=== PATIENT | female | born 1965 | race Caucasian/White ===

== ENCOUNTER 2016-08-06 08:24 | Day surgery (SDC) | payer MEDICARE, OTHER ==
[2016-07-27 15:23] VITALS: BMI 37.3
[~2016-08-06 08:24] MED LIST: LACTATED RINGERS 1,000 ML IV SCH
[2016-08-06 08:36] VITALS: RESP 16; TEMP 96.9
[2016-08-06] MEDS ORDERED: LIDOCAINE 1% 20 ML VIAL (10MG/ML) FOR IV START INTRADERMA ONE (08:40)
[2016-08-06] MEDS ORDERED: MIDAZOLAM 2 MG/2 ML VIAL ONE (08:49)
[2016-08-06] MEDS ORDERED: TRIAMCINOLONE ACETONIDE 40 MG/ML 1 ML VIAL ONE (08:49)
[2016-08-06] MEDS ORDERED: fentaNYL (PF) 50 MCG/ML 2 ML AMP ONE (08:49)
[2016-08-06] MEDS ORDERED: BUPIVACAINE (PF) 0.5% 30 ML VIAL ONE (08:49)
--- NOTE | 2016-08-06 09:20 | P.PCN ---
Date of Procedure: 08/06/16 Procedure(s) Performed: Preoperative diagnoses= 1-bilateral sacroiliitis. 2-lumbar spondylosis with lumbar facet arthropathy without myelopathy. Postoperative diagnoses= same as preoperative diagnosis. Procedure= bilateral sacroiliac joint steroid injection under fluoroscopic guidance. Anesthesia= conscious sedation with Versed 2 mg and fentanyl 150 micrograms and local infiltration with lidocaine 1% 4 ml Estimated blood loss=minimal. Procedure indication= the patient had a history of severe chronic low back pain , diagnosed with sacroiliitis and lumbar sacral facet arthropathy unresponsive to conservative treatment. Procedure description= the patient was seen and identified in the preoperative holding area, risks and benefits and alternative of the procedure and possible complications discussed with the patient, and he agreed with the preceding, patient signed the consent, an IV was started, and vital signs were monitored and were stable throughout the procedure, patient was placed in the prone position or table and the lumbosacral area was prepped and draped with a sterile fashion, vital signs were closely monitored during the procedure, the fluoroscopy camera was placed in the contralateral oblique view on the right sacroiliac joint and the lower part of the joint was identified, local infiltration of the skin and subcutaneous tissue with lidocaine 1% 2 mL then a 22-gauge Quincke-type spinal needle advanced slowly under fluoroscopy and placed in the posterior and inferior border of the right sacroiliac joint, placement confirmed with AP and lateral view, and after appropriate needle placement confirmed and after negative aspiration for heme and CSF and there was no paresthesia during the injection, 3 ml of Marcaine 0.5% and 40 mg of Kenalog injected after negative aspiration, the needle removed, and the entire same procedure was repeated for the left sacroiliac joint Patient tolerated the procedure well without any complication, The patient returned to supine position after the back was cleaned and a Band- Aid applied, the patient transported to recovery room in stable condition and he was monitored for 30 minutes before he was discharged home and then patient was reexamined before going home and patient was discharged in stable condition and patient will follow up with the pain clinic in a few weeks
[2016-08-06] MEDS ORDERED: IV FLUID CONTINUATION 1,000 ML IV ONE (09:27)
--- NOTE | 2016-08-06 09:29 | FL ---
Fluoroscopy History: BILATERAL SI JOINTS bilateral SI joints; FL time 12 seconds; Dr. Salinas; 2 scanned films
[2016-08-06 09:47] VITALS: BP 146/95; PULSE 61
== END 2016-08-06 09:58 | disposition home or self-care (01) ==
LOC: ORPAIN 08:24
PROVIDERS: ATTEND Specialist
DX: M46.1 Sacroiliitis, not elsewhere classified (principal); M47.816 Spondylosis without myelopathy or radiculopathy, lumbar region; M46.96 Unspecified inflammatory spondylopathy, lumbar region; G89.29 Other chronic pain; Z88.0 Allergy status to penicillin
CPT/HCPCS: J2250; J3301; J3010; G0260

== ENCOUNTER → 2016-09-25 | Outpatient (CLI) | payer MEDICARE ==
[2016-09-25 11:33] VITALS: BP 134/84; PULSE 93; RESP 18; TEMP 97.8
--- NOTE | 2016-09-25 11:42 | P.PN ---
Progress Note - Text Patient returns for followup for chronic back and hip pain with radiation to bilateral legs. Patient continues to complain of low back and hip pain and underwent SIJ injection x 1 with 1-2 weeks' relief. Medication regimen previously adjusted to oxycodone/baclofen/Lyrica and this regimen is working well fo rher. Patient denies adverse drug effects from medications. Today, pt denies new-onset weakness, bowel/bladder incontinence, or any other signs or symptoms of cauda equina syndrome. There are no signs of acute intoxication, and no indications of medication diversion or overuse. In addition to above, 13-point review of systems is also negative for chest pain , shortness of breath, changes in vision, changes in hearing, new onset weakness , abdominal pain, diarrhea, extreme fatigue, malaise, fever, skin changes, homicidal or suicidal ideation, or bowel or bladder incontinence. Vital Signs: Reviewed in EMR Gen: WDWN, AAOx3, NAD, obese HEENT: NCAT, EOMI, hearing grossly normal Pulm: resp unlabored Abd: soft, NT, ND, obese Neck: supple, trachea midline ROM in flexion lumbar spine: reduced due to pain ROM in extension lumbar spine: reduced due to pain Lumbar paravertebral tenderness: + Facet loading: + SI joint tenderness: + bilaterally, R > L Kirk's test: ++ bilateral, R >> L Neuro: CN II-XII grossly intact Imaging: Reviewed in EMR Assessment: 1. obesity 2. lumbar spondylosis without myelopathy 3. chronic pain syndrome 4. sacroiliitis Plan: 1. Explanation: Opioid and psychological risk scores were reviewed. Diagnoses , prognoses, and multiple treatment options including but not limited to physical therapy, interventional therapies, adjuvant medical therapies, narcotic medication therapies, and surgery were discussed with the patient and all questions were answered to the patient's satisfaction. 2. Opioid agreement: Patient has previously signed narcotic agreement, and was orally counseled to not overuse, abuse, divert, or cell medications, and to take them as prescribed by only 1 healthcare provider. The patient was also counseled to store opioid medications in a safe and preferably locked location. Patient was also counseled against driving while using narcotic medications and also to not use alcohol or any illicit or recreational drugs. The patient verbalized understanding that lack of compliance with any of the above and likely result in failure to renew narcotic prescriptions, possible discharge from the clinic, and possible legal ramifications thereafter if indicated. 3. Counseling: The patient was counseled extensively on BODY MASS INDEX, EXERCISE. Specifically, the patient was instructed regarding the importance of obesity, and exercise in the context of both chronic pain and overall health. 4. Procedures: repeat bilateral SIJ injection 5. Consultations: None 6. Investigations: None 7. Medications: continue oxycodone 15 mg po q8h, baclofen to 20 mg TID, and Lyrica 100 mg po TID 8. Disposition: f/u for procedure as scheduled in September; patient wishes to have T-spine evaluated for procedures; will do so after second SIJ injection completed next month. f/u 4 weeks for procedure and 8 weeks in clinic. PQRS measures: 1-Patient's medications are documented in the chart. 2-Tobacco use is positive, counseling given 3-Patient has had a pneumococcal vaccine. 4-Advanced care planning discussed, patient unable to give. 5-Opioid contract signed with the patient. 6-Pain positive, follow-up visit or procedure scheduled 7-Patient's blood pressure measured and documented, and patient will follow up with the primary care due to hypertension. 8-Patient's weight was measured, and body mass index ABOVE the normal limits, and counseling was done. Patient instructed to follow up with PCP. 9-Patient WAS NOT identified as an unhealthy alcohol user.
== END | disposition home or self-care (01) ==
LOC: PNWHC3 11:14
PROVIDERS: ATTEND Anesthesiology
DX: E66.9 Obesity, unspecified (principal); M47.816 Spondylosis without myelopathy or radiculopathy, lumbar region; G89.4 Chronic pain syndrome; M46.1 Sacroiliitis, not elsewhere classified; Z72.0 Tobacco use; I10 Essential (primary) hypertension
CPT/HCPCS: 99211

== ENCOUNTER 2016-10-22 08:25 | Day surgery (SDC) | payer MEDICARE, OTHER ==
[2016-10-18 09:46] VITALS: BMI 36.6
[2016-10-22 09:15] VITALS: RESP 16; TEMP 98
[2016-10-22] MEDS ORDERED: LIDOCAINE 1% 20 ML VIAL (10MG/ML) FOR IV START INTRADERMA ONE (09:15)
[2016-10-22] MEDS ORDERED: fentaNYL (PF) 50 MCG/ML 2 ML AMP ONE (09:38)
[2016-10-22] MEDS ORDERED: TRIAMCINOLONE ACETONIDE 40 MG/ML 1 ML VIAL ONE (09:38)
[2016-10-22] MEDS ORDERED: BUPIVACAINE (PF) 0.5% 30 ML VIAL ONE (09:38)
[2016-10-22] MEDS ORDERED: MIDAZOLAM 2 MG/2 ML VIAL ONE (09:38)
--- NOTE | 2016-10-22 09:54 | P.PCN ---
Date of Procedure: 10/22/16 Preoperative Diagnosis: Bilateral sacroiliitis Postoperative Diagnosis: Same as above Procedure(s) Performed: Bilateral sacroiliac joint steroid injection under fluoroscopic guidance Anesthesia: MAC Surgeon: Malachi Bruner Pathology: none sent Condition: stable Disposition: PACU Description of Procedure: The patient was seen in preop holding area consent was obtained then she was brought into the procedure room and placed in prone position. Skin was prepped with ChloraPrep and draped in a sterile manner. Lidocaine 1% was used to numb the skin up at the target points that were chosen as follows: I started by doing the right sacroiliac joint the C-arm was tilted to the left oblique position to superimpose the anterior and posterior joint lines on each other and to get a unified joint line and the target point was at the inferior one third of this joint line. I used 22-gauge 3-1/2 inch Quincke spinal needle for this procedure and after getting into the sacroiliac joint then injected 20 mg of Kenalog +2.5 MLS of Marcaine 0.5%. The left side was done in the same manner and the total dose of steroids given for this procedure was 40 mg. we used to milligrams of Versed IV and 100 mg of fentanyl IV for sedation.
[2016-10-22] MEDS ORDERED: IV FLUID CONTINUATION 1,000 ML IV ONE (09:58)
[2016-10-22 10:28] VITALS: BP 160/92; PULSE 62
--- NOTE | 2016-10-22 10:33 | FL ---
FLUOROSCOPY 8 seconds of fluoroscopy time were utilized during Pain Injection. 2 images document the procedure.
== END 2016-10-22 10:34 | disposition home or self-care (01) ==
LOC: ORPAIN 08:25
PROVIDERS: ATTEND Anesthesiology
DX: M46.1 Sacroiliitis, not elsewhere classified (principal); Z88.0 Allergy status to penicillin
CPT/HCPCS: J2250; J3301; J3010; G0260

== ENCOUNTER → 2016-11-27 | Outpatient (CLI) | payer MEDICARE ==
[2016-11-27 14:12] VITALS: BP 145/100; PULSE 69; RESP 18; TEMP 98.2
--- NOTE | 2016-11-27 14:25 | P.PN ---
Progress Note - Text Patient returns for followup for chronic back and hip pain with radiation to bilateral legs. Patient continues to complain of low back and hip pain and underwent SIJ injection x 2with 1-2 weeks' relief from each one. Medication regimen previously adjusted to oxycodone/baclofen/Lyrica and this regimen is working well for her. Patient denies adverse drug effects from medications. Today, pt denies new-onset weakness, bowel/bladder incontinence, or any other signs or symptoms of cauda equina syndrome. There are no signs of acute intoxication, and no indications of medication diversion or overuse. In addition to above, 13-point review of systems is also negative for chest pain , shortness of breath, changes in vision, changes in hearing, new onset weakness , abdominal pain, diarrhea, extreme fatigue, malaise, fever, skin changes, homicidal or suicidal ideation, or bowel or bladder incontinence. Vital Signs: Reviewed in EMR Gen: WDWN, AAOx3, NAD, obese HEENT: NCAT, EOMI, hearing grossly normal Pulm: resp unlabored Abd: soft, NT, ND, obese Neck: supple, trachea midline Tender to deep palpation in thoracic spine bilaterally, worst over T9-T10 area ROM in flexion lumbar spine: reduced due to pain ROM in extension lumbar spine: reduced due to pain Lumbar paravertebral tenderness: + Facet loading: + SI joint tenderness: + bilaterally, R > L Kirk's test: ++ bilateral, R >> L Neuro: CN II-XII grossly intact Imaging: Reviewed in EMR Assessment: 1. obesity 2. lumbar spondylosis without myelopathy 3. chronic pain syndrome 4. sacroiliitis Plan: 1. Explanation: Opioid and psychological risk scores were reviewed. Diagnoses , prognoses, and multiple treatment options including but not limited to physical therapy, interventional therapies, adjuvant medical therapies, narcotic medication therapies, and surgery were discussed with the patient and all questions were answered to the patient's satisfaction. 2. Opioid agreement: Patient has previously signed narcotic agreement, and was orally counseled to not overuse, abuse, divert, or cell medications, and to take them as prescribed by only 1 healthcare provider. The patient was also counseled to store opioid medications in a safe and preferably locked location. Patient was also counseled against driving while using narcotic medications and also to not use alcohol or any illicit or recreational drugs. The patient verbalized understanding that lack of compliance with any of the above and likely result in failure to renew narcotic prescriptions, possible discharge from the clinic, and possible legal ramifications thereafter if indicated. 3. Counseling: The patient was counseled extensively on BODY MASS INDEX, EXERCISE. Specifically, the patient was instructed regarding the importance of obesity, and exercise in the context of both chronic pain and overall health. 4. Procedures: SI RFA, right vs. left 5. Consultations: None 6. Investigations: UDS today 7. Medications: continue oxycodone 15 mg po q8h, baclofen to 20 mg TID, and Lyrica 100 mg po TID 8. Disposition: f/u for R vs. L SI RFA as scheduled PQRS measures: 1-Patient's medications are documented in the chart. 2-Tobacco use is positive, counseling given 3-Patient has had a pneumococcal vaccine. 4-Advanced care planning discussed, patient unable to give. 5-Opioid contract signed with the patient. 6-Pain positive, follow-up visit or procedure scheduled 7-Patient's blood pressure measured and documented, and patient will follow up with the primary care due to hypertension. 8-Patient's weight was measured, and body mass index ABOVE the normal limits, and counseling was done. Patient instructed to follow up with PCP. 9-Patient WAS NOT identified as an unhealthy alcohol user.
== END ==
LOC: PNWHC3 13:57
PROVIDERS: ATTEND Anesthesiology
DX: M47.816 Spondylosis without myelopathy or radiculopathy, lumbar region (principal); M46.1 Sacroiliitis, not elsewhere classified; G89.4 Chronic pain syndrome; E66.9 Obesity, unspecified; Z79.891 Long term (current) use of opiate analgesic; Z79.899 Other long term (current) drug therapy
CPT/HCPCS: 80307; G0480; G0463; 80346; 80356; 80364; 99211

== ENCOUNTER → 2016-12-25 | Outpatient (CLI) | payer MEDICARE ==
[2016-12-25 13:56] VITALS: BP 127/87; PULSE 83; RESP 16; TEMP 98.3
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
== END | disposition home or self-care (01) ==
LOC: PNWHC3 13:34
PROVIDERS: ATTEND Specialist
DX: M51.26 Other intervertebral disc displacement, lumbar region (principal); M47.816 Spondylosis without myelopathy or radiculopathy, lumbar region; M46.96 Unspecified inflammatory spondylopathy, lumbar region; M46.1 Sacroiliitis, not elsewhere classified; F17.200 Nicotine dependence, unspecified, uncomplicated; J45.909 Unspecified asthma, uncomplicated; J44.9 Chronic obstructive pulmonary disease, unspecified; I25.10 Atherosclerotic heart disease of native coronary artery without angina pectoris; R07.9 Chest pain, unspecified; E78.5 Hyperlipidemia, unspecified; I10 Essential (primary) hypertension; I25.2 Old myocardial infarction; Z99.89 Dependence on other enabling machines and devices; Z86.14 Personal history of Methicillin resistant Staphylococcus aureus infection; Z88.0 Allergy status to penicillin; Z79.899 Other long term (current) drug therapy
CPT/HCPCS: 99211

== ENCOUNTER → 2017-01-04 | Outpatient (CLI) | payer MEDICARE ==
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
--- NOTE | 2017-01-04 08:31 | MR ---
EXAMINATION TYPE: MR thoracic spine wo con DATE OF EXAM: 01/04/2017 8:21 AM COMPARISON: January 13, 2015 HISTORY: tsp spondylosis, severe pain for years Multiplanar MultiSpin echo imaging of the thoracic spine was performed. Disc spaces: No evidence for herniation protrusion or significant degenerative disc disease. Spinal canal: No evidence for canal stenosis. No intrinsic or extrinsic lesion. Thoracic spinal cord: Thoracic spinal cord is of normal caliber and signal. Paraspinal soft tissues: No evidence for paraspinal mass. No destructive lesions seen. Vertebral segments: There is mild thoracic kyphosis noted. Mild chronic osteophyte is identified at T 5. No acute compression fractures are noted. There is evidence of ventral spondylosis. IMPRESSION: 1. Overall stable examination with mild loss of height involving the T5 vertebral segment which is ch ronic in nature and mild thoracic kyphosis. Scattered spondylosis. No evidence for disc herniation or central stenosis at this time.
== END | disposition home or self-care (01) ==
LOC: RADMRIMAIN 07:44
PROVIDERS: ATTEND Anesthesiology
DX: M47.814 Spondylosis without myelopathy or radiculopathy, thoracic region (principal); M40.204 Unspecified kyphosis, thoracic region
CPT/HCPCS: 72146

== ENCOUNTER 2017-01-31 07:51 | Day surgery (SDC) | payer MEDICARE ==
[~2017-01-31 07:51] MED LIST changes: +LACTATED RINGERS 1,000 ML IV ONE; -LACTATED RINGERS 1,000 ML IV SCH
[2017-01-31 08:19] VITALS: TEMP 98.1
[2017-01-31] MEDS ORDERED: LIDOCAINE 1% 20 ML VIAL (10MG/ML) FOR IV START INTRADERMA ONE (08:31)
[2017-01-31] MEDS ORDERED: MIDAZOLAM 2 MG/2 ML VIAL ONE (08:37)
[2017-01-31] MEDS ORDERED: DEXAMETHASONE SOD PHOS (MDV) 100 MG/10 ML VIAL ONE (08:37)
[2017-01-31] MEDS ORDERED: IOHEXOL 180 MG/ML 1 ML ML ONE (08:37)
[2017-01-31] MEDS ORDERED: fentaNYL (PF) 50 MCG/ML 2 ML AMP ONE (08:37)
--- NOTE | 2017-01-31 08:53 | P.PCN ---
Date of Procedure: 01/31/17 Preoperative Diagnosis: Postoperative Diagnosis: Procedure(s) Performed: PREOPERATIVE DIAGNOSIS: 1- Lumbar herniated Disc Diseases 2-Lumbar spondylosis with Facet arthropathy without myelopathy. 3-sacroiliitis POSTOPERATIVE DIAGNOSIS: 1-Lumber herniated Disc Diseases 2-Lumbar spondylosis with Facet arthropathy without myelopathy. 3-sacroiliitis PROCEDURE 1. Lumbar epidural steroid injection under fluoroscopic guidance at the L5-S1 level. 2. Lumbar epidurogram. ANESTHESIA: Local with 1% lidocaine 3 ml and IV sedation with Versed 2 mg , and fentanyle 50 Mcg EBL: Minimal PROCEDURE INDICATION: The patient with low back pain and radiculitis symptoms unresponsive to conservative treatment. Fluoroscopy was used to optimize visualization of the needle placement and to maximize safety. PROCEDURE DESCRIPTION / TECHNIQUE: The patient was seen and identified in the preoperative area. Risks, benefits , complications including but not limited to infections ,bleeding ,allergic reaction to the medications ,nerve damage and not complete pain releife , and alternatives were discussed with the patient. The patient agreed to proceed with the procedure and signed the consent. IV was started, and vital signs were stable. Patient was taken to the OR and time out was completed. The patient was placed in the prone position on procedure table and a pillow was placed under the abdomen to reduce lumbar lordosis. The lumbosacral area was prepped and draped in the usual sterile fashion.ere closely monitored during the procedure. Conscious sedation was used during the procedure to decrease patients anxiety. Vital signs was monitered during the entire procedure. Using anterior-posterior fluoroscopy, the L5-S1 interlaminar space was identified and the skin over this site was marked and then infiltrated with 1% lidocaine subcutaneously. Subsequently, a 20-gauge Tuohy epidural needle was inserted and advanced toward the epidural space using the ``Loss of resistance technique and guided by AP and lateral fluoroscopy. The correct needle position in the epidural space was verified with the injection of 2 mL of the water soluble contrast dye Omnipaque 180 contrast and observing an excellent epidurogram with the epidural spread of the dye, after negative aspiration for blood and CSF and in the absence of paresthesias. Again after negative aspiration, a 6 ml mixture containing 20 mg of Dexamethasone and 2 ml of preservative free Normal Saline, and 2 ml of preservative free lidocaine 1% solution was injected and a washout of epidurogram was seen. Needle was withdrawn intact, skin was cleansed, and bandages were applied. COMPLICATIONS: None DISPOSITION / PLANS: The patient was placed in a supine position and transferred to the recovery area in a stable condition for observation. There was no evidence of lower extremity motor or sensory deficit after the procedure. Patient was discharged from the recovery room after meeting discharge criteria. Home discharge instructions were given to the patient by the staff. The patient was reexamined prior to discharge. The patient will schedule a follow up in the clinic in 2-4 weeks. Implants: Indications for Procedure: Operative Findings: Description of Procedure:
[2017-01-31] MEDS ORDERED: IV FLUID CONTINUATION 800 ML IV ONE (09:00)
--- NOTE | 2017-01-31 09:00 | FL ---
FLUOROSCOPY 5 seconds of fluoroscopy time were utilized during Pain Injection. 1 images document the procedure.
[2017-01-31 09:33] VITALS: BP 154/93; PULSE 76; RESP 16
== END 2017-01-31 09:34 | disposition home or self-care (01) ==
LOC: ORPAIN 07:51
PROVIDERS: ATTEND Specialist
DX: M51.16 Intervertebral disc disorders with radiculopathy, lumbar region (principal); M47.26 Other spondylosis with radiculopathy, lumbar region; M46.96 Unspecified inflammatory spondylopathy, lumbar region; M46.1 Sacroiliitis, not elsewhere classified; Z88.0 Allergy status to penicillin
CPT/HCPCS: 81025; 62323; J2250; Q9965; J3010; J1100

== ENCOUNTER 2017-02-27 06:57 | Day surgery (SDC) | payer MEDICARE ==
[2017-02-20 15:14] VITALS: BMI 38.7
[2017-02-27 07:20] VITALS: TEMP 97.7
[2017-02-27] MEDS ORDERED: LIDOCAINE 1% 20 ML VIAL (10MG/ML) FOR IV START INTRADERMA ONE (07:35)
[2017-02-27] MEDS ORDERED: LACTATED RINGERS 1,000 ML IV SCH (08:00)
--- NOTE | 2017-02-27 08:26 | P.PCN ---
Date of Procedure: 02/27/17 Preoperative Diagnosis: Lumbar radiculopathy Postoperative Diagnosis: Lumbar radiculopathy Procedure(s) Performed: Lumbar epidural steroid injection under fluoroscopic guidance in the interlaminar approach Implants: Anesthesia: other (Moderate conscious sedation with IV fentanyl and Versed) Surgeon: Malachi Bruner Pathology: none sent Condition: stable Disposition: PACU Indications for Procedure: Operative Findings: Description of Procedure: The patient was seen in the preop holding area consent was obtained then she was brought into the procedure room and placed in prone position. Skin was prepped with Betadine 3 and draped in a sterile manner. Lidocaine 1% was used to numb the skin up at the target point that was at the L5-S1 level in the right paramedian approach. I used 20-gauge 3-1/2 inch Touhy epidural needle with [id number] to air to identify the epidural space. There was positive [id number]-[id number] to air at about 10 cm from skin negative aspiration for any CSF or blood negative paresthesia. I then injected 1 mL of Omnipaque which showed typical epidurogram with AP and lateral views of fluoroscopy. After that I injected 40 mg of Kenalog +2 MLS of Marcaine 0.25% +4 MLS of preservative-free normal saline to a total volume of 7 MLS in epidural space. Patient tolerated procedure well.
[2017-02-27 08:37] VITALS: BP 139/64; RESP 18
[2017-02-27] MEDS ORDERED: IV FLUID CONTINUATION 1,000 ML IV ONE (08:40)
[2017-02-27 08:47] VITALS: PULSE 65
--- NOTE | 2017-02-27 10:17 | FL ---
Fluoroscopy HISTORY: Pain 5 seconds fluoroscopy time supplied to the referring clinician. 2 intraoperative C-arm images docume nt the procedure. See dictated report from anesthesia.
== END 2017-02-27 09:07 | disposition home or self-care (01) ==
LOC: ORPAIN 06:57
PROVIDERS: ATTEND Anesthesiology
DX: M51.17 Intervertebral disc disorders with radiculopathy, lumbosacral region (principal); I10 Essential (primary) hypertension; I25.10 Atherosclerotic heart disease of native coronary artery without angina pectoris; Z88.0 Allergy status to penicillin
CPT/HCPCS: 62323; J2250; J3301; Q9965; J3010; 99152; 99153

== ENCOUNTER 2017-03-19 06:23 | Day surgery (SDC) | payer MEDICARE ==
[2017-03-13 15:13] VITALS: BMI 38.7
[~2017-03-19 06:23] MED LIST changes: -LACTATED RINGERS 1,000 ML IV ONE; +LACTATED RINGERS 1,000 ML IV SCH
[2017-03-19 06:50] VITALS: RESP 16; TEMP 98.9
[2017-03-19] MEDS ORDERED: LIDOCAINE 1% 20 ML VIAL (10MG/ML) FOR IV START INTRADERMA ONE (06:52)
[2017-03-19] MEDS ORDERED: IV FLUID CONTINUATION 1,000 ML IV ONE (06:52)
--- NOTE | 2017-03-19 07:59 | FL ---
EXAMINATION TYPE: FL guided pain mgmt statistic DATE OF EXAM: 03/19/2017 HISTORY: Pain 4 sec fl time used during lumbar epidural 1 image scanned into pacs
[2017-03-19 08:14] VITALS: BP 146/100; PULSE 76
--- NOTE | 2017-03-19 08:24 | P.PCN ---
Date of Procedure: 03/19/17 Preoperative Diagnosis: Postoperative Diagnosis: Procedure(s) Performed: PREOPERATIVE DIAGNOSIS: 1- Lumbar herniated Disc Diseases 2-Lumbar spondylosis with Facet arthropathy without myelopathy POSTOPERATIVE DIAGNOSIS: 1-Lumber herniated Disc Diseases 2-Lumbar spondylosis with Facet arthropathy without myelopathy PROCEDURE 1. Lumbar epidural steroid injection under fluoroscopic guidance at the L5-S1 level. 2. Lumbar epidurogram. ANESTHESIA: Local with 1% lidocaine 3 ml and IV sedation with Versed 2 mg , and fentanyle 50 Mcg EBL: Minimal PROCEDURE INDICATION: The patient with low back pain and radiculitis symptoms unresponsive to conservative treatment. Fluoroscopy was used to optimize visualization of the needle placement and to maximize safety. PROCEDURE DESCRIPTION / TECHNIQUE: The patient was seen and identified in the preoperative area. Risks, benefits , complications including but not limited to infections ,bleeding ,allergic reaction to the medications ,nerve damage and not complete pain releife , and alternatives were discussed with the patient. The patient agreed to proceed with the procedure and signed the consent. IV was started, and vital signs were stable. Patient was taken to the OR and time out was completed. The patient was placed in the prone position on procedure table and a pillow was placed under the abdomen to reduce lumbar lordosis. The lumbosacral area was prepped and draped in the usual sterile fashion.ere closely monitored during the procedure. Conscious sedation was used during the procedure to decrease patients anxiety. Vital signs was monitered during the entire procedure. Using anterior-posterior fluoroscopy, the L5-S1 interlaminar space was identified and the skin over this site was marked and then infiltrated with 1% lidocaine subcutaneously. Subsequently, a 20-gauge Tuohy epidural needle was inserted and advanced toward the epidural space using the ``Loss of resistance technique and guided by AP and lateral fluoroscopy. The correct needle position in the epidural space was verified with the injection of 2 mL of the water soluble contrast dye Omnipaque 180 contrast and observing an excellent epidurogram with the epidural spread of the dye, after negative aspiration for blood and CSF and in the absence of paresthesias. Again after negative aspiration, a 6 ml mixture containing 20 mg of Dexamethasone and 2 ml of preservative free Normal Saline, and 2 ml of preservative free lidocaine 1% solution was injected and a washout of epidurogram was seen. Needle was withdrawn intact, skin was cleansed, and bandages were applied. COMPLICATIONS: None DISPOSITION / PLANS: The patient was placed in a supine position and transferred to the recovery area in a stable condition for observation. There was no evidence of lower extremity motor or sensory deficit after the procedure. Patient was discharged from the recovery room after meeting discharge criteria. Home discharge instructions were given to the patient by the staff. The patient was reexamined prior to discharge. The patient will schedule a follow up in the clinic in 2-4 weeks. Implants: Indications for Procedure: Operative Findings: Description of Procedure:
== END 2017-03-19 08:28 | disposition home or self-care (01) ==
LOC: ORPAIN 06:23
PROVIDERS: ATTEND Specialist
DX: M47.816 Spondylosis without myelopathy or radiculopathy, lumbar region (principal)
CPT/HCPCS: 62323; 99152; J2250; J1100; Q9965; J3010

== ENCOUNTER → 2017-05-14 | Outpatient (CLI) | payer MEDICARE ==
[2017-05-14 12:38] VITALS: BP 151/95; PULSE 80; RESP 16
--- NOTE | 2017-05-14 12:50 | P.PN ---
Progress Note - Text Progress Note Date: 05/14/17 Patient returns for followup for chronic back and hip pain with radiation to bilateral legs. Patient had very limited relief from LESI procedures and previous records demonstrate that patient had better relief with SIJ injections. Medication regimen previously adjusted to oxycodone/baclofen/ Lyrica and this regimen is working well for her. Patient denies adverse drug effects from medications. Today, pt denies new-onset weakness, bowel/bladder incontinence, or any other signs or symptoms of cauda equina syndrome. There are no signs of acute intoxication, and no indications of medication diversion or overuse. In addition to above, 13-point review of systems is also negative for chest pain , shortness of breath, changes in vision, changes in hearing, new onset weakness , abdominal pain, diarrhea, extreme fatigue, malaise, fever, skin changes, homicidal or suicidal ideation, or bowel or bladder incontinence. Vital Signs: Reviewed in EMR Gen: WDWN, AAOx3, NAD, obese HEENT: NCAT, EOMI, hearing grossly normal Pulm: resp unlabored Abd: soft, NT, ND, obese Neck: supple, trachea midline ROM in flexion lumbar spine: reduced due to pain ROM in extension lumbar spine: reduced due to pain Lumbar paravertebral tenderness: + Facet loading: + SI joint tenderness: + bilaterally, R > L Kirk's test: ++ bilateral, R >> L Neuro: CN II-XII grossly intact Imaging: Reviewed in EMR Assessment: 1. obesity 2. lumbar spondylosis without myelopathy 3. chronic pain syndrome 4. sacroiliitis Plan: 1. Explanation: Opioid and psychological risk scores were reviewed. Diagnoses , prognoses, and multiple treatment options including but not limited to physical therapy, interventional therapies, adjuvant medical therapies, narcotic medication therapies, and surgery were discussed with the patient and all questions were answered to the patient's satisfaction. 2. Opioid agreement: Patient has previously signed narcotic agreement, and was orally counseled to not overuse, abuse, divert, or cell medications, and to take them as prescribed by only 1 healthcare provider. The patient was also counseled to store opioid medications in a safe and preferably locked location. Patient was also counseled against driving while using narcotic medications and also to not use alcohol or any illicit or recreational drugs. The patient verbalized understanding that lack of compliance with any of the above and likely result in failure to renew narcotic prescriptions, possible discharge from the clinic, and possible legal ramifications thereafter if indicated. 3. Counseling: The patient was counseled extensively on BODY MASS INDEX, EXERCISE. Specifically, the patient was instructed regarding the importance of obesity, and exercise in the context of both chronic pain and overall health. 4. Procedures: SIJ injection bilateral 5. Consultations: None 6. Investigations: UDS appropriate 7. Medications: continue oxycodone 15 mg po q8h, baclofen to 20 mg TID, and Lyrica 100 mg po TID 8. Disposition: f/u for procedure as scheduled PQRS measures: 1-Patient's medications are documented in the chart. 2-Tobacco use is positive, counseling given 3-Patient has had a pneumococcal vaccine. 4-Advanced care planning discussed, patient unable to give. 5-Opioid contract signed with the patient. 6-Pain positive, follow-up visit or procedure scheduled 7-Patient's blood pressure measured and documented, and patient will follow up with the primary care due to hypertension. 8-Patient's weight was measured, and body mass index ABOVE the normal limits, and counseling was done. Patient instructed to follow up with PCP. 9-Patient WAS NOT identified as an unhealthy alcohol user.
== END | disposition home or self-care (01) ==
LOC: PNWHC3 12:18
PROVIDERS: ATTEND Anesthesiology
DX: M47.816 Spondylosis without myelopathy or radiculopathy, lumbar region (principal); M46.1 Sacroiliitis, not elsewhere classified; G89.4 Chronic pain syndrome; E66.9 Obesity, unspecified
CPT/HCPCS: 99211

== ENCOUNTER 2017-06-24 07:27 | Day surgery (SDC) | payer MEDICARE ==
[2017-06-18 16:06] VITALS: BMI 37.7
[2017-06-24 07:44] VITALS: RESP 16; TEMP 98
[2017-06-24] MEDS ORDERED: LIDOCAINE 1% 20 ML VIAL (10MG/ML) FOR IV START INTRADERMA ONE (07:49)
--- NOTE | 2017-06-24 08:25 | P.PCN ---
Date of Procedure: 06/24/17 Preoperative Diagnosis: Bilateral sacroiliitis Postoperative Diagnosis: Same as above Procedure(s) Performed: Bilateral sacroiliac joint steroid injection under fluoroscopic guidance Anesthesia: MAC (Consciousness with IV Versed and fentanyl) Surgeon: Malachi Bruner Pathology: none sent Condition: stable Disposition: PACU Description of Procedure: the patient was seen and identified in the preoperative holding area, risks and benefits and alternative of the procedure and possible complications discussed with the patient, patient signed the consent. an IV was started, and vital signs were monitored and were stable throughout the procedure, patient was placed in the prone position or table and the lumbosacral area was prepped and draped with a sterile fashion, vital signs were closely monitored during the procedure.The right sacroiliac joint was identified on the AP view of fluoroscopy then the C-arm was tilted to the left oblique position to superimpose the anterior and posterior joint lines on each other and to have a unified joint line with the target point at the inferior one third of this line. I used 22-gauge 3-1/2 inch Quincke spinal needle for this procedure and after getting into the sacroiliac joint I injected 20 mg of Kenalog +2.5 MLS of Marcaine 0.5%. The same procedure was repeated on the left side by tilting the C-arm to the right oblique position this time. At the target point was also at the inferior one third of this unified joint line. Using a 22-gauge 3-1/2 inch Quincke spinal needle I injected 20 mg of Kenalog plus 2.5 MLS of Marcaine 0.5% . Patient tolerated the procedure well without any complication, The patient returned to supine position after the back was cleaned and a Band- Aid applied, the patient transported to recovery room in stable condition and he was monitored for 30 minutes before he was discharged home and then patient was reexamined before going home and patient was discharged in stable condition and patient will follow up with the pain clinic in a few weeks
[2017-06-24 08:58] VITALS: BP 138/77; PULSE 94
--- NOTE | 2017-06-24 09:34 | FL ---
EXAMINATION TYPE: FL guided pain mgmt statistic DATE OF EXAM: 06/24/2017 FLUOROSCOPY Fluoroscopy time of 6 seconds was used during bilateral SI joint injection. 2 image/s document/s the procedure.
== END 2017-06-24 09:16 | disposition home or self-care (01) ==
LOC: ORPAIN 07:27
PROVIDERS: ATTEND Anesthesiology
DX: M46.1 Sacroiliitis, not elsewhere classified (principal); I10 Essential (primary) hypertension; I25.10 Atherosclerotic heart disease of native coronary artery without angina pectoris; G47.33 Obstructive sleep apnea (adult) (pediatric); Z88.0 Allergy status to penicillin
CPT/HCPCS: G0260; J2250; J3301; J3010

== ENCOUNTER 2017-07-30 06:48 | Day surgery (SDC) | payer MEDICARE ==
[2017-07-30] MEDS ORDERED: LACTATED RINGERS 1,000 ML IV ONE (07:00)
[2017-07-30] MEDS ORDERED: LIDOCAINE 1% 20 ML VIAL (10MG/ML) FOR IV START INTRADERMA ONE (07:06)
[2017-07-30] MEDS ORDERED: LACTATED RINGERS 1,000 ML IV SCH (07:07)
--- NOTE | 2017-07-30 07:37 | P.PCN ---
Date of Procedure: 07/30/17 Procedure(s) Performed: Preoperative diagnoses= 1-bilateral sacroiliitis. 2-lumbar spondylosis with facet arthropathy without myelopathy. 3- lumbar herniated disc disease Postoperative diagnoses= same as preoperative diagnosis. Procedure= bilateral sacroiliac joint steroid injection under fluoroscopic guidance. Anesthesia= moderate sedation with Versed 2 mg and fentanyl 100 micrograms and local infiltration with lidocaine 1% 4 ml Estimated blood loss=minimal. Procedure indication= the patient had a history of severe chronic low back pain , diagnosed with sacroiliitis and lumbar sacral facet arthropathy unresponsive to conservative treatment. Procedure description= the patient was seen and identified in the preoperative holding area, risks and benefits and alternative of the procedure and possible complications discussed with the patient, and he agreed with the preceding, patient signed the consent, an IV was started, and vital signs were monitored and were stable throughout the procedure, patient was placed in the prone position or table and the lumbosacral area was prepped and draped with a sterile fashion, vital signs were closely monitored during the procedure, the fluoroscopy camera was placed in the contralateral oblique view on the right sacroiliac joint and the lower part of the joint was identified, local infiltration of the skin and subcutaneous tissue with lidocaine 1% 2 mL then a 22-gauge Quincke-type spinal needle advanced slowly under fluoroscopy and placed in the posterior and inferior border of the right sacroiliac joint, placement confirmed with AP and lateral view, and after appropriate needle placement confirmed and after negative aspiration for heme and CSF and there was no paresthesia during the injection, 3 ml of Marcaine 0.5% and 40 mg of Kenalog injected after negative aspiration, the needle removed, and the entire same procedure was repeated for the left sacroiliac joint Patient tolerated the procedure well without any complication, The patient returned to supine position after the back was cleaned and a Band- Aid applied, the patient transported to recovery room in stable condition and he was monitored for 30 minutes before he was discharged home and then patient was reexamined before going home and patient was discharged in stable condition and patient will follow up with the pain clinic in a few weeks
--- NOTE | 2017-07-30 07:40 | P.PN ---
Progress Note - Text Progress Note Date: 07/30/17 Refill for oxycodone 15 mg every 8 hours dispense 90, Baclofen 20 mg 3 times a day dispense 90 , Lyrica 100 mg 3 times a day dispense 90
[2017-07-30] MEDS ORDERED: IV FLUID CONTINUATION 500 ML IV ONE (07:44)
--- NOTE | 2017-07-30 10:13 | FL ---
EXAMINATION TYPE: FL guided pain mgmt statistic DATE OF EXAM: 07/30/2017 HISTORY: Pain bilateral SI jt inj. Dr Salinas. 2 pics scanned. 8 sec fl time
[2017-07-31 22:55] VITALS: BP 124/72; PULSE 75; RESP 18; TEMP 98
== END 2017-07-30 08:14 | disposition home or self-care (01) ==
LOC: ORPAIN 06:48
PROVIDERS: ATTEND Specialist
DX: G89.29 Other chronic pain (principal); M46.1 Sacroiliitis, not elsewhere classified; M51.26 Other intervertebral disc displacement, lumbar region; M47.816 Spondylosis without myelopathy or radiculopathy, lumbar region; M46.96 Unspecified inflammatory spondylopathy, lumbar region; I25.10 Atherosclerotic heart disease of native coronary artery without angina pectoris; I10 Essential (primary) hypertension; J44.9 Chronic obstructive pulmonary disease, unspecified; G47.33 Obstructive sleep apnea (adult) (pediatric); Z88.0 Allergy status to penicillin
CPT/HCPCS: G0260; J2250; J3301; J3010; 99152

== ENCOUNTER → 2017-08-28 | Outpatient (CLI) | payer MEDICARE ==
[2017-08-28 13:43] VITALS: BP 118/71; PULSE 81; RESP 18
--- NOTE | 2017-08-28 14:00 | P.PN ---
Progress Note - Text Progress Note Date: 08/28/17 Patient returns for followup for chronic back and hip pain with radiation to bilateral legs. Patient recently underwent bilateral SIJ injections x 2 with > 50% relief for approximately 2 weeks' interval from each. Medication regimen previously adjusted to oxycodone/baclofen/Lyrica and this regimen is working well for her. Patient denies adverse drug effects from medications. Today, pt denies new-onset weakness, bowel/bladder incontinence, or any other signs or symptoms of cauda equina syndrome. There are no signs of acute intoxication, and no indications of medication diversion or overuse. In addition to above, 13-point review of systems is also negative for chest pain , shortness of breath, changes in vision, changes in hearing, new onset weakness , abdominal pain, diarrhea, extreme fatigue, malaise, fever, skin changes, homicidal or suicidal ideation, or bowel or bladder incontinence. Vital Signs: Reviewed in EMR Gen: WDWN, AAOx3, NAD, obese HEENT: NCAT, EOMI, hearing grossly normal Pulm: resp unlabored Abd: soft, NT, ND, obese Neck: supple, trachea midline ROM in flexion lumbar spine: reduced due to pain ROM in extension lumbar spine: reduced due to pain Lumbar paravertebral tenderness: + Facet loading: + SI joint tenderness: + bilaterally, R > L Kirk's test: ++ bilateral, R >> L Neuro: CN II-XII grossly intact Imaging: Reviewed in EMR Assessment: 1. obesity 2. lumbar spondylosis without myelopathy 3. chronic pain syndrome 4. sacroiliitis Plan: 1. Explanation: Opioid and psychological risk scores were reviewed. Diagnoses , prognoses, and multiple treatment options including but not limited to physical therapy, interventional therapies, adjuvant medical therapies, narcotic medication therapies, and surgery were discussed with the patient and all questions were answered to the patient's satisfaction. 2. Opioid agreement: Patient has previously signed narcotic agreement, and was orally counseled to not overuse, abuse, divert, or cell medications, and to take them as prescribed by only 1 healthcare provider. The patient was also counseled to store opioid medications in a safe and preferably locked location. Patient was also counseled against driving while using narcotic medications and also to not use alcohol or any illicit or recreational drugs. The patient verbalized understanding that lack of compliance with any of the above and likely result in failure to renew narcotic prescriptions, possible discharge from the clinic, and possible legal ramifications thereafter if indicated. 3. Counseling: The patient was counseled extensively on BODY MASS INDEX, EXERCISE. Specifically, the patient was instructed regarding the importance of obesity, and exercise in the context of both chronic pain and overall health. 4. Procedures: R SI RFA 5. Consultations: None 6. Investigations: UDS today 7. Medications: Oxycodone 15 mg po q8h #90 with one refill, baclofen 20 mg TID #90 with two refills, and Lyrica 100 mg po TID #90 with two refills 8. Disposition: f/u for procedure as scheduled PQRS measures: 1-Patient's medications are documented in the chart. 2-Tobacco use is positive, counseling given 3-Patient has had a pneumococcal vaccine. 4-Advanced care planning discussed, patient unable to give. 5-Opioid contract signed with the patient. 6-Pain positive, follow-up visit or procedure scheduled 7-Patient's blood pressure measured and documented, and patient will follow up with the primary care due to hypertension. 8-Patient's weight was measured, and body mass index ABOVE the normal limits, and counseling was done. Patient instructed to follow up with PCP. 9-Patient WAS NOT identified as an unhealthy alcohol user.
== END | disposition home or self-care (01) ==
LOC: PNWHC3 13:12
PROVIDERS: ATTEND Anesthesiology
DX: G89.4 Chronic pain syndrome (principal); M54.5 Low back pain; M47.816 Spondylosis without myelopathy or radiculopathy, lumbar region; M46.1 Sacroiliitis, not elsewhere classified; E66.9 Obesity, unspecified; F17.200 Nicotine dependence, unspecified, uncomplicated; Z79.899 Other long term (current) drug therapy; Z71.6 Tobacco abuse counseling; Z79.891 Long term (current) use of opiate analgesic
CPT/HCPCS: 80307; G0480 ×3; G0463; 80346; 80356; 80364; 99211

== ENCOUNTER 2017-09-05 08:45 | Day surgery (SDC) | payer MEDICARE ==
[2017-09-04 08:39] VITALS: BMI 35.9
[2017-09-05 09:16] VITALS: RESP 16; TEMP 97.2
[2017-09-05] MEDS ORDERED: LIDOCAINE 1% 20 ML VIAL (10MG/ML) FOR IV START INTRADERMA ONE (09:22)
--- NOTE | 2017-09-05 10:59 | P.PCN ---
Date of Procedure: 09/05/17 Procedure(s) Performed: PREOPERATIVE DIAGNOSIS: 1-Lumbosacral spondylosis with facet arthropathy without myelopathy. 2- Bilateral sacroiliit. post operative Diagnosis: . 1-Lumbosacral spondylosis with facet arthropathy without myelopathy. 2-Bilateral sacroiliit. PROCEDURES: 1- Right radiofrequency thermocoagulation/ablation of the L5 dorsal ramus. 2- Right multi-site radiofrequency thermocoagulation/ablation of the S1, S2, and S3 lateral branchs. The procedure was performed using fluoroscopic guidance during needle placement to assure proper position and maximize safety . ANESTHESIA: LOCAL ANESTHESIA = moderate sedation with Fentanyle 50 mcg IV EBL: NONE INDICATION/MEDICAL NECESSITY: History of low back pain secondary to bilateral sacroiliitis and lumbosacral arthropathy unresponsive to more conservative treatments. The patient reported more than 50% relief of pain symptoms following 2 previous diagnostic blocks with Bupivacaine. PROCEDURE DESCRIPTION: The patient was seen and identified in the preoperative area. Risks, benefits, complications, and alternatives were discussed with the patient. The patient agreed to proceed with the procedure and signed the consent. Vital signs were checked before and after the procedure and they remained stable. Patient ambulated to the procedure room and time out was completed. The patient was placed in the prone position on the procedure table and a pillow was placed under the abdomen to reduce lumbar lordosis. The lumbosacral area was prepped and draped in the usual sterile fashion. Critical pause was taken. L5 Dorsal Ramus RF: Using right oblique fluoroscopy, the junction of the transverse process and the superior articular process of the right S1 vertebra, which correspond to the fluoroscopic image of the "eye of the Jorge dog" was identified. Subsequently, a 10-cm 20 -gauge radiofrequency cannula with a 10-mm active tip was advanced under fluoroscopic guidance until contact was made with periosteum. At this level, the Sensory testing of the L5 dorsal ramus was performed at 50 Hz and 0 to 1 volt with production of concordant pain starting at 0.5 volt. Motor stimulation was done at 2.5 Hz with stimulation of mulitifidus muscle contration . No radicular symptoms or paresthesias were produced during the testing. Subsequently, the L5 dorsal ramus was subjected to a radiofrequency ablation at 80 degree celsius for 90 seconds . after 0.5% Bupivacaine 1 ml injected at each level after negative aspirations . S1, S3, Lateral Branch RF: The lateral margins of the Right S1, S2, foramina were identified using AP fluoroscopy. Under fluoroscopic guidance, three 10-cm 20 -gauge radiofrequency cannula with a 10-mm active tip were inserted at 8-10 mm peripheral to the posterior S1 foramen, at various locations using clock-face coordinates. The center of the clock was registered at the lateral margin of the foramen. The 2: 30, 4:00, and 5:30 oclock positions were used. At this level, the sensory testing of the S1 lateral branch was performed at 50 Hz and 0 to 1 volt at the three levels with production of concordant pain starting at 0.5 volt. Motor stimulation was done at 2.5 Hz. No radicular symptoms or paresthesias were produced during the testing. Subsequently, the S1 lateral branch was subjected to a radiofrequency ablation at a mode of 90 seconds at 80 degrees Celsius at the 3 levels after negative motor and sensory testing and after injecting 0.5 ml of preservative free Bupivacaine 0.5 %. The same procedure was performed at the level of the S2 foramen. For the S3 foramen, only the 2:30 and 4:00 o clock positions were used. Sensory and motor testing followed by radiofrequency ablation were performed as described for the S1 and S2 foramina. The needle was withdrawn intact after each injection. the plane was to do the RFA for the lateral branches for S3 also , But I was not able to see the S3 foramina , for this reason it was not done . COMPLICATIONS: The patient tolerated the procedure well without any acute complications. DISPOSTION/PLAN: The patient ambulated to the recovery area after the procedure in a stable condition for observation. Patient was reexamined prior to discharge. Patient was observed for 30 minutes in the recovery area and was discharged home, accompanied by an adult, after meeting discharged criteria. Discharge instructions were give to the patient by the staff. Patient was specifically instructed not to drive today and to rest for the rest of the day. The patient will schedule a follow up visit in the clinic in weeks or earlier if needed.
[2017-09-05] MEDS ORDERED: IV FLUID CONTINUATION 1,000 ML IV ONE (11:07)
--- NOTE | 2017-09-05 11:09 | FL ---
EXAMINATION TYPE: FL guided pain mgmt statistic DATE OF EXAM: 09/05/2017 CLINICAL HISTORY: Low back and sacral pain. TECHNIQUE: Fluoroscopy. COMPARISON: None. FINDINGS: Fluoroscopic guidance was provided during pain relief procedure performed by Dr. Wyatt . A total of 32 seconds of fluoroscopic time was utilized during the procedure and 8 spot images are acquired. Images acquired shows needle localization at multiple levels in the sacrum. IMPRESSION: As Above.
[2017-09-05 11:47] VITALS: BP 133/81; PULSE 67
== END 2017-09-05 12:15 | disposition home or self-care (01) ==
LOC: ORPAIN 08:45
PROVIDERS: ATTEND Specialist
DX: M47.817 Spondylosis without myelopathy or radiculopathy, lumbosacral region (principal); M46.1 Sacroiliitis, not elsewhere classified; I25.10 Atherosclerotic heart disease of native coronary artery without angina pectoris; I10 Essential (primary) hypertension; J45.909 Unspecified asthma, uncomplicated; Z88.0 Allergy status to penicillin
CPT/HCPCS: 64640; 64635; J3301; J3010; 99152; 99153

== ENCOUNTER 2017-09-26 07:27 | Day surgery (SDC) | payer MEDICARE ==
[2017-09-26] MEDS ORDERED: LIDOCAINE 1% 20 ML VIAL (10MG/ML) FOR IV START INTRADERMA ONE (08:28)
[2017-09-26 08:30] VITALS: TEMP 97.7
--- NOTE | 2017-09-26 09:44 | FL ---
EXAMINATION TYPE: FL guided pain mgmt statistic DATE OF EXAM: 09/26/2017 CLINICAL HISTORY: Low back and sacral pain. TECHNIQUE: Fluoroscopy. COMPARISON: None. FINDINGS: Fluoroscopic guidance was provided during pain relief procedure performed by Dr. Wyatt . A total of 20 seconds of fluoroscopic time was utilized during the procedure and 6 spot images are acquired. Images acquired shows needle localization at level of lumbosacral junction and upper sacr um off the midline. IMPRESSION: As Above.
[2017-09-26 09:49] VITALS: RESP 16
[2017-09-26 10:16] VITALS: BP 138/76; PULSE 71
--- NOTE | 2017-09-26 21:54 | P.PCN ---
Date of Procedure: 09/26/17 Procedure(s) Performed: PREOPERATIVE DIAGNOSIS: 1-Lumbosacral spondylosis with facet arthropathy without myelopathy. 2-Bilateral sacroiliit. post operative Diagnosis: . 1-Lumbosacral spondylosis with facet arthropathy without myelopathy. 2- Bilateral sacroiliit. PROCEDURES: 1- Left radiofrequency thermocoagulation/ablation of the L5 dorsal ramus. 2- Left multi-site radiofrequency thermocoagulation/ablation of the S1, S2, lateral branchs. ( S3 not done because the S3 foramina was not seen ) The procedure was performed using fluoroscopic guidance during needle placement to assure proper position and maximize safety . ANESTHESIA: LOCAL ANESTHESIA = moderate sedation with intravenous versed 1 mg and Fentanyle 100 mcg EBL: NONE INDICATION/MEDICAL NECESSITY: History of low back pain secondary to bilateral sacroiliitis and lumbosacral arthropathy unresponsive to more conservative treatments. The patient reported more than 50% relief of pain symptoms following 2 previous diagnostic blocks with Bupivacaine. PROCEDURE DESCRIPTION: The patient was seen and identified in the preoperative area. Risks, benefits, complications, and alternatives were discussed with the patient. The patient agreed to proceed with the procedure and signed the consent. Vital signs were checked before and after the procedure and they remained stable. Patient ambulated to the procedure room and time out was completed. The patient was placed in the prone position on the procedure table and a pillow was placed under the abdomen to reduce lumbar lordosis. The lumbosacral area was prepped and draped in the usual sterile fashion. Critical pause was taken. L5 Dorsal Ramus RF: Using right oblique fluoroscopy, the junction of the transverse process and the superior articular process of the left S1 vertebra, which correspond to the fluoroscopic image of the "eye of the Jorge dog" was identified. Subsequently, a 10-cm 20 -gauge radiofrequency cannula with a 10-mm active tip was advanced under fluoroscopic guidance until contact was made with periosteum. At this level, the Sensory testing of the L5 dorsal ramus was performed at 50 Hz and 0 to 1 volt with production of concordant pain starting at 0.5 volt. Motor stimulation was done at 2.5 Hz with stimulation of mulitifidus muscle contration . No radicular symptoms or paresthesias were produced during the testing. Subsequently, the L5 dorsal ramus was subjected to a radiofrequency ablation at 80 degree celsius for 90 seconds . after 0.5% Bupivacaine 1 ml injected at each level after negative aspirations . S1, S3, Lateral Branch RF: The lateral margins of the left S1, S2, foramina were identified using AP fluoroscopy. Under fluoroscopic guidance, three 10-cm 20 -gauge radiofrequency cannula with a 10-mm active tip were inserted at 8-10 mm peripheral to the posterior S1 foramen, at various locations using clock-face coordinates. The center of the clock was registered at the lateral margin of the foramen. The 9: 30, 8:00, and 6:30 oclock positions were used. At this level, the sensory testing of the S1 lateral branch was performed at 50 Hz and 0 to 1 volt at the three levels with production of concordant pain starting at 0.5 volt. Motor stimulation was done at 2.5 Hz. No radicular symptoms or paresthesias were produced during the testing. Subsequently, the S1 lateral branch was subjected to a radiofrequency ablation at a mode of 90 seconds at 80 degrees Celsius at the 3 levels after negative motor and sensory testing and after injecting 0.5 ml of preservative free Bupivacaine 0.5 %. The same procedure was performed at the level of the S2 foramen. ( S3 foramina was not seen ) The needle was withdrawn intact after each injection. COMPLICATIONS: The patient tolerated the procedure well without any acute complications. DISPOSTION/PLAN: The patient ambulated to the recovery area after the procedure in a stable condition for observation. Patient was reexamined prior to discharge. Patient was observed for 30 minutes in the recovery area and was discharged home, accompanied by an adult, after meeting discharged criteria. Discharge instructions were give to the patient by the staff. Patient was specifically instructed not to drive today and to rest for the rest of the day. The patient will schedule a follow up visit in the clinic in weeks or earlier if needed.
== END 2017-09-26 10:26 | disposition home or self-care (01) ==
LOC: ORPAIN 07:27
PROVIDERS: ATTEND Specialist
DX: M47.817 Spondylosis without myelopathy or radiculopathy, lumbosacral region (principal); M46.1 Sacroiliitis, not elsewhere classified; I25.10 Atherosclerotic heart disease of native coronary artery without angina pectoris; I10 Essential (primary) hypertension; J44.9 Chronic obstructive pulmonary disease, unspecified; G47.33 Obstructive sleep apnea (adult) (pediatric); Z88.0 Allergy status to penicillin
CPT/HCPCS: 64640; 64635; J2250; J3301; J3010; 99152; 99153

== ENCOUNTER → 2017-10-23 | Outpatient (CLI) | payer MEDICARE ==
[2017-10-23 14:00] VITALS: PULSE 97; RESP 18
[2017-10-23 14:10] VITALS: BP 132/84
--- NOTE | 2017-10-23 14:25 | P.PN ---
Subjective Progress Note Date: 10/23/17 This is follow-up visit for this patient with a history of severe and chronic low back pain secondary to lumbar herniated disc disc disease, sacroiliitis, we have done bilateral sacroiliac joint steroid injection and later on was followed with radiofrequency ablation of the sacroiliac joint , currently she is complaining of severe low back pain and some numbness and tingling sensation in the lower extremities , she is on oxycodone 15 mg every 8 hours , Lyrica 100 mg 3 times a day , baclofen 20 mg 3 times a day Patient denies any side effects of the medication, denies excessive drowsiness or sleepiness, denies suicidal ideation, and reports that the current pain medication is NOT helping To control the pain and improve activity of daily living . Patient denies any motor or sensory deficit, denies change in bowel movement or urination, patient denies any fever or night sweats and patient here for follow-up visit and medication refill Objective - Vital Signs Vital signs: Vital Signs Temp Pulse 97 10/23/17 13:50 Resp 18 10/23/17 13:50 BP 132/84 10/23/17 13:50 Pulse Ox 96 10/23/17 13:50 Intake & Output 10/22/17 10/23/17 10/23/17 18:59 06:59 18:59 Weight 119.295 kg - Exam Physical Examinations : 1-Constitutiona : Cooperative , not in acute distress . 2-HEENT : nech ; supple , no Lymphadenopathy , normal thyroid size . eyes : no ptosis , no icterus, no photophobia . ENT : normal of hearing , normal oropharynx , no Thrush . 3- Respiratory : Chest clear to auscultations Bilaterally , no wheezing , no Rhonchi . 4- Cardiovascular : regular rate and rhythem , S1 , S2 , no S3 , no S4. 5- Gastrointestinal : abdomen soft no tenderness , bowel sounds positive all four quadrents , no organomegally . 6- Genitourinary : Defferred . 7- neurologic : Cranial nerve II to XII intact , no focal neurological deffecit . 8-psychatric : alert , oriented X 3 , appropriate affect , intact judgment and insight . 9-Lymphatic : no Lymphadenopathy . 10- musculoskeltal : , Lumber spine = normal moter stegnth lower extremities ,thigh and legs .5/5 deep tendon reflexes : normal Knee Jerk , normal ankle Jerk . lumber facet Loading Test positive strait leg raising test positive at 30 degree Right , positve at 30 degree Left Fabere test positive Right and positive Left Sever tenderness over the Sacroiliac joint on the Right , and Left side Multiple trigger points in the lumbar paravertebral muscles bilaterally Assessment and Plan Plan: Assessment and plan= chronic low back pain secondary to lumbar herniated disc disease , and sacroiliitis status post radiofrequency ablation of the sacroiliac joint bilaterally, and myofascial pain syndrome Lumbar paravertebral muscles chronic and current use of high-risk medication (opioids) Patient denies any side effects of the current pain medication and the current treatment/medication ML and the patient to do activity of daily living , Diagnoses, prognosis, treatment options, including but not limited to physical therapy, medication management, interventional therapies, and surgery, were discussed with the patient All the questions answered Patient signed the narcotic agreement, and he was orally counseled, not to overuse, not to abuse, not to Divert , not tp sell pain medication, and to take it as prescribed only, Patient was counseled not to drive or operate heavy equipment while using narcotic medication, and advised not to use alcohol or any Illicit drugs while using the narcotis, the patient's verbalized understanding that lack of compliance with any of the above instructions and will likely to cause discharge from the pain service, not to renew his narcotic prescriptions Medication managements= patient will be given prescription refills for oxycodone 15 mg every 8 hours dispense 90 with 1 refill, Lyrica 100 mg 3 times a day dispense 90 with 1 refill Baclofen 20 mg 3 times a day dispense 90 with 1 refill, increased Mobic to 7.5 mg twice a day Interventional pain management= patient could benefit from lumbar epidural steroid injections and from trigger point injection lumbar area. , Time with Patient: Less than 30
== END | disposition home or self-care (01) ==
LOC: PNWHC3 12:46
PROVIDERS: ATTEND Specialist
DX: G89.29 Other chronic pain (principal); M51.26 Other intervertebral disc displacement, lumbar region; M46.1 Sacroiliitis, not elsewhere classified; M79.1 Myalgia; Z79.899 Other long term (current) drug therapy; Z98.890 Other specified postprocedural states
CPT/HCPCS: 99211

== ENCOUNTER → 2017-12-18 | Outpatient (CLI) | payer MEDICARE ==
[2017-12-18 12:13] VITALS: BP 147/95; PULSE 86; RESP 18; TEMP 98
--- NOTE | 2017-12-18 12:40 | P.PAINPG ---
Subjective Progress Note Date: 12/18/17 Principal diagnosis: Polyarthralgia Sacroiliitis Lumbar radiculopathy This is a pleasant 52-year-old woman with a history of polyarthralgia and lumbar radicular pain. 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 She reports that these increase her functionality and help her lower her pain. She also takes benzodiazepines as prescribed by her mental health provider for anxiety. She denies any problems with accommodations of these medications. She is scheduled for an interventional procedure in the future. Objective - Vital Signs Vital signs: Vital Signs Temp 98.0 F 12/18/17 12:07 Pulse 86 12/18/17 12:07 Resp 18 12/18/17 12:07 BP 147/95 12/18/17 12:07 Pulse Ox Intake & Output 12/17/17 12/18/17 12/18/17 18:59 06:59 18:59 Weight 114.759 kg - Exam Gen.: The patient walks with a walker. She is not sedated. She is pleasant and answers all questions appropriately. Heart is regular in rate and rhythm Lungs are clear to auscultation Abdomen soft nontender nondistended She demonstrates mechanical restrictions consistent with her diagnoses on range of motion for hips as well as legs and knees. No focal sensory or motor deficits. She is tender over the sacroiliac joints bilaterally. Assessment and Plan (1) Lumbar degenerative disc disease Current Visit: No Status: Chronic Code(s): M51.36 - OTHER INTERVERTEBRAL DISC DEGENERATION, LUMBAR REGION SNOMED Code(s): 86126902 (2) Lumbar spondylosis Current Visit: No Status: Chronic Code(s): M47.816 - SPONDYLOSIS W/O MYELOPATHY OR RADICULOPATHY, LUMBAR REGION SNOMED Code(s): 675721793 Plan: 1. medical: I reviewed the patient's mass report. He reveals no unusual activity. I've counseled her extensively on the risks and benefits of opiate and benzodiazepines comminution therapy. I've instructed her to consult with her mental health specialist regarding alternative methods of managing her anxiety. I informed her that our office will not be writing for both of these medicines accommodation due to the dangers interactions. She understands this and will pursue alternative care with her mental health specialist. 2. Interventional: The patient is scheduled for a procedure in our clinic in approximately 2 weeks. 3. Referrals: None 4. Psychological: Patient will continue to follow up with her mental health team. PQRS Measure Charge Sheet Measure #130: Documentation of Current Meds in Medical Chart: Patient's medications documented in chart Measure #226: Tobacco Use: Screen & Cessation Intervention: Pt not a tobacco user Measure #111: Pneumonia Vaccination: Pneumococcal vaccine NOT administered or previously given Measure #47: Advance Care Plan: Advance care planning discussed & documented, pt chose/unable to give Measure #412: Opioid Treatment Agreement: Documented signed opioid trtmnt agreemnt min once during opioid trtmnt Measure #408: Opioid Therapy Follow-up Evaluation: Patient had f/u eval minimum every 3 months during opioid therapy Measure #317: Preventitive Care & Scrn High Bld Press & F/U: Pre-hypertensive or hypertensive BP documented, pt will f/u with PCP Measure #128: Body Mass Index (BMI) Screening & Follow-up: BMI documented ABOVE normal parameters - f/u documented Measure #131: Pain Assessment & Follow-up: Pain positive & plan documented Measure #431: Unhealthy Alcohol Use Preventative Care & Scrn: Patient not identified as an unhealthy alcohol user PQRS Narrative: Smoking Status Current every day smoker Do You Want the Pneumonia Vaccine Up to Date Vaccine AT THIS TIME? Narcotic Agreement Date Signed 06/09/14 Blood Pressure 147/95 Pain Intensity [Bilateral 5 Lower Back] Hx Alcohol Use (MH) No Home Medications: Ambulatory Orders Albuterol Sulfate [Proair Hfa] 2 puff INHALATION QID PRN 06/07/14 Atorvastatin [Lipitor] 80 mg PO HS 06/07/14 Ipratropium-Albuterol Nebulize [Duoneb 0.5 mg-3 mg/3 ml Soln] 1 dose INHALATION QID PRN 06/07/14 Metoprolol Tartrate [Lopressor] 50 mg PO BID 06/07/14 Nitroglycerin Sl Tabs [Nitrostat] 0.4 mg SUBLINGUAL DIRECTED PRN 06/07/14 Beclomethasone Dipropionate [Qvar 80 mcg/puff] 1 puff INHALATION BID 08/11/14 Isosorbide Mononitrate ER [Imdur] 30 mg PO DAILY 11/03/14 Losartan Potassium [Cozaar] 100 mg PO DAILY 11/03/14 ALPRAZolam [Xanax] 0.5 mg PO TID 12/29/14 Montelukast [Singulair] 10 mg PO HS 12/29/14 buPROPion [Wellbutrin] 300 mg PO QAM 12/29/14 DULoxetine HCL [Cymbalta] 60 mg PO HS 04/19/15 amLODIPine [Norvasc] 5 mg PO DAILY 07/01/15 traZODone HCL [Desyrel] 200 mg PO HS 02/13/16 Aspirin 81 mg PO DAILY 09/25/16 QUEtiapine [SEROquel] 100 mg PO HS 09/04/17 Baclofen [Lioresal] 20 mg PO TID #90 tab 10/23/17 Meloxicam [Mobic] 7.5 mg PO BID #60 tablet 12/18/17 Pregabalin [Lyrica] 100 mg PO TID #90 cap 12/18/17 oxyCODONE HCL 15 mg PO Q8HR PRN #90 tab 12/18/17 Controlled Substance Measures - Controlled Substance Measures Is patient prescribed a controlled substance at discharge?: Yes If prescribed controlled substance>3 days was MAPS reviewed?: Yes When asked, does pt state using other controlled substances?: Yes
== END | disposition home or self-care (01) ==
LOC: PNWHC3 11:53
PROVIDERS: ATTEND Pain Medicine Pain Medicine
DX: M51.16 Intervertebral disc disorders with radiculopathy, lumbar region (principal); M47.26 Other spondylosis with radiculopathy, lumbar region; M46.1 Sacroiliitis, not elsewhere classified; M25.50 Pain in unspecified joint; F17.200 Nicotine dependence, unspecified, uncomplicated; Z79.891 Long term (current) use of opiate analgesic; Z79.51 Long term (current) use of inhaled steroids; Z79.82 Long term (current) use of aspirin; Z79.899 Other long term (current) drug therapy
CPT/HCPCS: 99211

== ENCOUNTER → 2017-12-24 | Day surgery (SDC) | payer MEDICARE ==
[2017-12-19 15:08] VITALS: BMI 36.3
== END ==
LOC: ORPAIN 10:01
PROVIDERS: ATTEND Pain Medicine Pain Medicine
DX: M51.36 Other intervertebral disc degeneration, lumbar region (principal); Z53.20 Procedure and treatment not carried out because of patient's decision for unspecified reasons

== ENCOUNTER → 2018-01-15 | Outpatient (CLI) | payer MEDICARE ==
[2018-01-15 13:50] VITALS: BP 105/76; PULSE 85; RESP 18
--- NOTE | 2018-01-15 14:15 | P.PAINPG ---
Subjective Progress Note Date: 01/15/18 Severity pleasant 52-year-old woman with a history of long time back pain. She is loosely in our facility to undergo medial branch nerve blocks and trigger point injections however she had recently fallen had severe pain in her low back. I was concerned about a fracture and therefore discontinued the procedure in order films of her back. She has been going through some personal crises and was unable to obtain these films. She presents today for refill of her medications. She would also like films again for her back and would like to schedule a procedure for interventional treatment. Objective - Vital Signs Vital signs: Vital Signs Temp Pulse 85 01/15/18 13:38 Resp 18 01/15/18 13:38 BP 105/76 01/15/18 13:38 Pulse Ox 92 L 01/15/18 13:38 Intake & Output 01/14/18 01/15/18 01/15/18 18:59 06:59 18:59 Weight 119.295 kg - Exam General: The patient is alert and oriented. Patient is not sedateded Patient answers all question appropriately. Cardiac: Heart is regular in rate and rhythm Respiratory: Clear to auscultation. No audible wheezes. Abdomen: Soft nontender nondistended. Spine: The patient is very tender to palpation over the mid to lower thoracic spine at approximately the T10 region. Lower extremities: Strength is normal bilaterally. Sensation is normal bilaterally. Reflexes are preserved and symmetric bilaterally. Straight leg raise is negative bilaterally. Assessment and Plan (1) Spondylosis of lumbar region without myelopathy or radiculopathy Current Visit: Yes Status: Acute Code(s): M47.816 - SPONDYLOSIS W/O MYELOPATHY OR RADICULOPATHY, LUMBAR REGION SNOMED Code(s): 60154840 (2) Myofascial pain syndrome Narrative/Plan: Plan of Care 1. Medications: I will refill the patient's prescriptions today including baclofen, Lyrica, oxycodone, no back. She has previously been counseled on all the risks and benefits of these medications. I have reviewed the patient's MAPS report and it reveals expected results. Patient has signed an opiate agreement as well as opiate consent for treatment in our clinic. They understand the risks and benefits of opiate medications. They are aware of the potential for addiction. 2. Interventions: We will schedule the patient for a lumbar medial branch nerve block with trigger point injections on the right side at L4,L5 and sacral ala. If the patient does have a compression fracture she may benefit from an epidural steroid injection at that level depending on how she is doing clinically. We will schedule these procedures once we have reviewed x-ray films of her spine. 3. Referrals: Patient was given a referral for x-ray films on her spine. 4. Testing: Thoracic spine films 5. Psychological: Patient is currently under the care of a psychiatrist. She will see them in the very near future and discuss weaning off of her benzodiazepines. She is very aware of the risks of taking multiple central nervous system depressants. She is unable to wean off of her benzodiazepines then we will be discontinuing her oxycodone. Current Visit: Yes Status: Acute Code(s): M79.1 - MYALGIA SNOMED Code(s): 127267825 (3) Lumbar degenerative disc disease Current Visit: No Status: Chronic Code(s): M51.36 - OTHER INTERVERTEBRAL DISC DEGENERATION, LUMBAR REGION SNOMED Code(s): 40853365 (4) Thoracic vertebral fracture Current Visit: No Status: Chronic Code(s): S22.009A - UNSP FRACTURE OF UNSP THORACIC VERTEBRA, INIT FOR CLOS FX SNOMED Code(s): 808811081 PQRS Measure Charge Sheet Measure #130: Documentation of Current Meds in Medical Chart: Patient's medications documented in chart Measure #226: Tobacco Use: Screen & Cessation Intervention: Pt not a tobacco user Measure #111: Pneumonia Vaccination: Pneumococcal vaccine NOT administered or previously given Measure #47: Advance Care Plan: Advance care planning discussed & documented, pt chose/unable to give Measure #412: Opioid Treatment Agreement: Documented signed opioid trtmnt agreemnt min once during opioid trtmnt Measure #408: Opioid Therapy Follow-up Evaluation: Patient had f/u eval minimum every 3 months during opioid therapy Measure #317: Preventitive Care & Scrn High Bld Press & F/U: Normal blood pressure, f/u not required Measure #128: Body Mass Index (BMI) Screening & Follow-up: BMI documented ABOVE normal parameters - f/u documented Measure #131: Pain Assessment & Follow-up: Pain positive & plan documented Measure #431: Unhealthy Alcohol Use Preventative Care & Scrn: Patient not identified as an unhealthy alcohol user PQRS Narrative: Smoking Status Current every day smoker Do You Want the Pneumonia Vaccine Up to Date Vaccine AT THIS TIME? Narcotic Agreement Date Signed 06/09/14 Blood Pressure 105/76 Pain Intensity [Back] 6 Scale Used Numeric (1 - 10) Hx Alcohol Use (MH) No Home Medications: Ambulatory Orders Albuterol Sulfate [Proair Hfa] 2 puff INHALATION QID PRN 06/07/14 Atorvastatin [Lipitor] 80 mg PO HS 06/07/14 Ipratropium-Albuterol Nebulize [Duoneb 0.5 mg-3 mg/3 ml Soln] 1 dose INHALATION QID PRN 06/07/14 Metoprolol Tartrate [Lopressor] 50 mg PO BID 06/07/14 Nitroglycerin Sl Tabs [Nitrostat] 0.4 mg SUBLINGUAL DIRECTED PRN 06/07/14 Beclomethasone Dipropionate [Qvar 80 mcg/puff] 1 puff INHALATION BID 08/11/14 Isosorbide Mononitrate ER [Imdur] 30 mg PO DAILY 11/03/14 Losartan Potassium [Cozaar] 100 mg PO DAILY 11/03/14 ALPRAZolam [Xanax] 0.5 mg PO TID 12/29/14 Montelukast [Singulair] 10 mg PO HS 12/29/14 buPROPion [Wellbutrin] 300 mg PO QAM 12/29/14 DULoxetine HCL [Cymbalta] 60 mg PO HS 04/19/15 amLODIPine [Norvasc] 5 mg PO DAILY 07/01/15 traZODone HCL [Desyrel] 100 - 200 mg PO HS 02/13/16 Aspirin 81 mg PO DAILY 09/25/16 QUEtiapine [SEROquel] 200 mg PO HS 09/04/17 Baclofen [Lioresal] 20 mg PO TID #90 tab 01/15/18 Meloxicam [Mobic] 7.5 mg PO BID #60 tablet 01/15/18 Pregabalin [Lyrica] 100 mg PO TID #90 cap 01/15/18 oxyCODONE HCL 15 mg PO Q8HR PRN #90 tab 01/15/18 Controlled Substance Measures - Controlled Substance Measures Is patient prescribed a controlled substance at discharge?: Yes When asked, does pt state using other controlled substances?: Yes If prescribed controlled substance>3 days was MAPS reviewed?: Yes If Rx opioid, was Start Talking consent form obtained?: Yes If opioid is for acute pain is fill amount 7 days or less?: No Was information provided regarding opioid addiction?: Yes
== END | disposition home or self-care (01) ==
LOC: PNWHC3 12:54
PROVIDERS: ATTEND Pain Medicine Pain Medicine
DX: M51.36 Other intervertebral disc degeneration, lumbar region (principal); M47.816 Spondylosis without myelopathy or radiculopathy, lumbar region; S22.009A Unspecified fracture of unspecified thoracic vertebra, initial encounter for closed fracture; M79.1 Myalgia; F17.200 Nicotine dependence, unspecified, uncomplicated; Z79.899 Other long term (current) drug therapy; Z79.82 Long term (current) use of aspirin; Z79.1 Long term (current) use of non-steroidal anti-inflammatories (NSAID)
CPT/HCPCS: 99211

== ENCOUNTER → 2018-02-05 | Outpatient (CLI) | payer MEDICARE ==
--- NOTE | 2018-02-05 16:40 | XR ---
EXAMINATION TYPE: XR chest 2V DATE OF EXAM: 02/05/2018 COMPARISON: Prior chest x-ray March 01, 2015 HISTORY: COPD per order. TECHNIQUE: Frontal and lateral views of the chest are obtained. FINDINGS: Underlying emphysematous change is felt present. There is no focal air space opacity, pleu ral effusion, or pneumothorax seen. The cardiac silhouette size is within normal limits. The osseo us structures are intact. IMPRESSION: Chronic emphysematous change without acute pulmonary process.
--- NOTE | 2018-02-05 16:41 | XR ---
EXAMINATION TYPE: XR shoulder complete LT DATE OF EXAM: 02/05/2018 CLINICAL HISTORY: Pain after fall injury a few months ago. TECHNIQUE: Three views of the left shoulder are obtained. COMPARISON: None. FINDINGS: There is no acute fracture/dislocation evident in the left shoulder. The acromioclavicula r and glenohumeral joint spaces appear within normal limits. The visualized ribs are intact and unre markable. IMPRESSION: There is no acute fracture or dislocation in the left shoulder.
--- NOTE | 2018-02-05 16:51 | XR ---
EXAMINATION TYPE: XR facial bones complete DATE OF EXAM: 02/05/2018 COMPARISON: NONE HISTORY: Pain after fall injury a few weeks ago. TECHNIQUE: Facial bones complete with Castro and Carpio frontal as well as lateral and oblique proj ections. FINDINGS: Nasal bridge is intact. Visualized mandible is intact. There is suture near angle of right mandible from prior fixation. No suspicious opacification of paranasal sinuses is seen. Overlying sof t tissue is unremarkable. IMPRESSION: Old right mandibular injury. No acute displaced fracture is evident.
--- NOTE | 2018-02-05 16:54 | XR ---
EXAMINATION TYPE: XR orbit complete bilateral DATE OF EXAM: 02/05/2018 COMPARISON: Same-day complete facial bone study HISTORY: Pain from fall injury. TECHNIQUE: Complete bilateral orbits with frontal and lateral projections on 3 images. FINDINGS: Orbital floors and lagunas are grossly intact. No suspicious opacification of paranasal sinus es is seen. Overlying soft tissue is unremarkable. IMPRESSION: No acute displaced orbital fracture identified.
== END | disposition home or self-care (01) ==
LOC: RADXRMAIN 15:50
PROVIDERS: ATTEND Family Medicine
DX: S09.93XA Unspecified injury of face, initial encounter (principal); S49.92XA Unspecified injury of left shoulder and upper arm, initial encounter; J43.9 Emphysema, unspecified
CPT/HCPCS: 70150; 70200; 71046

== ENCOUNTER → 2018-02-12 | Outpatient (CLI) | payer MEDICARE ==
[2018-02-12 15:06] VITALS: BP 157/82; PULSE 83; RESP 16
--- NOTE | 2018-02-12 15:49 | P.PAINPG ---
Subjective Progress Note Date: 02/12/18 This is follow-up visit for this patient with a history of severe and chronic low back pain secondary to lumbar degenerative disc disease, lumbar facet arthropathy, and sacroiliitis We have done an interventional pain procedure lumbar epidural steroid injections, and sacroiliac joints with injection The patient currently on oxycodone 15 mg every 8 hours, baclofen 20 mg 3 times a day, Mobic 7.5 mg every 12 hours, Lyrica 100 mg every 8 hours Patient denies any side effect of the medication , patient denies any excessive drowsiness or sleepiness, patient denies any suicidal ideation, Patient reported that the current medication is helping to control the pain and improve the activity of daily livings, Patient denies any motor or sensory deficit, denies any change in the bowel movement or urination, patient denies any fever or night sweats. Patient here today for follow-up visit and medication refill Objective - Vital Signs Vital signs: Vital Signs Temp Pulse 83 02/12/18 15:00 Resp 16 02/12/18 15:00 BP 157/82 02/12/18 15:00 Pulse Ox 95 02/12/18 15:00 Intake & Output 02/11/18 02/12/18 02/12/18 18:59 06:59 18:59 Weight 117.934 kg - Exam Physical Examinations : 1-Constitutiona : Cooperative , not in acute distress . 2-HEENT : nech ; supple , no Lymphadenopathy , normal thyroid size . eyes : no ptosis , no icterus , no photophobia . ENT : normal of hearing , normal oropharynx , no Thrush . 3- Respiratory : Chest clear to auscultations Bilaterally , no wheezing , no Rhonchi . 4- Cardiovascular : regular rate and rhythem , S1 , S2 , no S3 , no S4. 5- Gastrointestinal : abdomen soft no tenderness , bowel sounds , no organomegally . 6- Genitourinary : Defferred . 7- neurologic : Cranial nerve II to XII intact , no focal neurological deffecit . 8-psychatric : alert , oriented X 3 , appropriate affect , intact judgment and insight . 9-Lymphatic : no Lymphadenopathy . 10- musculoskeltal : , Lumber spine = lumber facet Loading Test positive strait leg raising test positive at 30 degree Right , positve at 30 degree Left Fabere test positive Right and positive Left Sever tenderness over the Sacroiliac joint on the Right , and Left side Assessment and Plan Assessment: Assessment and plan= chronic low back pain secondary to lumbar degenerative disc disease , lumbar spondylosis with lumbar facet arthropathy . And sacroiliitis chronic and current use of high-risk medication (opioids) Patient denies any side effects of the current pain medication and the current treatment/medication helping the patient to do activity of daily living , Diagnoses, prognosis, treatment options, including but not limited to physical therapy, medication management, interventional therapies, and surgery, were discussed with the patient All the questions answered The narcotic consent was signed and patient agreed and understood the side effects and complications of opioid treatment. Patient signed the narcotic agreement, and was orally counseled, not to overuse, not to abuse, not to Divert , not tp sell pain medication, and to take it as prescribed only, Patient was counseled not to drive or operate heavy equipment while using narcotic medication, and advised not to use alcohol or any Illicit drugs while using the narcotis, the patient's verbalized understanding that lack of compliance with any of the above instructions, will likely to cause discharge from, the pain service, not to renew his narcotic prescriptions Medication managements= patient will be given prescription refills for oxycodone 15 mg every 8 hours dispense 90 with 1 refill, baclofen 20 mg 3 times a day dispense 90 with 1 refill Mobic 7.5 mg every 12 hours dispense 60 with 1 refill, 30 mg every 8 hours dispense 90 with 1 refill We will schedule patient to have diagnostic medial branch block lumbar area at L3-4/L4 5/L5-S1 under fluoroscopy guidance 2 and if she benefited then we will do a radiofrequency ablation of the medial branch lumbar area , next visit we'll order basic metabolic panel to check her kidney function, constipation using NSAIDs for long -term Also next visit we'll do urine drug screen , Time with Patient: Less than 30 PQRS Measure Charge Sheet Measure #130: Documentation of Current Meds in Medical Chart: Patient's medications documented in chart Measure #226: Tobacco Use: Screen & Cessation Intervention: Pt screened for tobacco use AND intervention given Measure #111: Pneumonia Vaccination: Pneumococcal vaccine administered or previously received Measure #47: Advance Care Plan: Advance care planning discussed & documented, plan or surrogate given Measure #412: Opioid Treatment Agreement: Documented signed opioid trtmnt agreemnt min once during opioid trtmnt Measure #408: Opioid Therapy Follow-up Evaluation: Patient had f/u eval minimum every 3 months during opioid therapy Measure #317: Preventitive Care & Scrn High Bld Press & F/U: Pre-hypertensive or hypertensive BP documented, pt will f/u with PCP Measure #128: Body Mass Index (BMI) Screening & Follow-up: BMI documented ABOVE normal parameters - f/u documented Measure #131: Pain Assessment & Follow-up: Pain positive & plan documented, Follow-up scheduled Measure #431: Unhealthy Alcohol Use Preventative Care & Scrn: Patient not identified as an unhealthy alcohol user PQRS Narrative: Smoking Status Current every day smoker Do You Want the Pneumonia Yes Vaccine AT THIS TIME? Narcotic Agreement Date Signed 06/09/14 Blood Pressure 157/82 Pain Intensity [Lower Back] 8 Scale Used Numeric (1 - 10) Hx Alcohol Use (MH) No Home Medications: Ambulatory Orders Albuterol Sulfate [Proair Hfa] 2 puff INHALATION QID PRN 06/07/14 Atorvastatin [Lipitor] 80 mg PO HS 06/07/14 Ipratropium-Albuterol Nebulize [Duoneb 0.5 mg-3 mg/3 ml Soln] 1 dose INHALATION QID PRN 06/07/14 Metoprolol Tartrate [Lopressor] 50 mg PO BID 06/07/14 Nitroglycerin Sl Tabs [Nitrostat] 0.4 mg SUBLINGUAL DIRECTED PRN 06/07/14 Beclomethasone Dipropionate [Qvar 80 mcg/puff] 1 puff INHALATION BID 08/11/14 Isosorbide Mononitrate ER [Imdur] 30 mg PO DAILY 11/03/14 Losartan Potassium [Cozaar] 100 mg PO DAILY 11/03/14 Montelukast [Singulair] 10 mg PO HS 12/29/14 buPROPion [Wellbutrin] 300 mg PO QAM 12/29/14 DULoxetine HCL [Cymbalta] 60 mg PO HS 04/19/15 amLODIPine [Norvasc] 5 mg PO DAILY 07/01/15 traZODone HCL [Desyrel] 100 - 200 mg PO HS 02/13/16 Aspirin 81 mg PO DAILY 09/25/16 QUEtiapine [SEROquel] 200 mg PO HS 09/04/17 ALPRAZolam [Xanax] 1 tab PO TID 02/12/18 Baclofen [Lioresal] 20 mg PO TID #90 tab 02/12/18 Meloxicam [Mobic] 7.5 mg PO BID #60 tablet 02/12/18 Pregabalin [Lyrica] 100 mg PO TID #90 cap 02/12/18 oxyCODONE HCL 15 mg PO Q8H PRN 30 Days #90 tab 02/12/18 oxyCODONE HCL 15 mg PO Q8HR PRN #90 tab 02/12/18 Controlled Substance Measures - Controlled Substance Measures Is patient prescribed a controlled substance at discharge?: Yes When asked, does pt state using other controlled substances?: Yes If prescribed controlled substance>3 days was MAPS reviewed?: Yes If Rx opioid, was Start Talking consent form obtained?: Yes If opioid is for acute pain is fill amount 7 days or less?: No Was information provided regarding opioid addiction?: Yes
== END | disposition home or self-care (01) ==
LOC: PNWHC3 13:39
PROVIDERS: ATTEND Specialist
DX: G89.29 Other chronic pain (principal); M51.36 Other intervertebral disc degeneration, lumbar region; M47.816 Spondylosis without myelopathy or radiculopathy, lumbar region; M46.96 Unspecified inflammatory spondylopathy, lumbar region; M46.1 Sacroiliitis, not elsewhere classified; F17.200 Nicotine dependence, unspecified, uncomplicated; Z79.891 Long term (current) use of opiate analgesic; Z79.899 Other long term (current) drug therapy; Z79.82 Long term (current) use of aspirin; Z79.1 Long term (current) use of non-steroidal anti-inflammatories (NSAID)
CPT/HCPCS: 99211

== ENCOUNTER 2018-02-27 08:30 | Day surgery (SDC) | payer MEDICARE ==
[2018-02-24 09:46] VITALS: BMI 38.0
[2018-02-27] MEDS ORDERED: LIDOCAINE 1% 20 ML VIAL (10MG/ML) FOR IV START INTRADERMA ONE (09:07)
[2018-02-27 09:13] VITALS: RESP 16; TEMP 98.2
--- NOTE | 2018-02-27 10:46 | P.PCN ---
Date of Procedure: 02/27/18 Surgeon: Malachi Bruner Description of Procedure: PREOPERATIVE DIAGNOSIS : 1- Lumbar spondylosis with Facet Arthropathy without myelopathy . 2- Lumber degenerative disc disease POSTOPERATIVE DIAGNOSIS: 1- Lumbar spondylosis with Facet Arthropathy without myelopathy . 2- Lumber degenerative disc disease PROCEDURE: Diagnostic bilateral L3 -4 , L4 -5 , and L5-S1 medial branch block under fluoroscopy ANESTHESIA: Local with 1% lidocaine; IV sedation with Versed 2 mg . EBL: Negligible COMPLICATION: None. PROCEDURE INDICATION: Chronic low back pain secondary to Facet arthropathy unresponsive to conservative treatment. PROCEDURE DESCRIPTION: the patient was seen and identified in the preop holding area , risks and benefits and possible complications of the procedure and alternatives were discussed with the patient, and the patient agreed to proceed with the procedure and signed the consent. IV was started and vital signs monitored during the procedure and fluoroscopy was used to maximize the benefit and accuracy of the needle placement, sedation was given to decrease patient anxiety, patient was taken to the procedure room and placed in prone position vital signs monitored. The patient was brought into the procedure room and placed in prone position. Skin was prepped with Chloraprep and draped in a sterile manner. Lidocaine 1 % was used to numb the skin up at the target points that were chosen as follows : at the L5-S1 level which corresponds to the dorsal ramus of L5 the target points were at the superior medial aspect of the sacral ala on each side of the spine on the AP view of fluoroscopy, and for the L3 and L4 medial branches the target points were the connection between the transverse process and the superior to go process of L3, L4 and L5 respectively on the oblique views of fluoroscopy. I used 22-gauge 3-1/2 inch Quincke spinal needles for this procedure and after contacting bone at the target points mentioned above I injected 1 mL of a mixture of Kenalog 40 mg +5 MLS of Ropivacaine 0.5% PF . Patient tolerated procedure well. At the end of the procedure the needles removed and a bandage applied after the skin was cleaned the cleaning solution. patient was then taken to the recovery room in stable condition and monitored in the recovery room for 20-30 minutes and discharged home in stable condition after discharge criteria met .
[2018-02-27 11:10] VITALS: BP 134/92; PULSE 75
[2018-02-27] MEDS ORDERED: IV FLUID CONTINUATION 1,000 ML IV ONE (11:11)
--- NOTE | 2018-02-27 11:54 | FL ---
Fluoroscopy INDICATION: Pain FINDINGS: Fluoroscopy time: 11 seconds. Images obtained: 2. IMPRESSIONS: 1. Documentation of fluoroscopy.
== END 2018-02-27 11:16 | disposition home or self-care (01) ==
LOC: ORPAIN 08:30
PROVIDERS: ATTEND Anesthesiology
DX: M47.816 Spondylosis without myelopathy or radiculopathy, lumbar region (principal); G89.29 Other chronic pain; M51.36 Other intervertebral disc degeneration, lumbar region; Z88.0 Allergy status to penicillin; I25.10 Atherosclerotic heart disease of native coronary artery without angina pectoris; J45.909 Unspecified asthma, uncomplicated; Z90.710 Acquired absence of both cervix and uterus
CPT/HCPCS: 64493; 64494; 64495; J2250; J3301; 99152

== ENCOUNTER 2018-03-13 08:24 | Day surgery (SDC) | payer MEDICARE ==
[2018-03-10 14:25] VITALS: BMI 38.0
[2018-03-13 08:45] VITALS: TEMP 97.1
[2018-03-13] MEDS ORDERED: LIDOCAINE 1% 20 ML VIAL (10MG/ML) FOR IV START INTRADERMA ONE (08:59)
--- NOTE | 2018-03-13 09:50 | P.PCN ---
Date of Procedure: 03/13/18 Procedure(s) Performed: PREOPERATIVE DIAGNOSIS : 1- Lumbar spondylosis with Facet Arthropathy without myelopathy . POSTOPERATIVE DIAGNOSIS: 1- Lumbar spondylosis with Facet Arthropathy without myelopathy . PROCEDURE: Diagnostic bilateral L3 -4 , L4 -5 , and L5-S1 medial branch block under fluoroscopy ANESTHESIA: Local with Ropivacaine 0.5 % 6 ml , moderate sedation with intravenous Versed 1 mg . EBL: Minimal COMPLICATION: None. IV FLUIDS: 100 mL of normal saline. PROCEDURE INDICATION: Chronic low back pain secondary to Facet arthropathy unresponsive to conservative treatment. PROCEDURE DESCRIPTION: the patient was seen and identified in the preop holding area , risks and benefits and possible complications of the procedure and alternative were discussed with the patient, and the patient agreed to proceed with the procedure and signed the consent IV was started and vital signs monitored during the procedure and fluoroscopy was used to maximize the benefit and accuracy of the needle placement, and sedation was given to decrease patient anxiety, patient was taken to the procedure room and placed in prone position vital signs monitored in the back prepped with chlorhexidine X3 then under strict sterile technique using a right oblique fluoroscopy ,the junction of the transverse process and the superior articulating process of the right L3- 4 , L4- 5, and L5-S1 vertebra which corresponding to the fluoroscopy image of the eye of the Jorge dog on the block side for the medial branches and subsequently , after local infiltration of skin and subcu tissuies with Ropivacaine 0.5 % , one mL at each level , then 22-gauge Quincke-type needles , 3 needle was used , each one of them placed at the junction of the base of the transverse process and the superior articular process at the appropriate level, and the needle was advanced until the periosteum contacted, needle placement confirmed with AP oblique and lateral view and after appropriate needle placement confirmed, and after negative aspiration for heme and CSF and there was no paresthesia 1-1/2 mL of Ropivacaine 0.5% mixed with 20 mg Kenalog , then half mL injected at each level after negative aspiration the needle subsequently removed and the same procedure repeated for the left side at left side at L3-4, L4- 5 and L5-S1 levels. At the end of the procedure and the needles removed and a bandage applied after the skin was cleaned the cleaning solution patient taken to recovery room in stable condition and monitors in the recovery room for 20-30 minutes and discharged home in stable condition after discharge criteria met and patient will follow up with the pain clinic in 2-4 weeks
[2018-03-13] MEDS ORDERED: IV FLUID CONTINUATION 1,000 ML IV ONE (09:58)
[2018-03-13 10:09] VITALS: RESP 18
[2018-03-13 10:18] VITALS: BP 133/87; PULSE 63
--- NOTE | 2018-03-13 10:27 | FL ---
EXAMINATION TYPE: FL guided pain mgmt statistic DATE OF EXAM: 03/13/2018 COMPARISON: NONE HISTORY: Back pain TECHNIQUE: Fluoroscopy. FINDINGS/IMPRESSION: Fluoroscopic guidance was provided during procedure performed by Dr. Webber. A total of 22 seconds of fluoroscopic time was utilized during the procedure and 4 spot images was a cquired demonstrating localization of the lumbar spine.
== END 2018-03-13 10:31 | disposition home or self-care (01) ==
LOC: ORPAIN 08:24
PROVIDERS: ATTEND Specialist
DX: G89.29 Other chronic pain (principal); M47.816 Spondylosis without myelopathy or radiculopathy, lumbar region; I25.10 Atherosclerotic heart disease of native coronary artery without angina pectoris; I10 Essential (primary) hypertension; J45.909 Unspecified asthma, uncomplicated; G47.33 Obstructive sleep apnea (adult) (pediatric); Z88.0 Allergy status to penicillin
CPT/HCPCS: 64493; 64494; 64495; J3301; 99152

== ENCOUNTER → 2018-04-09 | Outpatient (CLI) | payer MEDICARE ==
[2018-04-09 13:19] VITALS: BP 127/90; PULSE 76; RESP 18
--- NOTE | 2018-04-09 13:57 | P.PAINPG ---
Subjective Progress Note Date: 04/09/18 Principal diagnosis: Lumbar spondylosis, lumbar radiculopathy This pleasant 52-year-old woman with a history of lumbar radiculopathy as well as lumbar degenerative disc disease who is maintained on opiate medications. She presents today for medication refill. She reports that her medicines have been helping to control her pain. She does have significant pain in her low back and legs. Her last one, I did discuss the risks of benzodiazepines and opiates. I asked her to discuss this with her psychiatrist. She did do this. Unfortunately, no intervention has taken place. The psychiatrist. Apparently was unsure about the seriousness of my concerns. She denies bowel or bladder dysfunction time. Objective - Vital Signs Vital signs: Vital Signs Temp Pulse 76 04/09/18 13:10 Resp 18 04/09/18 13:10 BP 127/90 04/09/18 13:10 Pulse Ox 96 04/09/18 13:10 Intake & Output 04/08/18 04/09/18 04/09/18 18:59 06:59 18:59 Weight 119.295 kg - Exam General: The patient is alert and oriented. Patient is not sedated Patient answers all question appropriately. She does walk with a rolling walker. Cardiac: Heart is regular in rate and rhythm Respiratory: Clear to auscultation. No audible wheezes. Abdomen: Soft nontender nondistended. Lower extremities: Strength is normal bilaterally. Sensation is normal bilaterally. Reflexes are preserved and symmetric bilaterally. Straight leg raise is negative bilaterally. Assessment and Plan (1) Myofascial pain syndrome Narrative/Plan: Plan of Care 1. Medications: I will refill the patient's medications today including oxycodone 15 mg by mouth 3 times a day. She was given 2 prescriptions for this medication to last the 2 months between her follow-up intervals. I have again asked her to work with her psychiatrist to discontinue her benzodiazepines and finding treatment for her anxiety. I have reviewed the patient's MAPS report and it reveals expected results. Patient has signed an opiate agreement as well as opiate consent for treatment in our clinic. They understand the risks and benefits of opiate medications. They are aware of the potential for addiction. 2. Interventions: None at this time 3. Referrals: None 4. Testing: None 5. Follow-up: 2 months for medication management Current Visit: No Status: Acute Code(s): M79.1 - MYALGIA SNOMED Code(s): 671902817 (2) Spondylosis of lumbar region without myelopathy or radiculopathy Current Visit: No Status: Acute Code(s): M47.816 - SPONDYLOSIS W/O MYELOPATHY OR RADICULOPATHY, LUMBAR REGION SNOMED Code(s): 17041212 PQRS Measure Charge Sheet Measure #130: Documentation of Current Meds in Medical Chart: Patient's medications documented in chart Measure #226: Tobacco Use: Screen & Cessation Intervention: Pt screened for tobacco use AND intervention given Measure #111: Pneumonia Vaccination: Pneumococcal vaccine NOT administered or previously given Measure #47: Advance Care Plan: Advance care planning discussed & documented, pt chose/unable to give Measure #412: Opioid Treatment Agreement: Documented signed opioid trtmnt agreemnt min once during opioid trtmnt Measure #408: Opioid Therapy Follow-up Evaluation: Patient had f/u eval minimum every 3 months during opioid therapy Measure #317: Preventitive Care & Scrn High Bld Press & F/U: Normal blood pressure, f/u not required Measure #128: Body Mass Index (BMI) Screening & Follow-up: BMI documented ABOVE normal parameters - f/u documented Measure #131: Pain Assessment & Follow-up: Pain positive & plan documented Measure #431: Unhealthy Alcohol Use Preventative Care & Scrn: Patient not identified as an unhealthy alcohol user PQRS Narrative: Smoking Status Current every day smoker Narcotic Agreement Date Signed 06/09/14 Blood Pressure 127/90 Pain Intensity [Generalized] 8 Scale Used Numeric (1 - 10) Hx Alcohol Use (MH) No Home Medications: Ambulatory Orders Albuterol Sulfate [Proair Hfa] 2 puff INHALATION QID PRN 06/07/14 Atorvastatin [Lipitor] 80 mg PO HS 06/07/14 Ipratropium-Albuterol Nebulize [Duoneb 0.5 mg-3 mg/3 ml Soln] 1 dose INHALATION QID PRN 06/07/14 Metoprolol Tartrate [Lopressor] 50 mg PO BID 06/07/14 Nitroglycerin Sl Tabs [Nitrostat] 0.4 mg SUBLINGUAL DIRECTED PRN 06/07/14 Beclomethasone Dipropionate [Qvar 80 mcg/puff] 1 puff INHALATION BID 08/11/14 Isosorbide Mononitrate ER [Imdur] 30 mg PO DAILY 11/03/14 Losartan Potassium [Cozaar] 100 mg PO DAILY 11/03/14 Montelukast [Singulair] 10 mg PO HS 12/29/14 buPROPion [Wellbutrin] 300 mg PO QAM 12/29/14 DULoxetine HCL [Cymbalta] 60 mg PO HS 04/19/15 amLODIPine [Norvasc] 5 mg PO DAILY 07/01/15 traZODone HCL [Desyrel] 100 - 200 mg PO HS 02/13/16 Aspirin 81 mg PO DAILY 09/25/16 QUEtiapine [SEROquel] 200 mg PO HS 09/04/17 ALPRAZolam [Xanax] 0.25 mg PO TID 02/12/18 Baclofen [Lioresal] 20 mg PO TID #90 tab 02/12/18 Meloxicam [Mobic] 7.5 mg PO BID #60 tablet 02/12/18 Pregabalin [Lyrica] 100 mg PO TID #90 cap 02/12/18 oxyCODONE HCL 15 mg PO Q8HR PRN #90 tab 04/09/18 oxyCODONE HCL [oxyCODONE HCL ER] 15 mg PO Q8H 30 Days #90 tab 04/09/18 Controlled Substance Measures - Controlled Substance Measures Is patient prescribed a controlled substance at discharge?: Yes When asked, does pt state using other controlled substances?: No If prescribed controlled substance>3 days was MAPS reviewed?: Yes If Rx opioid, was Start Talking consent form obtained?: Yes
== END | disposition home or self-care (01) ==
LOC: PNWHC3 12:52
PROVIDERS: ATTEND Pain Medicine Pain Medicine
DX: M51.16 Intervertebral disc disorders with radiculopathy, lumbar region (principal); M47.26 Other spondylosis with radiculopathy, lumbar region; M79.1 Myalgia; F17.200 Nicotine dependence, unspecified, uncomplicated; Z79.1 Long term (current) use of non-steroidal anti-inflammatories (NSAID); Z79.891 Long term (current) use of opiate analgesic; Z71.6 Tobacco abuse counseling
CPT/HCPCS: 99211

== ENCOUNTER → 2018-06-04 | Outpatient (CLI) | payer MEDICARE ==
--- NOTE | 2018-06-04 13:34 | P.PN ---
Subjective Progress Note Date: 06/04/18 This is a 52-year-old lady with history of chronic lower back pain with radiation to the lower extremity down to her feet. The pain also goes up to the middle of her back. She has been taking oxycodone 50 mg 3 times a day along with Lyrica baclofen and Mobic. She had multiple injections on her spine previously with temporary relief of her pain. Today, pt denies new-onset weakness, bowel/bladder incontinence, or any other signs or symptoms of cauda equina syndrome. There are no signs of acute intoxication, and no indications of medication diversion or overuse. In addition to above, 13-point review of systems is also negative for chest pain , shortness of breath, changes in vision, changes in hearing, new onset weakness , abdominal pain, diarrhea, extreme fatigue, malaise, fever, skin changes, homicidal or suicidal ideation, or bowel or bladder incontinence. Vital Signs: Reviewed in EMR Gen: AAOx3, NAD HEENT: PERRLA,hearing grossly normal Pulm: resp unlabored Neck: supple, trachea midline Neuro exam of the lower extremities: Straight leg raising test: Positive on the right side Tenderness in the paravertebral musculature: On both sides of the lumbar paravertebral musculature and also around the left sacroiliac joint Neuro: CN II-XII grossly intact, Imaging: Reviewed in EMR/chart Assessment: Morbid obesity Lumbar spondylosis without myelopathy Lumbar radiculopathy Opioid dependence Plan: 1. Explanation: Opioid and psychological risk scores were reviewed. Diagnoses , prognoses, and multiple treatment options including but not limited to physical therapy, interventional therapies, adjuvant medical therapies, narcotic medication therapies, and surgery were discussed with the patient and all questions were answered to the patient's satisfaction. 2. Opioid agreement: Signed with the patient and the patient is warned not to use opioids while driving or before driving and not to combine opioids with benzodiazepines or alcohol. 3. Counseling: The patient was counseled extensively on SMOKING CESSATION, BODY MASS INDEX, EXERCISE. Specifically, the patient was instructed regarding the importance of smoking cessation, obesity, and exercise in the context of both chronic pain and overall health. 4. Procedures: She would benefit from getting left sacroiliac joint steroid injection in the future 5. Consultations: None 6. Investigations: None 7. Medications: Continue oxycodone 50 mg #90 pills with a month with 1 refill plus Lyrica 300 mg a day, baclofen and Mobic. The patient is being weaned off her benzodiazepines. 8. Disposition: Return to clinic in 2 months 9. Maps were reviewed and were appropriate. Objective - Vital Signs Vital signs: Intake & Output 06/03/18 06/04/18 06/04/18 18:59 06:59 18:59 Weight 113.852 kg
== END | disposition home or self-care (01) ==
LOC: PNWHC3 12:50
PROVIDERS: ATTEND Anesthesiology
DX: G89.29 Other chronic pain (principal); M54.5 Low back pain; M47.26 Other spondylosis with radiculopathy, lumbar region; E66.01 Morbid (severe) obesity due to excess calories; F11.20 Opioid dependence, uncomplicated; Z79.1 Long term (current) use of non-steroidal anti-inflammatories (NSAID); Z79.899 Other long term (current) drug therapy; Z68.37 Body mass index [BMI] 37.0-37.9, adult
CPT/HCPCS: 99211

== ENCOUNTER → 2018-07-30 | Outpatient (CLI) | payer MEDICARE ==
[2018-07-30 14:01] VITALS: BP 131/79; PULSE 91; RESP 16
--- NOTE | 2018-07-30 14:15 | P.PN ---
Subjective Progress Note Date: 07/30/18 The patient states that her pain is getting worse in her lower back and she reports at least 50% of pain relief after her diagnostic medial branch block which was done a few months ago. The patient has upper respiratory tract infection and she was placed on steroids. She continues to take oxycodone 15 mg 3 times a day if needed for her pain. She states that her pain was better controlled when she was on the higher dose of baclofen of 60 mg per day Today, pt denies new-onset weakness, bowel/bladder incontinence, or any other signs or symptoms of cauda equina syndrome. There are no signs of acute intoxication, and no indications of medication diversion or overuse. In addition to above, 13-point review of systems is also negative for chest pain , shortness of breath, changes in vision, changes in hearing, new onset weakness , abdominal pain, diarrhea, extreme fatigue, malaise, fever, skin changes, homicidal or suicidal ideation, or bowel or bladder incontinence. Vital Signs: Reviewed in EMR Gen: AAOx3, NAD she looks in pain HEENT: PERRLA,hearing grossly normal Pulm: resp unlabored Neck: supple, trachea midline Neuro exam of the lower extremities: Decreased but symmetrical muscle strength bilaterally, normal knee reflexes bilaterally but absent ankle reflexes bilaterally Tenderness in the paravertebral musculature: On both sides of the lumbar paravertebral musculature and also around the left sacroiliac joint Neuro: CN II-XII grossly intact, Imaging: Reviewed in EMR/chart Assessment: Morbid obesity Lumbar spondylosis without myelopathy Lumbar radiculopathy Opioid dependence Recent upper respiratory tract infection with steroid treatment Plan: 1. Explanation: Opioid and psychological risk scores were reviewed. Diagnoses , prognoses, and multiple treatment options including but not limited to physical therapy, interventional therapies, adjuvant medical therapies, narcotic medication therapies, and surgery were discussed with the patient and all questions were answered to the patient's satisfaction. 2. Opioid agreement: Signed with the patient and the patient is warned not to use opioids while driving or before driving and not to combine opioids with benzodiazepines or alcohol. 3. Counseling: The patient was counseled extensively on SMOKING CESSATION, BODY MASS INDEX, EXERCISE. Specifically, the patient was instructed regarding the importance of smoking cessation, obesity, and exercise in the context of both chronic pain and overall health. 4. Procedures: Schedule for left lumbar medial branch RFA 5. Consultations: None 6. Investigations: None 7. Medications: Continue oxycodone 150mg #90 pills with a month with 1 refill plus Lyrica 300 mg a day, increase baclofen to 60 mg/day and Mobic. 8. Disposition: Return to clinic in 2 months and to the above-mentioned procedures on her 9. Maps were reviewed and were appropriate. Objective - Vital Signs Vital signs: Vital Signs Temp Pulse 91 07/30/18 13:56 Resp 16 07/30/18 13:56 BP 131/79 07/30/18 13:56 Pulse Ox 90 L 07/30/18 13:56 Intake & Output 07/29/18 07/30/18 07/30/18 18:59 06:59 18:59 Weight 110.223 kg
== END ==
LOC: PNWHC3 13:39
PROVIDERS: ATTEND Anesthesiology
DX: M47.26 Other spondylosis with radiculopathy, lumbar region (principal); E66.01 Morbid (severe) obesity due to excess calories; J06.9 Acute upper respiratory infection, unspecified; Z68.34 Body mass index [BMI] 34.0-34.9, adult; Z79.891 Long term (current) use of opiate analgesic; Z79.899 Other long term (current) drug therapy
CPT/HCPCS: 99211

== ENCOUNTER 2018-08-07 08:56 | Day surgery (SDC) | payer MEDICARE ==
[2018-08-05 10:48] VITALS: BMI 35.4
[~2018-08-07 08:56] MED LIST changes: -LACTATED RINGERS 1,000 ML IV SCH; +SODIUM CHLORIDE 0.9% 500 ML 500 ML IV SCH
[2018-08-07 09:12] VITALS: TEMP 97.5
[2018-08-07] MEDS ORDERED: LIDOCAINE 1% 20 ML VIAL (10MG/ML) FOR IV START INTRADERMA ONE (09:23)
[2018-08-07] MEDS ORDERED: LACTATED RINGERS 1,000 ML IV ONE (09:23)
--- NOTE | 2018-08-07 09:33 | P.PCN ---
Date of Procedure: 08/07/18 Anesthesia: other (Moderate sedation) Description of Procedure: PREOPERATIVE DIAGNOSIS: Lumbar Facet Arthropathy. POSTOPERATIVE DIAGNOSIS: Lumbar Facet Arthropathy. PROCEDURES : LEFT Radiofrequency thermocoagulation, L3, L4, and L5 medial branch, with fluoroscopic guidance ANESTHESIA: IV sedation with versed and fentanyl and local infiltration with lidocaine 1% 10 ml EBL: Minimal PROCEDURE INDICATION: The patient with low back pain secondary to lumbar facet arthropathy who had more than 50% relief of pain with previous diagnostic lumbar medial branch block with local anesthetic. PROCEDURE DESCRIPTION / TECHNIQUE: The patient was seen and identified in the preoperative area. Risks, benefits, complications, including but not limited to risk of infection ,bleeding , allergic reactions to the medications and no complete pain relief , and alternatives were discussed with the patient, the patient agreed to proceed with the procedure and signed the consent. IV was started. Vital signs remained stable throughout the procedure. Patient was taken to the OR and time out was completed. The patient was placed in the prone position on the procedure table. The lumber area was prepped and draped in the usual sterile fashion. . Vital signs were closely monitored during the procedure .IV sedation was used during the procedure to decrease patient anxiety. Using AP and then oblique fluoroscopy, the eye of the Jorge dog corresponding to the connection between the superior and transverse articular processes of left L3, L4, and L5 were identified, marked, and localized with 1% lidocaine. Subsequently, a 20 -dh radiofrequency cannula with a 10-mm active tip was advanced guided by fluoroscopy to each of the eyes of the Jorge dog at L3 , L4, and L5. Each site then underwent sensory testing at 50 Hz and 0 to 1 volt and motor testing at 2.5 Hz and 0 to 3 volt with local stimulation, but no radicular symptoms down the legs. Thereafter the L3, L4, and L5 sites underwent radiofrequency thermocoagulation at 80 degrees celsius for 90 seconds after injecting 0.5 ml of PF lidocaine 1%. Then after the thermocoagulation was done , 1 ml of the block solution containing marcaine 0.5 % was injected at the left L3 , L4 , and L5, levels after negative aspiration of CSF and blood and with no paresthesias. Cannulas were retracted. At the end of the procedure, the skin was cleansed and bandages were applied. COMPLICATIONS: No acute complications. DISPOSITION / PLANS: The patient was placed in a supine position and transferred to the recovery area in a stable condition for observation and was discharged from the recovery room after meeting discharge criteria. Home discharge instructions given to the patient by the staff. The patient was reexamined prior to discharge. We will perform the other side in 2 weeks or have the patient follow-up in the clinic
[2018-08-07] MEDS ORDERED: IV FLUID CONTINUATION 1,000 ML IV ONE (10:17)
--- NOTE | 2018-08-07 10:34 | FL ---
EXAMINATION TYPE: FL guided pain mgmt statistic DATE OF EXAM: 08/07/2018 CLINICAL HISTORY: Low back pain. TECHNIQUE: Fluoroscopy. COMPARISON: None. FINDINGS: Fluoroscopic guidance was provided during pain relief procedure performed by Dr. Mclaughlin . A total of 7 seconds of fluoroscopic time was utilized during the procedure and two spot images are acquired. Images acquired shows needle localization at several levels in the lumbar spine. IMPRESSION: As Above.
[2018-08-07 10:41] VITALS: BP 117/74; PULSE 74; RESP 16
== END 2018-08-07 10:47 | disposition home or self-care (01) ==
LOC: ORPAIN 08:56
PROVIDERS: ATTEND Hospitalist
DX: M47.816 Spondylosis without myelopathy or radiculopathy, lumbar region (principal); Z88.0 Allergy status to penicillin
CPT/HCPCS: 64635; 64636; J2250; J2001; J3010; 99152

== ENCOUNTER 2018-08-12 17:01 | Emergency (ER) | payer MEDICARE ==
[2018-08-12] MEDS ORDERED: MORPHINE SULFATE 4 MG/ML SYRINGE IM STA (17:16)
--- NOTE | 2018-08-12 18:32 | XR ---
PROCEDURE: XR Hip Bilateral and AP pelvis - total 5V DATE AND TIME: 08/12/2018 5:58 PM CLINICAL INDICATION: PHH; Pain after injury TECHNIQUE: 2 views each hip, and AP pelvis COMPARISON: None FINDINGS: There is no fracture or malalignment. The soft tissues are unremarkable. IMPRESSION: NO ACUTE PROCESS.
--- NOTE | 2018-08-12 18:33 | XR ---
PROCEDURE: XR knee complete bilateral - total 6 views DATE AND TIME: 08/12/2018 6:11 PM CLINICAL INDICATION: PHH; Pain TECHNIQUE: 3 views each knee COMPARISON: None FINDINGS: There is no fracture or malalignment. The soft tissues are unremarkable. IMPRESSION: NO ACUTE PROCESS.
--- NOTE | 2018-08-12 18:35 | XR ---
PROCEDURE: XR ankle complete bilateral -total 6 views DATE AND TIME: 08/12/2018 6:08 PM CLINICAL INDICATION: PHH; Pain TECHNIQUE: 3 views each ankle COMPARISON: None FINDINGS: The bones and joints are unremarkable. The soft tissues are unremarkable, other than mild soft tissue swelling lateral to the left lateral m alleolus. IMPRESSION: Negative for fracture or malalignment.
--- NOTE | 2018-08-12 18:36 | XR ---
PROCEDURE: XR foot complete bilateral - 6 total views DATE AND TIME: 08/12/2018 6:08 PM CLINICAL INDICATION: PHH; Pain after injury TECHNIQUE: 3 views each foot COMPARISON: None FINDINGS: There is no fracture or malalignment. The soft tissues are unremarkable. IMPRESSION: NO ACUTE PROCESS.
--- NOTE | 2018-08-12 18:37 | XR ---
PROCEDURE: XR lumbar spine - 3V DATE AND TIME: 08/12/2018 6:17 PM CLINICAL INDICATION: PHH; fall TECHNIQUE: Department protocol COMPARISON: None FINDINGS: There is no fracture or malalignment. L4-5 and L5-S1 facet osteoarthritis changes are appre ciated. The soft tissues are unremarkable. IMPRESSION: NO ACUTE PROCESS.
[2018-08-12] MEDS ORDERED: DIAZEPAM 5 MG TAB PO STA (18:49)
[2018-08-12] MEDS ORDERED: ACET/COD 300 MG/30 MG STARTER PACK 6 TAB BTL PO STA (19:45)
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
[2018-08-12 20:11] VITALS: BP 132/87; PULSE 93; RESP 22; TEMP 98.7
== END 2018-08-12 20:11 | disposition home or self-care (01) ==
LOC: EC 17:01
DX: S93.401A Sprain of unspecified ligament of right ankle, initial encounter (principal); S93.402A Sprain of unspecified ligament of left ankle, initial encounter; S39.012A Strain of muscle, fascia and tendon of lower back, initial encounter; M25.562 Pain in left knee; M25.561 Pain in right knee; M25.551 Pain in right hip; M25.552 Pain in left hip; J44.9 Chronic obstructive pulmonary disease, unspecified; E78.5 Hyperlipidemia, unspecified; I10 Essential (primary) hypertension; I25.119 Atherosclerotic heart disease of native coronary artery with unspecified angina pectoris; G47.30 Sleep apnea, unspecified; F32.9 Major depressive disorder, single episode, unspecified; F41.9 Anxiety disorder, unspecified; I25.2 Old myocardial infarction; F17.200 Nicotine dependence, unspecified, uncomplicated; Z88.0 Allergy status to penicillin; Z79.51 Long term (current) use of inhaled steroids; Z79.82 Long term (current) use of aspirin; Z79.899 Other long term (current) drug therapy; Z86.14 Personal history of Methicillin resistant Staphylococcus aureus infection; Z87.39 Personal history of other diseases of the musculoskeletal system and connective tissue; Z95.5 Presence of coronary angioplasty implant and graft; W01.0XXA Fall on same level from slipping, tripping and stumbling without subsequent striking against object, initial encounter; Y93.01 Activity, walking, marching and hiking; Y92.009 Unspecified place in unspecified non-institutional (private) residence as the place of occurrence of the external cause
CPT/HCPCS: 73562; 73610; 73630; 72100; 73521; 99284; 29515; 96372; J2270

== ENCOUNTER 2018-08-25 09:27 | Day surgery (SDC) | payer MEDICARE ==
[2018-08-22 11:47] VITALS: BMI 34.6
[2018-08-25] MEDS ORDERED: LACTATED RINGERS 1,000 ML IV ONE (10:26)
[2018-08-25 10:29] VITALS: TEMP 97.9
--- NOTE | 2018-08-25 11:39 | P.PCN ---
Date of Procedure: 08/25/18 Procedure(s) Performed: PREOPERATIVE DIAGNOSIS: 1-Lumbar Spondylosis with Facet Arthropathy without myelopathy. POSTOPERATIVE DIAGNOSIS: 1- Lumbar Spondylosis with Facet Arthropathy without myelopathy. PROCEDURES : Right Radiofrequency thermocoagulation, L3-L4, L4-L5, and L5- S1 medial branch, with fluoroscopic guidance. ANESTHESIA: Moderate sedation with intravenous versed 2 mg and fentaneyl 200 mcg, and local infiltration with Ropivacaine 0.5 % . EBL: Minimal PROCEDURE INDICATION: The patient with low back pain secondary to lumbar facet arthropathy who had more than 50% relief of her pain with previous diagnostic lumbar medial branch block with bupivacaine. PROCEDURE DESCRIPTION / TECHNIQUE: The patient was seen and identified in the preoperative area. Risks, benefits, complications, including but not limited to risk of infection ,bleeding , allergic reactions to the medications and no complete pain releife , and alternatives were discussed with the patient, the patient agreed to proceed with the procedure and signed the consent. IV was started. Vital signs remained stable throughout the procedure. Patient was taken to the OR and time out was completed. The patient was placed in the prone position on the procedure table. The lumber area was prepped and draped in the usual sterile fashion. . Vital signs were closely monitored during the procedure .IV sedation was used during the procedure to decrease patients anxiety. Using AP and then oblique fluoroscopy, the ``eye of the Jorge dog corresponding to the connection between the superior and transverse articular processes of right L3, L4, and L5 were identified, marked, and localized with 1% lidocaine. Subsequently, a 18 [id number] radiofrequency cannula with a 10- mm active tip was advanced guided by fluoroscopy to each of the``eyes of the Jorge dog at right L3, L4, and L5. Each site then underwent sensory testing at 50 Hz and 0 to 1 volt and motor testing at 2.5 Hz and 0 to 3 volt with local stimulation, but no radicular symptoms down the legs. Thereafter the right L3-4, L4-5, and L5-S1 sites underwent radiofrequency thermocoagulation at 80 degrees celsius for 90 seconds after injecting 0.5 ml of PF Ropivacaine 1ml, then after the thermocoagulation done , 1 ml of the block solution containing Kenalog 40 mg and 3 ml of Ropivacaine 0.5% was injected at the right L3-4 , L4-5 , and L5-S1, levels after negative aspiration of CSF and blood and with no paresthesias. Cannulas were retracted while injecting lidocaine 1% until the needle is out. . At the end of the procedure, the skin was cleansed and bandages were applied. COMPLICATIONS: No acute complications. DISPOSITION / PLANS: The patient was placed in a supine position and transferred to the recovery area in a stable condition for observation and was discharged from the recovery room after meeting discharge criteria. Home discharge instructions given to the patient by the staff. The patient was reexamined prior to discharge. The patient will schedule a follow up in the clinic in 2-4 weeks.
[2018-08-25] MEDS ORDERED: IV FLUID CONTINUATION 1,000 ML IV ONE (11:45)
--- NOTE | 2018-08-25 11:57 | FL ---
EXAMINATION TYPE: FL guided pain mgmt statistic DATE OF EXAM: 08/25/2018 HISTORY: Pain 33 SEC FLUORO, 3 IMAGES SCANNED
[2018-08-25 12:10] VITALS: BP 135/88; PULSE 73; RESP 18
== END 2018-08-25 12:13 | disposition home or self-care (01) ==
LOC: ORPAIN 09:27
PROVIDERS: ATTEND Specialist
DX: M47.816 Spondylosis without myelopathy or radiculopathy, lumbar region (principal); I25.10 Atherosclerotic heart disease of native coronary artery without angina pectoris; I10 Essential (primary) hypertension; J44.9 Chronic obstructive pulmonary disease, unspecified; G47.33 Obstructive sleep apnea (adult) (pediatric); Z88.0 Allergy status to penicillin; Z90.710 Acquired absence of both cervix and uterus
CPT/HCPCS: 64635; 64636; J2250; J1030; J3010; 99152; 99153

== ENCOUNTER → 2018-09-25 | Outpatient (CLI) | payer MEDICARE ==
[2018-09-25 12:53] VITALS: BP 124/95; PULSE 89; RESP 16
--- NOTE | 2018-09-25 13:46 | P.PN ---
Subjective Progress Note Date: 09/25/18 This is a 52-year-old lady with history of lower back pain with radiation to the lower extremities down to the mid calves. The patient recently has been having more falls and more frequent urinary incontinence. She uses a walker at home. She has been using oxycodone 15 g 3 times a day along with Lyrica, Mobic , and baclofen. She had lumbar medial branch RFA which helped more on the right side than the left side. Today, pt denies new-onset weakness, bowel/bladder incontinence, or any other signs or symptoms of cauda equina syndrome. There are no signs of acute intoxication, and no indications of medication diversion or overuse. In addition to above, 13-point review of systems is also negative for chest pain , shortness of breath, changes in vision, changes in hearing, new onset weakness , abdominal pain, diarrhea, extreme fatigue, malaise, fever, skin changes, homicidal or suicidal ideation, or bowel or bladder incontinence. Vital Signs: Reviewed in EMR Gen: AAOx3, NAD HEENT: PERRLA,hearing grossly normal Pulm: resp unlabored,CTA Heart:S1,S2, No Mur Neck: supple, trachea midline Neuro exam of the lower extremities: Decreased muscle strength to 3 out of 5 on the left side and 4 out of 5 on the right side for knee flexion and extension. Decreased ankle flexion and extension to 4 out of 5 bilaterally. Tenderness in the paravertebral musculature: Positive on the lumbar paravertebral area bilaterally more on the left side than the right side. There are no signs of infection of the skin of the lumbar spine. Neuro: CN II-XII grossly intact, Imaging: Reviewed in EMR/chart Assessment: Lumbar spondylosis with possible myelopathy Lumbar stenosis new onset increasing weakness in the lower extremities and urinary incontinence Morbid obesity Plan: 1. Explanation: Opioid and psychological risk scores were reviewed. Diagnoses , prognoses, and multiple treatment options including but not limited to physical therapy, interventional therapies, adjuvant medical therapies, narcotic medication therapies, and surgery were discussed with the patient and all questions were answered to the patient's satisfaction. 2. Opioid agreement: Signed with the patient and the patient is warned not to use opioids while driving or before driving and not to combine opioids with benzodiazepines or alcohol. 3. Counseling: The patient was counseled extensively on SMOKING CESSATION, BODY MASS INDEX, EXERCISE. Specifically, the patient was instructed regarding the importance of smoking cessation, obesity, and exercise in the context of both chronic pain and overall health. 4. Procedures: None at this point 5. Consultations: I'll send the patient to have an MRI of the lumbar spine with and without contrast for the needle with deterioration in her muscle strength in the lower extremities and the more frequent urinary incontinence 6. Investigations: Lumbar spine MRI with and without contrast 7. Medications: Continue oxycodone 15 mg 3 times a day along with Lyrica, baclofen, and Mobic as needed for pain. The plan will be if MRI does not show any progression in her pathology then we will plan on reducing her oxycodone dose to 10 mg 3 times a day on her next visit. 8. Disposition: Return to clinic in 4 weeks 9. Maps were reviewed and were appropriate. PQRS measures: 1-Patient's medications are documented in the chart. 2-Tobacco use is negative, counseling given 3-Patient has had a pneumococcal vaccine. 4-Advanced care planning discussed, patient unable to give 5-Opioid contract signed with the patient. 6-Pain positive, follow-up visit or procedure scheduled 7-Patient's blood pressure measured and documented within normal limits. 8-Patient's weight was measured, and body mass index ABOVE the normal limits, and counseling was done. Patient instructed to follow up with PCP. 9-Patient WAS NOT identified as an unhealthy alcohol user. Controlled Substance Measures Is patient prescribed a controlled substance at discharge?: Yes When asked, does pt state using other controlled substances?: No If prescribed controlled substance>3 days was MAPS reviewed?: Yes If Rx opioid, was Start Talking consent form obtained?: Yes If opioid is for acute pain is fill amount 7 days or less?: No Was information provided regarding opioid addiction?: Yes Objective - Vital Signs Vital signs: Vital Signs Temp Pulse 89 09/25/18 12:39 Resp 16 09/25/18 12:39 BP 124/95 09/25/18 12:39 Pulse Ox Intake & Output 09/24/18 09/25/18 09/25/18 18:59 06:59 18:59 Weight 105.233 kg
== END | disposition home or self-care (01) ==
LOC: PNWHC3 12:28
PROVIDERS: ATTEND Anesthesiology
DX: M47.816 Spondylosis without myelopathy or radiculopathy, lumbar region (principal); M48.061 Spinal stenosis, lumbar region without neurogenic claudication; E66.01 Morbid (severe) obesity due to excess calories; R53.1 Weakness; R32 Unspecified urinary incontinence; Z79.899 Other long term (current) drug therapy; Z79.1 Long term (current) use of non-steroidal anti-inflammatories (NSAID); Z79.891 Long term (current) use of opiate analgesic
CPT/HCPCS: 80307; G0482; G0463; 99211

== ENCOUNTER 2018-10-14 21:50 | Emergency (ER) | payer MEDICARE ==
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
[2018-10-15 02:11] VITALS: BP 112/87; PULSE 96; RESP 19
[2018-10-15 02:21] VITALS: TEMP 98.3
--- NOTE | 2018-10-15 11:31 | XR ---
EXAM: XR Left Ankle Complete, 3 or More Views CLINICAL HISTORY: MULTIPLE FALLS TODAY. LEFT ANKLE/FOOT PAIN SINCE. TECHNIQUE: Frontal, lateral and oblique views of the left ankle. COMPARISON: No relevant prior studies available. FINDINGS: Bones/joints: No acute fracture or traumatic malalignment. Soft tissues: Mild soft tissue swelling about the bilateral malleolus. IMPRESSION: Mild soft tissue swelling about the bilateral malleolus. EXAM: XR Left Foot Complete, 3 or More Views CLINICAL HISTORY: MULTIPLE FALLS TODAY. LEFT ANKLE/FOOT PAIN SINCE. TECHNIQUE: Frontal, lateral and oblique views of the left foot. COMPARISON: No relevant prior studies available. FINDINGS: Bones/joints: Unremarkable. No acute fracture. No dislocation. Soft tissues: Unremarkable. No radiopaque foreign body. IMPRESSION: Normal left foot x-rays.
== END 2018-10-15 02:28 | disposition home or self-care (01) ==
LOC: EC 21:50
DX: S93.402A Sprain of unspecified ligament of left ankle, initial encounter (principal); S00.33XA Contusion of nose, initial encounter; J44.9 Chronic obstructive pulmonary disease, unspecified; I25.119 Atherosclerotic heart disease of native coronary artery with unspecified angina pectoris; E78.5 Hyperlipidemia, unspecified; I10 Essential (primary) hypertension; I25.2 Old myocardial infarction; G47.30 Sleep apnea, unspecified; F41.9 Anxiety disorder, unspecified; F32.9 Major depressive disorder, single episode, unspecified; F17.200 Nicotine dependence, unspecified, uncomplicated; Z79.899 Other long term (current) drug therapy; Z79.51 Long term (current) use of inhaled steroids; Z88.0 Allergy status to penicillin; Z95.5 Presence of coronary angioplasty implant and graft; W19.XXXA Unspecified fall, initial encounter; Y92.009 Unspecified place in unspecified non-institutional (private) residence as the place of occurrence of the external cause
CPT/HCPCS: 99284

== ENCOUNTER → 2018-11-03 | Outpatient (CLI) | payer MEDICARE ==
[2018-11-03 11:41] VITALS: BP 136/99; PULSE 82; RESP 18
--- NOTE | 2018-11-03 11:52 | P.PAINPG ---
Subjective Progress Note Date: 11/03/18 This is follow-up visit for this patient with a history of severe and chronic low back pain secondary to lumbar degenerative disc disease, lumbar facet arthropathy, We have done an interventional pain procedure , the frequency ablation of the medial branch lumbar area, done a few months ago ,which helped her low back pain The patient currently on oxycodone 15 mg every 8 hours, Lyrica 100 mg 3 times a day, Mobic 7.5 mg twice a day, baclofen 20 mg every 8 hours Patient denies any side effect of the medication , patient denies any excessive drowsiness or sleepiness, patient denies any suicidal ideation, Patient reported that the current medication is helping to control the pain and improve the activity of daily livings, Patient denies any motor or sensory deficit, denies any change in the bowel movement or urination, patient denies any fever or night sweats. Patient here today for follow-up visit and medication refill , patient had multiple falling episodes secondary to ankle etiology, ligament problem in the ankle, and currently she has left ankle braces, she is able to ambulate she had no motor or sensory deficit, Objective - Vital Signs Vital signs: Vital Signs Temp Pulse 82 11/03/18 11:37 Resp 18 11/03/18 11:37 BP 136/99 11/03/18 11:37 Pulse Ox 93 L 11/03/18 11:37 Intake & Output 11/02/18 11/03/18 11/03/18 18:59 06:59 18:59 Weight 113.398 kg - Exam Physical Examinations : -Constitutiona : Cooperative , not in acute distress . -HEENT : nech ; supple , no Lymphadenopathy , normal thyroid size . eyes : no ptosis , no icterus, no photophobia . - neurologic : Cranial nerve II to XII intact , no focal neurological deffecit . -psychatric : alert , oriented X 3 , appropriate affect , intact judgment and insight . -Lymphatic : no Lymphadenopathy . - musculoskeltal : Lumber spine moter stegnth lower extremities ,thigh and legs 5/5 Right side , 5/5 Left side deep tendon reflexes : normal Knee Jerk , normal ankle Jerk Assessment and Plan Plan: Assessment and plan= chronic low back pain secondary to lumbar degenerative disc disease , lumbar spondylosis with lumbar facet arthropathy . chronic and current use of high-risk medication (opioids) Patient denies any side effects of the current pain medication and the current treatment/medication helping the patient to do activity of daily living , Diagnoses, prognosis, treatment options, including but not limited to physical therapy, medication management, interventional therapies, and surgery, were discussed with the patient All the questions answered The narcotic consent was signed and patient agreed and understood the side effects and complications of opioid treatment. Patient signed the narcotic agreement, and was orally counseled, not to overuse, not to abuse, not to Divert , not tp sell pain medication, and to take it as prescribed only, Patient was counseled not to drive or operate heavy equipment while using narcotic medication, and advised not to use alcohol or any Illicit drugs while using the narcotis. understanding that lack of compliance with any of the above instructions, will likely to cause discharge from, the pain service, not to renew his narcotic prescriptions MAPS Reviwed and it was apropriate . Medication managements= patient will be given prescription refills for oxycodone 15 mg every 8 hours dispense 90 with 1 refill, Mobic 7.5 mg twice a day dispense 60 with 1 refill Lyrica 100 mg 3 times a day dispense 90 with 1 refill, and I will decrease the dose of baclofen to 10 mg every 6 hours (currently 20 mg 3 times a day ), Patient will follow up in the pain clinic in 2 months. MAPS reviewed and it was appropriate, UDS view that it was okay , Time with Patient: Less than 30 PQRS Measure Charge Sheet Measure #130: Documentation of Current Meds in Medical Chart: Patient's medications documented in chart Measure #226: Tobacco Use: Screen & Cessation Intervention: Pt screened for tobacco use AND intervention given Measure #111: Pneumonia Vaccination: Pneumococcal vaccine administered or previously received Measure #47: Advance Care Plan: Advance care planning discussed & documented, pt chose/unable to give Measure #412: Opioid Treatment Agreement: Documented signed opioid trtmnt agreemnt min once during opioid trtmnt Measure #408: Opioid Therapy Follow-up Evaluation: Patient had f/u eval minimum every 3 months during opioid therapy Measure #317: Preventitive Care & Scrn High Bld Press & F/U: Normal blood pressure, f/u not required Measure #128: Body Mass Index (BMI) Screening & Follow-up: BMI documented ABOVE normal parameters - f/u documented Measure #131: Pain Assessment & Follow-up: Pain positive & plan documented, Follow-up scheduled Measure #431: Unhealthy Alcohol Use Preventative Care & Scrn: Patient not identified as an unhealthy alcohol user PQRS Narrative: Smoking Status Current every day smoker Do You Want the Pneumonia Yes Vaccine AT THIS TIME? Narcotic Agreement Date Signed 09/25/18 Blood Pressure 136/99 Pain Intensity [Lower Back] 7 Scale Used Numeric (1 - 10) Hx Alcohol Use (MH) No Home Medications: Ambulatory Orders Albuterol Sulfate [Proair Hfa] 2 puff INHALATION RT-QID PRN 06/07/14 Atorvastatin [Lipitor] 80 mg PO HS 06/07/14 Ipratropium-Albuterol Nebulize [Duoneb 0.5 mg-3 mg/3 ml Soln] 3 ml INHALATION RT-QID PRN 06/07/14 Metoprolol Tartrate [Lopressor] 50 mg PO BID 06/07/14 Nitroglycerin Sl Tabs [Nitrostat] 0.4 mg SUBLINGUAL Q5M PRN 06/07/14 Beclomethasone Dipropionate [Qvar 80 mcg/puff] 1 puff INHALATION RT-BID 08/11/14 Isosorbide Mononitrate ER [Imdur] 30 mg PO DAILY 11/03/14 Losartan Potassium [Cozaar] 100 mg PO DAILY 11/03/14 Montelukast [Singulair] 10 mg PO HS 12/29/14 DULoxetine HCL [Cymbalta] 60 mg PO HS 04/19/15 amLODIPine [Norvasc] 5 mg PO DAILY 07/01/15 traZODone HCL [Desyrel] 100 - 200 mg PO HS PRN 02/13/16 QUEtiapine [SEROquel] 200 mg PO HS 09/04/17 Baclofen [Lioresal] 20 mg PO TID #90 tab 02/12/18 Meloxicam [Mobic] 7.5 mg PO BID #60 tablet 02/12/18 Pregabalin [Lyrica] 100 mg PO TID #90 cap 02/12/18 oxyCODONE HCL [oxyCODONE HCL (IR)] 15 mg PO Q8HR PRN #90 tab 04/09/18 Melatonin 5 mg PO HS PRN 08/05/18 Ondansetron [Zofran] 4 mg PO Q12HR PRN 09/25/18 Controlled Substance Measures - Controlled Substance Measures Is patient prescribed a controlled substance at discharge?: Yes When asked, does pt state using other controlled substances?: No If prescribed controlled substance>3 days was MAPS reviewed?: Yes If Rx opioid, was Start Talking consent form obtained?: Yes If opioid is for acute pain is fill amount 7 days or less?: No Was information provided regarding opioid addiction?: Yes
== END ==
LOC: PNWHC3 11:18
PROVIDERS: ATTEND Specialist
DX: G89.29 Other chronic pain (principal); M51.36 Other intervertebral disc degeneration, lumbar region; M47.816 Spondylosis without myelopathy or radiculopathy, lumbar region; M46.96 Unspecified inflammatory spondylopathy, lumbar region; F17.200 Nicotine dependence, unspecified, uncomplicated; Z79.891 Long term (current) use of opiate analgesic; Z79.899 Other long term (current) drug therapy
CPT/HCPCS: 99211

== ENCOUNTER → 2018-12-29 | Outpatient (CLI) | payer MEDICARE ==
[2018-12-29 12:36] VITALS: BP 139/83; PULSE 77; RESP 16
--- NOTE | 2018-12-29 13:08 | P.PN ---
Subjective Progress Note Date: 12/29/18 Andra presents today for follow-up. She reports that she continues to have significant amount of low back pain, bilateral hip pain, and bilateral ankle pain. She reports that her pain is unchanged from previous visits. She reports her pain only continues to get worse despite having PAIN medications. She is trying to lose weight she lost 26 pounds over the last 6 months. She reports she's been started low carbohydrate diet and starting to do this slowly. Which is also quitting smoking. She is unsure about what to do to feel better. She denies any side effects from the medications that she's taking not reports of helping very much. She is worried about how to improve her overall health and her pain. She is here today with her daughter. At this point she denies any significant red flag symptoms including bowel or bladder incontinence, lower extremity weakness, neck pain, or upper extremity weakness Objective - Vital Signs Vital signs: Vital Signs Temp Pulse 77 12/29/18 12:30 Resp 16 12/29/18 12:30 BP 139/83 12/29/18 12:30 Pulse Ox 97 12/29/18 12:30 Intake & Output 12/28/18 12/29/18 12/29/18 18:59 06:59 18:59 Weight 108.862 kg - Exam General: Awake and alert oriented 3 no distress Respiratory exam: No audible wheezing no accessory muscle usage Cardiovascular exam: regular rate, palpable bilateral pulses, no lower extremity edema Abdominal exam: No distention nontender to palpation Cervical spine: Normal alignment, Spurling's negative, facet loading negative, 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 Straight leg raise is negative. Limited range of motion due to pain with flexion, extension and side bending. . She has tenderness to palpation over bilateral trochanteric bursa and SI joints. She has tenderness to palpation over the quadriceps and over the hamstrings. Sacroiliac joints: Tender over the SI joints, SARAH is negative, [place] negative Neuro exam: Normal sensation in bilateral upper extremities, deep tendon reflexes are 2+ bilateral upper extremities. Normal sensation in bilateral lower extremities. Deep tendon reflexes are 2+ in lower extremities Psych exam: Cooperative, appropriate mood Assessment and Plan Assessment: #1 lumbar radiculopathy #2 trochanteric bursitis #3 lumbar spondylosis without myelopathy Plan: Had along discussion with the patient regarding medication she is on currently. Advise it did not help and that we shouldn't use any medications. At this point had a discussion with her regarding her overall health and wellness. She has been in physical therapy in the past and is not really participating in any physical activity at this time. She is an attractive lose weight and lost 26 pounds the last 6 months. I discussed with her low-carb manifesting as an overall benefit to improve her health. I've given her credible resources follow with online. On today's visit she reports she weighs about 240 pounds. I advised her to also continue working and smoking. I will refill her medications today and advised to try and use less and less medications time goes on and report to us in 2 months time if she is able to decrease them on her own. On today's visit I check her maps, her urine drug screen was done in September and was appropriate. I will refill her oxycodone, Lyrica, baclofen and mobic.
== END ==
LOC: PNWHC3 11:51
PROVIDERS: ATTEND Hospitalist
DX: M47.26 Other spondylosis with radiculopathy, lumbar region (principal); M70.60 Trochanteric bursitis, unspecified hip; F17.200 Nicotine dependence, unspecified, uncomplicated
CPT/HCPCS: 99211

== ENCOUNTER → 2019-02-23 | Outpatient (CLI) | payer MEDICARE ==
--- NOTE | 2019-02-24 09:15 | P.PAINPG ---
Subjective Progress Note Date: 02/23/19 Andra presents today for follow-up. At her last visit in December, we had discussed continued weight loss and exercise as well as attempting to reduce amount of medications taken, she was not getting significant benefit from the medication. Today, she complains of pain in her right low back, right buttock, right lateral hip and right groin. She describes this as an ache, burn, throbbing, and rates at 7/10. Pain is worse with sitting, standing, lying and better with medications, prior injections, heat. She reports that due to insurance reasons, there was a delay in getting her medications and she went one week without narcotics in 3 weeks without at joint medications. She reports that she was in significant pain during this time. Her pain was slightly improved after restarting the oxycodone, and much better after restarting her adjuvant medications. She reports that she continues to lose weight, and her clothes are getting loose, however she has not been to her primary care office to check her weight and she does not having weighing scale at home. Review of systems is negative for chest pain, shortness of breath, new onset weakness, numbness/tingling, abdominal pain, malaise, fever, night sweats, chills, homicidal or suicidal ideation, or bowel or bladder incontinence. Objective Physical exam: Vitals: Reviewed in EMR GENERAL: Well appearing, in no acute distress PSYCH: Mood and affect is appropriate. Awake, alert, and oriented SKIN: Skin color, texture, turgor normal, no rashes or lesions HEENT: Normocephalic, atraumatic. EOM intact CV: No pedal edema RESP: Respirations are unlabored, no audible wheezing GI: Abdomen non-distended MUSCULOSKELETAL: Hip flexion 4 out of 5 bilaterally, knee extension and flexion 5 out of 5 bilaterally, ankle dorsiflexion and plantar flexion 5 out of 5 bilaterally. No atrophy or tone abnormalities are noted. Lumbar spine: Straight leg raising in the sitting position is negative for radicular pain. Tenderness to palpation over the lumbar spine and paraspinous muscles bilaterally, right greater than left. Positive for pain with facet loading and back extension/rotation. Buttocks: No pain to palpation over the PSIS, Marquita's test positive on right, FADIR test positive on right. Extremities: Peripheral joint ROM is full and pain free without obvious instability or laxity in all four extremities. No edema or skin discolorations noted. Gait: Gait is slow, walks with a 4 point walker NEUR: Bilateral lower extremity coordination and muscle stretch reflexes are physiologic and symmetric. Negative clonus bilaterally. No loss of sensation is noted. Assessment and Plan Assessment: #1 lumbar radiculopathy #2 trochanteric bursitis #3 lumbar spondylosis without myelopathy #4 right hip pain likely due to osteoarthritis Plan: Had a long discussion with the patient regarding medication she is on currently. We decided to reduce her oxycodone dose from 15 mg to 10 mg 4 times a day. Over time, we will continue to reduce this dose until she is off narcotics. She is amenable to this plan. On today's visit I check her maps, her urine drug screen was done in September and was appropriate. Prescriptions written for oxy codone, Lyrica, baclofen and mobic. Will schedule right hip intra-articular steroid injection I provided the patient with list of exercises to do for low back strengthening and core strengthening. I advised her to do these exercises on a daily basis. She has been to physical therapy in the past. We had a long discussion about continued weight loss, she continues with a low- carb diet, and it appears that she is losing weight. I advised her to visit her primary care doctor for a weight check. PQRS Measure Charge Sheet Measure #130: Documentation of Current Meds in Medical Chart: Patient's medications documented in chart Measure #226: Tobacco Use: Screen & Cessation Intervention: Pt screened for tobacco use AND intervention given Measure #111: Pneumonia Vaccination: Pneumococcal vaccine administered or previously received Measure #47: Advance Care Plan: Advance care planning discussed & documented, pt chose/unable to give Measure #412: Opioid Treatment Agreement: Documented signed opioid trtmnt agreemnt min once during opioid trtmnt Measure #408: Opioid Therapy Follow-up Evaluation: Patient had f/u eval minimum every 3 months during opioid therapy Measure #317: Preventitive Care & Scrn High Bld Press & F/U: Pre-hypertensive or hypertensive BP documented, pt will f/u with PCP Measure #128: Body Mass Index (BMI) Screening & Follow-up: BMI documented ABOVE normal parameters - f/u documented Measure #131: Pain Assessment & Follow-up: Pain positive & plan documented, Follow-up scheduled Measure #431: Unhealthy Alcohol Use Preventative Care & Scrn: Patient not identified as an unhealthy alcohol user PQRS Narrative: Smoking Status Current every day smoker Narcotic Agreement Date Signed 09/25/18 Hx Alcohol Use (MH) No Home Medications: Ambulatory Orders Atorvastatin [Lipitor] 80 mg PO HS 06/07/14 Ipratropium-Albuterol Nebulize [Duoneb 0.5 mg-3 mg/3 ml Soln] 3 ml INHALATION RT-QID PRN 06/07/14 Metoprolol Tartrate [Lopressor] 50 mg PO BID 06/07/14 Nitroglycerin Sl Tabs [Nitrostat] 0.4 mg SUBLINGUAL Q5M PRN 06/07/14 Beclomethasone Dipropionate [Qvar 80 mcg/puff] 2 puff INHALATION RT-BID 08/11/14 Isosorbide Mononitrate ER [Imdur] 30 mg PO DAILY 11/03/14 Losartan Potassium [Cozaar] 100 mg PO DAILY 11/03/14 DULoxetine HCL [Cymbalta] 60 mg PO HS 04/19/15 traZODone HCL [Desyrel] 100 - 200 mg PO HS PRN 02/13/16 Meloxicam [Mobic] 7.5 mg PO BID #60 tablet 02/12/18 Pregabalin [Lyrica] 100 mg PO TID #90 cap 02/12/18 oxyCODONE HCL [oxyCODONE HCL (IR)] 15 mg PO Q8HR PRN #90 tab 04/09/18 Melatonin 5 mg PO HS PRN 08/05/18 Ondansetron [Zofran] 4 mg PO Q12HR PRN 09/25/18 Albuterol Inhaler [Ventolin Hfa Inhaler] 1 - 2 puff INHALATION RT-Q6H PRN 12/29/18 Baclofen 10 mg PO Q6HR 12/29/18 Doxycycline [Vibramycin] 100 mg PO BID 12/29/18 Ergocalciferol (Vitamin D2) [Vitamin D2] 50,000 unit PO WEEKLY 12/29/18 Furosemide [Lasix] 20 mg PO DIRECTED 12/29/18 Multivitamins, Thera [Multivitamin (formulary)] 1 tab PO DAILY 12/29/18 Varenicline [Chantix Starter Pack] 0.5 mg PO DAILY 12/29/18 buPROPion HCL [Wellbutrin XL] 300 mg PO DAILY 12/29/18 Controlled Substance Measures - Controlled Substance Measures Is patient prescribed a controlled substance at discharge?: Yes When asked, does pt state using other controlled substances?: No If prescribed controlled substance>3 days was MAPS reviewed?: Yes If Rx opioid, was Start Talking consent form obtained?: Yes If opioid is for acute pain is fill amount 7 days or less?: No Was information provided regarding opioid addiction?: Yes
== END | disposition home or self-care (01) ==
CPT/HCPCS: 99211

== ENCOUNTER 2019-02-26 06:56 | Day surgery (SDC) | payer MEDICARE ==
[2019-02-24 15:20] VITALS: BMI 36.1
[~2019-02-26 06:56] MED LIST changes: +LACTATED RINGERS 1,000 ML IV SCH; -SODIUM CHLORIDE 0.9% 500 ML 500 ML IV SCH
[2019-02-26 07:26] VITALS: TEMP 97.6
[2019-02-26 07:31] LABS: Glucose,Whole Blood 153 mg/dL (75-99)
--- NOTE | 2019-02-26 08:25 | P.PCN ---
Date of Procedure: 02/26/19 Surgeon: Malachi Bruner Pathology: none sent Condition: stable Disposition: PACU Description of Procedure: Name of procedure: Right intra-articular hip joint steroid injection under fluoroscopic guidance Diagnosis: Right hip osteoarthritis Anesthesia: Local with IV moderate conscious sedation with 2 mg of Versed and 100 g of fentanyl. Physician:Malachi Bruner Description of procedure: The patient was seen in the preop holding area consent was obtained then she was brought into the procedure 1 placed in the supine position. Skin over the right hip was prepped with Chloraprep after pulling the abdominal pannus away from the injection field. Then on the AP view of fluoroscopy the femoral neck was identified and a 22-gauge 5 inch Quincke spinal needle was used to go through the skin after localizing the skin with 1% lidocaine and to contact the bone at the middle points in the femur neck. I then injected 2 MLS of Isovue which showed typical spread in the recess. Then I injected 40 mg of Kenalog +5 MLS of lidocaine 1% preservative-free. Patient tolerated procedure well.
[2019-02-26] MEDS ORDERED: IV FLUID CONTINUATION 600 ML IV ONE (08:27)
--- NOTE | 2019-02-26 08:30 | FL ---
Fluoroscopy HISTORY: Pain 12 seconds fluoroscopy time supplied to the referring clinician. 1 intraoperative C-arm images docum ent the procedure. See dictated report from anesthesia.
[2019-02-26 08:32] VITALS: RESP 18
[2019-02-26 08:48] VITALS: BP 115/78; PULSE 60
== END 2019-02-26 09:01 | disposition home or self-care (01) ==
LOC: ORPAIN 06:56
PROVIDERS: ATTEND Anesthesiology
DX: I10 Essential (primary) hypertension (principal); E66.9 Obesity, unspecified; Z68.36 Body mass index [BMI] 36.0-36.9, adult; Z88.0 Allergy status to penicillin
CPT/HCPCS: 20610; J2250; J3301; J3010; Q9966; 99152

== ENCOUNTER → 2019-04-20 | Outpatient (CLI) | payer MEDICARE ==
[2019-04-20 13:18] VITALS: BP 151/71; PULSE 61; RESP 18
--- NOTE | 2019-04-20 14:01 | P.PAINPG ---
Subjective Progress Note Date: 04/20/19 This is follow-up visit for this patient with a history of severe and chronic low back pain secondary to lumbar degenerative disc disease, lumbar facet arthropathy, right hip arthralgia We have done an interventional pain procedure , the frequency ablation of the medial branch lumbar area, done a few months ago ,which helped her low back pain The patient currently on oxycodone 10 mg every 8 hours, Lyrica 100 mg 3 times a day, Mobic 7.5 mg twice a day, baclofen 10 mg every 6 hours Patient denies any side effect of the medication , patient denies any excessive drowsiness or sleepiness, patient denies any suicidal ideation, Patient reported that the current medication is helping to control the pain and improve the activity of daily livings, Patient denies any motor or sensory deficit, denies any change in the bowel movement or urination, patient denies any fever or night sweats. Patient here today for follow-up visit and medication refill , patient had multiple falling episodes secondary to ankle etiology, ligament problem in the ankle, and currently she has left ankle braces, she is able to ambulate she had no motor or sensory deficit, Objective - Vital Signs Vital signs: Vital Signs Temp Pulse 61 04/20/19 13:13 Resp 18 04/20/19 13:13 BP 151/71 04/20/19 13:13 Pulse Ox 98 04/20/19 13:13 - Exam Physical Examinations : -Constitutiona : Cooperative , not in acute distress . -HEENT : nech : supple , no Lymphadenopathy , normal thyroid size . eyes : no ptosis , no icterus, no photophobia . ENT : normal of hearing , normal oropharynx , no Thrush . - Respiratory : Chest clear to auscultations Bilaterally , no wheezing , no Rhonchi . - Cardiovascula : regular rate and rhythem , S1 , S2 , no S3 , no S4. - Gastrointestina : abdomen soft no tenderness , bowel sounds , no organomegally . - Genitourinary : Defferred . - neurologic : Cranial nerve II to XII intact , no focal neurological deffecit . -psychatric : alert , oriented X 3 , appropriate affect , intact judgment and insight . -Lymphatic : no Lymphadenopathy . - musculoskeltal : Lumber spine moter stegnth lower extremities ,thigh and legs 5/5 Right side , 5/5 Left side deep tendon reflexes : normal Knee Jerk , normal ankle Jerk positive lumber facet Loading Test Range of motion of the lumbar spine Flexion 30 degrees, extension 10 degrees strait leg raising test , positive at 45 degree Fabere test positive RT and positive LT . tenderness over the Sacroiliac joint on the R and L sides Flexion and extension and lateral rotation of the right hip associated with severe pain Assessment and Plan Plan: Assessment and plan #1 lumbar radiculopathy #2lumbar spondylosis without myelopathy #3 right hip pain likely due to osteoarthritis Plan: Had a long discussion with the patient regarding medication she is on currently. We decided to reduce her oxycodone dose from 15 mg to 10 mg 4 times a day. Over time, we will continue to reduce this dose until she is off narcotics. She is amenable to this plan. On today's visit I check her maps, her urine drug screen Nonenlarged. Prescriptions written for oxycodone, Lyrica, baclofen and mobic. Will schedule repeate right hip intra-articular steroid injection She has been to physical therapy in the past. We had a long discussion about continued weight loss, she continues with a low- carb diet, and it appears that she is losing weight. I advised her to visit her primary care doctor for a weight check. Time with Patient: Less than 30 PQRS Measure Charge Sheet Measure #130: Documentation of Current Meds in Medical Chart: Patient's medications documented in chart Measure #226: Tobacco Use: Screen & Cessation Intervention: Pt screened for tobacco use AND intervention given Measure #111: Pneumonia Vaccination: Pneumococcal vaccine administered or previously received Measure #47: Advance Care Plan: Advance care planning discussed & documented, pt chose/unable to give Measure #412: Opioid Treatment Agreement: Documented signed opioid trtmnt agreemnt min once during opioid trtmnt Measure #408: Opioid Therapy Follow-up Evaluation: Patient had f/u eval minimum every 3 months during opioid therapy Measure #317: Preventitive Care & Scrn High Bld Press & F/U: Pre-hypertensive or hypertensive BP documented, pt will f/u with PCP Measure #128: Body Mass Index (BMI) Screening & Follow-up: BMI documented ABOVE normal parameters - f/u documented Measure #131: Pain Assessment & Follow-up: Pain positive & plan documented, Follow-up scheduled Measure #431: Unhealthy Alcohol Use Preventative Care & Scrn: Patient not identified as an unhealthy alcohol user PQRS Narrative: Smoking Status Current every day smoker Narcotic Agreement Date Signed 09/25/18 Blood Pressure 151/71 Pain Intensity [Lower Back] 6 Scale Used Numeric (1 - 10) Hx Alcohol Use (MH) No Home Medications: Ambulatory Orders Atorvastatin [Lipitor] 80 mg PO HS 06/07/14 Ipratropium-Albuterol Nebulize [Duoneb 0.5 mg-3 mg/3 ml Soln] 3 ml INHALATION QID PRN 06/07/14 Metoprolol Tartrate [Lopressor] 50 mg PO BID 06/07/14 Nitroglycerin Sl Tabs [Nitrostat] 0.4 mg SUBLINGUAL Q5M PRN 06/07/14 Beclomethasone Dipropionate [Qvar 80 mcg/puff] 2 puff INHALATION BID 08/11/14 Isosorbide Mononitrate ER [Imdur] 30 mg PO DAILY 11/03/14 Losartan Potassium [Cozaar] 100 mg PO DAILY 11/03/14 DULoxetine HCL [Cymbalta] 60 mg PO HS 04/19/15 Meloxicam [Mobic] 7.5 mg PO BID #60 tablet 02/12/18 Pregabalin [Lyrica] 100 mg PO TID #90 cap 02/12/18 Melatonin 5 mg PO HS PRN 08/05/18 Ondansetron [Zofran] 4 mg PO Q12HR PRN 09/25/18 Albuterol Inhaler [Ventolin Hfa Inhaler] 1 - 2 puff INHALATION Q6HR PRN 12/29/18 Baclofen 10 mg PO Q6HR 12/29/18 Ergocalciferol (Vitamin D2) [Vitamin D2] 50,000 unit PO OCHOA 12/29/18 Furosemide [Lasix] 20 mg PO DAILY PRN 12/29/18 Multivitamins, Thera [Multivitamin (formulary)] 1 tab PO DAILY 12/29/18 buPROPion HCL [Wellbutrin XL] 300 mg PO DAILY 12/29/18 Aspirin [Adult Low Dose Aspirin EC] 81 mg PO DAILY 04/14/19 Buspar(Dose Unknown) 1 tab PO DIRECTED 04/14/19 amLODIPine [Norvasc] 5 mg PO DAILY 09/17/19 oxyCODONE ER [OxyCONTIN] 10 mg PO Q8HR PRN 04/14/19 traZODone HCL 300 mg PO HS 04/14/19 Controlled Substance Measures - Controlled Substance Measures Is patient prescribed a controlled substance at discharge?: Yes When asked, does pt state using other controlled substances?: No If prescribed controlled substance>3 days was MAPS reviewed?: Yes If Rx opioid, was Start Talking consent form obtained?: Yes If opioid is for acute pain is fill amount 7 days or less?: No Was information provided regarding opioid addiction?: Yes
== END | disposition home or self-care (01) ==
LOC: PNWHC3 12:23
PROVIDERS: ATTEND Specialist
DX: M47.26 Other spondylosis with radiculopathy, lumbar region (principal); M25.551 Pain in right hip; F17.200 Nicotine dependence, unspecified, uncomplicated; Z79.51 Long term (current) use of inhaled steroids; Z79.1 Long term (current) use of non-steroidal anti-inflammatories (NSAID); Z79.82 Long term (current) use of aspirin; Z79.891 Long term (current) use of opiate analgesic; Z79.899 Other long term (current) drug therapy
CPT/HCPCS: 99211

== ENCOUNTER 2019-04-23 06:28 | Day surgery (SDC) | payer MEDICARE ==
[2019-04-22 11:06] VITALS: BMI 36.7
[2019-04-23 06:51] VITALS: RESP 16; TEMP 97
[2019-04-23] MEDS ORDERED: LIDOCAINE 1% 20 ML VIAL (10MG/ML) FOR IV START INTRADERMA ONE (06:55)
[2019-04-23] MEDS ORDERED: IV FLUID CONTINUATION 1,000 ML IV ONE (07:59)
--- NOTE | 2019-04-23 07:59 | P.PCN ---
Date of Procedure: 04/23/19 Procedure(s) Performed: Preoperative diagnoses = right hip joint osteoarthritis. Postoperative diagnoses= same Procedure= intra-articular right hip injection with fluoroscopy Anesthesia= local anesthetic with lidocaine 1%, moderate sedation with 2 mg of midazolam and 100 g of fentanyl Procedure indication= patient with a history of severe hip pain secondary to osteoarthritis which is not responsive to the conservative treatment. Description of the procedure= patient was seen and identified in the preoperative holding area, risk and benefits , complications ,and alternatives of the procedure were discussed with the patient and patient agreed with the preceding, patient signed the consent and IV was started and vital signs were monitored throughout the procedure and it was stable. The patient was taken to the operating room and placed in supine position the groin area was prepped with chlorhexidine 3 and draped with the standard fashion, a needle was advanced through the skin and subcutaneous tissue from lateral to medial into the hip joint. After negative aspiration,.the solution of 4 cc of .5% ropivicaine with 40 mg of Kenalog injected. The patient tolerated the procedure well without any complications. Images were saved to radiology Complications: there was no acute complication identified. Disposition= patient was placed advanced supine position and transferred to recovery room in stable condition for observation and was discharged home after meeting discharge criteria, and discharge instruction was given and patient will follow up in the pain clinic in a few weeks
[2019-04-23 08:34] VITALS: BP 101/64; PULSE 52
--- NOTE | 2019-04-23 11:12 | FL ---
EXAMINATION TYPE: FL guided pain mgmt statistic DATE OF EXAM: 04/23/2019 COMPARISON: NONE HISTORY: Right hip pain TECHNIQUE: Fluoroscopy. FINDINGS: Fluoroscopic guidance was provided during procedure performed by Dr. Mitchell. A total of 4 seconds of fluoroscopic time was utilized during the procedure and 1 spot images was acquired durin g right hip injection. IMPRESSION: As Above.
== END 2019-04-23 08:56 | disposition home or self-care (01) ==
LOC: ORPAIN 06:28
PROVIDERS: ATTEND Student in an Organized Health Care Education/Training Program
DX: M16.11 Unilateral primary osteoarthritis, right hip (principal); Z90.710 Acquired absence of both cervix and uterus
CPT/HCPCS: 20610; J2250; J3301; J3010; Q9966

== ENCOUNTER 2019-04-30 17:23 | Inpatient (IN) | payer MEDICARE ==
[2019-04-30] MEDS ORDERED: IPRATROPIUM-ALBUTEROL 3 ML NEB INHALATION STA (17:39)
[2019-04-30] MEDS ORDERED: methylPREDNISolone SOD SUCCI 125 MG/2 ML VIAL IV STA (17:39)
[2019-04-30] MEDS ORDERED: SODIUM CHLORIDE 0.9% 1,000 ML IV STA (17:39)
[2019-04-30] MEDS ORDERED: MORPHINE SULFATE 4 MG/ML SYRINGE IVP STA (18:02)
[2019-04-30] MEDS ORDERED: KETOROLAC 30 MG/ML 1 ML VIAL IVP STA (18:02)
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
[2019-04-30 18:41] LABS: ALT 30 U/L (9-52); AST 17 U/L (14-36); African American GFR (CKD) >90 (>60 ml/min/1.73 sqM); Albumin 3.8 g/dL (3.5-5.0); Alkaline Phosphatase 92 U/L (38-126); Anion Gap 11 mmol/L; Blood Urea Nitrogen 21 mg/dL (7-17); Calcium 9.1 mg/dL (8.4-10.2); Carbon Dioxide 23 mmol/L (22-30); Chloride 103 mmol/L (98-107); Creatine Kinase 43 U/L (30-135); Glucose 152 mg/dL (74-99); Magnesium 2.2 mg/dL (1.6-2.3); Sodium 137 mmol/L (137-145); Total Bilirubin 1.3 mg/dL (0.2-1.3); Total Protein 6.6 g/dL (6.3-8.2)
[2019-04-30 18:48] LABS: Basophils # (A) 0.2 k/uL (0-0.2); Basophils % (A) 1 %; Eosinophils # (A) 0.3 k/uL (0-0.7); Eosinophils % (A) 2 %; HCT 37.8 % (34.0-46.0); HGB 12.4 gm/dL (11.4-16.0); Lymphocytes # (A) 2.3 k/uL (1.0-4.8); Lymphocytes % (A) 13 %; MCH 30.6 pg (25.0-35.0); MCHC 32.7 g/dL (31.0-37.0); MCV 93.7 fL (80.0-100.0); Mean Platelet Volume 7.7; Monocytes # (A) 0.9 k/uL (0-1.0); Monocytes % (A) 5 %; Neutrophils # (A) 13.4 k/uL (1.3-7.7); Neutrophils % (A) 78 %; Platelet Count 228 k/uL (150-450); RBC 4.04 m/uL (3.80-5.40); RDW 13.5 % (11.5-15.5); WBC 17.2 k/uL (3.8-10.6)
[2019-04-30 18:51] LABS: INR 0.9 (<1.2); Prothrombin Time 9.5 sec (9.0-12.0)
[2019-04-30 18:52] LABS: D-Dimer 0.7 mg/L FEU (<0.60)
[2019-04-30] MEDS ORDERED: LEVOFLOXACIN 750MG-D5W PMX 750 MG in DEXTROSE/WATER 1 150ML.BAG IVPB STA (21:34)
[2019-04-30] MEDS ORDERED: PNEUMONIA PROTOCOL UTILIZED 1 EACH MISC PO PRN (21:34)
[2019-04-30] MEDS ORDERED: CEFEPIME 2 GM in SODIUM CHLORIDE 0.9% 100 ML IVPB ONE (21:45)
[2019-04-30] MEDS: SODIUM CHLORIDE 0.9% 1,000 ML IV SCH (21:54)
[2019-04-30] MEDS ORDERED: NITROGLYCERIN SL TABS 0.4 MG TAB SUBLINGUAL PRN (23:36)
[2019-04-30] MEDS ORDERED: IPRATROPIUM-ALBUTEROL 3 ML NEB INHALATION PRN (23:36)
[2019-04-30] MEDS ORDERED: ALBUTEROL NEBULIZED 2.5 MG/3 ML INHALATION PRN (23:36)
[2019-05-01] MEDS ORDERED: DOXYCYCLINE 100 MG CAP PO SCH
[2019-05-01] MEDS ORDERED: ONDANSETRON 4 MG TAB PO PRN
[2019-05-01] MEDS ORDERED: MELATONIN 5 MG TABLET PO PRN
[2019-05-01] MEDS: traZODone HCL 100 MG TAB PO SCH ×2 (00:19→21:45)
[2019-05-01] MEDS: PREGABALIN 100 MG CAP PO SCH ×4 (00:20→21:46)
[2019-05-01] MEDS: ATORVASTATIN 80 MG TAB PO SCH ×2 (00:20→21:46)
[2019-05-01] MEDS: DULoxetine HCL 60 MG CAPSULE.DR PO SCH ×2 (00:20→21:46)
[2019-05-01] MEDS: busPIRone HCl 5 MG TAB PO SCH ×3 (00:20→21:45)
[2019-05-01] MEDS: METOPROLOL TARTRATE 50 MG TAB PO SCH ×3 (00:20→21:46)
[2019-05-01] MEDS: oxyCODONE ER 10 MG TAB.ER.12H PO PRN ×3 (00:25→15:13)
[2019-05-01] MEDS: BACLOFEN 10 MG TAB PO PRN ×4 (00:27→22:01)
[2019-05-01 00:58] VITALS: BMI 34.9
[2019-05-01] MEDS: LOSARTAN 50 MG TAB PO SCH (07:56)
[2019-05-01] MEDS: MULTIVITAMINS, THERA 1 EACH TAB PO SCH (07:57)
[2019-05-01] MEDS: FUROSEMIDE 20 MG TAB PO SCH (07:57)
[2019-05-01] MEDS: ISOSORBIDE MONONITRATE ER 30 MG TAB.ER.24H PO SCH (07:57)
[2019-05-01] MEDS: buPROPion XL 300 MG TAB.ER.24H PO SCH (07:57)
[2019-05-01] MEDS: ASPIRIN 81 MG PO SCH (07:57)
[2019-05-01] MEDS: amLODIPine 5 MG TAB PO SCH (07:58)
[2019-05-01] MEDS ORDERED: FLUTICASONE 110 MCG INHALER INHALATION SCH (08:00)
[2019-05-01] MEDS: MELOXICAM 7.5 MG TAB PO PRN ×2 (08:02→22:00)
[2019-05-01] MEDS: ENOXAPARIN 40 MG/0.4 ML SYRINGE SQ SCH (08:03)
--- NOTE | 2019-05-01 08:04 | XR ---
EXAMINATION TYPE: XR chest 2V DATE OF EXAM: 05/01/2019 COMPARISON: 04/30/2019 HISTORY: Pneumonia. Follow-up exam. TECHNIQUE: Frontal and lateral views of the chest are obtained. FINDINGS: Increasing left basilar opacity and vertically oriented right basilar atelectasis at the c ostophrenic angle. Cardiomediastinal silhouette is within normal limits. There is flattening of the d iaphragms on lateral view indicative of underlying COPD. Minimal degenerative changes of the spine. IMPRESSION: Increasing left basilar consolidation most compatible with unifocal lingular pneumonia. Follow-up to resolution is recommended.
[2019-05-01] MEDS ORDERED: CEFEPIME 1 GM in SODIUM CHLORIDE 0.9% 50 ML IVPB SCH (09:00)
[2019-05-01] MEDS: IPRATROPIUM-ALBUTEROL 3 ML NEB INHALATION SCH ×6 (09:15→22:45)
--- NOTE | 2019-05-01 12:35 | XR ---
EXAMINATION TYPE: XR chest 2V DATE OF EXAM: 04/30/2019 COMPARISON: 04/30/2019 TECHNIQUE: PA and lateral views submitted. HISTORY: Shortness of breath FINDINGS: There is subsegmental consolidation left perihilar region. No pleural effusion or pneumothorax. No ov ert failure. Heart size normal. Degenerative change of the spine noted. IMPRESSION: 1. Left perihilar infiltrate or atelectasis correlate clinically to exclude pneumonia.
--- NOTE | 2019-05-01 12:46 | CT ---
EXAMINATION TYPE: CT angio chest DATE OF EXAM: 04/30/2019 7:24 PM COMPARISON: X-ray 04/30/2019 HISTORY: Cough and shoulder pain CT DLP: 578.8 mGycm Automated exposure control for dose reduction was used. CONTRAST: CTA scan of the thorax is performed, patient injected with 100 mL of Isovue 370, pulmonary embolism p rotocol. FINDINGS: Preliminary report provided by radiologist medical education specialist. LUNGS: There is no pneumothorax or overt failure. There is an area of consolidation with questionable cavitation in the lingular segment of the left upper lobe. This could been the basis of a pneumonia. Follow-up to resolution recommended to exclude underlying neoplasm. No sizable pleural effusion. MEDIASTINUM: Shotty adenopathy in the mediastinum noted. Aorta of normal caliber. There is coronary a rtery calcification. Heart size is the upper limits of normal. No sizable pericardial effusion. There is a trace amount thickening or pericardial fluid anteriorly. No central pulmonary embolism. OTHER: Hypertrophic and degenerative changes of the spine are noted. IMPRESSION: 1. There is an area of consolidation with cavitation in the lingular segment of the left upper lobe. Differential diagnosis includes pneumonia. Follow to resolution correlate clinically to exclude under lying neoplastic process. 2. Coronary artery calcification. 3. No diagnostic evidence of central pulmonary embolism
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
[2019-05-01] MEDS: methylPREDNISolone SOD SUCCI 125 MG/2 ML VIAL IV SCH ×2 (15:07→21:30)
[2019-05-01] MEDS: SODIUM CHLORIDE 0.9% 1,000 ML IV SCH ×2 (15:15→21:45)
[2019-05-01] MEDS ORDERED: VANCOMYCIN IV PER PHARMACY 1 EACH MISC MISCELLANE PRN (16:28)
[2019-05-01] MEDS ORDERED: VANCOMYCIN 2,000 MG in SODIUM CHLORIDE 0.9% 500 ML 500 ML IVPB ONE (17:00)
[2019-05-01] MEDS ORDERED: BUDESONIDE 0.5 MG/2 ML NEBU INHALATION SCH (20:00)
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
[2019-05-01 20:53] LABS: Glucose,Whole Blood 284 mg/dL (75-99)
[2019-05-01] MEDS ORDERED: CEFEPIME 2 GM in SODIUM CHLORIDE 0.9% 50 ML IVPB SCH (21:00)
[2019-05-01] MEDS: BUDESONIDE 1 MG/2 ML NEBU INHALATION SCH ×2 (21:02→21:19)
[2019-05-01] MEDS: LEVOFLOXACIN 750MG-D5W PMX 750 MG in DEXTROSE/WATER 1 150ML.BAG IVPB SCH (21:46)
[2019-05-01] MEDS: CEFEPIME 2 GM in SODIUM CHLORIDE 0.9% 100 ML IVPB SCH (21:48)
[2019-05-01 22:16] LABS: Glucose,Whole Blood 265 mg/dL (75-99)
[2019-05-01] MEDS: INSULIN ASPART (NovoLOG) 100 UNIT/ML VIAL SQ SCH (22:37)
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
[2019-05-02] MEDS: metroNIDAZOLE-NS PMX 500 MG in SALINE 1 100ML.BAG IVPB SCH ×3 (00:08→17:05)
[2019-05-02] MEDS: oxyCODONE ER 10 MG TAB.ER.12H PO PRN ×3 (00:08→21:21)
[2019-05-02] MEDS: methylPREDNISolone SOD SUCCI 125 MG/2 ML VIAL IV SCH ×4 (00:08→17:23)
[2019-05-02] MEDS: IPRATROPIUM-ALBUTEROL 3 ML NEB INHALATION SCH ×6 (00:18→20:14)
[2019-05-02] MEDS: SODIUM CHLORIDE 0.9% 1,000 ML IV SCH ×2 (04:22→16:45)
[2019-05-02] MEDS ORDERED: VANCOMYCIN 2,000 MG in SODIUM CHLORIDE 0.9% 500 ML 500 ML IVPB SCH (06:00)
[2019-05-02 07:10] LABS: African American GFR (CKD) >90 (>60 ml/min/1.73 sqM)
[2019-05-02 07:29] LABS: Glucose,Whole Blood 239 mg/dL (75-99)
[2019-05-02] MEDS: INSULIN ASPART (NovoLOG) 100 UNIT/ML VIAL SQ SCH ×4 (07:51→21:11)
[2019-05-02] MEDS: BUDESONIDE 1 MG/2 ML NEBU INHALATION SCH ×2 (08:31→20:14)
[2019-05-02] MEDS: CEFEPIME 2 GM in SODIUM CHLORIDE 0.9% 100 ML IVPB SCH ×2 (08:52→21:56)
[2019-05-02] MEDS: ENOXAPARIN 40 MG/0.4 ML SYRINGE SQ SCH (08:53)
[2019-05-02] MEDS: ASPIRIN 81 MG PO SCH (08:53)
[2019-05-02] MEDS: buPROPion XL 300 MG TAB.ER.24H PO SCH (08:53)
[2019-05-02] MEDS: PREGABALIN 100 MG CAP PO SCH ×3 (08:53→21:57)
[2019-05-02] MEDS: busPIRone HCl 5 MG TAB PO SCH ×2 (08:54→21:56)
[2019-05-02] MEDS: METOPROLOL TARTRATE 50 MG TAB PO SCH ×2 (08:54→21:57)
[2019-05-02] MEDS: amLODIPine 5 MG TAB PO SCH (08:54)
[2019-05-02] MEDS: MULTIVITAMINS, THERA 1 EACH TAB PO SCH (08:54)
[2019-05-02] MEDS: ISOSORBIDE MONONITRATE ER 30 MG TAB.ER.24H PO SCH (08:54)
[2019-05-02] MEDS: LOSARTAN 50 MG TAB PO SCH (08:54)
[2019-05-02] MEDS: MELOXICAM 7.5 MG TAB PO PRN ×2 (09:05→21:20)
[2019-05-02] MEDS: BACLOFEN 10 MG TAB PO PRN ×3 (09:06→21:21)
[2019-05-02] MEDS: FUROSEMIDE 20 MG TAB PO SCH (09:12)
--- NOTE | 2019-05-02 11:33 | PN ---
PROGRESS NOTE She was seen on 05/02/2019. She had been coughing up some sputum that was foul smelling. She otherwise seems to be doing a little better overnight. PHYSICAL EXAMINATION: On physical examination, her blood pressure is 143/93, respiratory rate of 12, pulse rate of 65, temperature 98.2, O2 saturation on room air is 92%. HEENT is unremarkable. Chest with bilateral wheeze. Cardiovascular system reveals an S1, S2. Abdomen is soft. There is no edema. White count is 17.2, hemoglobin of 12.4. Sputum culture with Gram stain has been showing rare gram-positive bacilli, culture actually pending. Blood cultures have been negative so far. IMPRESSION AT THIS TIME: 1. Aspiration type pneumonia is likely. 2. Asthma with acute exacerbation. 3. Hypertension. 4. Recent right hip injection. Continue vancomycin, Flagyl and Levaquin. Keep her on IV steroids, bronchodilators, aerosolized steroids. Increase her activity level. Her prognosis is fair. MMODL / IJN: [id number] /
[2019-05-02 12:32] LABS: Glucose,Whole Blood 210 mg/dL (75-99)
[2019-05-02 14:23] LABS: Hemoglobin A1C 6.5 % (4.0-6.0)
[2019-05-02] MEDS: VANCOMYCIN 1,750 MG in SODIUM CHLORIDE 0.9% 500 ML 500 ML IVPB SCH (15:17)
[2019-05-02 17:38] LABS: Glucose,Whole Blood 184 mg/dL (75-99)
--- NOTE | 2019-05-02 19:07 | P.PN ---
Progress Note - Text Progress Note Date: 05/02/19 Chief Complaint: Cough History of presenting complaint: This is a pleasant 53-year-old patient of Dr. Letha Berg. Chronic stable medical conditions include coronary artery disease, fibromyalgia, hypertension, hyperlipidemia, osteoarthritis,. Patient for about a month been having a cough short of breath. Some wheezing. Has had some phlegm production on-and-off. No hemoptysis. Had gone to see her family doctor did get a course of antibiotic and steroids not with much help. Symptoms persisted. Finally decided to come in for the same. No fever or chills. Appetite is okay. Patient does smoke half a pack a day. Admitted with COPD exacerbation and pneumonia. Today-breathing a bit better. Did tolerate her diet. Some wheezing. Slight cough. No fever no chills. Review of systems: Was done for constitutional, cardiovascular, GI, pulmonary. relevant finding as above Active Medications Albuterol/Ipratropium (Duoneb 0.5 Mg-3 Mg/3 Ml Soln) 3 ml INHALATION RT-QID PRN PRN Reason: Shortness Of Breath Albuterol/Ipratropium (Duoneb 0.5 Mg-3 Mg/3 Ml Soln) 3 ml INHALATION RT-Q4H [facility] Last Admin: 05/02/19 17:00 Dose: 3 ml Documented by: Amlodipine Bes[facility] ([facility]) [facility] [place] Admin: 05/02/19 08:54 Dose: 5 mg Documented by: Aspirin (Aspirin) 81 mg PO QAM [facility] Last Admin: 05/02/19 08:53 Dose: 81 mg Documented by: Atorvastatin Calcium (Lipitor) 80 mg PO [facility] Last Admin: 05/01/19 21:46 Dose: 80 mg Documented by: Baclofen (Lioresal) 10 mg PO Q6HR PRN PRN Reason: Muscle Pain Last Admin: 05/02/19 15:22 Dose: 10 mg Documented by: Budesonide (Pulmicort) 1 mg INHALATION RT-BID [facility] Last Admin: 05/02/19 08:31 Dose: 1 mg Documented by: Bupropion HCl (Wellbutrin Xl) [facility] [place] Admin: 05/02/19 08:53 Dose: 300 mg Documented by: Buspirone HCl (Buspar) 7.5 mg PO BID [facility] Last Admin: 05/02/19 08:54 Dose: 7.5 mg Documented by: Duloxetine HCl (Cymbalta) 60 mg PO HS [facility] Last Admin: 05/01/19 21:46 Dose: 60 mg Documented by: Enoxaparin Sodium (Lovenox) 40 mg SQ DAILY [facility] Last Admin: 05/02/19 08:53 Dose: 40 mg Documented by: Ergocalciferol (Vitamin D2) 50,000 unit PO [place]@0900 [facility] Furosemide (Lasix) 20 mg PO DAILY [facility] Last Admin: 05/02/19 09:12 Dose: Not Given Documented by: Sodium Chloride (Saline 0.9%) 1,000 mls @ 100 mls/hr IV .Q10H [facility] Last Admin: 05/02/19 16:45 Dose: Not Given Documented by: Levofloxacin 750 mg/ IV (Solution) 150 mls @ 100 mls/hr IVPB Q24H [facility] Stop: 05/13/19 22:01 Last Admin: 05/01/19 21:46 Dose: 100 mls/hr Documented by: Cefepime HCl 2 gm/ Sodium (Chloride) 100 mls @ 200 mls/hr IVPB Q12HR [facility] Last Admin: 05/02/19 08:52 Dose: 200 mls/hr Documented by: Metronidazole 500 mg/ IV (Solution) 100 mls @ 100 mls/hr IVPB Q8HR [facility] Last Admin: 05/02/19 17:05 Dose: 100 mls/hr Documented by: Vancomycin HCl 1,750 mg/ (Sodium Chloride) 500 mls @ 167 mls/hr IVPB Q8H [facility] Last Admin: 05/02/19 15:17 Dose: 167 mls/hr Documented by: Insulin Aspart (Novolog) 0 unit SQ ACHS [facility]; Protocol Last Admin: 05/02/19 17:38 Dose: 4 unit Documented by: Isosorbide Mononitrate (Imdur) 30 mg PO QAM [facility] Last Admin: 05/02/19 08:54 Dose: 30 mg Documented by: Losartan Potassium (Cozaar) 100 mg PO QAM [facility] Last Admin: 05/02/19 08:54 Dose: 100 mg Documented by: Melatonin (Melatonin) 5 mg PO HS PRN PRN Reason: Insomnia Meloxicam (Mobic) 7.5 mg PO BID PRN PRN Reason: Pain Last Admin: 10/05/19 09:05 Dose: 7.5 mg Documented by: Methylprednisolone Sodium Succinate (Solu-Medrol) 60 mg IV Q6HR [facility] Last Admin: 05/02/19 17:23 Dose: 60 mg Documented by: Metoprolol Tartrate (Lopressor) 50 mg PO BID [facility] Last Admin: 05/02/19 08:54 Dose: 50 mg Documented by: Miscellaneous Information (Pneumonia Protocol Utilized) 1 each PO ONCE PRN PRN Reason: Per Protocol Miscellaneous Information (Vancomycin Trough Due) 1 each MISCELLANE ONCE ONE Stop: 05/03/19 13:01 Multivitamins (Theragran) 1 each PO DAILY [facility] Last Admin: 05/02/19 08:54 Dose: 1 each Documented by: Nitroglycerin (Nitrostat) 0.4 mg SUBLINGUAL Q5M PRN PRN Reason: Chest Pain Ondansetron HCl (Zofran) 4 mg PO Q8HR PRN PRN Reason: Nausea Oxycodone HCl (Oxycontin 10mg E.R.) 10 mg PO Q8HR PRN PRN Reason: Pain Last Admin: 05/02/19 09:06 Dose: 10 mg Documented by: Pregabalin (Lyrica) 100 mg PO TID [facility] Last Admin: 05/02/19 15:18 Dose: 100 mg Documented by: Trazodone HCl (Desyrel) 300 mg PO HS [facility] Last Admin: 05/01/19 21:45 Dose: 300 mg Documented by: Physical examination: VITAL SIGNS: 98.2, 65, 12, 143/93, 92% room air GENERAL: Sitting up, awake. EYES: Pupils equal. Conjunctiva normal. HEENT: External appearance of nose and ears normal, oral cavity grossly normal. NECK: JVD not raised; masses not palpable. HEART: First and second heart sounds are normal; no edema. LUNGS: Respiratory rate increased, diminished breath sounds prolonged expiration and wheezing. ABDOMEN: Soft, nontender, liver spleen not palpable, no masses palpable. PSYCH: Alert and oriented x3; mood and affect normal. INVESTIGATIONS, reviewed in the clinical context: Accu-Cheks 239, 210, 184 Admission testing: White count 7.2 hemoglobin 12.4 potassium 4 creatinine 0.80 Troponin I less than 0.012 proBNP 260 Chest x-ray film personally reviewed by [id number] infiltrate EKG tracing personally reviewed by me-sinus rhythm CT chest-80 of consolidation with cavitation in the lingular segment of the left upper lobe Assessment: -Acute COPD exacerbation in a current smoker -Possible pneumonia suspect gram-negative organism -Chronic nicotine dependence patient cigarette smoker -Obesity BMI 35 Coronary artery disease with stent -Chronic fibromyalgia -Hyperlipidemia -Essential hypertension -Obstructive sleep apnea -Anxiety depression otherwise specified Plan: Patient to continue on cefepime, vancomycin and Levaquin. Antibiotics per pulmonary and ID. Encouraged to ambulate.. Care discussed with the patient. Repeat labs in the morning.
[2019-05-02 20:48] LABS: Glucose,Whole Blood 308 mg/dL (75-99)
[2019-05-02] MEDS: ATORVASTATIN 80 MG TAB PO SCH (21:56)
[2019-05-02] MEDS: DULoxetine HCL 60 MG CAPSULE.DR PO SCH (21:57)
[2019-05-02] MEDS: traZODone HCL 100 MG TAB PO SCH (21:57)
[2019-05-03] MEDS: VANCOMYCIN 1,750 MG in SODIUM CHLORIDE 0.9% 500 ML 500 ML IVPB SCH ×3 (00:06→14:34)
[2019-05-03] MEDS: methylPREDNISolone SOD SUCCI 125 MG/2 ML VIAL IV SCH ×3 (00:06→11:05)
[2019-05-03] MEDS: LEVOFLOXACIN 750MG-D5W PMX 750 MG in DEXTROSE/WATER 1 150ML.BAG IVPB SCH (00:07)
[2019-05-03] MEDS: IPRATROPIUM-ALBUTEROL 3 ML NEB INHALATION SCH ×7 (00:40→23:17)
[2019-05-03] MEDS: metroNIDAZOLE-NS PMX 500 MG in SALINE 1 100ML.BAG IVPB SCH ×2 (03:12→11:05)
[2019-05-03] MEDS: SODIUM CHLORIDE 0.9% 1,000 ML IV SCH ×3 (04:03→22:53)
[2019-05-03 06:55] LABS: Basophils % (A) 0 %; Eosinophils % (A) 0 %; HGB 11.3 gm/dL (11.4-16.0); Lymphocytes # (A) 0.8 k/uL (1.0-4.8); Lymphocytes % (A) 7 %; MCH 30.5 pg (25.0-35.0); MCHC 31.4 g/dL (31.0-37.0); MCV 97.1 fL (80.0-100.0); Mean Platelet Volume 8.1; Monocytes # (A) 0.4 k/uL (0-1.0); Monocytes % (A) 3 %; Neutrophils # (A) 10.8 k/uL (1.3-7.7); Neutrophils % (A) 89 %; Platelet Count 200 k/uL (150-450); RBC 3.71 m/uL (3.80-5.40); RDW 13.2 % (11.5-15.5); WBC 12.2 k/uL (3.8-10.6)
[2019-05-03 07:16] LABS: African American GFR (CKD) >90 (>60 ml/min/1.73 sqM); Anion Gap 7 mmol/L; Blood Urea Nitrogen 19 mg/dL (7-17); Calcium 8.7 mg/dL (8.4-10.2); Carbon Dioxide 25 mmol/L (22-30); Chloride 106 mmol/L (98-107); Glucose 241 mg/dL (74-99); Potassium 4.4 mmol/L (3.5-5.1); Sodium 138 mmol/L (137-145)
[2019-05-03] MEDS: BUDESONIDE 1 MG/2 ML NEBU INHALATION SCH ×2 (07:19→19:11)
[2019-05-03 07:29] LABS: Glucose,Whole Blood 226 mg/dL (75-99)
[2019-05-03] MEDS: ENOXAPARIN 40 MG/0.4 ML SYRINGE SQ SCH (08:06)
[2019-05-03] MEDS: LOSARTAN 50 MG TAB PO SCH (08:07)
[2019-05-03] MEDS: PREGABALIN 100 MG CAP PO SCH ×3 (08:07→22:13)
[2019-05-03] MEDS: BACLOFEN 10 MG TAB PO PRN ×3 (08:07→22:13)
[2019-05-03] MEDS: MELOXICAM 7.5 MG TAB PO PRN ×2 (08:07→22:13)
[2019-05-03] MEDS: FUROSEMIDE 20 MG TAB PO SCH (08:07)
[2019-05-03] MEDS: buPROPion XL 300 MG TAB.ER.24H PO SCH (08:07)
[2019-05-03] MEDS: ASPIRIN 81 MG PO SCH (08:07)
[2019-05-03] MEDS: amLODIPine 5 MG TAB PO SCH (08:07)
[2019-05-03] MEDS: ISOSORBIDE MONONITRATE ER 30 MG TAB.ER.24H PO SCH (08:07)
[2019-05-03] MEDS: oxyCODONE ER 10 MG TAB.ER.12H PO PRN ×2 (08:08→22:11)
[2019-05-03] MEDS: busPIRone HCl 5 MG TAB PO SCH ×2 (08:08→22:11)
[2019-05-03] MEDS: INSULIN ASPART (NovoLOG) 100 UNIT/ML VIAL SQ SCH ×4 (08:09→22:14)
[2019-05-03] MEDS ORDERED: ERGOCALCIFEROL 50,000 UNIT CAP PO SCH (09:00)
[2019-05-03] MEDS: METOPROLOL TARTRATE 50 MG TAB PO SCH ×2 (09:57→22:13)
[2019-05-03] MEDS: CEFEPIME 2 GM in SODIUM CHLORIDE 0.9% 100 ML IVPB SCH (11:05)
[2019-05-03] MEDS: MULTIVITAMINS, THERA 1 EACH TAB PO SCH (11:06)
[2019-05-03 11:58] LABS: Glucose,Whole Blood 227 mg/dL (75-99)
[2019-05-03] MEDS ORDERED: VANCOMYCIN TROUGH DUE 1 EACH MISC MISCELLANE ONE (13:00)
--- NOTE | 2019-05-03 13:13 | PN ---
PROGRESS NOTE DATE OF SERVICE: 05/03/2019 She continues to have shortness of breath, but is doing better overall. On physical examination her vitals are stable. She is afebrile. Her chest reveals faint expiratory wheeze. Cardiovascular system reveals an S1, S2. Abdomen is soft. There is trace pedal edema. IMPRESSION: 1. Aspiration type pneumonia. 2. Asthma with acute exacerbation. Microbiological cultures are not growing anything so far. Continue antibiotics per ID. Switch her to oral steroids. Increase activity level. Continue bronchodilators. Her prognosis is fair. MMODL / IJN: [id number] /
[2019-05-03] MEDS: predniSONE 20 MG TAB PO SCH (14:37)
[2019-05-03 17:10] LABS: Glucose,Whole Blood 222 mg/dL (75-99)
[2019-05-03] MEDS: metroNIDAZOLE 500 MG TAB PO SCH ×2 (17:43→22:12)
--- NOTE | 2019-05-03 20:00 | P.PN ---
Progress Note - Text Progress Note Date: 05/03/19 Chief Complaint: Cough Interval history: This is a pleasant 53-year-old patient of Dr. Letha Berg. Chronic stable medical conditions include coronary artery disease, fibromyalgia, hypertension, hyperlipidemia, osteoarthritis,. Patient for about a month been having a cough short of breath. Some wheezing. Has had some phlegm production on-and-off. No hemoptysis. Had gone to see her family doctor did get a course of antibiotic and steroids not with much help. Symptoms persisted. Finally decided to come in for the same. No fever or chills. Appetite is okay. Patient does smoke half a pack a day. Admitted with COPD exacerbation and pneumonia. Today-breathing improving. Feeling rate better. Still got a cough. Slight wheezing. Did tolerate her diet. Review of systems: Was done for constitutional, cardiovascular, GI, pulmonary. relevant finding as above Active Medications Albuterol/Ipratropium (Duoneb 0.5 Mg-3 Mg/3 Ml Soln) 3 ml INHALATION RT-QID PRN PRN Reason: Shortness Of Breath Albuterol/Ipratropium (Duoneb 0.5 Mg-3 Mg/3 Ml Soln) 3 ml INHALATION RT-Q4H [facility] Last Admin: 05/03/19 19:11 Dose: 3 ml Documented by: Amlodipine Besylate ([facility]asc) [facility] Last Admin: 05/03/19 08:07 Dose: 5 mg Documented by: Aspirin (Aspirin) 81 mg PO QAM [facility] Last Admin: 05/03/19 08:07 Dose: 81 mg Documented by: Atorvastatin Calcium (Lipitor) 80 mg PO [facility] Last Admin: 05/02/19 21:56 Dose: 80 mg Documented by: Baclofen (Lioresal) 10 mg PO Q6HR PRN PRN Reason: Muscle Pain Last Admin: 05/03/19 14:34 Dose: 10 mg Documented by: Budesonide (Pulmicort) 1 mg INHALATION RT-BID [facility] Last Admin: 05/03/19 19:11 Dose: 1 mg Documented by: Bupropion HCl (Wellbutrin Xl) 300 mg PO QAM [facility] Last Admin: 05/03/19 08:07 Dose: 300 mg Documented by: Buspirone HCl (Buspar) 7.5 mg PO BID [facility] Last Admin: 05/03/19 08:08 Dose: 7.5 mg Documented by: Duloxetine HCl (Cymbalta) 60 mg PO HS [facility] Last Admin: 05/02/19 21:57 Dose: 60 mg Documented by: Enoxaparin Sodium (Lovenox) 40 mg SQ DAILY [facility] Last Admin: 05/03/19 08:06 Dose: 40 mg Documented by: Ergocalciferol (Vitamin D2) 50,000 unit PO [place]@0900 [facility] Last Admin: 05/03/19 11:05 Dose: 50,000 unit Documented by: Furosemide (Lasix) 20 mg PO DAILY [facility] Last Admin: 05/03/19 08:07 Dose: 20 mg Documented by: Sodium Chloride (Saline 0.9%) 1,000 mls @ 100 mls/hr IV .Q10H [facility] Last Admin: 05/03/19 11:06 Dose: Not Given Documented by: Cefepime HCl 2 gm/ Sodium (Chloride) 100 mls @ 200 mls/hr IVPB Q12HR [facility] Last Admin: 05/03/19 11:05 Dose: 200 mls/hr Documented by: Vancomycin HCl 1,750 mg/ (Sodium Chloride) 500 mls @ 167 mls/hr IVPB Q8H [facility] Last Admin: 05/03/19 14:34 Dose: 167 mls/hr Documented by: Insulin Aspart (Novolog) 0 unit SQ ACHS [facility]; Protocol Last Admin: 05/03/19 17:43 Dose: 7 unit Documented by: Isosorbide Mononitrate (Imdur) 30 mg PO QAM [facility] Last Admin: 05/03/19 08:07 Dose: 30 mg Documented by: Levofloxacin (Levaquin) 750 mg PO [facility] Stop: 05/13/19 21:01 Losartan Potassium (Cozaar) 100 mg PO QAM [facility] Last Admin: 05/03/19 08:07 Dose: 100 mg Documented by: Melatonin (Melatonin) 5 mg PO HS PRN PRN Reason: Insomnia Meloxicam (Mobic) 7.5 mg PO BID PRN PRN Reason: Pain Last Admin: 05/03/19 08:07 Dose: 7.5 mg Documented by: Metoprolol Tartrate (Lopressor) 50 mg PO BID [facility] Last Admin: 05/03/19 09:57 Dose: Not Given Documented by: Metronidazole (Flagyl) 500 mg PO TID [facility] Last Admin: 05/03/19 17:43 Dose: 500 mg Documented by: Miscellaneous Information (Pneumonia Protocol Utilized) 1 each PO ONCE PRN PRN Reason: Per Protocol Multivitamins (Theragran) 1 each PO DAILY [facility] Last Admin: 05/03/19 11:06 Dose: 1 each Documented by: Nitroglycerin (Nitrostat) 0.4 mg SUBLINGUAL Q5M PRN PRN Reason: Chest Pain Ondansetron HCl (Zofran) 4 mg PO Q8HR PRN PRN Reason: Nausea Oxycodone HCl (Oxycontin 10mg E.R.) 10 mg PO Q8HR PRN PRN Reason: Pain Last Admin: 05/03/19 08:08 Dose: 10 mg Documented by: Prednisone () 60 mg PO DAILY [facility] Last Admin: 05/03/19 14:37 Dose: 60 mg Documented by: Pregabalin (Lyrica) 100 mg PO TID [facility] Last Admin: 05/03/19 14:34 Dose: 100 mg Documented by: Trazodone HCl (Desyrel) 300 mg PO HS [facility] Last Admin: 05/02/19 21:57 Dose: 300 mg Documented by: Physical examination: VITAL SIGNS: 98.5, 93, 12, 150 one 89, 92% room air GENERAL: Sitting up, looking better EYES: Pupils equal. Conjunctiva normal. HEENT: External appearance of nose and ears normal, oral cavity grossly normal. NECK: JVD not raised; masses not palpable. HEART: First and second heart sounds are normal; no edema. LUNGS: Respiratory rate increased, diminished breath sounds prolonged expiration decreased wheezing ABDOMEN: Soft, nontender, liver spleen not palpable, no masses palpable. PSYCH: Alert and oriented x3; mood and affect normal. INVESTIGATIONS, reviewed in the clinical context: White count 12.2 hemoglobin 11.3 potassium 4.4 creatinine 0.56 Admission testing: White count 7.2 hemoglobin 12.4 potassium 4 creatinine 0.80 Troponin I less than 0.012 proBNP 260 Chest x-ray film personally reviewed by [id number] infiltrate EKG tracing personally reviewed by me-sinus rhythm CT chest-80 of consolidation with cavitation in the lingular segment of the left upper lobe Assessment: -Acute COPD exacerbation in a current smoker, improving -Possible pneumonia suspect gram-negative organism -Chronic nicotine dependence patient cigarette smoker -Obesity BMI 35 Coronary artery disease with stent -Chronic fibromyalgia -Hyperlipidemia -Essential hypertension -Obstructive sleep apnea -Anxiety depression otherwise specified Plan: Cancer broad-spectrum antibiotics. Was switched to oral steroids this evening. Encouraged to be out of bed. Hoping to send home in a day or 2. We'll switch to oral antibiotic in the morning.
[2019-05-03] MEDS ORDERED: LEVOFLOXACIN 750 MG TAB PO SCH (21:00)
[2019-05-03 21:49] LABS: Glucose,Whole Blood 232 mg/dL (75-99)
[2019-05-03] MEDS: DULoxetine HCL 60 MG CAPSULE.DR PO SCH (22:12)
[2019-05-03] MEDS: traZODone HCL 100 MG TAB PO SCH (22:13)
[2019-05-03] MEDS: ATORVASTATIN 80 MG TAB PO SCH (22:13)
[2019-05-03] MEDS: SULFAMETHOX-TMP 800-160MG 1 EACH TAB PO SCH (22:14)
[2019-05-04] MEDS: IPRATROPIUM-ALBUTEROL 3 ML NEB INHALATION SCH ×3 (03:37→11:07)
[2019-05-04 07:07] LABS: Glucose,Whole Blood 153 mg/dL (75-99)
[2019-05-04] MEDS: LOSARTAN 50 MG TAB PO SCH (07:36)
[2019-05-04] MEDS: MELOXICAM 7.5 MG TAB PO PRN (07:36)
[2019-05-04] MEDS: oxyCODONE ER 10 MG TAB.ER.12H PO PRN (07:36)
[2019-05-04] MEDS: ISOSORBIDE MONONITRATE ER 30 MG TAB.ER.24H PO SCH (07:36)
[2019-05-04] MEDS: BACLOFEN 10 MG TAB PO PRN (07:36)
[2019-05-04] MEDS: METOPROLOL TARTRATE 50 MG TAB PO SCH (07:37)
[2019-05-04] MEDS: SULFAMETHOX-TMP 800-160MG 1 EACH TAB PO SCH (07:37)
[2019-05-04] MEDS: ASPIRIN 81 MG PO SCH (07:37)
[2019-05-04] MEDS: busPIRone HCl 5 MG TAB PO SCH (07:37)
[2019-05-04] MEDS: metroNIDAZOLE 500 MG TAB PO SCH (07:37)
[2019-05-04] MEDS: FUROSEMIDE 20 MG TAB PO SCH (07:37)
[2019-05-04] MEDS: PREGABALIN 100 MG CAP PO SCH (07:38)
[2019-05-04] MEDS: MULTIVITAMINS, THERA 1 EACH TAB PO SCH (07:38)
[2019-05-04] MEDS: predniSONE 20 MG TAB PO SCH (07:38)
[2019-05-04] MEDS: amLODIPine 5 MG TAB PO SCH (07:38)
[2019-05-04] MEDS: INSULIN ASPART (NovoLOG) 100 UNIT/ML VIAL SQ SCH ×2 (07:38→11:47)
[2019-05-04] MEDS: buPROPion XL 300 MG TAB.ER.24H PO SCH (07:38)
[2019-05-04] MEDS: ENOXAPARIN 40 MG/0.4 ML SYRINGE SQ SCH (07:39)
[2019-05-04 07:55] LABS: African American GFR (CKD) >90 (>60 ml/min/1.73 sqM); Anion Gap 4 mmol/L; Blood Urea Nitrogen 23 mg/dL (7-17); Calcium 8.7 mg/dL (8.4-10.2); Carbon Dioxide 28 mmol/L (22-30); Chloride 105 mmol/L (98-107); Glucose 139 mg/dL (74-99); Potassium 4.2 mmol/L (3.5-5.1); Sodium 137 mmol/L (137-145)
[2019-05-04] MEDS: BUDESONIDE 1 MG/2 ML NEBU INHALATION SCH (07:57)
[2019-05-04 08:06] VITALS: BP 171/103; RESP 18; TEMP 98.9
--- NOTE | 2019-05-04 09:39 | CDI ---
Documentation Clarification Form Date: 05/04/2019 9:31:01 AM From: Carole TamHwangJOSE MIGUEL perkins, CCDS Admit Date: 05/01/2019 3:13:00 PM Patient Name: Savannah Helton Visit Number: [id number] Discharge Date: ATTENTION: The Clinical Documentation Specialists (CDI) and [facility] Coding Staff appreciate your assistance in clarifying documentation. Please respond to the clarification below the line at the bottom and electronically sign. The CDI & [facility] Coding staff will review the response and follow-up if needed. Please note: Queries are made part of the Legal Health Record. If you have any questions, please contact the author of this message via ITS. Dr. Cale Reyes: Per the pulmonary consult & subsequent progress notes: "Asthma with acute exacerbation" without further specificity is documented. History/risk factors: Asthma, COPD, current smoker, CAD, ANTOINE & obesity. Clinical Indicators: Presented with SOB & wheezing, chest & shoulder pain, failed outpatient treatment for same s/s with steroids & antibiotics. Radiology: CXR: Pneumonia, COPD, basilar atelectasis. Vital Signs: R 20 (sob, labored, cough), BP 98/76, PO 94 RA Treatment: IV Solumedrol, INH Albuterol, IV fluid rate 100, IV Toradol, IV Ms, IV Levaquin, IV Cefepime. In your professional opinion, can you please further specify the type of asthma, if known? Severity o Mild intermittent o Mild persistent o Moderate persistent o Severe persistent o Other, please specify ____ o Unable to determine Form or Type o Cough variant o Childhood o Exercise induced bronchospasm o Extrinsic allergic o Idiosyncratic o Intrinsic nonallergic o Late-onset o Mixed o Other, please specify____ o Unable to determine (Last Revision: October 2017) MTDD
[2019-05-04 11:16] VITALS: PULSE 78
[2019-05-04 11:39] LABS: Glucose,Whole Blood 140 mg/dL (75-99)
--- NOTE | 2019-05-04 23:28 | P.DS ---
Providers Date of admission: 05/01/19 15:13 Expected date of discharge: 05/04/19 Attending physician: Willy Posey Consults: 04/30/19 21:34 Consult Physician Routine Consulting Provider: Cale Reyes Consult Reason/Comments: pna Do you want consulting provider notified?: Yes 05/01/19 16:10 Consult Physician Routine Consulting Provider: Chasity Bassett Consult Reason/Comments: left lobe pneumonia Do you want consulting provider notified?: Yes Primary care physician: Suzette Berg [place] Hospital Course: Hospital course: This is a pleasant 53-year-old patient of Dr. Letha Berg. Chronic stable medical conditions include coronary artery disease, fibromyalgia, hypertension, hyperlipidemia, osteoarthritis,. Patient for about a month been having a cough short of breath. Some wheezing. Has had some phlegm production on-and-off. No hemoptysis. Had gone to see her family doctor did get a course of antibiotic and steroids not with much help. Symptoms persisted. Finally decided to come in for the same. No fever or chills. Appetite is okay. Patient does smoke half a pack a day. Admitted with COPD exacerbation and pneumonia. Responded well to bronchodilators, steroids, antibiotics include cefepime and vancomycin. Chest CTA did show an area of consolidation with cavitation in the lingular segment of left upper lobe. This will be followed up with Dr. Anna Reyes's as outpatient... Patient is feeling much better. Still has some residual wheezing and cough. Patient yet again reminded about not to smoke. Care was discussed. Discharge planning more than 35 minutes Consultation: Dr. AURA Reyes from pulmonary Dr. Anna bassett from ID Physical examination: VITAL SIGNS: 98.9, 63, 18, 95% room air 1 GENERAL: Sitting up, looking better EYES: Pupils equal. Conjunctiva normal. HEENT: External appearance of nose and ears normal, oral cavity grossly normal. NECK: JVD not raised; masses not palpable. HEART: First and second heart sounds are normal; no edema. LUNGS: Respiratory rate normal, diminished breath sounds prolonged expiration ABDOMEN: Soft, nontender, liver spleen not palpable, no masses palpable. PSYCH: Alert and oriented x3; mood and affect normal. INVESTIGATIONS, reviewed in the clinical context: White count 12.2 hemoglobin 11.3 potassium 4.4 creatinine 0.56 Admission testing: White count 7.2 hemoglobin 12.4 potassium 4 creatinine 0.80 Troponin I less than 0.012 proBNP 260 Chest x-ray film personally reviewed by [id number] infiltrate EKG tracing personally reviewed by me-sinus rhythm CT chest-80 of consolidation with cavitation in the lingular segment of the left upper lobe Discharge diagnosis: -Acute COPD exacerbation in a current smoker, -pneumonia in the left upper lobe with the cavitation suspect gram-negative organism. -Outpatient workup of the upper left lung cavitation with pulmonary -Chronic nicotine dependence patient cigarette smoker -Obesity BMI 35 -Coronary artery disease with stent -Chronic fibromyalgia -Hyperlipidemia -Essential hypertension -Obstructive sleep apnea -Anxiety depression otherwise specified Disposition: Home Patient Condition at Discharge: Stable Plan - Discharge Summary Discharge Rx Participant: Yes New Discharge Prescriptions: New Sulfamethox-Tmp 800-160Mg [Bactrim DS 800-160 mg] 1 each PO BID #14 tab metroNIDAZOLE [Flagyl] 500 mg PO TID #15 tab predniSONE 10 mg PO DAILY #30 tab Continue Nitroglycerin Sl Tabs [Nitrostat] 0.4 mg SUBLINGUAL Q5M PRN PRN Reason: Chest Pain Metoprolol Tartrate [Lopressor] 50 mg PO BID Atorvastatin [Lipitor] 80 mg PO HS Ipratropium-Albuterol Nebulize [Duoneb 0.5 mg-3 mg/3 ml Soln] 3 ml INHALATION RT-QID PRN PRN Reason: Shortness Of Breath Beclomethasone Dipropionate [Qvar 80 mcg/puff] 2 puff INHALATION RT-BID Isosorbide Mononitrate ER [Imdur] 30 mg PO QAM Losartan Potassium [Cozaar] 100 mg PO QAM DULoxetine HCL [Cymbalta] 60 mg PO HS Pregabalin [Lyrica] 100 mg PO TID #90 cap Melatonin 5 mg PO HS PRN PRN Reason: Insomnia Ondansetron [Zofran] 4 mg PO Q8HR PRN PRN Reason: Nausea Baclofen 10 mg PO Q6HR PRN PRN Reason: Muscle Pain Multivitamins, Thera [Multivitamin (formulary)] 1 tab PO DAILY buPROPion HCL [Wellbutrin XL] 300 mg PO QAM Furosemide [Lasix] 20 mg PO DAILY Ergocalciferol (Vitamin D2) [Vitamin D2] 50,000 unit PO OCHOA Albuterol Inhaler [Ventolin Hfa Inhaler] 2 puff INHALATION RT-Q4H PRN PRN Reason: shortness of breath amLODIPine [Norvasc] 5 mg PO QAM traZODone HCL 300 mg PO HS oxyCODONE ER [OxyCONTIN] 10 mg PO Q8HR PRN PRN Reason: Pain Aspirin [Adult Low Dose Aspirin EC] 81 mg PO QAM busPIRone HCL [Buspar] 7.5 mg PO BID Meloxicam [Mobic] 7.5 mg PO BID PRN PRN Reason: Pain Discharge Medication List Atorvastatin [Lipitor] 80 mg PO HS 06/07/14 [History] Ipratropium-Albuterol Nebulize [Duoneb 0.5 mg-3 mg/3 ml Soln] 3 ml INHALATION RT-QID PRN 06/07/14 [History] Metoprolol Tartrate [Lopressor] 50 mg PO BID 06/07/14 [History] Nitroglycerin Sl Tabs [Nitrostat] 0.4 mg SUBLINGUAL Q5M PRN 06/07/14 [History] Beclomethasone Dipropionate [Qvar 80 mcg/puff] 2 puff INHALATION RT-BID 08/11/14 [History] Isosorbide Mononitrate ER [Imdur] 30 mg PO QAM 11/03/14 [History] Losartan Potassium [Cozaar] 100 mg PO QAM 11/03/14 [History] DULoxetine HCL [Cymbalta] 60 mg PO HS 04/19/15 [History] Pregabalin [Lyrica] 100 mg PO TID #90 cap 02/12/18 [Rx] Melatonin 5 mg PO HS PRN 08/05/18 [History] Ondansetron [Zofran] 4 mg PO Q8HR PRN 09/25/18 [History] Albuterol Inhaler [Ventolin Hfa Inhaler] 2 puff INHALATION RT-Q4H PRN 12/29/18 [History] Baclofen 10 mg PO Q6HR PRN 12/29/18 [History] Ergocalciferol (Vitamin D2) [Vitamin D2] 50,000 unit PO OCHOA 12/29/18 [History] Furosemide [Lasix] 20 mg PO DAILY 12/29/18 [History] Multivitamins, Thera [Multivitamin (formulary)] 1 tab PO DAILY 12/29/18 [History] buPROPion HCL [Wellbutrin XL] 300 mg PO QAM 12/29/18 [History] Aspirin [Adult Low Dose Aspirin EC] 81 mg PO QAM 04/14/19 [History] amLODIPine [Norvasc] 5 mg PO QAM 04/14/19 [History] oxyCODONE ER [OxyCONTIN] 10 mg PO Q8HR PRN 04/14/19 [History] traZODone HCL 300 mg PO HS 04/14/19 [History] Meloxicam [Mobic] 7.5 mg PO BID PRN 04/30/19 [History] busPIRone HCL [Buspar] 7.5 mg PO BID 04/30/19 [History] Sulfamethox-Tmp 800-160Mg [Bactrim DS 800-160 mg] 1 each PO BID #14 tab 05/04/19 [Rx] metroNIDAZOLE [Flagyl] 500 mg PO TID #15 tab 05/04/19 [Rx] predniSONE 10 mg PO DAILY #30 tab 05/04/19 [Rx] Follow up Appointment(s)/Referral(s): Cale Reyes MD [STAFF PHYSICIAN] - 05/12/19 10:00 am Suzette Berg MD [Primary Care Provider] - 3 Days (Office will contact patient upon discharge to set up a follow up appointment) Chasity Bassett MD [STAFF PHYSICIAN] - 05/18/19 11:30 am Discharge Disposition: HOME SELF-CARE
--- NOTE | 2019-05-08 07:42 | CDI ---
Documentation Clarification Form Date: 05/04/2019 9:31:00 AM CDS: Carole Hwang, CCS, CCDS Admit Date: 05/01/2019 3:13:00 PM Patient Name: Savannah Helton Discharge Date: 05/04/2019 2:11:00 PM ATTENTION: The Clinical Documentation Specialists (CDI) and [facility] Coding Staff appreciate your assistance in clarifying documentation. Please respond to the clarification below the line at the bottom and electronically sign. The CDI & [facility] Coding staff will review the response and follow-up if needed. Please note: Queries are made part of the Legal Health Record. If you have any questions, please contact the author of this message via ITS. Dear Dr. Nubia Reyes: Per the pulmonary consult & subsequent progress notes: "Asthma with acute exacerbation" without further specificity is documented. History/risk factors: Asthma, COPD, current smoker, CAD, ANTOINE & obesity. Clinical Indicators: Presented with SOB & wheezing, chest & shoulder pain, failed outpatient treatment for same s/s with steroids & antibiotics. Radiology: CXR: Pneumonia, COPD, basilar atelectasis. Vital Signs: R 20 (sob, labored, cough), BP 98/76, PO 94 RA Treatment: IV Solumedrol, INH Albuterol, IV fluid rate 100, IV Toradol, IV Ms, IV Levaquin, IV Cefepime. In your professional opinion, can you please further specify the type of asthma, if known? Severity o Mild intermittent o Mild persistent o Moderate persistent o Severe persistent o Other, please specify ____ o Unable to determine Form or Type o Cough variant o Childhood o Exercise induced bronchospasm o Extrinsic allergic o Idiosyncratic o Intrinsic nonallergic o Late-onset o Mixed o Other, please specify____ o Unable to determine (Last Revision: October 2017) MTDD
== END 2019-05-04 14:11 | disposition home or self-care (01) | DRG 178 ==
LOC: EC 17:23 → 4SSUR 21:34 → OBSVTOIN 05-01 15:13
PROVIDERS: ADMIT Hospitalist; ATTEND Hospitalist
DX: J15.6 Pneumonia due to other Gram-negative bacteria (principal); J44.0 Chronic obstructive pulmonary disease with (acute) lower respiratory infection; J44.1 Chronic obstructive pulmonary disease with (acute) exacerbation; J45.901 Unspecified asthma with (acute) exacerbation; F17.210 Nicotine dependence, cigarettes, uncomplicated; G89.4 Chronic pain syndrome; G47.33 Obstructive sleep apnea (adult) (pediatric); E03.9 Hypothyroidism, unspecified; E66.9 Obesity, unspecified; E78.5 Hyperlipidemia, unspecified; F41.8 Other specified anxiety disorders; I11.0 Hypertensive heart disease with heart failure; I25.10 Atherosclerotic heart disease of native coronary artery without angina pectoris; I25.2 Old myocardial infarction; I50.9 Heart failure, unspecified; M19.90 Unspecified osteoarthritis, unspecified site; M79.7 Fibromyalgia; Z68.35 Body mass index [BMI] 35.0-35.9, adult; G43.909 Migraine, unspecified, not intractable, without status migrainosus; M25.512 Pain in left shoulder; F32.9 Major depressive disorder, single episode, unspecified; Z80.49 Family history of malignant neoplasm of other genital organs; Z82.5 Family history of asthma and other chronic lower respiratory diseases; Z90.710 Acquired absence of both cervix and uterus; Z95.5 Presence of coronary angioplasty implant and graft; Z88.0 Allergy status to penicillin; Z87.81 Personal history of (healed) traumatic fracture; Z87.01 Personal history of pneumonia (recurrent); Z99.89 Dependence on other enabling machines and devices; Z71.6 Tobacco abuse counseling; Z86.14 Personal history of Methicillin resistant Staphylococcus aureus infection; Z80.1 Family history of malignant neoplasm of trachea, bronchus and lung; Z79.82 Long term (current) use of aspirin; Z79.899 Other long term (current) drug therapy
CPT/HCPCS: 36415; 71046; 71275; 80048; 80053; 80202; 82550; 82565; 83036; 83735; 83880; 84484; 85025; 85379; 85610; 85730; 87040; 87070; 87205; 93005; 94640; 94760; 96361; 96365; 96375; 99285

== ENCOUNTER → 2019-06-15 | Outpatient (CLI) | payer MEDICARE ==
[2019-06-15 12:59] VITALS: BP 122/79; PULSE 64; RESP 20
--- NOTE | 2019-06-15 14:58 | P.PAINPG ---
Subjective Progress Note Date: 06/15/19 This is a 53-year-old female with myofascial pain whole-body pain, lumbar degenerative disc disease, right hip pain, obesity who presents for follow-up after her right hip injection and medication refill. She states that the hip injection only helped transiently. Otherwise she continues to take the opiates written by her clinic oxycodone 10 mg every 8 hours she is also prescribed Lyrica 100 mg 3 times a day Mobic 2.5 twice a day and baclofen 10 mg every 6 hours. She continues to have back pain even though she is on her medications. As mentioned above she does etc. whole-body pain with worst areas of pain as described. She denies any side effects from the medication, but she is unsure of how well it is working. Objective - Vital Signs Vital signs: Vital Signs Temp Pulse 64 06/15/19 12:55 Resp 20 06/15/19 12:55 BP 122/79 06/15/19 12:55 Pulse Ox 97 06/15/19 12:55 - Exam Vital Signs: Reviewed in EMR GENERAL: Well appearing, in no acute distress, PSYCH: Mood and affect is appropriate. Awake, alert, and oriented SKIN: Skin color, texture, turgor normal, no rashes or lesions HEENT: Normocephalic, atraumatic. EOM intact CV: No pedal edema RESP: Respirations are unlabored, no audible wheezing GI: Abdomen non-distended MUSCULOSKELETAL: Bilateral upper and lower extremity strength is normal and symmetric. No atrophy or tone abnormalities are noted. Lumbar spine: She has pain to light palpation in her back Buttocks: PSIS is tender Extremities: Internal rotation of hip causes extreme pain Gait: Gait is anantalgic NEUR: Bilateral upper and lower extremity coordination and muscle stretch reflexes are physiologic and symmetric. Negative clonus. No loss of sensation is noted. Cranial nerves are grossly intact. , Assessment and Plan Assessment: Assessment: 1. Myofascial pain syndrome 2. Right hip pain 3. Lumbar spondylosis 4. Chronic opiate use 5. Obesity Plan: 1. Explanation: Opioid and psychological risk scores were reviewed. Diagnoses, prognoses, and multiple treatment options including but not limited to physical therapy, interventional therapies, adjuvant medical therapies, narcotic medication therapies, and surgery were discussed with the patient and all questions were answered to the patient's satisfaction. 2. Opioid agreement: In place 3. Counseling: The patient should continue to be active 4. Procedures: None at this time, the right hip injection only helped temporarily 5. Consultations: Given her continued acute right hip pain, she will see an orthopedic surgeon to see if there are any interventions 6. Investigations: None 7. Medications: At this time we transition from oxycodone 10 3 times a day when necessary to [place] 04/30/2025 3 times a day when necessary, this will actually does alternate decrease in oral morphine equivalent dosage. Otherwise we will continue to prescribe Lyrica, back and baclofen as needed 8. Disposition: 8 weeks for medication refill , PQRS Measure Charge Sheet Measure #226: Tobacco Use: Screen & Cessation Intervention: Pt screened for tobacco use AND intervention given Measure #111: Pneumonia Vaccination: Pneumococcal vaccine administered or previously received Measure #47: Advance Care Plan: Advance care planning discussed & documented, pt chose/unable to give Measure #412: Opioid Treatment Agreement: No documentation of signed opioid treatment agreement Measure #408: Opioid Therapy Follow-up Evaluation: Patient had NO f/u eval minimum every 3 months during opioid therapy Measure #131: Pain Assessment & Follow-up: Pain positive & plan documented, Follow-up scheduled Measure #431: Unhealthy Alcohol Use Preventative Care & Scrn: Patient not identified as an unhealthy alcohol user PQRS Narrative: Smoking Status Current every day smoker Narcotic Agreement Date Signed 09/25/18 Blood Pressure 122/79 Pain Intensity [Upper Back] 9 Pain Intensity [Right Hip] 9 Scale Used Numeric (1 - 10) Hx Alcohol Use (MH) No Home Medications: Ambulatory Orders Atorvastatin [Lipitor] 80 mg PO HS 06/07/14 Ipratropium-Albuterol Nebulize [Duoneb 0.5 mg-3 mg/3 ml Soln] 3 ml INHALATION RT-QID PRN 06/07/14 Metoprolol Tartrate [Lopressor] 50 mg PO BID 06/07/14 Nitroglycerin Sl Tabs [Nitrostat] 0.4 mg SUBLINGUAL Q5M PRN 06/07/14 Beclomethasone Dipropionate [Qvar 80 mcg/puff] 2 puff INHALATION RT-BID 08/11/14 Isosorbide Mononitrate ER [Imdur] 30 mg PO QAM 11/03/14 Losartan Potassium [Cozaar] 100 mg PO QAM 11/03/14 DULoxetine HCL [Cymbalta] 60 mg PO HS 04/19/15 Pregabalin [Lyrica] 100 mg PO TID #90 cap 02/12/18 Melatonin 5 mg PO HS PRN 08/05/18 Ondansetron [Zofran] 4 mg PO Q8HR PRN 09/25/18 Albuterol Inhaler [Ventolin Hfa Inhaler] 2 puff INHALATION RT-Q4H PRN 12/29/18 Baclofen 10 mg PO Q6HR PRN 12/29/18 Ergocalciferol (Vitamin D2) [Vitamin D2] 50,000 unit PO OCHOA 12/29/18 Furosemide [Lasix] 20 mg PO DAILY PRN 12/29/18 Multivitamins, Thera [Multivitamin (formulary)] 1 tab PO DAILY 12/29/18 Aspirin [Adult Low Dose Aspirin EC] 81 mg PO QAM 04/14/19 amLODIPine [Norvasc] 5 mg PO QAM 04/14/19 oxyCODONE ER [OxyCONTIN] 10 mg PO Q8HR PRN 04/14/19 traZODone HCL 300 mg PO HS 04/14/19 Meloxicam [Mobic] 7.5 mg PO BID PRN 04/30/19 busPIRone HCL [Buspar] 10 mg PO BID 04/30/19 Controlled Substance Measures - Controlled Substance Measures Is patient prescribed a controlled substance at discharge?: Yes When asked, does pt state using other controlled substances?: No If prescribed controlled substance>3 days was MAPS reviewed?: Yes Was information provided regarding opioid addiction?: No
== END | disposition home or self-care (01) ==
LOC: PNWHC3 12:45
PROVIDERS: ATTEND Student in an Organized Health Care Education/Training Program
DX: M79.18 Myalgia, other site (principal); M47.816 Spondylosis without myelopathy or radiculopathy, lumbar region; M51.36 Other intervertebral disc degeneration, lumbar region; M25.551 Pain in right hip; E66.9 Obesity, unspecified; F11.90 Opioid use, unspecified, uncomplicated; F17.200 Nicotine dependence, unspecified, uncomplicated; Z79.82 Long term (current) use of aspirin; Z79.899 Other long term (current) drug therapy
CPT/HCPCS: 99211

== ENCOUNTER → 2019-06-18 | Outpatient (CLI) | payer MEDICARE ==
[2019-06-18 08:32] LABS: Basophils % (A) 1 %; Eosinophils # (A) 0.3 k/uL (0-0.7); Eosinophils % (A) 4 %; HGB 12.8 gm/dL (11.4-16.0); Lymphocytes # (A) 2.3 k/uL (1.0-4.8); Lymphocytes % (A) 26 %; MCH 31.2 pg (25.0-35.0); MCHC 32.8 g/dL (31.0-37.0); Mean Platelet Volume 6.7; Monocytes # (A) 0.4 k/uL (0-1.0); Monocytes % (A) 5 %; Neutrophils # (A) 5.4 k/uL (1.3-7.7); Neutrophils % (A) 63 %; Platelet Count 223 k/uL (150-450); RBC 4.11 m/uL (3.80-5.40); RDW 12.6 % (11.5-15.5); WBC 8.6 k/uL (3.8-10.6)
--- NOTE | 2019-06-18 08:56 | XR ---
EXAMINATION TYPE: XR chest 2V DATE OF EXAM: 06/18/2019 COMPARISON: 05/01/2019 HISTORY: Shortness of breath TECHNIQUE: Frontal and lateral views of the chest are obtained. FINDINGS: Scattered senescent parenchymal changes noted. Hyperinflation compatible with COPD. No evidence for infiltrate. No evidence for atelectasis. Heart size is stable. Mediastinal structures are stable and grossly unremarkable. No evidence for hilar prominence. Degenerative changes dorsal spine. IMPRESSION: 1. No evidence for acute pulmonary disease.
[2019-06-19 11:43] LABS: Alt. alternata IgE Class CLASS 0; Alternaria alternata IgE <0.10 kU/L (<0.10); Asperg. fumagatus IgE <0.10 kU/L (<0.10); Asperg. fumagatus IgE Class CLASS 0; Bermuda Grass IgE <0.10 kU/L (<0.10); Birch(Com.Silvr) IgE <0.10 kU/L (<0.10); Birch(Com.Silvr) IgE Class CLASS 0; Cat Epith & Dander IgE <0.10 kU/L (<0.10); Cat Epith & Dander IgE Class CLASS 0; Clad herbarum IgE <0.10 kU/L (<0.10); Clad herbarum IgE Class CLASS 0; Cockroach IgE <0.10 kU/L (<0.10); Cottonwood IgE <0.10 kU/L (<0.10); Dermato. Pteronyssinus Class CLASS 0; Dermato. Pteronyssinus IgE <0.10 kU/L (<0.10); Dermato. farinae IgE <0.10 kU/L (<0.10); Dermato. farinae IgE Class CLASS 0; Dog Dander IgE <0.10 kU/L (<0.10); Elm IgE <0.10 kU/L (<0.10); IgE (Allergen) 15.5 IU/mL (<114.0); Maple (Box Elder) IgE <0.10 kU/L (<0.10); Maple (Box Elder) IgE Class CLASS 0; Mountain Cedar IgE <0.10 kU/L (<0.10); Mountain Cedar IgE Class CLASS 0; Mouse Urine IgE Class CLASS 0; Mouse Urine Proteins,IgE <0.10 kU/L (<0.10); Nettle IgE <0.10 kU/L (<0.10); Nettle IgE Class CLASS 0; Oak IgE <0.10 kU/L (<0.10); Penicillium chrysogenum IgE <0.10 kU/L (<0.10); Penicillium chrysogenum IgE Cl CLASS 0; Rough Marshelder IgE <0.10 kU/L (<0.10); Rough Marshelder IgE Class CLASS 0; Timothy Grass IgE <0.10 kU/L (<0.10); White Ash IgE Class CLASS 0
== END | disposition home or self-care (01) ==
LOC: LABWHC1 08:10
PROVIDERS: ATTEND Nurse Practitioner
DX: R05 Cough (principal); J45.909 Unspecified asthma, uncomplicated; R06.02 Shortness of breath
CPT/HCPCS: 36415; 71046; 82103; 82104; 82785; 85025; 86001; 86003; 86606; 86609

== ENCOUNTER 2019-07-15 09:11 | Emergency (ER) | payer MEDICARE ==
[2019-07-15] MEDS ORDERED: MORPHINE SULFATE 4 MG/ML SYRINGE IM STA (10:18)
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
--- NOTE | 2019-07-15 11:45 | XR ---
EXAMINATION TYPE: XR ankle complete RT, XR foot complete RT DATE OF EXAM: 07/15/2019 CLINICAL HISTORY: Pain after fall injury. TECHNIQUE: Frontal, lateral and oblique images of the right ankle and foot are obtained. COMPARISON: None. FINDINGS: There is no acute fracture/dislocation evident in the right ankle. The ankle mortise appe ars within normal limits. [id number] diffuse soft tissue swelling is present. There is no acute fracture or dislocation evident in the right foot. Tuttle's toe is seen. The joint spaces in the right foot are preserved. Moderate size inferior calcaneal spur. Overlying soft tissue is unremarkable. IMPRESSION: There is no acute fracture or dislocation in the right ankle or foot.
--- NOTE | 2019-07-15 11:45 | XR ---
Right knee HISTORY: Trauma and pain 3 views the right knee, comparison to prior dated 08/12/2018 Bone mineralization, joint spaces and alignment are maintained. Minimal suprapatellar increased densi ty likely represents joint effusion. IMPRESSION: Small joint effusion. No fracture or dislocation.
--- NOTE | 2019-07-15 11:47 | XR ---
EXAMINATION TYPE: XR ribs RT w pa chest xray DATE OF EXAM: 07/15/2019 CLINICAL HISTORY: Chest and right-sided rib pain after football injury. TECHNIQUE: Single frontal view of the chest is obtained. A frontal and oblique images of the right-si ded ribs. COMPARISON: Most recent chest x-ray June 18, 2019. CTA chest April 30, 2019. FINDINGS: There is no focal air space opacity, pleural effusion, or pneumothorax seen. The cardiac silhouette size is stable and upper limits of normal. The osseous structures are intact. Dedicated images of right-sided ribs show no acute displaced fracture. Overlying soft tissue is unrem arkable. IMPRESSION: 1. No acute cardiopulmonary process. 2. No acute displaced right-sided rib fractures are evident.
--- NOTE | 2019-07-15 11:48 | XR ---
Right scapula HISTORY: Trauma and pain 2 views the right scapula Bone mineralization, joint spaces and alignment are maintained. IMPRESSION: Unremarkable right scapula.
--- NOTE | 2019-07-15 11:53 | CT ---
EXAMINATION TYPE: CT brain ambika english DATE OF EXAM: 07/15/2019 COMPARISON: NONE HISTORY: Falling injury with headache and neck pain CT DLP: 1293.7 mGycm. Automated Exposure Control for Dose Reduction was Utilized. TECHNIQUE: CT scan of the head and cervical spine are performed without contrast. FINDINGS: There is no acute intracranial hemorrhage, mass effect, or midline shift identified. The ventricles and sulci are within normal limits in size for patient's age. The globes are intact and the visualized sinuses are clear. Nasal septum is deviated to right of midline. The calvarium is inta ct. Cervical spine is visualized in its entirety from C1 through upper thoracic levels and demonstrates s light scoliotic curvature upper thoracic spine on coronal images without evidence of acute fracture o r dislocation. Prevertebral soft tissue appears within normal limits. The C1-C2 articulation is wit hin normal limits on the coronal images. Vertebral body heights are maintained. Mild to moderate dis c space narrowing C5-C6 level with mild anterior spurring spinal canal grossly preserved axial images thought within normal limits. Thyroid gland unremarkable. Visualized lung apices show no pneumothora x. IMPRESSION: 1. There is no acute fracture or dislocation evident in the cervical spine. 2. No acute intracranial hemorrhage, mass effect, or midline shift is seen.
[2019-07-15 12:34] VITALS: BP 123/88; PULSE 56; RESP 18; TEMP 97.4
== END 2019-07-15 12:34 | disposition home or self-care (01) ==
LOC: EC 09:11
DX: S29.9XXA Unspecified injury of thorax, initial encounter (principal); M25.471 Effusion, right ankle; M79.671 Pain in right foot; M25.461 Effusion, right knee; R29.6 Repeated falls; S09.90XA Unspecified injury of head, initial encounter; M25.511 Pain in right shoulder; J44.9 Chronic obstructive pulmonary disease, unspecified; I25.119 Atherosclerotic heart disease of native coronary artery with unspecified angina pectoris; M79.7 Fibromyalgia; E78.5 Hyperlipidemia, unspecified; I10 Essential (primary) hypertension; I25.2 Old myocardial infarction; M19.90 Unspecified osteoarthritis, unspecified site; G47.30 Sleep apnea, unspecified; F32.9 Major depressive disorder, single episode, unspecified; F41.9 Anxiety disorder, unspecified; F17.200 Nicotine dependence, unspecified, uncomplicated; Z88.0 Allergy status to penicillin; Z79.51 Long term (current) use of inhaled steroids; Z79.82 Long term (current) use of aspirin; Z79.891 Long term (current) use of opiate analgesic; Z79.899 Other long term (current) drug therapy; Z87.81 Personal history of (healed) traumatic fracture; Z86.14 Personal history of Methicillin resistant Staphylococcus aureus infection; Z98.890 Other specified postprocedural states; Z99.89 Dependence on other enabling machines and devices; X50.1XXA Overexertion from prolonged static or awkward postures, initial encounter; W01.198A Fall on same level from slipping, tripping and stumbling with subsequent striking against other object, initial encounter; Y92.002 Bathroom of unspecified non-institutional (private) residence as the place of occurrence of the external cause
CPT/HCPCS: 99284; 29515; 96372; 71101; 73010; 73562; 73610; 73630; 72125; 70450; J2270

== ENCOUNTER → 2019-08-10 | Outpatient (CLI) | payer MEDICARE ==
[2019-08-10 11:48] VITALS: BP 105/65; PULSE 65; RESP 18
--- NOTE | 2019-08-10 13:15 | P.PAINPG ---
Subjective Progress Note Date: 08/10/19 This is follow-up visit for this patient with a history of severe and chronic low back pain secondary to lumbar degenerative disc disease, lumbar facet arthropathy, right hip arthralgia The pain control between interventional pain management and medication management The patient currently on norco 10/325 every 8 hours, Lyrica 100 mg 3 times a day, Mobic 7.5 mg twice a day, baclofen 10 mg every 6 hours Patient denies any side effect of the medication , patient denies any excessive drowsiness or sleepiness, patient denies any suicidal ideation, Patient reported that the current medication is helping to control the pain and improve the activity of daily livings, Patient denies any motor or sensory deficit, denies any change in the bowel movement or urination, patient denies any fever or night sweats. Patient here today for follow-up visit and medication refill , patient had multiple falling episodes secondary to ankle etiology, ligament problem in the ankle, and currently she has left ankle braces, she is able to ambulate she had no motor or sensory deficit, patient reported that over the last few weeks she reported that her pain intensity increased significantly, the pain mainly localized in the low back area with radiation to the buttock bilaterally, more severe on the right side Objective - Vital Signs Vital signs: Vital Signs Temp Pulse 65 08/10/19 11:35 Resp 18 08/10/19 11:35 BP 105/65 08/10/19 11:35 Pulse Ox 95 08/10/19 11:35 - Exam Physical Examinations : -Constitutiona : Cooperative , not in acute distress . -HEENT : nech : supple , no Lymphadenopathy , normal thyroid size . eyes : no ptosis , no icterus, no photophobia . ENT : normal of hearing , normal oropharynx , no Thrush . - Respiratory : Chest clear to auscultations Bilaterally , no wheezing , no Rhonchi . - Cardiovascula : regular rate and rhythem , S1 , S2 , no S3 , no S4. - Gastrointestina : abdomen soft no tenderness , bowel sounds , no org anomegally . - Genitourinary : Defferred . - neurologic : Cranial nerve II to XII intact , no focal neurological deffecit . -psychatric : alert , oriented X 3 , appropriate affect , intact judgment and insight . -Lymphatic : no Lymphadenopathy . - musculoskeltal : Lumber spine moter stegnth lower extremities ,thigh and legs 5/5 Right side , 5/5 Left side deep tendon reflexes : normal Knee Jerk , normal ankle Jerk positive lumber facet Loading Test Range of motion of the lumbar spine Flexion 30 degrees, extension 10 degrees strait leg raising test , positive at 45 degree Fabere test positive RT and positive LT . tenderness over the Sacroiliac joint on the R and L sides Flexion and extension and lateral rotation of the right hip associated with severe pain Assessment and Plan Plan: Assessment and plan= chronic low back pain secondary to lumbar degenerative disc disease , lumbar spondylosis with lumbar facet arthropathy . Lumbar radiculopathy, right hip arthralgia chronic and current use of high-risk medication (opioids) Patient denies any side effects of the current pain medication and the current treatment/medication helping the patient to do activity of daily living , Diagnoses, prognosis, treatment options, including but not limited to physical therapy, medication management, interventional therapies, and surgery, were discussed with the patient All the questions answered The narcotic consent was signed and patient agreed and understood the side effects and complications of opioid treatment. Patient signed the narcotic agreement, and was orally counseled, not to ove ruse, not to abuse, not to Divert , not tp sell pain medication, and to take it as prescribed only, Patient was counseled not to drive or operate heavy equipment while using narcotic medication, and advised not to use alcohol or any Illicit drugs while using the narcotis. understanding that lack of compliance with any of the above instructions, will likely to cause discharge from, the pain service, not to renew his narcotic prescriptions MAPS Reviwed and it was apropriate . Medication managements= patient will be given prescription refills for [place] 10/325 every 8 hours dispense 90 with 1 refill, Lyrica 1 mg 3 times a day dispense 90 with 1 refill, Mobic 7.5 mg twice a day dispense 60 with 1 refill, baclofen 10 mg every 6 hours dispense 120 with one refill Interventions= patient could benefit from repeat RFA of the medial branch lumbar area at L3 ,L4 and L5 the last radiofrequency was done in July 2018 We will do the right side first and left-sided later , Time with Patient: Less than 30 PQRS Measure Charge Sheet Measure #130: Documentation of Current Meds in Medical Chart: Patient's medications documented in chart Measure #226: Tobacco Use: Screen & Cessation Intervention: Pt screened for tobacco use AND intervention given Measure #111: Pneumonia Vaccination: Pneumococcal vaccine administered or previously received Measure #47: Advance Care Plan: Advance care planning discussed & documented, pt chose/unable to give Measure #412: Opioid Treatment Agreement: Documented signed opioid trtmnt agreemnt min once during opioid trtmnt Measure #408: Opioid Therapy Follow-up Evaluation: Patient had f/u eval minimum every 3 months during opioid therapy Measure #317: Preventitive Care & Scrn High Bld Press & F/U: Normal blood pressure, f/u not required Measure #128: Body Mass Index (BMI) Screening & Follow-up: BMI documented ABOVE normal parameters - f/u documented Measure #131: Pain Assessment & Follow-up: Pain positive & plan documented, Follow-up scheduled Measure #431: Unhealthy Alcohol Use Preventative Care & Scrn: Patient not identified as an unhealthy alcohol user PQRS Narrative: Smoking Status Current every day smoker Narcotic Agreement Date Signed 08/10/19 Blood Pressure 105/65 Pain Intensity [Right Hip] 7 Pain Intensity [Lower Back] 5 Scale Used Numeric (1 - 10) Hx Alcohol Use (MH) No Home Medications: Ambulatory Orders Atorvastatin [Lipitor] 80 mg PO HS 06/07/14 Ipratropium-Albuterol Nebulize [Duoneb 0.5 mg-3 mg/3 ml Soln] 3 ml INHALATION RT-QID PRN 06/07/14 Metoprolol Tartrate [Lopressor] 50 mg PO BID 06/07/14 Nitroglycerin Sl Tabs [Nitrostat] 0.4 mg SUBLINGUAL Q5M PRN 06/07/14 Beclomethasone Dipropionate [Qvar 80 mcg/puff] 2 puff INHALATION RT-BID 08/11/14 Isosorbide Mononitrate ER [Imdur] 30 mg PO QAM 11/03/14 Losartan Potassium [Cozaar] 100 mg PO QAM 11/03/14 DULoxetine HCL [Cymbalta] 60 mg PO HS 04/19/15 Pregabalin [Lyrica] 100 mg PO TID #90 cap 02/12/18 Melatonin 5 mg PO HS PRN 08/05/18 Ondansetron [Zofran] 4 mg PO Q8HR PRN 09/25/18 Albuterol Inhaler [Ventolin Hfa Inhaler] 2 puff INHALATION RT-Q4H PRN 12/29/18 Baclofen 10 mg PO Q6HR PRN 12/29/18 Ergocalciferol (Vitamin D2) [Vitamin D2] 50,000 unit PO OCHOA 12/29/18 Furosemide [Lasix] 20 mg PO DAILY PRN 12/29/18 Multivitamins, Thera [Multivitamin (formulary)] 1 tab PO DAILY 12/29/18 Aspirin [Adult Low Dose Aspirin EC] 81 mg PO QAM 04/14/19 amLODIPine [Norvasc] 5 mg PO QAM 04/14/19 traZODone HCL 300 mg PO HS 04/14/19 Meloxicam [Mobic] 7.5 mg PO BID PRN 04/30/19 busPIRone HCL [Buspar] 10 mg PO BID 04/30/19 HYDROcodone/APAP 10-325MG [[place] 10-325] 1 tab PO TID 07/15/19 Controlled Substance Measures - Controlled Substance Measures Is patient prescribed a controlled substance at discharge?: Yes When asked, does pt state using other controlled substances?: No If prescribed controlled substance>3 days was MAPS reviewed?: Yes If Rx opioid, was Start Talking consent form obtained?: Yes If opioid is for acute pain is fill amount 7 days or less?: No Was information provided regarding opioid addiction?: Yes
== END | disposition home or self-care (01) ==
LOC: PNWHC3 11:24
PROVIDERS: ATTEND Specialist
DX: G89.29 Other chronic pain (principal); M51.16 Intervertebral disc disorders with radiculopathy, lumbar region; M47.26 Other spondylosis with radiculopathy, lumbar region; M46.96 Unspecified inflammatory spondylopathy, lumbar region; M25.551 Pain in right hip; F17.200 Nicotine dependence, unspecified, uncomplicated; Z79.51 Long term (current) use of inhaled steroids; Z79.82 Long term (current) use of aspirin; Z79.891 Long term (current) use of opiate analgesic; Z79.1 Long term (current) use of non-steroidal anti-inflammatories (NSAID); Z79.899 Other long term (current) drug therapy
CPT/HCPCS: 99211

== ENCOUNTER → 2019-08-24 | Day surgery (SDC) | payer MEDICARE ==
[~2019-08-24] MED LIST changes: +BUPIVACAINE (PF) 0.5% 30 ML VIAL ONE; +IV FLUID CONTINUATION 1,000 ML IV ONE; +LIDOCAINE 1% 20 ML VIAL (10MG/ML) FOR IV START INTRADERMA ONE; +MIDAZOLAM 2 MG/2 ML VIAL ONE; +fentaNYL (PF) 50 MCG/ML 2 ML AMP ONE; +methylPREDNISolone ACETATE 40 MG/ML 1 ML VIAL ONE
[2019-08-24 09:57] VITALS: RESP 16; TEMP 98.2
--- NOTE | 2019-08-24 10:59 | P.PCN ---
Date of Procedure: 08/24/19 Procedure(s) Performed: PREOPERATIVE DIAGNOSIS: 1-Lumbar Spondylosis with Facet Arthropathy without myelopathy. 2- Lumber degenerative disc disease POSTOPERATIVE DIAGNOSIS: 1- Lumbar Spondylosis with Facet Arthropathy without myelopathy. 2- Lumber degenerative disc disease PROCEDURES : Right Radiofrequency thermocoagulation, L3 , L4 , and L5 medial branch, with fluoroscopic guidance (fluoroscopy images available in the radiology department) ( to denervate the facet joint at L4-5 ,and L5-S1 levels ) ANESTHESIA: Moderate sedation with intravenous versed 2 mg and fentaneyl 100 mcg, and local infiltration with Ropivacaine 0.5 % . EBL: Minimal PROCEDURE INDICATION: The patient with low back pain secondary to lumbar facet arthropathy who had more than 50% relief of her pain with previous diagnostic lumbar medial branch block with bupivacaine. PROCEDURE DESCRIPTION / TECHNIQUE: The patient was seen and identified in the preoperative area. Risks, benefits, complications, including but not limited to risk of infection ,bleeding , allergic reactions to the medications and no complete pain releife , and alternatives were discussed with the patient, the patient agreed to proceed with the procedure and signed the consent. IV was started. Vital signs remained stable throughout the procedure. Patient was taken to the OR and time out was completed. The patient was placed in the prone position on the procedure table. The lumber area was prepped and draped in the usual sterile fashion. . Vital signs were closely monitored during the procedure .IV sedation was used during the procedure to decrease patients anxiety. Using AP and then oblique fluoroscopy, the ``eye of the Jorge dog corresponding to the connection between the superior and transverse articular processes of right L3, L4, and L5 were identified, marked, and localized with 1% lidocaine. Subsequently, a [id number] radiofrequency cannula with a 10- mm active tip was advanced guided by fluoroscopy to each of the``eyes of the Jorge dog at right L3, L4, and L5. Each site then underwent sensory testing at 50 Hz and 0 to 1 volt and motor testing at 2.5 Hz and 0 to 3 volt with local stimulation, but no radicular symptoms down the legs. Thereafter the right L3, L4 , and L5 sites underwent radiofrequency thermocoagulation at 80 degrees celsius for 90 seconds after injecting 0.5 ml of PF Ropivacaine 1ml, then after the thermocoagulation done , 1 ml of the block solution containing Depo-Medrol 40 mg and 3 ml of Ropivacaine 0.5% was injected at the right L3 , L4 , and L5 , levels after negative aspiration of CSF and blood and with no paresthesias. Cannulas were retracted while injecting lidocaine 1% until the needle is out. . At the end of the procedure, the skin was cleansed and bandages were applied. COMPLICATIONS: No acute complications. DISPOSITION / PLANS: The patient was placed in a supine position and transferred to the recovery area in a stable condition for observation and was discharged from the recovery room after meeting discharge criteria. Home discharge instructions given to the patient by the staff. The patient was reexamined prior to discharge. The patient will schedule a follow up in the clinic in 2-4 weeks.
[2019-08-24 11:20] VITALS: BP 134/82; PULSE 64
--- NOTE | 2019-08-24 12:55 | FL ---
EXAMINATION TYPE: FL guided pain mgmt statistic DATE OF EXAM: 08/24/2019 CLINICAL HISTORY: Low back pain. TECHNIQUE: Fluoroscopy. COMPARISON: None. FINDINGS: Fluoroscopic guidance was provided during pain relief procedure performed by Dr. Wyatt . A total of 10 seconds of fluoroscopic time was utilized during the procedure and 3 spot images are acquired. Images acquired shows needle localization of the lumbar spine at multiple levels. IMPRESSION: As Above.
== END ==
LOC: ORPAIN 09:37
PROVIDERS: ATTEND Specialist
DX: M47.816 Spondylosis without myelopathy or radiculopathy, lumbar region (principal); Z88.0 Allergy status to penicillin
CPT/HCPCS: 64635; 64636; J2250; J1030; J3010; 99152

== ENCOUNTER 2019-09-15 06:54 | Day surgery (SDC) | payer MEDICARE ==
[2019-09-11 15:50] VITALS: BMI 35.9
[2019-09-15 07:19] VITALS: TEMP 97.1
[2019-09-15] MEDS ORDERED: LIDOCAINE 1% 20 ML VIAL (10MG/ML) FOR IV START INTRADERMA ONE (07:24)
[2019-09-15] MEDS ORDERED: LACTATED RINGERS 1,000 ML IV ONE (07:24)
[2019-09-15] MEDS ORDERED: ONDANSETRON 4 MG/2 ML VIAL IVP ONE (07:25)
--- NOTE | 2019-09-15 07:37 | P.PCN ---
Date of Procedure: 09/15/19 Description of Procedure: PREOPERATIVE DIAGNOSIS: Lumbar Facet Arthropathy without myelopathy POSTOPERATIVE DIAGNOSIS: Same PROCEDURES: LEFT Radiofrequency thermocoagulation of L3-4, L4-5, L5-S1 medial branches, with fluoroscopic guidance ANESTHESIA: IV sedation with versed and fentanyl and local infiltration with lidocaine 1% 10 ml Imaging: Fluoroscopy was used, images where saved to the medical record PROCEDURE INDICATION: The patient with low back pain secondary to lumbar facet arthropathy who had more than 50% relief of pain with previous diagnostic lumbar medial branch block with local anesthetic. PROCEDURE DESCRIPTION / TECHNIQUE: The patient was seen and identified in the preoperative area. Risks, benefits, complications, including but not limited to risk of infection, bleeding, allergic reactions to the medications and no complete pain relief , and alternatives were discussed with the patient, the patient agreed to proceed with the procedure and signed the consent. IV was started. Vital signs remained stable throughout the procedure. Patient was taken to the OR and time out was completed. The patient was placed in the prone position on the procedure table. The lumber area was prepped and draped in the usual sterile fashion. Vital signs were closely monitored during the procedure. IV sedation was used during the procedure to decrease patient anxiety. Using AP and then oblique fluoroscopy, the eye of the Jorge dog corresponding to the connection between the superior and transverse articular processes of L4, L5, and sacral Ala were identified, marked, and localized with 1% lidocaine. Subsequently, a 20 -qr radiofrequency cannula with a 10-mm active tip was advanced guided by fluoroscopy to the junction of the pedicle and transverse process of each identified level. Each site then underwent sensory testing at 50 Hz and 0 to 1 volt and motor testing at 2.5 Hz and 0 to 3 volt with local stimulation, no radicular symptoms sensed by the patient and no obvious motor stimulation noted. Thereafter the tested sites underwent radiofrequency thermocoagulation at 80 degrees celsius for 90 seconds after injecting 1 ml of PF lidocaine 1%. Then after the thermocoagulation was done, 1 ml of the block solution containing ropivaciane 0.5% was injected at the lesioned sites after negative aspiration of CSF and blood and with no paresthesias. Cannulas were retracted. At the end of the procedure, the skin was cleansed and bandages were applied. COMPLICATIONS: No acute complications. DISPOSITION / PLANS: The patient was placed in a supine position and transferred to the recovery area in a stable condition for observation and was discharged from the recovery room after meeting discharge criteria. Home discharge instructions given to the patient by the staff. The patient was reexamined prior to discharge. Patient will follow up as directed.
[2019-09-15] MEDS ORDERED: ROPIVACAINE 5MG/ML 20ML VIAL ONE (07:47)
[2019-09-15] MEDS ORDERED: fentaNYL (PF) 50 MCG/ML 2 ML AMP ONE (07:47)
[2019-09-15] MEDS ORDERED: MIDAZOLAM 2 MG/2 ML VIAL ONE (07:47)
[2019-09-15] MEDS ORDERED: LIDOCAINE 1% INJ 10MG/ML (20 ML MDV) ONE (07:47)
[2019-09-15 08:22] VITALS: RESP 16
[2019-09-15] MEDS ORDERED: IV FLUID CONTINUATION 1,000 ML IV ONE (08:33)
[2019-09-15 08:45] VITALS: BP 107/74; PULSE 69
--- NOTE | 2019-09-15 08:49 | FL ---
EXAMINATION TYPE: FL guided pain mgmt statistic DATE OF EXAM: 09/15/2019 FLUOROSCOPY Fluoroscopy time of 7 seconds was used during lumbar radiofrequency ablation. 4 image/s document/s t he procedure.
== END 2019-09-15 08:49 | disposition home or self-care (01) ==
LOC: ORPAIN 06:54
PROVIDERS: ATTEND Hospitalist
DX: M47.816 Spondylosis without myelopathy or radiculopathy, lumbar region (principal); Z88.0 Allergy status to penicillin
CPT/HCPCS: 64635; 64636 ×2; J2250; J2405; J2001; J3010; J2795; 99152

== ENCOUNTER 2019-11-19 14:54 | Observation (INO) | payer MEDICARE ==
[2019-11-19] MEDS ORDERED: NITROGLYCERIN OINT 1 INCH/GM PACKET TOPICAL STA (15:30)
[2019-11-19] MEDS ORDERED: ASPIRIN 81 MG PO STA (15:30)
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
[2019-11-19 15:44] LABS: Basophils # (A) 0.1 k/uL (0-0.2); Basophils % (A) 1 %; Eosinophils # (A) 0.2 k/uL (0-0.7); Eosinophils % (A) 2 %; HCT 40.7 % (34.0-46.0); HGB 13.5 gm/dL (11.4-16.0); Lymphocytes # (A) 3.4 k/uL (1.0-4.8); Lymphocytes % (A) 37 %; MCH 30.9 pg (25.0-35.0); MCV 93.4 fL (80.0-100.0); Mean Platelet Volume 8.2; Monocytes # (A) 0.4 k/uL (0-1.0); Monocytes % (A) 5 %; Neutrophils % (A) 54 %; Platelet Count 228 k/uL (150-450); RBC 4.36 m/uL (3.80-5.40); RDW 13.1 % (11.5-15.5); WBC 9.2 k/uL (3.8-10.6)
[2019-11-19 15:56] LABS: ALT 24 U/L (4-34); AST 24 U/L (14-36); African American GFR (CKD) >90 (>60 ml/min/1.73 sqM); Albumin 3.9 g/dL (3.5-5.0); Alkaline Phosphatase 85 U/L (38-126); Anion Gap 6 mmol/L; Blood Urea Nitrogen 22 mg/dL (7-17); Calcium 9.1 mg/dL (8.4-10.2); Carbon Dioxide 25 mmol/L (22-30); Chloride 105 mmol/L (98-107); Glucose 133 mg/dL (74-99); Magnesium 2.1 mg/dL (1.6-2.3); Non-African American GFR(CKD) >90 (>60 ml/min/1.73 sqM); Potassium 4.4 mmol/L (3.5-5.1); Sodium 136 mmol/L (137-145); Total Bilirubin 0.7 mg/dL (0.2-1.3); Total Protein 6.4 g/dL (6.3-8.2)
[2019-11-19 16:04] LABS: INR 0.9 (<1.2); Partial Thromboplastin Time 22.3 sec (22.0-30.0); Prothrombin Time 9.6 sec (9.0-12.0)
--- NOTE | 2019-11-19 16:07 | XR ---
EXAMINATION TYPE: XR chest 2V DATE OF EXAM: 11/19/2019 COMPARISON: 07/15/2019 HISTORY: Chest pain TECHNIQUE: Frontal and lateral views of the chest are obtained. FINDINGS: Chronic platelike atelectasis of the left lung base unchanged from 2019. Strand-like proba ble right basilar atelectasis is also unchanged. The patient's arms and scapula overlie the upper tho racic spine on the lateral view. Emphysematous changes of the lungs are seen with biapical lucency an d flattening of the diaphragms. No new focal consolidation, pleural effusion or pneumothorax. IMPRESSION: No acute cardiopulmonary process. Emphysematous changes.
[2019-11-19] MEDS ORDERED: HEPARIN SODIUM,PORCINE 5,000 UNIT/ML 1 ML VIAL IV ONE (16:12)
[2019-11-19] MEDS ORDERED: HEPARIN SOD,PORK IN 0.45% NACL 25,000 UNIT in 0.45% NACL 1 250ML.BAG IV SCH (16:15)
[2019-11-19] MEDS ORDERED: NITROGLYCERIN SL TABS 0.4 MG TAB SUBLINGUAL PRN ×2 (16:55→22:09)
[2019-11-19] MEDS ORDERED: HEPARIN SODIUM,PORCINE 5,000 UNIT/ML 1 ML VIAL IV PRN (20:05)
[2019-11-19] MEDS ORDERED: FUROSEMIDE 20 MG TAB PO PRN (22:09)
[2019-11-19] MEDS ORDERED: ONDANSETRON 4 MG TAB PO PRN (22:09)
[2019-11-19] MEDS ORDERED: IPRATROPIUM-ALBUTEROL 3 ML NEB INHALATION PRN (22:09)
[2019-11-19] MEDS ORDERED: DULoxetine HCL 60 MG CAPSULE.DR PO SCH (22:25)
[2019-11-19] MEDS ORDERED: ATORVASTATIN 80 MG TAB PO SCH (22:30)
[2019-11-19] MEDS ORDERED: MONTELUKAST 10 MG TAB PO SCH (22:30)
[2019-11-19] MEDS ORDERED: MELATONIN 5 MG TABLET PO SCH (22:30)
[2019-11-19] MEDS ORDERED: traZODone HCL 100 MG TAB PO SCH (22:30)
[2019-11-19] MEDS: BACLOFEN 10 MG TAB PO PRN (22:54)
[2019-11-19] MEDS: METOPROLOL TARTRATE 50 MG TAB PO SCH (22:54)
[2019-11-19] MEDS: busPIRone HCl 10 MG TAB PO SCH (22:54)
[2019-11-19] MEDS: PREGABALIN 100 MG CAP PO SCH (22:55)
[2019-11-19] MEDS ORDERED: NITROGLYCERIN-D5W PMX 50 MG in DEXTROSE/WATER 1 250ML.BAG IV SCH (23:00)
[2019-11-19] MEDS: HYDROcodone/APAP 10-325MG 1 EACH TAB PO PRN (23:02)
[2019-11-19] MEDS: NITROGLYCERIN OINT 1 INCH/GM PACKET TOPICAL SCH (23:03)
[2019-11-20 03:50] LABS: Cholesterol 164 mg/dL (<200); HDL Cholesterol 62 mg/dL (40-60); LDL Cholesterol,Calculated 69 mg/dL (0-99); Triglycerides 163 mg/dL (<150)
[2019-11-20] MEDS: NITROGLYCERIN OINT 1 INCH/GM PACKET TOPICAL SCH (04:55)
[2019-11-20] MEDS ORDERED: TIOTROPIUM 18 MCG/PUFF INHALER INHALATION PRN (07:06)
[2019-11-20] MEDS ORDERED: ALBUTEROL HFA INHALER INHALATION PRN (07:06)
[2019-11-20 07:58] VITALS: RESP 16
[2019-11-20] MEDS ORDERED: DOBUTamine DRIP for NUC MED 500 MG in DEXTROSE/WATER 1 250ML.BAG IV ONE (08:09)
[2019-11-20] MEDS ORDERED: SODIUM CHLORIDE 0.9% 1,000 ML IV SCH (08:15)
[2019-11-20] MEDS: PREGABALIN 100 MG CAP PO SCH ×2 (08:19→16:29)
[2019-11-20] MEDS: BACLOFEN 10 MG TAB PO PRN ×2 (08:19→18:20)
[2019-11-20] MEDS: HYDROcodone/APAP 10-325MG 1 EACH TAB PO PRN ×2 (08:19→18:20)
[2019-11-20] MEDS ORDERED: PREGABALIN 100 MG CAP PO SCH (09:00)
[2019-11-20] MEDS ORDERED: METOPROLOL TARTRATE 50 MG TAB PO SCH (09:00)
[2019-11-20] MEDS ORDERED: LOSARTAN 50 MG TAB PO SCH (09:00)
[2019-11-20] MEDS ORDERED: ISOSORBIDE MONONITRATE ER 30 MG TAB.ER.24H PO SCH (09:00)
[2019-11-20] MEDS ORDERED: amLODIPine 5 MG TAB PO SCH (09:00)
[2019-11-20] MEDS ORDERED: ASPIRIN 325 MG TAB PO SCH (09:00)
[2019-11-20] MEDS ORDERED: busPIRone HCl 10 MG TAB PO SCH (09:00)
[2019-11-20] MEDS ORDERED: ASPIRIN 81 MG PO SCH (09:00)
[2019-11-20] MEDS ORDERED: FAMOTIDINE 20 MG/2 ML VIAL IV SCH (09:00)
--- NOTE | 2019-11-20 10:27 | CONS ---
CONSULTATION Mrs. Helton is a 54-year-old female with known history of hypertension, hyperlipidemia, history of chronic tobacco use, who presented with symptoms of chest discomfort. She has a known history of coronary artery disease status post stenting, most recently in 2012, has been followed by Dr. Bae in the past and has underwent repeat cardiac catheterization in 2013 according to her. No intervention was done. She was seen by Dr. Finnegan. Subsequently, but has not seen in over a year. She started complaining of chest discomfort 2 days ago. The discomfort was on and off throughout the day, not activity related and not positional. She is limited in her activity because of her arthritic pain. She has chronic dyspnea on exertion with chronic dyspnea. She has no palpitation. No syncope. She had a prior episode of lower extremity edema on the right side and has underwent a duplex scan in August that was unremarkable according to her. The discomfort at times is epigastric radiating to the back and at times in the chest radiating to the arm. MEDICATION: At home include loratadine, Singulair, DuoNeb, trazodone, , Lyrica, [place], Mobic, baclofen, BuSpar, Cymbalta, Zofran, Norvasc 5 mg daily, metoprolol tartrate 50 mg twice a day, aspirin once a day, losartan 100 mg daily, isosorbide mononitrate 30 mg daily, Lipitor 80 mg daily, and Ventolin. REVIEW OF SYSTEMS: RESPIRATORY SYSTEM: She has chronic dyspnea on exertion, cough and chronic tobacco use. GI SYSTEM: She has nausea, no recent GI bleeding, no peptic ulcer disease. SYSTEM: No dysuria or hematuria. NERVOUS SYSTEM: No stroke or seizure. She has chronic pain. PHYSICAL EXAMINATION: She is a 54-year-old female, alert, oriented, complaining of back discomfort. Blood pressure 110/70 with a heart rate in the 60s. HEAD: Normocephalic. EYES: Sclerae nonicteric. NECK: Good upstroke, no bruit. No jugular venous distention. LUNGS: Clear to auscultation. HEART: Regular rate and rhythm. S1, S2. No S3. No S4. No rub. ABDOMEN: Soft, obese, nontender. Positive bowel sounds, no organomegaly. EXTREMITIES: No edema, intact pulses. LAB DATA: Revealed troponin less than 0.012. NT proBNP of 91. BUN and creatinine 22 and 0.64, potassium 4.4. Cholesterol 164, LDL of 69. Hemoglobin of 13.5. EKG revealed a sinus mechanism, normal axis and intervals, early transition. Chest x-ray shows no acute infiltrate with evidence of emphysema. IMPRESSION: 1. Chest discomfort, has some atypical features for ischemic heart disease in a patient with known history of coronary artery disease, status post stenting. 2. Chronic tobacco use. 3. Hypertension. 4. Hyperlipidemia. 5. Chronic back pain. RECOMMENDATION: I would recommend to stop the IV nitroglycerin and IV heparin at this time. I will proceed with a stress echocardiogram to further assess her status and guide her treatment. Depending on those findings, further recommendation will be made. I will try to obtain the results for prior workup. If she has any evidence of inducible ischemia, then cardiac catheterization will be needed. I have discussed with her those finding and recommendation and she is in full understanding and agreement. Thank you for this consult. Will follow with you. SHALONDA / ASHLEY: [id number] /
[2019-11-20] MEDS ORDERED: ATROPINE SULFATE 0.1 MG/ML 10ML SYRINGE ONE (11:15)
--- NOTE | 2019-11-20 12:12 | ECHOS ---
STRESS ECHOCARDIOGRAM INDICATIONS: Chest pain. BASELINE HEART RATE: 52 BASELINE BLOOD PRESSURE: 126/71 MAXIMUM HEART RATE: 143 MAXIMUM BLOOD PRESSURE: 201/91 85% MPHR: 142 100% MPHR: 167 MAXIMUM STAGE REACHED: 4 TOTAL EXERCISE TIME: 16:00 CLINICAL INFORMATION: Baseline EKG show sinus bradycardia, normal axis, normal intervals. Patient was given intravenous dobutamine over a period of 15 minutes as per protocol. The patient did not attain target heart rate. Went on to receive 1 mg of atropine with which she attained 86% of predicted heart rate. There was ST-segment depression. Baseline echo shows normal left ventricular systolic function. Post dobutamine infusion, there is normal hyperdynamic response of all segments of myocardium noted. CONCLUSION: 1. Negative stress test by EKG criteria. 2. Negative dobutamine stress echo. MMODL / IJN: [id number] /
[2019-11-20 12:35] VITALS: TEMP 97.8
[2019-11-20] MEDS ORDERED: LIDOCAINE 5% PATCH TOPICAL SCH (12:45)
--- NOTE | 2019-11-20 12:52 | ECHOF ---
Referral Reason:cad MEASUREMENTS -------- HEIGHT: 175.3 cm WEIGHT: 116.6 kg BP: 115/68 RVIDd: 3.3 cm (< 3.3) IVSd: 1.1 cm (0.6 - 1.1) LVIDd: 4.8 cm (3.9 - 5.3) LVPWd: 1.0 cm (0.6 - 1.1) IVSs: 1.7 cm LVIDs: 2.8 cm LVPWs: 1.2 cm LA Diam: 3.2 cm (2.7 - 3.8) Ao Diam: 3.4 cm (2.0 - 3.7) AV Cusp: 2.0 cm (1.5 - 2.6) MV EXCURSION: 12.108 mm (> 18.000) MV EF SLOPE: 111 mm/s (70 - 150) EPSS: 0.8 cm MV E Oren: 0.79 m/s MV DecT: 271 ms MV A Oren: 0.96 m/s MV E/A Ratio: 0.82 RAP: 5.00 mmHg RVSP: 27.49 mmHg FINDINGS -------- Sinus rhythm. This was a technically adequate study. The left ventricular size is normal. There is borderline concentric left ventricular hypertrophy. Overall left ventricular systolic function is normal with, an EF between 60 - 65 %. The right ventricle is mildly enlarged. The left atrial size is normal. The right atrium is normal in size. Interatrial and interventricular septum intact. There is mild aortic valve sclerosis. There is trace to mild mitral regurgitation. Mild tricuspid regurgitation present. Right ventricular systolic pressure is normal at < 35 mmHg. The pulmonic valve was not well visualized. The aortic root size is normal. Normal inferior vena cava with normal inspiratory collapse consistent with estimated right atrial pre ssure of 5 mmHg. There is no pericardial effusion. CONCLUSIONS -------- 1. Sinus rhythm. 2. This was a technically adequate study. 3. The left ventricular size is normal. 4. There is borderline concentric left ventricular hypertrophy. 5. Overall left ventricular systolic function is normal with, an EF between 60 - 65 %. 6. The right ventricle is mildly enlarged. 7. The left atrial size is normal. 8. The right atrium is normal in size. 9. Interatrial and interventricular septum intact. 10. There is mild aortic valve sclerosis. 11. There is trace to mild mitral regurgitation. 12. Mild tricuspid regurgitation present. 13. Right ventricular systolic pressure is normal at < 35 mmHg. 14. The pulmonic valve was not well visualized. 15. The aortic root size is normal. 16. Normal inferior vena cava with normal inspiratory collapse consistent with estimated right atrial pressure of 5 mmHg. 17. There is no pericardial effusion. DISPOSAL OPERATOR: Yesica Pagan RDCS
[2019-11-20] MEDS: METOPROLOL TARTRATE 50 MG TAB PO SCH (14:59)
[2019-11-20] MEDS: busPIRone HCl 10 MG TAB PO SCH (15:00)
--- NOTE | 2019-11-20 15:29 | XR ---
EXAMINATION TYPE: XR thoracic spine 2V DATE OF EXAM: 11/20/2019 CLINICAL HISTORY: pain TECHNIQUE: Frontal, lateral, and swimmer's view of thoracic spine are obtained. COMPARISON: 02/05/2018 FINDINGS: Thoracic spine show satisfactory alignment without evidence of acute fracture or dislocatio n. Vertebral body heights are preserved. Scattered degenerative disc space narrowing noted. Visual ized ribs are unremarkable. IMPRESSION: No acute fracture or dislocation is seen in the thoracic spine. ICD 10 NO FRACTURE, INIT IAL EVALUATION
--- NOTE | 2019-11-20 15:30 | XR ---
EXAMINATION TYPE: XR lumbar spine 2 or 3V DATE OF EXAM: 11/20/2019 CLINICAL HISTORY: pain TECHNIQUE: Three views of the lumbar spine are submitted. COMPARISON: None. FINDINGS: There are 5 lumbar type vertebral bodies identified. Vertebral body heights are within normal limits . Moderate degenerative disc space narrowing at L5-S1 where there is a grade 1 anterolisthesis pepper uring 7 mm. Spondylolysis difficult to exclude. Facet joint arthropathy. The overlying soft tissue a ppears unremarkable. IMPRESSION: Moderate degenerative disc space narrowing at L5-S1 where there is a grade 1 anterolisthesis measurin g 7 mm. Spondylolysis difficult to exclude. ICD 10 NO FRACTURE, INITIAL EVALUATION
[2019-11-20 16:27] VITALS: BP 117/66; PULSE 60
[2019-11-20] MEDS ORDERED: METOPROLOL TARTRATE 25 MG TAB PO SCH (21:00)
[2019-11-20] MEDS ORDERED: FAMOTIDINE 20 MG TAB PO SCH (21:00)
[2019-11-20] MEDS ORDERED: traZODone HCL 100 MG TAB PO SCH (21:00)
[2019-11-20] MEDS ORDERED: MONTELUKAST 10 MG TAB PO SCH (21:00)
[2019-11-20] MEDS ORDERED: MELATONIN 5 MG TABLET PO SCH (21:00)
[2019-11-20] MEDS ORDERED: ATORVASTATIN 80 MG TAB PO SCH (21:00)
[2019-11-20] MEDS ORDERED: DULoxetine HCL 60 MG CAPSULE.DR PO SCH (21:00)
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
[2019-11-21] MEDS ORDERED: LOSARTAN 50 MG TAB PO SCH (09:00)
[2019-11-22] MEDS ORDERED: ERGOCALCIFEROL 50,000 UNIT CAP PO SCH (09:00)
== END 2019-11-20 18:29 | disposition home or self-care (01) ==
LOC: EC 14:54 → 3SCARD 16:58
PROVIDERS: ADMIT Internal Medicine; ATTEND Internal Medicine
DX: R07.89 Other chest pain (principal); E03.9 Hypothyroidism, unspecified; E78.00 Pure hypercholesterolemia, unspecified; E78.5 Hyperlipidemia, unspecified; E87.1 Hypo-osmolality and hyponatremia; F17.210 Nicotine dependence, cigarettes, uncomplicated; F32.9 Major depressive disorder, single episode, unspecified; F41.9 Anxiety disorder, unspecified; G43.909 Migraine, unspecified, not intractable, without status migrainosus; G47.30 Sleep apnea, unspecified; G89.29 Other chronic pain; I10 Essential (primary) hypertension; I25.110 Atherosclerotic heart disease of native coronary artery with unstable angina pectoris; I25.2 Old myocardial infarction; J44.9 Chronic obstructive pulmonary disease, unspecified; M19.90 Unspecified osteoarthritis, unspecified site; M51.37 Other intervertebral disc degeneration, lumbosacral region; M79.7 Fibromyalgia; Z11.59 Encounter for screening for other viral diseases; Z90.710 Acquired absence of both cervix and uterus; Z95.5 Presence of coronary angioplasty implant and graft; Z71.6 Tobacco abuse counseling; Z79.891 Long term (current) use of opiate analgesic; Z79.82 Long term (current) use of aspirin; Z79.1 Long term (current) use of non-steroidal anti-inflammatories (NSAID); Z79.899 Other long term (current) drug therapy; Z88.0 Allergy status to penicillin; Z86.14 Personal history of Methicillin resistant Staphylococcus aureus infection; Z82.5 Family history of asthma and other chronic lower respiratory diseases; Z80.1 Family history of malignant neoplasm of trachea, bronchus and lung; Z82.49 Family history of ischemic heart disease and other diseases of the circulatory system; Z80.49 Family history of malignant neoplasm of other genital organs
CPT/HCPCS: 96366 ×2; 96368; 93005 ×2; 96376; 96365; 99291; 36415; 93306; 93351; 83880; 80061; 80053; 83735; 84484 ×2; 85025; 85610; 85730 ×2; 87635; 72070; 72100; 71046; G0378 ×2; J1250; J1644 ×2

== ENCOUNTER → 2019-12-23 | Outpatient (CLI) | payer MEDICARE ==
--- NOTE | 2019-12-23 09:01 | P.PAINPG ---
Subjective Progress Note Date: 12/23/19 THIS ENCOUNTER WAS PERFORMED A TELEMEDICINE VISIT VIA SECURE TWO-WAY VIDEO AND AUDIO TO MINIMIZE RISK AND TRANSMISSION OF COVID-19. This is follow-up visit for this patient with a history of severe and chronic low back pain secondary to lumbar degenerative disc disease, lumbar facet a rthropathy, right hip arthralgia The patient has been managed with combination of interventional pain management and medication management. She last underwent lumbar radiofrequency ablations to L3, L4, L5- right side on 08/24/2019 and left-sided on 09/15/2019. Patient states she got excellent benefit for a few months, but pain is starting to return. Pain today is located in low back, radiating to right hip and right leg- up to toes; associated with unchanged numbness and tingling. Pain rated as 7/10, described as mostly dull, but occasionally sharp, stabbing; worse with staying in 1 position for too long, better with medications, repositioning, heat. She has had a few falls this year, she has been using a walker. Patient was in the hospital a few weeks ago with chest pain and was found to be hypotensive; they reduced her dose of antihypertensive agents. The patient currently on norco 10/325 every 8 hours, Lyrica 100 mg 3 times a day, baclofen 10 mg every 6 hours. She has stopped taking mobic. Patient denies any side effect of the medication , patient denies any excessive drowsiness or sleepiness, patient denies any suicidal ideation, Patient reported that the current medication is helping to control the pain and improve the activity of daily livings, Patient denies any new motor or sensory deficit, denies any change in the bowel movement or urination, patient denies any fever or night sweats. Review of systems is negative for chest pain, shortness of breath, changes in vision, changes in hearing, new onset weakness, abdominal pain, diarrhea, extreme fatigue, malaise, fever, skin changes, homicidal or suicidal ideation, or bowel or bladder incontinence. Objective Physical exam: Constitutional: Healthy appearing, well developed, alert, in no acute distress Psychiatric: Judgement and insight intact, alert and oriented Mood and Affect: mood normal, affect appropriate Head and Face: Inspection: normocephalic atraumatic, extraocular movement intact Respiratory: Breathing non-labored nondyspneic Skin: Head and Neck: skin with no lesions or rash Gait: able to ambulate without assistance, however she does use a walker PRN Neurologic: sensation in right lower extremity reduced per patient Assessment and Plan Plan: Assessment and plan= chronic low back pain secondary to lumbar degenerative disc disease , lumbar spondylosis with lumbar facet arthropathy . Lumbar radiculopathy, right hip arthralgia chronic and current use of high-risk medication (opioids) Patient underwent lumbar radiofrequency ablation to L3, L4, L5 in July and August 2019, with good results Patient denies any side effects of the current pain medication and the current treatment/medication helping the patient to do activity of daily living The narcotic consent has been signed and is on file MAPS Reviewed and it was appropriate . Medication managements= patient will be given prescription refills for [place] 10/325 every 8 hours dispense 90 with 1 refill, Lyrica 1 mg 3 times a day dispense 90 with 1 refill, baclofen 10 mg every 6 hours dispense 120 with one refill. Interventions= lumbar radiofrequency ablations to L3, L4, L5- right side first Follow-up: for procedure and In clinic in 2 months for medication management PQRS Measure Charge Sheet PQRS Narrative: Smoking Status Current every day smoker Narcotic Agreement Date Signed 08/10/19 Hx Alcohol Use (MH) No Home Medications: Ambulatory Orders Atorvastatin [Lipitor] 80 mg PO HS 06/07/14 Ipratropium-Albuterol Nebulize [Duoneb 0.5 mg-3 mg/3 ml Soln] 3 ml INHALATION RT-QID PRN 06/07/14 Nitroglycerin Sl Tabs [Nitrostat] 0.4 mg SUBLINGUAL Q5M PRN 06/07/14 Beclomethasone Dipropionate [Qvar 80 mcg/puff] 2 puff INHALATION RT-BID 08/11/14 Isosorbide Mononitrate ER [Imdur] 30 mg PO DAILY 11/03/14 DULoxetine HCL [Cymbalta] 60 mg PO HS 04/19/15 Melatonin 5 mg PO HS 08/05/18 Ondansetron [Zofran] 4 mg PO Q8HR PRN 09/25/18 Ergocalciferol (Vitamin D2) [Vitamin D2] 50,000 unit PO OCHOA 12/29/18 Furosemide [Lasix] 20 mg PO DAILY PRN 12/29/18 Aspirin [Adult Low Dose Aspirin EC] 81 mg PO QAM 04/14/19 traZODone HCL 300 mg PO HS 04/14/19 Loratadine 10 mg PO QAM 08/20/19 Montelukast [Singulair] 10 mg PO HS 08/20/19 Baclofen 10 mg PO Q6HR PRN #120 tab 10/19/19 Albuterol Sulfate [Ventolin HFA] 2 puff INHALATION RT-Q4H PRN 11/19/19 busPIRone HCl [Buspar] 10 mg PO BID 11/19/19 Losartan [Cozaar] 50 mg PO DAILY #30 tab 11/20/19 Metoprolol Tartrate [Lopressor] 25 mg PO BID #60 tab 11/20/19 HYDROcodone/APAP 10-325MG [[place] 10-325] 1 tab PO Q8H PRN #90 tab 11/24/19 Pregabalin [Lyrica] 100 mg PO TID #90 cap 11/24/19 Controlled Substance Measures - Controlled Substance Measures Is patient prescribed a controlled substance at discharge?: Yes When asked, does pt state using other controlled substances?: No If prescribed controlled substance>3 days was MAPS reviewed?: Yes If Rx opioid, was Start Talking consent form obtained?: Yes If opioid is for acute pain is fill amount 7 days or less?: No Was information provided regarding opioid addiction?: Yes
== END | disposition home or self-care (01) ==
LOC: PNWHC3 06:45
PROVIDERS: ATTEND Anesthesiology
DX: Z53.9 Procedure and treatment not carried out, unspecified reason (principal)

== ENCOUNTER → 2020-02-24 | Outpatient (CLI) | payer MEDICARE ==
[2020-02-24 11:22] VITALS: BP 123/80; PULSE 73; RESP 18; TEMP 97.6
--- NOTE | 2020-03-10 11:19 | P.PAINPG ---
Subjective Progress Note Date: 02/24/20 This is follow-up visit for this patient with a history of severe and chronic low back pain secondary to lumbar degenerative disc disease, lumbar facet arthropathy, right hip arthralgia The patient has been managed with combination of interventional pain management and medication management. She last underwent lumbar radiofrequency ablations to L3, L4, L5- right side on 08/24/2019 and left-sided on 09/15/2019. Patient states she got excellent benefit for a few months, he is scheduled to undergo repeat right lumbar radiofrequency ablation tomorrow. Pain is currently rated as 9/10, located in the low back, described as burning, dull, aching. Pain radiates to bilateral lower extremities up to feet. Pain is worse with activity, walking, standing and better with medications, position changes. The patient currently on norco 10/325 every 8 hours, Lyrica 100 mg 3 times a day, baclofen 10 mg every 6 hours. Patient denies any side effect of the medication , patient denies any excessive drowsiness or sleepiness, patient denies any suicidal ideation, Patient reported that the current medication is helping to control the pain and improve the activity of daily livings, Patient denies any new motor or sensory deficit, denies any change in the bowel movement , patient denies any night sweats. Review of systems is negative for chest pain, changes in vision, changes in hearing, new onset weakness, abdominal pain, diarrhea, extreme fatigue, malaise, fever, skin changes, homicidal or suicidal ideation, or bowel incontinence. She does have chronic bladder incontinence. She also endorses chronic shortness of breath from COPD. A few weeks ago, she had a febrile illness, she was placed on antibiotics for this. Covid test was negative at that time. She is recovered from this illness. Objective Physical exam: Vitals: Reviewed in EMR GENERAL: Well appearing, in no acute distress, walker by her side PSYCH: Mood and affect is appropriate. Awake, alert, and oriented SKIN: Skin color, texture, turgor normal, no rashes or lesions HEENT: Normocephalic, atraumatic. EOM intact CV: No pedal edema RESP: Respirations are unlabored, no audible wheezing GI: Abdomen non-distended MUSCULOSKELETAL: Bilateral lower extremity strength is normal and symmetric. No atrophy or tone abnormalities are noted. Lumbar spine: Straight leg raising in the sitting position is negative for radicular pain. Tenderness to palpation over the lumbar spine and paraspinous muscles bilaterally. Positive for pain with facet loading and back extension/rotation. Buttocks: Tenderness to palpation over the PSIS bilaterally, Marqu[place] test positive bilaterally Extremities: Peripheral joint ROM is full and pain free without obvious instability or laxity in all four extremities. No edema or skin discolorations noted. Gait: Gait is slow, walks with a walker NEUR: No loss of sensation is noted. Assessment and Plan Plan: Assessment and plan= chronic low back pain secondary to lumbar degenerative disc disease , lumbar spondylosis with lumbar facet arthropathy . Lumbar radiculopathy, right hip arthralgia chronic and current use of high-risk medication (opioids) Patient underwent lumbar radiofrequency ablation to L3, L4, L5 in July and August 2019, with good results, she is scheduled to undergo repeat right lumbar radiofrequency ablation tomorrow Patient denies any side effects of the current pain medication and the current treatment/medication helping the patient to do activity of daily living The narcotic consent has been signed and is on file MAPS Reviewed and it was appropriate . Urine drug screen sent today Medication managements= patient will be given prescription refills for [place] 10/325 every 8 hours dispense 90 with 1 refill, Lyrica 1 mg 3 times a day dispense 90 with 1 refill, baclofen 10 mg every 6 hours dispense 120 with one refill. Interventions= lumbar radiofrequency ablations to L3, L4, L5-scheduled for tomorrow Follow-up: for procedure and In clinic in 2 months for medication management PQRS Measure Charge Sheet Measure #130: Documentation of Current Meds in Medical Chart: Patient's medications documented in chart Measure #226: Tobacco Use: Screen & Cessation Intervention: Pt not a tobacco user Measure #111: Pneumonia Vaccination: Pneumococcal vaccine NOT administered or previously given Measure #47: Advance Care Plan: Advance care planning discussed & documented, pt chose/unable to give Measure #412: Opioid Treatment Agreement: Documented signed opioid trtmnt agreemnt min once during opioid trtmnt Measure #408: Opioid Therapy Follow-up Evaluation: Patient had f/u eval minimum every 3 months during opioid therapy Measure #317: Preventitive Care & Scrn High Bld Press & F/U: Normal blood pressure, f/u not required Measure #128: Body Mass Index (BMI) Screening & Follow-up: BMI documented ABOVE normal parameters - f/u documented Measure #131: Pain Assessment & Follow-up: Pain positive & plan documented, Follow-up scheduled Measure #431: Unhealthy Alcohol Use Preventative Care & Scrn: Patient not identified as an unhealthy alcohol user PQRS Narrative: Smoking Status Current every day smoker Narcotic Agreement Date Signed 08/10/19 Hx Alcohol Use (MH) No Home Medications: Ambulatory Orders Atorvastatin [Lipitor] 80 mg PO HS 06/07/14 Ipratropium-Albuterol Nebulize [Duoneb 0.5 mg-3 mg/3 ml Soln] 3 ml INHALATION RT-QID PRN 06/07/14 Nitroglycerin Sl Tabs [Nitrostat] 0.4 mg SUBLINGUAL Q5M PRN 06/07/14 Beclomethasone Dipropionate [Qvar 80 mcg/puff] 2 puff INHALATION RT-BID 08/11/14 Isosorbide Mononitrate ER [Imdur] 30 mg PO DAILY 11/03/14 DULoxetine HCL [Cymbalta] 60 mg PO HS 04/19/15 Melatonin 5 mg PO HS 08/05/18 Ondansetron [Zofran] 4 mg PO Q8HR PRN 09/25/18 Ergocalciferol (Vitamin D2) [Vitamin D2] 50,000 unit PO OCHOA 12/29/18 Furosemide [Lasix] 20 mg PO DAILY PRN 12/29/18 Aspirin [Adult Low Dose Aspirin EC] 81 mg PO QAM 04/14/19 traZODone HCL 300 mg PO HS 04/14/19 Loratadine 10 mg PO QAM 08/20/19 Montelukast [Singulair] 10 mg PO HS 08/20/19 Albuterol Sulfate [Ventolin HFA] 2 puff INHALATION RT-Q4H PRN 11/19/19 busPIRone HCl [Buspar] 15 mg PO BID 11/19/19 Losartan [Cozaar] 50 mg PO DAILY #30 tab 11/20/19 Metoprolol Tartrate [Lopressor] 25 mg PO BID #60 tab 11/20/19 Tiotropium [place] [Spiriva] 1 cap INHALATION DAILY 02/18/20 Baclofen 10 mg PO Q6HR PRN 30 Days #120 tab 02/24/20 HYDROcodone/APAP 10-325MG [[place] 10-325] 1 tab PO Q8H PRN 30 Days #90 tab 02/24/20 HYDROcodone/APAP 10-325MG [[place] 10-325] 1 tab PO Q8HR PRN 30 Days #90 tab 02/24/20 Pregabalin [Lyrica] 100 mg PO TID #90 cap 02/24/20 Controlled Substance Measures - Controlled Substance Measures Is patient prescribed a controlled substance at discharge?: Yes When asked, does pt state using other controlled substances?: No If prescribed controlled substance>3 days was MAPS reviewed?: Yes If Rx opioid, was Start Talking consent form obtained?: Yes If opioid is for acute pain is fill amount 7 days or less?: No Was information provided regarding opioid addiction?: Yes
== END | disposition home or self-care (01) ==
LOC: PNWHC3 10:48
PROVIDERS: ATTEND Anesthesiology
DX: M51.16 Intervertebral disc disorders with radiculopathy, lumbar region (principal); M47.26 Other spondylosis with radiculopathy, lumbar region; M46.96 Unspecified inflammatory spondylopathy, lumbar region; G89.29 Other chronic pain; M25.551 Pain in right hip; Z79.82 Long term (current) use of aspirin; Z79.891 Long term (current) use of opiate analgesic; Z79.899 Other long term (current) drug therapy; F17.200 Nicotine dependence, unspecified, uncomplicated
CPT/HCPCS: 80307; G0482; G0463; 99211

== ENCOUNTER 2020-02-25 08:32 | Day surgery (SDC) | payer MEDICARE ==
[2020-02-18 12:02] VITALS: BMI 37.4
--- NOTE | 2020-02-24 13:54 | P.PAINPG ---
Subjective Progress Note Date: 02/24/20 This is follow-up visit for this patient with a history of severe and chronic low back pain secondary to lumbar degenerative disc disease, lumbar facet arthropathy, right hip arthralgia The patient has been managed with combination of interventional pain management and medication management. She last underwent lumbar radiofrequency ablations to L3, L4, L5- right side on 08/24/2019 and left-sided on 09/15/2019. Patient states she got excellent benefit for a few months, he is scheduled to undergo repeat right lumbar radiofrequency ablation tomorrow. Pain is currently rated as 9/10, located in the low back, described as burning, dull, aching. Pain radiates to bilateral lower extremities up to feet. Pain is worse with activity, walking, standing and better with medications, position changes. The patient currently on norco 10/325 every 8 hours, Lyrica 100 mg 3 times a day, baclofen 10 mg every 6 hours. Patient denies any side effect of the medication , patient denies any excessive drowsiness or sleepiness, patient denies any suicidal ideation, Patient reported that the current medication is helping to control the pain and improve the activity of daily livings, Patient denies any new motor or sensory deficit, denies any change in the bowel movement , patient denies any night sweats. Review of systems is negative for chest pain, changes in vision, changes in hearing, new onset weakness, abdominal pain, diarrhea, extreme fatigue, malaise, fever, skin changes, homicidal or suicidal ideation, or bowel incontinence. She does have chronic bladder incontinence. She also endorses chronic shortness of breath from COPD. A few weeks ago, she had a febrile illness, she was placed on antibiotics for this. Covid test was negative at that time. She is recovered from this illness. Objective Physical exam: Vitals: Reviewed in EMR GENERAL: Well appearing, in no acute distress, walker by her side PSYCH: Mood and affect is appropriate. Awake, alert, and oriented SKIN: Skin color, texture, turgor normal, no rashes or lesions HEENT: Normocephalic, atraumatic. EOM intact CV: No pedal edema RESP: Respirations are unlabored, no audible wheezing GI: Abdomen non-distended MUSCULOSKELETAL: Bilateral lower extremity strength is normal and symmetric. No atrophy or tone abnormalities are noted. Lumbar spine: Straight leg raising in the sitting position is negative for radicular pain. Tenderness to palpation over the lumbar spine and paraspinous muscles bilaterally. Positive for pain with facet loading and back extension/rotation. Buttocks: Tenderness to palpation over the PSIS bilaterally, Marquita test positive bilaterally Extremities: Peripheral joint ROM is full and pain free without obvious instability or laxity in all four extremities. No edema or skin discolorations noted. Gait: Gait is slow, walks with a walker NEUR: No loss of sensation is noted. Assessment and Plan Plan: Assessment and plan= chronic low back pain secondary to lumbar degenerative disc disease , lumbar spondylosis with lumbar facet arthropathy . Lumbar radiculopathy, right hip arthralgia chronic and current use of high-risk medication (opioids) Patient underwent lumbar radiofrequency ablation to L3, L4, L5 in July and August 2019, with good results, she is scheduled to undergo repeat right lumbar radiofrequency ablation tomorrow Patient denies any side effects of the current pain medication and the current treatment/medication helping the patient to do activity of daily living The narcotic consent has been signed and is on file MAPS Reviewed and it was appropriate . Urine drug screen sent today Medication managements= patient will be given prescription refills for [place] 10/325 every 8 hours dispense 90 with 1 refill, Lyrica 1 mg 3 times a day dispense 90 with 1 refill, baclofen 10 mg every 6 hours dispense 120 with one refill. Interventions= lumbar radiofrequency ablations to L3, L4, L5-scheduled for tomorrow Follow-up: for procedure and In clinic in 2 months for medication management PQRS Measure Charge Sheet Measure #130: Documentation of Current Meds in Medical Chart: Patient's medications documented in chart Measure #226: Tobacco Use: Screen & Cessation Intervention: Pt not a tobacco user Measure #111: Pneumonia Vaccination: Pneumococcal vaccine NOT administered or previously given Measure #47: Advance Care Plan: Advance care planning discussed & documented, pt chose/unable to give Measure #412: Opioid Treatment Agreement: Documented signed opioid trtmnt agreemnt min once during opioid trtmnt Measure #408: Opioid Therapy Follow-up Evaluation: Patient had f/u eval minimum every 3 months during opioid therapy Measure #317: Preventitive Care & Scrn High Bld Press & F/U: Normal blood pressure, f/u not required Measure #128: Body Mass Index (BMI) Screening & Follow-up: BMI documented ABOVE normal parameters - f/u documented Measure #131: Pain Assessment & Follow-up: Pain positive & plan documented, Follow-up scheduled Measure #431: Unhealthy Alcohol Use Preventative Care & Scrn: Patient not identified as an unhealthy alcohol user PQRS Narrative: Smoking Status Current every day smoker Narcotic Agreement Date Signed 08/10/19 Hx Alcohol Use (MH) No Home Medications: Ambulatory Orders Atorvastatin [Lipitor] 80 mg PO HS 06/07/14 Ipratropium-Albuterol Nebulize [Duoneb 0.5 mg-3 mg/3 ml Soln] 3 ml INHALATION RT-QID PRN 06/07/14 Nitroglycerin Sl Tabs [Nitrostat] 0.4 mg SUBLINGUAL Q5M PRN 06/07/14 Beclomethasone Dipropionate [Qvar 80 mcg/puff] 2 puff INHALATION RT-BID 08/11/14 Isosorbide Mononitrate ER [Imdur] 30 mg PO DAILY 11/03/14 DULoxetine HCL [Cymbalta] 60 mg PO HS 04/19/15 Melatonin 5 mg PO HS 08/05/18 Ondansetron [Zofran] 4 mg PO Q8HR PRN 09/25/18 Ergocalciferol (Vitamin D2) [Vitamin D2] 50,000 unit PO OCHOA 12/29/18 Furosemide [Lasix] 20 mg PO DAILY PRN 12/29/18 Aspirin [Adult Low Dose Aspirin EC] 81 mg PO QAM 04/14/19 traZODone HCL 300 mg PO HS 04/14/19 Loratadine 10 mg PO QAM 08/20/19 Montelukast [Singulair] 10 mg PO HS 08/20/19 Albuterol Sulfate [Ventolin HFA] 2 puff INHALATION RT-Q4H PRN 11/19/19 busPIRone HCl [Buspar] 15 mg PO BID 11/19/19 Losartan [Cozaar] 50 mg PO DAILY #30 tab 11/20/19 Metoprolol Tartrate [Lopressor] 25 mg PO BID #60 tab 11/20/19 Tiotropium [place] [Spiriva] 1 cap INHALATION DAILY 02/18/20 Baclofen 10 mg PO Q6HR PRN 30 Days #120 tab 02/24/20 HYDROcodone/APAP 10-325MG [[place] 10-325] 1 tab PO Q8H PRN 30 Days #90 tab 02/24/20 HYDROcodone/APAP 10-325MG [[place] 10-325] 1 tab PO Q8HR PRN 30 Days #90 tab 02/24/20 Pregabalin [Lyrica] 100 mg PO TID #90 cap 02/24/20 Controlled Substance Measures - Controlled Substance Measures Is patient prescribed a controlled substance at discharge?: Yes When asked, does pt state using other controlled substances?: No If prescribed controlled substance>3 days was MAPS reviewed?: Yes If Rx opioid, was Start Talking consent form obtained?: Yes If opioid is for acute pain is fill amount 7 days or less?: No Was information provided regarding opioid addiction?: Yes
[2020-02-25] MEDS ORDERED: ONDANSETRON 4 MG/2 ML VIAL ONE (08:42)
[2020-02-25 08:53] VITALS: TEMP 97.7
[2020-02-25] MEDS ORDERED: LACTATED RINGERS 1,000 ML IV SCH (08:53)
[2020-02-25] MEDS ORDERED: LIDOCAINE 4% (PF) 5 ML AMP ONE (09:11)
[2020-02-25] MEDS ORDERED: MIDAZOLAM 2 MG/2 ML VIAL ONE (09:11)
[2020-02-25] MEDS ORDERED: fentaNYL (PF) 50 MCG/ML 2 ML AMP ONE (09:11)
[2020-02-25 09:52] VITALS: RESP 16
[2020-02-25] MEDS ORDERED: IV FLUID CONTINUATION 850 ML IV ONE (09:52)
[2020-02-25 10:07] VITALS: BP 131/60; PULSE 64
--- NOTE | 2020-02-25 10:24 | P.PCN ---
Date of Procedure: 02/25/20 Procedure(s) Performed: PREOPERATIVE DIAGNOSIS: Lumbar Spondylosis POSTOPERATIVE DIAGNOSIS: Same PROCEDURES: Radiofrequency ablation of the L3, L4, L5 medial branches with fluoroscopic guidance on the right side SURGEON: Goyo Gann MD. ANESTHESIA: Lidocaine 1% 5 mL, Moderate sedation with intravenous Versed and fentanyl, sedation time 23 minute EBL: Minimal Fluoroscopy was used for the procedure and images were saved in the radiology portion of the chart. PROCEDURE INDICATION: The patient with low back pain secondary to lumbar facet arthropathy who had more than 50% relief of pain with previous diagnostic lumbar medial branch block X2. PROCEDURE DESCRIPTION / TECHNIQUE: The patient was seen and identified in the preoperative area. Risks, benefits, complications, including but not limited to risk of infection ,bleeding , allergic reactions to the medications and incomplete pain relief , and alternatives were discussed with the patient, the patient agreed to proceed with the procedure and signed the consent. IV was started. The operative site was marked. Patient was taken to the OR and time out was completed. The patient was placed in the prone position on the procedure table. The lumbar area was prepped and draped in the usual sterile fashion. . Vital signs were closely monitored during the procedure .IV sedation was used during the procedure to decrease patients anxiety. Using AP and then oblique fluoroscopy, the "eye of the Jorge dog" corresponding to the connection between the superior and transverse articular processes of the right L4 and L5 as well as the sacral ala were identified, marked, and localized with 1% lidocaine. Subsequently, an 18 guage 150 mm radiofrequency cannula with a 10-mm active tip was advanced guided by fluoroscopy to the identified target at each site. Needle positioning was confirmed on AP, oblique and lateral fluoroscopy. Motor testing at 2.5 Hz was done with paraspinal muscle stimulation only, and no radicular symptoms down the legs. Then 1 mL of 4% lidocaine was injected in each site. Radiofrequency thermocoagulation at 80 degrees celsius for 90 seconds was then performed. [place] were removed. Sterile dressings were applied. COMPLICATIONS: No acute complications. DISPOSITION / PLANS: The patient was placed in a supine position and transferred to the recovery area in a stable condition for observation and was discharged from the recovery room after meeting discharge criteria. Home discharge instructions given to the patient by the staff. The patient will follow up for left-sided procedure in 2 weeks.
--- NOTE | 2020-02-25 12:12 | FL ---
Fluoroscopy HISTORY: Pain 22 seconds fluoroscopy time supplied to the referring clinician. 9 intraoperative C-arm images docum ent the procedure. See dictated report from anesthesia.
== END 2020-02-25 10:17 | disposition home or self-care (01) ==
LOC: ORPAIN 08:32
PROVIDERS: ATTEND Anesthesiology
DX: G89.29 Other chronic pain (principal); M47.816 Spondylosis without myelopathy or radiculopathy, lumbar region; M51.36 Other intervertebral disc degeneration, lumbar region; M25.551 Pain in right hip; F17.200 Nicotine dependence, unspecified, uncomplicated; Z79.82 Long term (current) use of aspirin; Z79.899 Other long term (current) drug therapy; Z88.0 Allergy status to penicillin; Z78.0 Asymptomatic menopausal state
CPT/HCPCS: 64635; 64636; J2001; J2250; J2405; J3010; 99152; 99153

== ENCOUNTER 2020-03-17 06:45 | Day surgery (SDC) | payer MEDICARE ==
[2020-03-11 15:35] VITALS: BMI 37.7
[2020-03-17 07:09] VITALS: RESP 16; TEMP 97.3
[2020-03-17] MEDS ORDERED: LACTATED RINGERS 1,000 ML IV ONE (07:15)
[2020-03-17] MEDS ORDERED: fentaNYL (PF) 50 MCG/ML 2 ML AMP ONE (07:19)
[2020-03-17] MEDS ORDERED: MIDAZOLAM 2 MG/2 ML VIAL ONE (07:19)
[2020-03-17] MEDS ORDERED: LIDOCAINE 4% (PF) 5 ML AMP ONE (07:19)
[2020-03-17] MEDS ORDERED: LIDOCAINE 1% INJ 10MG/ML (20 ML MDV) ONE (07:19)
--- NOTE | 2020-03-17 07:52 | P.PCN ---
Date of Procedure: 03/17/20 Description of Procedure: PREOPERATIVE DIAGNOSIS: Lumbar Spondylosis POSTOPERATIVE DIAGNOSIS: Same PROCEDURES: Radiofrequency ablation of the left L3, L4, L5 medial branches with fluoroscopic guidance on the left side SURGEON: Chris Chandler MD. ANESTHESIA: Lidocaine 1% 5 mL, Moderate sedation with intravenous Versed and fentanyl, sedation time 24 min EBL: Minimal Fluoroscopy was used for the procedure and images were saved in the radiology portion of the chart. PROCEDURE INDICATION: The patient with low back pain secondary to lumbar facet arthropathy who had more than 50% relief of pain with previous diagnostic lumbar medial branch block X2. PROCEDURE DESCRIPTION / TECHNIQUE: The patient was seen and identified in the preoperative area. Risks, benefits, complications, including but not limited to risk of infection ,bleeding , allergic reactions to the medications and incomplete pain relief , and alternatives were discussed with the patient, the patient agreed to proceed with the procedure and signed the consent. IV was started. The operative site was marked. Patient was taken to the OR and time out was completed. The patient was placed in the prone position on the procedure table. The lumbar area was prepped and draped in the usual sterile fashion. . Vital signs were closely monitored during the procedure .IV sedation was used during the procedure to decrease patients anxiety. Using AP and then oblique fluoroscopy, the "eye of the Jorge dog" corresponding to the connection between the superior and transverse articular processes of the [] L4 and L5 as well as the sacral ala were identified, marked, and localized with 1% lidocaine. Subsequently, an 18 [id number] radiofrequency cannula with a 10-mm active tip was advanced guided by fluoroscopy to the identified target at each site. Needle positioning was confirmed on AP, oblique and lateral fluoroscopy. Motor testing at 2.5 Hz was done with paraspinal muscle stimulation only, and no radicular symptoms down the legs. Then 1 mL of 4% lidocaine was injected in each site. Radiofrequency thermocoagulation at 80 degrees celsius for 90 seconds was then performed. [place] were removed. Sterile dressings were applied. COMPLICATIONS: No acute complications. DISPOSITION / PLANS: The patient was placed in a supine position and transferred to the recovery area in a stable condition for observation and was discharged from the recovery room after meeting discharge criteria. Home discharge instructions given to the patient by the staff. The patient will follow up in clinic in 4 weeks.
--- NOTE | 2020-03-17 08:02 | FL ---
EXAMINATION TYPE: FL guided pain mgmt statistic DATE OF EXAM: 03/17/2020 HISTORY: Fluoroscopy time 47 seconds of fluoroscopy provided. IMPRESSION: 1. Fluoroscopy time.
[2020-03-17 08:15] VITALS: BP 112/80; PULSE 59
== END 2020-03-17 08:24 | disposition home or self-care (01) ==
LOC: ORPAIN 06:45
PROVIDERS: ATTEND Anesthesiology
DX: M47.896 Other spondylosis, lumbar region (principal); Z90.710 Acquired absence of both cervix and uterus; Z88.0 Allergy status to penicillin
CPT/HCPCS: 64635; 64636; J2001 ×2; J2250; J3010; 99152; 99153

== ENCOUNTER → 2020-04-20 | Outpatient (CLI) | payer MEDICARE ==
[2020-04-20 10:37] VITALS: BP 113/79
[2020-04-20 10:43] VITALS: PULSE 63; RESP 20
--- NOTE | 2020-04-20 10:50 | P.PAINPG ---
Subjective Progress Note Date: 04/20/20 This is follow-up visit for this patient with a history of severe and chronic low back pain secondary to lumbar degenerative disc disease, lumbar facet arthropathy, right hip arthralgia The patient has been managed with combination of interventional pain management and medication management. She last underwent lumbar radiofrequency ablations to L3, L4, L5- right side on 01/2020 and left-sided on 02/2020. Here for follow up today. She notes that she is having good relief from the most recent round of radiofrequency ablations. About 75% benefit. Most pain that she has currently is in her right hip which she describes as sharp and stabbing with occasional radiation into the anterior thigh. Pain radiates to bilateral lower extremities up to feet. Pain is worse with activity, walking, standing and better with medications, position changes. The patient currently on norco 10/325 every 8 hours, Lyrica 100 mg 3 times a day, baclofen 10 mg every 6 hours. Patient denies any side effect of the medication , patient denies any excessive drowsiness or sleepiness, patient denies any suicidal ideation, Patient reported that the current medication is helping to control the pain and improve the activity of daily livings, Patient denies any new motor or sensory deficit, denies any change in the bowel movement , patient denies any night sweats. Review of systems is negative for chest pain, changes in vision, changes in hearing, new onset weakness, abdominal pain, diarrhea, extreme fatigue, malaise, fever, skin changes, homicidal or suicidal ideation, or bowel incontinence. Objective Physical exam: Vitals: Reviewed in EMR GENERAL: Well appearing, in no acute distress, walker by her side PSYCH: Mood and affect is appropriate. Awake, alert, and oriented SKIN: Skin color, texture, turgor normal, no rashes or lesions HEENT: Normocephalic, atraumatic. EOM intact CV: No pedal edema RESP: Respirations are unlabored, no audible wheezing GI: Abdomen non-distended MUSCULOSKELETAL: Bilateral lower extremity strength is normal and symmetric. No atrophy or tone abnormalities are noted. Lumbar spine: Straight leg raising in the sitting position is negative for radicular pain. Tenderness to palpation over the lumbar spine and paraspinous muscles bilaterally. Positive for pain with facet loading and back extension/rotation. [place] positive bilaterally, FADIR positive on the right side Buttocks: Tenderness to palpation over the PSIS bilaterally Extremities: Peripheral joint ROM is full and pain free without obvious instability or laxity in all four extremities. No edema or skin discolorations noted. Gait: Gait is slow, walks with a walker NEUR: No loss of sensation is noted. Assessment and Plan Plan: Assessment and plan= chronic low back pain secondary to lumbar degenerative disc disease , lumbar spondylosis with lumbar facet arthropathy . Lumbar radiculopathy, right hip arthralgia chronic and current use of high-risk medication (opioids) Patient underwent lumbar radiofrequency ablations to L3, L4, L5- right side on 01/2020 and left-sided on 02/2020. Here for follow up today. Patient denies any side effects of the current pain medication and the current treatment/medication helping the patient to do activity of daily living The narcotic consent has been signed and is on file MAPS Reviewed and it was appropriate . Urine drug screen sent today Medication managements= patient will be given prescription refills for [place] 10/325 every 8 hours dispense 90 with 1 refill, Lyrica 100 mg 3 times a day dispense 90 with 1 refill, baclofen 10 mg every 6 hours dispense 120 with one refill. Given her hip pain, I encourage her to talk to her primary care provider about being referred to an orthopedic surgeon. I did also order a right hip x-ray as it would likely require for evaluation. Interventions= none Follow-up: for procedure and In clinic in 2 months for medication management PQRS Measure Charge Sheet Measure #130: Documentation of Current Meds in Medical Chart: Patient's medications documented in chart Measure #226: Tobacco Use: Screen & Cessation Intervention: Pt not a tobacco user Measure #111: Pneumonia Vaccination: Pneumococcal vaccine NOT administered or previously given Measure #47: Advance Care Plan: Advance care planning discussed & documented, pt chose/unable to give Measure #412: Opioid Treatment Agreement: Documented signed opioid trtmnt agreemnt min once during opioid trtmnt Measure #408: Opioid Therapy Follow-up Evaluation: Patient had f/u eval minimum every 3 months during opioid therapy Measure #317: Preventitive Care & Scrn High Bld Press & F/U: Normal blood pressure, f/u not required Measure #128: Body Mass Index (BMI) Screening & Follow-up: BMI documented ABOVE normal parameters - f/u documented Measure #131: Pain Assessment & Follow-up: Pain positive & plan documented, Follow-up scheduled Measure #431: Unhealthy Alcohol Use Preventative Care & Scrn: Patient not identified as an unhealthy alcohol user PQRS Narrative: Smoking Status Current every day smoker Narcotic Agreement Date Signed 08/10/19 Hx Alcohol Use (MH) No PQRS Measure Charge Sheet PQRS Narrative: Smoking Status Current every day smoker Narcotic Agreement Date Signed 08/10/19 Hx Alcohol Use (MH) No Home Medications: Ambulatory Orders Atorvastatin [Lipitor] 80 mg PO HS 06/07/14 Ipratropium-Albuterol Nebulize [Duoneb 0.5 mg-3 mg/3 ml Soln] 3 ml INHALATION RT-QID PRN 06/07/14 Nitroglycerin Sl Tabs [Nitrostat] 0.4 mg SUBLINGUAL Q5M PRN 06/07/14 Beclomethasone Dipropionate [Qvar 80 mcg/puff] 2 puff INHALATION RT-BID 08/11/14 Isosorbide Mononitrate ER [Imdur] 30 mg PO DAILY 11/03/14 DULoxetine HCL [Cymbalta] 60 mg PO HS 04/19/15 Melatonin 5 mg PO HS 08/05/18 Ondansetron [Zofran] 4 mg PO Q8HR PRN 09/25/18 Ergocalciferol (Vitamin D2) [Vitamin D2] 50,000 unit PO OCHOA 12/29/18 Furosemide [Lasix] 20 mg PO DAILY PRN 12/29/18 Aspirin [Adult Low Dose Aspirin EC] 81 mg PO QAM 04/14/19 traZODone HCL 300 mg PO HS 04/14/19 Loratadine 10 mg PO QAM 08/20/19 Montelukast [Singulair] 10 mg PO HS 08/20/19 Albuterol Sulfate [Ventolin HFA] 2 puff INHALATION RT-Q4H PRN 11/19/19 busPIRone HCl [Buspar] 15 mg PO BID 11/19/19 Losartan [Cozaar] 50 mg PO DAILY #30 tab 11/20/19 Metoprolol Tartrate [Lopressor] 25 mg PO BID #60 tab 11/20/19 Tiotropium [place] [Spiriva] 1 cap INHALATION DAILY 02/18/20 Clindamycin [Cleocin] 150 mg PO Q6H 04/19/20 Baclofen 10 mg PO Q6HR PRN 30 Days #120 tab 04/20/20 HYDROcodone/APAP 10-325MG [[place] 10-325] 1 tab PO Q8H PRN 30 Days #90 tab 04/20/20 HYDROcodone/APAP 10-325MG [[place] 10-325] 1 tab PO Q8HR PRN 30 Days #90 tab 04/20/20 Pregabalin [Lyrica] 100 mg PO TID #90 cap 04/20/20 Controlled Substance Measures - Controlled Substance Measures Is patient prescribed a controlled substance at discharge?: Yes When asked, does pt state using other controlled substances?: No If prescribed controlled substance>3 days was MAPS reviewed?: Yes If Rx opioid, was Start Talking consent form obtained?: Yes If opioid is for acute pain is fill amount 7 days or less?: No Was information provided regarding opioid addiction?: Yes
== END | disposition home or self-care (01) ==
LOC: PNWHC3 10:24
PROVIDERS: ATTEND Anesthesiology
DX: M51.16 Intervertebral disc disorders with radiculopathy, lumbar region (principal); M47.26 Other spondylosis with radiculopathy, lumbar region; M46.96 Unspecified inflammatory spondylopathy, lumbar region; M25.551 Pain in right hip; G89.29 Other chronic pain; F17.200 Nicotine dependence, unspecified, uncomplicated; Z79.891 Long term (current) use of opiate analgesic; Z79.899 Other long term (current) drug therapy; Z79.82 Long term (current) use of aspirin; Z79.52 Long term (current) use of systemic steroids
CPT/HCPCS: 99211

== ENCOUNTER 2020-05-17 20:15 | Observation (INO) | payer MEDICARE ==
[2020-05-17] MEDS ORDERED: SODIUM CHLORIDE 0.9% 1,000 ML IV STA (20:52)
[2020-05-17] MEDS ORDERED: KETOROLAC 15 MG/ML 1 ML VIAL IVP STA (20:53)
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
[2020-05-17 21:25] LABS: Basophils % (A) 0 %; Eosinophils # (A) 0.1 k/uL (0-0.7); Eosinophils % (A) 1 %; HCT 36.8 % (34.0-46.0); HGB 11.8 gm/dL (11.4-16.0); Lymphocytes # (A) 0.9 k/uL (1.0-4.8); Lymphocytes % (A) 6 %; MCHC 32.2 g/dL (31.0-37.0); MCV 93.2 fL (80.0-100.0); Mean Platelet Volume 7.4; Monocytes # (A) 0.7 k/uL (0-1.0); Monocytes % (A) 5 %; Neutrophils % (A) 87 %; Platelet Count 362 k/uL (150-450); RBC 3.95 m/uL (3.80-5.40); RDW 12.3 % (11.5-15.5)
[2020-05-17 21:32] LABS: ALT 24 U/L (4-34); AST 37 U/L (14-36); African American GFR (CKD) >90 (>60 ml/min/1.73 sqM); Albumin 3.7 g/dL (3.5-5.0); Alkaline Phosphatase 157 U/L (38-126); Anion Gap 13 mmol/L; Blood Urea Nitrogen 20 mg/dL (7-17); Calcium 8.9 mg/dL (8.4-10.2); Carbon Dioxide 18 mmol/L (22-30); Chloride 102 mmol/L (98-107); Glucose 134 mg/dL (74-99); Non-African American GFR(CKD) >90 (>60 ml/min/1.73 sqM); Sodium 133 mmol/L (137-145); Total Bilirubin 1.1 mg/dL (0.2-1.3)
[2020-05-17 21:41] LABS: Potassium 5.2 mmol/L (3.5-5.1)
--- NOTE | 2020-05-17 22:04 | CT ---
EXAMINATION TYPE: CT facial bones w con DATE OF EXAM: 05/17/2020 COMPARISON: None available. HISTORY: left side facial swelling CT DLP: 432.9 mGycm Automated exposure control for dose reduction was used. CONTRAST: CT scan of the facial bones is performed with IV Contrast, patient injected with 100 mL of Isovue 300 . TECHNIQUE: CT scan of the sinuses is performed without contrast, axial images are obtained, coronal r eformatted images are also reviewed. FINDINGS: There is a multiloculated fluid collection within the soft tissues superficial and deep to the left m andibular ramus consistent with abscess. Abscess is difficult to measure but measures at least 3.5 x 2.8 cm. There is involvement of the pterygoid musculature. There is associated diffuse soft tissue ed wes, swelling and fat stranding centered about the left mandible. There is involvement of the left brito bmandibular gland. There is local mass effect. However the airways are patent. No acute osseous abnormality or osseous e rosions seen. No soft tissue gas. IMPRESSION: Multiloculated soft tissue abscess centered about the left mandibular ramus and involving the pterygo id musculature. Associated cellulitis and sialadenitis. Findings were discussed with JESSICA Hopson by me at the time of dictation.
[2020-05-17] MEDS ORDERED: DEXAMETHASONE SOD PHOSPHATE 10 MG/ML 1 ML VIAL IV STA (22:14)
[2020-05-17] MEDS ORDERED: CLINDAMYCIN 600 MG in DEXTROSE 5% IN WATER 50 ML IVPB STA ×2 (22:14)
[2020-05-17] MEDS ORDERED: MORPHINE SULFATE 4 MG/ML SYRINGE IVP STA (22:25)
[2020-05-17] MEDS ORDERED: NALOXONE 0.4 MG/ML 1 ML VIAL IV PRN (22:40)
[2020-05-17] MEDS: SODIUM CHLORIDE 0.9% 1,000 ML IV SCH (22:56)
[2020-05-17] MEDS: ONDANSETRON 4 MG/2 ML VIAL IVP PRN (23:05)
[2020-05-18] MEDS: MORPHINE SULFATE 4 MG/ML SYRINGE IV PRN ×4 (02:51→15:18)
[2020-05-18] MEDS: CLINDAMYCIN 600 MG in DEXTROSE 5% IN WATER 50 ML IVPB SCH ×6 (06:46→22:00)
[2020-05-18 08:27] LABS: Basophils % (A) 0 %; Eosinophils % (A) 0 %; HCT 36.2 % (34.0-46.0); HGB 11.4 gm/dL (11.4-16.0); Lymphocytes # (A) 0.7 k/uL (1.0-4.8); Lymphocytes % (A) 5 %; MCH 29.9 pg (25.0-35.0); MCHC 31.6 g/dL (31.0-37.0); MCV 94.8 fL (80.0-100.0); Mean Platelet Volume 7.5; Monocytes # (A) 0.2 k/uL (0-1.0); Monocytes % (A) 2 %; Neutrophils # (A) 13.8 k/uL (1.3-7.7); Neutrophils % (A) 93 %; Platelet Count 322 k/uL (150-450); RBC 3.82 m/uL (3.80-5.40); RDW 12.4 % (11.5-15.5); WBC 14.8 k/uL (3.8-10.6)
[2020-05-18 08:38] LABS: ALT 23 U/L (4-34); AST 27 U/L (14-36); African American GFR (CKD) >90 (>60 ml/min/1.73 sqM); Albumin 3.3 g/dL (3.5-5.0); Alkaline Phosphatase 155 U/L (38-126); Anion Gap 11 mmol/L; Blood Urea Nitrogen 17 mg/dL (7-17); Calcium 8.9 mg/dL (8.4-10.2); Carbon Dioxide 23 mmol/L (22-30); Chloride 104 mmol/L (98-107); Glucose 153 mg/dL (74-99); Non-African American GFR(CKD) >90 (>60 ml/min/1.73 sqM); Potassium 4.8 mmol/L (3.5-5.1); Sodium 138 mmol/L (137-145); Total Bilirubin 0.7 mg/dL (0.2-1.3); Total Protein 6.4 g/dL (6.3-8.2)
--- NOTE | 2020-05-18 10:48 | HP ---
HISTORY AND PHYSICAL A 54-year-old female, left facial swelling for about 3 weeks, cannot get into see a dentist, she has been on clindamycin for 3 weeks now. No fever, chills, shortness of breath, chest pain, headache, visual changes. HOME MEDICINES: Lipitor 80 daily, DuoNeb q.i.d., nitroglycerin sublingual p.r.n., Qvar 80 two puffs b.i.d., Imdur 30 mg daily, Cymbalta 60 daily, Lasix 20 mg daily, aspirin 81 mg daily, trazodone 3300 q.h.s., loratadine 10 daily, Singulair 10 daily, albuterol 2 puffs q.4 p.r.n., BuSpar 15 b.i.d., Spiriva 1 puff daily, Cleocin 150 q.6, melatonin 5 daily. ALLERGIES: To PENICILLIN. 14-POINT REVIEW OF SYSTEMS: Otherwise negative. PAST MEDICAL HISTORY: Asthma, coronary artery disease, angina, fibromyalgia, hypertension, dyslipidemia, myocardial infarction, osteoarthritis, pneumonia, sleep apnea, thyroid disorder, degenerative disk disease x2, anemia, fracture of hand, vertebral fractures, migraines, supposed to be on CPAP, history of MRSA. History of hysterectomy, benign thyroid cyst, abdominal adhesions, facial reconstruction, 3 cardiac stents, anxiety, depression, former smoker. FAMILY HISTORY: Mother with cancer of the lungs. Father COPD. Sister cervical cancer. REVIEW OF SYSTEMS: No acute distress. HEAD: Normocephalic, atraumatic. ENT: External ear canals within normal limits. CARDIOVASCULAR: S1, S2. LUNGS: Transmitted upper sounds. NEUROLOGIC: Cranial nerves intact. ENT: She has normal oropharynx. Tenderness along the mandible and upper jaw. Some dental erosion. HEART: No murmurs, rubs, gallops. Temperature is 98.8, pulse 95, respiratory rate 18 to 20, blood pressure 130s/90s, O2 is 96. Vital signs stable. She has significant facial edema. Mild trismus. Difficult to examine the intraoral cavity, obvious superficial abscess on the CAT scan. Leukocytosis left shift, hemolysis, potassium 5.2. As mentioned, soft tissue abscesses in the left mandibular ramus going into the muscle of sialoadenitis and cellulitis, abscess 3.5 x 2.8. She is on pain medicine, Toradol, Decadron, started on IV clindamycin and Dr. Rascon has been consulted for possible surgery. Monitor white count and vitals and wait for surgeon to come see her. MMODL / IJN: [id number] /
[2020-05-18] MEDS: SODIUM CHLORIDE 0.9% 1,000 ML IV SCH (15:20)
[2020-05-18] MEDS ORDERED: FUROSEMIDE 20 MG TAB PO PRN (16:20)
[2020-05-18] MEDS ORDERED: ACETAMINOPHEN TAB 325 MG TAB PO PRN (16:20)
[2020-05-18] MEDS ORDERED: IBUPROFEN 400 MG TAB PO PRN (16:20)
[2020-05-18] MEDS ORDERED: BACLOFEN 10 MG TAB PO PRN (16:20)
[2020-05-18] MEDS ORDERED: NITROGLYCERIN SL TABS 0.4 MG TAB SUBLINGUAL PRN (16:20)
[2020-05-18] MEDS ORDERED: ONDANSETRON 4 MG TAB PO PRN (16:20)
[2020-05-18] MEDS: ONDANSETRON 4 MG/2 ML VIAL IVP PRN (17:01)
[2020-05-18] MEDS: KETOROLAC 15 MG/ML 1 ML VIAL IVP SCH (17:32)
[2020-05-18] MEDS: ACETAMINOPHEN IV (For NPO) 1,000 MG in EMPTY BAG 1 BAG IVPB SCH (17:53)
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
[2020-05-18] MEDS: SULFAMETHOX-TMP 80-16MG/ML 400 MG in DEXTROSE 5% IN WATER 500 ML IVPB SCH ×2 (18:54)
[2020-05-18] MEDS ORDERED: FLUTICASONE 110 MCG INHALER INHALATION SCH (20:00)
[2020-05-18] MEDS: ATORVASTATIN 80 MG TAB PO SCH (20:20)
[2020-05-18] MEDS: DULoxetine HCL 60 MG CAPSULE.DR PO SCH (20:20)
[2020-05-18] MEDS: MELATONIN 5 MG TABLET PO SCH (20:20)
[2020-05-18] MEDS: busPIRone HCl 5 MG TAB PO SCH (20:20)
[2020-05-18] MEDS: METOPROLOL TARTRATE 25 MG TAB PO SCH (20:20)
[2020-05-18] MEDS: HYDROcodone/APAP 10-325MG 1 EACH TAB PO PRN (20:22)
[2020-05-18] MEDS: IPRATROPIUM-ALBUTEROL 3 ML NEB INHALATION PRN (21:25)
[2020-05-18] MEDS: FLUTICASONE 110 MCG INHALER INHALATION SCH (21:27)
[2020-05-18] MEDS: PREGABALIN 50 MG CAP PO SCH (22:00)
[2020-05-18] MEDS ORDERED: PREGABALIN 100 MG CAP PO SCH (22:00)
[2020-05-19] MEDS: SODIUM CHLORIDE 0.9% 1,000 ML IV SCH ×2 (00:08→12:28)
[2020-05-19] MEDS: ACETAMINOPHEN IV (For NPO) 1,000 MG in EMPTY BAG 1 BAG IVPB SCH ×3 (00:09→14:50)
[2020-05-19] MEDS: KETOROLAC 15 MG/ML 1 ML VIAL IVP SCH ×4 (00:12→21:23)
[2020-05-19] MEDS: SULFAMETHOX-TMP 80-16MG/ML 400 MG in DEXTROSE 5% IN WATER 500 ML IVPB SCH ×6 (03:20→22:33)
[2020-05-19] MEDS: MORPHINE SULFATE 4 MG/ML SYRINGE IV PRN ×2 (03:32→09:15)
[2020-05-19] MEDS: CLINDAMYCIN 600 MG in DEXTROSE 5% IN WATER 50 ML IVPB SCH ×4 (06:16→15:28)
[2020-05-19 07:04] LABS: Basophils % (A) 0 %; Eosinophils # (A) 0.1 k/uL (0-0.7); Eosinophils % (A) 1 %; HGB 10.6 gm/dL (11.4-16.0); Lymphocytes # (A) 2.3 k/uL (1.0-4.8); Lymphocytes % (A) 15 %; MCH 29.1 pg (25.0-35.0); MCV 93.7 fL (80.0-100.0); Mean Platelet Volume 7.2; Monocytes # (A) 0.7 k/uL (0-1.0); Monocytes % (A) 5 %; Neutrophils # (A) 11.8 k/uL (1.3-7.7); Neutrophils % (A) 78 %; Platelet Count 331 k/uL (150-450); RBC 3.63 m/uL (3.80-5.40); RDW 12.7 % (11.5-15.5); WBC 15.1 k/uL (3.8-10.6)
[2020-05-19 07:15] LABS: ALT 19 U/L (4-34); AST 25 U/L (14-36); African American GFR (CKD) >90 (>60 ml/min/1.73 sqM); Alkaline Phosphatase 132 U/L (38-126); Anion Gap 7 mmol/L; Blood Urea Nitrogen 22 mg/dL (7-17); Calcium 8.7 mg/dL (8.4-10.2); Carbon Dioxide 26 mmol/L (22-30); Chloride 102 mmol/L (98-107); Glucose 125 mg/dL (74-99); Non-African American GFR(CKD) >90 (>60 ml/min/1.73 sqM); Potassium 4.1 mmol/L (3.5-5.1); Sodium 135 mmol/L (137-145); Total Bilirubin 0.5 mg/dL (0.2-1.3)
[2020-05-19] MEDS: FLUTICASONE 110 MCG INHALER INHALATION SCH ×2 (07:26→22:24)
[2020-05-19] MEDS: IPRATROPIUM-ALBUTEROL 3 ML NEB INHALATION PRN (07:26)
[2020-05-19] MEDS: busPIRone HCl 5 MG TAB PO SCH ×2 (09:24→22:33)
[2020-05-19] MEDS: LOSARTAN 50 MG TAB PO SCH (09:24)
[2020-05-19] MEDS: METOPROLOL TARTRATE 25 MG TAB PO SCH ×2 (09:25→22:34)
[2020-05-19] MEDS: ISOSORBIDE MONONITRATE ER 30 MG TAB.ER.24H PO SCH (09:25)
[2020-05-19] MEDS: PREGABALIN 50 MG CAP PO SCH ×3 (09:26→22:34)
[2020-05-19] MEDS: ASPIRIN 81 MG PO SCH (09:26)
[2020-05-19] MEDS: LORATADINE 10 MG TAB PO SCH (09:26)
[2020-05-19] MEDS ORDERED: KETOROLAC 15 MG/ML 1 ML VIAL IVP STA (10:55)
[2020-05-19] MEDS ORDERED: IV FLUID CONTINUATION 1,000 ML IV ONE (17:09)
[2020-05-19] MEDS ORDERED: ONDANSETRON 4 MG/2 ML VIAL IVP ONE (17:26)
[2020-05-19] MEDS ORDERED: DEXAMETHASONE SOD PHOSPHATE 10 MG/ML 1 ML VIAL IV ONE (17:26)
[2020-05-19] MEDS ORDERED: fentaNYL (PF) 50 MCG/ML 2 ML AMP IVP ONE (17:27)
[2020-05-19] MEDS ORDERED: fentaNYL (PF) 50 MCG/ML 2 ML AMP ONE ×2 (18:07→18:54)
[2020-05-19] MEDS ORDERED: fentaNYL (PF) 50 MCG/ML 2 ML AMP IV ONE (18:09)
[2020-05-19] MEDS ORDERED: LIDOCAINE 4% (PF) 5 ML AMP IH ONE (18:24)
--- NOTE | 2020-05-19 18:53 | PN ---
PROGRESS NOTE Dr. Roberto is taking the patient into surgery currently at this time to remove teeth and put a drain in for her periodontal abscess. Otherwise, her swelling has decreasing with IV antibiotics. ENT has also seen her. CARDIOVASCULAR: S1, S2. LUNGS: Clear. Labs reviewed. Consults reviewed. She will continue with antibiotics until ENT and Oral Surgery say she is cleared to go home. Hopefully drainage of all the pus in the abscesses will be done while in the OR. MMODL / IJN: [id number] /
[2020-05-19] MEDS ORDERED: HYDROmorphone (PF) 1 MG/ML ONE (18:54)
[2020-05-19] MEDS ORDERED: ROCURONIUM 10 MG/ML (10 ML VIAL) IV ONE (18:54)
[2020-05-19] MEDS ORDERED: MIDAZOLAM 2 MG/2 ML VIAL ONE (18:54)
[2020-05-19] MEDS ORDERED: ESMOLOL 100 MG/10 ML VIAL ONE (18:54)
[2020-05-19] MEDS ORDERED: PROPOFOL 10 MG/ML 20 ML VIAL IV ONE (18:54)
[2020-05-19] MEDS ORDERED: GLYCOPYRROLATE 0.2 MG/ML 2 ML VIAL ONE (18:54)
[2020-05-19] MEDS ORDERED: LIDOCAINE 2%-EPI 1:100,000 20 ML VIAL SQ ONE ×2 (19:18)
[2020-05-19] MEDS: HYDROmorphone 0.5 MG/0.5 ML SYRINGE IVP ONE ×4 (19:47→20:08)
[2020-05-19] MEDS ORDERED: KETOROLAC 15 MG/ML 1 ML VIAL IVP ONE (20:01)
--- NOTE | 2020-05-19 20:10 | P.OP ---
Date of Procedure: 05/19/20 Preoperative Diagnosis: Dental abscess associated with tooth #18 Associated swelling of the superficial parotid Postoperative Diagnosis: Same Procedure(s) Performed: Surgical extraction of tooth #18 Localized debridement of the area around tooth #18 Fine-needle aspiration of the superficial parotid Anesthesia: OCTAVIO Surgeon: Herb Roberto Estimated Blood Loss (ml): 5 IV fluids (ml): 200 Urine output (ml): 0 Pathology: none sent Condition: stable Disposition: PACU Indications for Procedure: Patient had been seen on consultation yesterday noted to have significant facial swelling adjacent to the masseteric space appears to involve the superficial parotid gland. The patient had been on multiple rounds of clindamycin therapy as an outpatient and her jaw pain and tooth pain has not really resolved. She reported that she had significant jaw swelling which is resolved somewhat on the antibiotic she was left with this 1 cm x 2 cm tight firm swelling anterior to the ear which is limited in her mouth opening. She also reports dental pain associated with tooth #18. Since admission yesterday she's been on IV clindamycin and also IV Bactrim. On the addition of the Bactrim she reported that she started to feel better and the swelling has improved today. The preoperative holding area examined her in the swelling is a 1 cm x 1 cm element winding machine tender. Nonfluctuant. Still difficulty opening patient also reports numbness of the face on the areas of the mandibular branch of the facial nerve. Due to her pain level is difficult to assess her facial movements but it appears to be intact. Intraorally no swelling of the floor the mouth noted. Plan was discussed with the patient about removing the tooth and trying to get some pus from the swelling in front of her ear. If after she was asleep I could establish a connection between the swelling and the mouth was going to plan on putting her intraoral drain along the anterior belly of the temporalis in an effort to encourage drainage and see if there is any deep fluctuance. Patient understood the risks of this procedure including but not limited to bleeding pain infection swelling nerve damage, parotid gland involvement, and need for additional procedures. Patient agreed continued proceed with procedure Operative Findings: Extraoral fine-needle aspiration submitted fluid for culture Description of Procedure: Patient was taken to the operating room where she underwent awake fiberoptic oral intubation due to her difficulty opening the anesthesia team did this without incident and even after the patient was paralyzed difficulty opening her mouth. Mouth ratcheted and a bite block were placed on the right side the throat pack was placed 5 mL of 2% lidocaine administered. Some some purulent drainage was noted coming from the sulcus of tooth #18. Tooth #18 was accessed with a full-thickness buccal flap and some bone removal was administered and the tooth was removed. Area was irrigated and some exploration up into the anterior belly the temporalis. Stay on the bone up in the temporalis space revealed no pus and so this approach was abandoned. At this point the intraoral wound was closed with 1 3-0 chromic suture. Patient was then reprepped new gloves were used to perform a fine-needle aspiration of the mass. Being careful not to go any deeper than 8 - 10 mm a scant amount of yellow fluid was drawn off for the most part no fluid was found. This fluid was cultured aerobic and anaerobically. Intraorally it was reconfirmed that there was some flow of clear fluid from the parotid duct. This flow was minimal. At this point the patients throat pack and bite block were removed gauze packs were placed on the extraction site the patient was cleaned and awakened and taken to the recovery room where she is awaiting return to the floor. Plan is to resume her inpatient medications at the antibiotics and resume full liquid diet
[2020-05-19] MEDS ORDERED: LACTATED RINGERS 1,000 ML IV ONE (20:31)
[2020-05-19] MEDS: MELATONIN 5 MG TABLET PO SCH (22:34)
[2020-05-19] MEDS: DULoxetine HCL 60 MG CAPSULE.DR PO SCH (22:34)
[2020-05-19] MEDS: ATORVASTATIN 80 MG TAB PO SCH (22:34)
[2020-05-20] MEDS: KETOROLAC 15 MG/ML 1 ML VIAL IVP SCH ×3 (00:51→12:39)
[2020-05-20] MEDS: CLINDAMYCIN 600 MG in DEXTROSE 5% IN WATER 50 ML IVPB SCH ×4 (00:52→09:07)
[2020-05-20] MEDS: SULFAMETHOX-TMP 80-16MG/ML 400 MG in DEXTROSE 5% IN WATER 500 ML IVPB SCH ×4 (05:29→12:04)
[2020-05-20] MEDS: SODIUM CHLORIDE 0.9% 1,000 ML IV SCH (05:29)
[2020-05-20] MEDS: FLUTICASONE 110 MCG INHALER INHALATION SCH (08:30)
[2020-05-20] MEDS: HYDROcodone/APAP 10-325MG 1 EACH TAB PO PRN (09:06)
[2020-05-20] MEDS: busPIRone HCl 5 MG TAB PO SCH (09:08)
[2020-05-20] MEDS: ASPIRIN 81 MG PO SCH (09:08)
[2020-05-20] MEDS: METOPROLOL TARTRATE 25 MG TAB PO SCH (09:09)
[2020-05-20] MEDS: LORATADINE 10 MG TAB PO SCH (09:09)
[2020-05-20] MEDS: LOSARTAN 50 MG TAB PO SCH (09:09)
[2020-05-20] MEDS: ISOSORBIDE MONONITRATE ER 30 MG TAB.ER.24H PO SCH (09:09)
[2020-05-20] MEDS: PREGABALIN 50 MG CAP PO SCH (09:10)
[2020-05-20 09:51] LABS: African American GFR (CKD) >90 (>60 ml/min/1.73 sqM); Blood Urea Nitrogen 14 mg/dL (7-17); Non-African American GFR(CKD) >90 (>60 ml/min/1.73 sqM); Potassium 4.5 mmol/L (3.5-5.1)
--- NOTE | 2020-05-20 11:36 | P.PN ---
Subjective Progress Note Date: 05/20/20 Principal diagnosis: Dental Abcess Post Op Day one from extraction tooth 18. Patient had extraction and drbridement of jaw last night and her mandible feels much better. she still has facial pain infront of ear. this are didn to produce pus with FNA yesterday but a few drops of brown fluid were cultured. Objective - Vital Signs Vital signs: Vital Signs Temp 97.7 F 05/20/20 08:27 Pulse 66 05/20/20 08:27 Resp 18 05/20/20 08:27 BP 144/82 05/20/20 08:27 Pulse Ox 95 05/20/20 08:27 Intake & Output 05/19/20 05/20/20 05/20/20 18:59 06:59 18:59 Intake Total 450 600 Output Total 5 Balance 450 595 Intake: IV 450 600 Output: Estimated Blood Loss 5 Other: # Voids 1 3 - Exam Up in bed with Nurse and PCP in the room. very appreciative that tooth is extracted and has no jaw pain currently. her facial swelling has improved and her mouth opens further than yesterday. still no floor of mouth swelling and no airway compromise. the extraction site is healing well and has no discharge. of note her BUN/Creatine ratio has normalized. the cultures suggest cocci in pairs which could be strep given a mouth source. - Labs CBC & Chem 7: 05/19/20 06:25 05/20/20 08:41 Labs: Microbiology - Last 24 Hours (Table) 05/19/20 19:35 Gram Stain - Preliminary Parotid - Left Wound Culture - Preliminary 05/17/20 22:38 Blood Culture - Preliminary Blood No Growth after 48 hours 05/19/20 19:35 Anaerobic Culture - Preliminary Parotid - Left 05/18/20 17:51 Gram Stain - Preliminary Mouth Wound Culture - Preliminary Assessment and Plan Assessment: Dental abcess is resolving but still has some facial swelling distant from the offending tooth. Plan: this may represent a loculation or seperate process. ENT was consulted and agreed to follow her facial swelling and treat if does not resopnd to current treatment. Time with Patient: Less than 30
[2020-05-20] MEDS ORDERED: diphenhydrAMINE 50 MG/ML 1 ML VIAL IVP PRN (12:00)
[2020-05-20 13:42] VITALS: BP 137/77; PULSE 64; RESP 16; TEMP 98.2
--- NOTE | 2020-05-20 14:14 | P.DS ---
Providers Date of admission: 05/20/20 10:06 Attending physician: Jairo Velarde Consults: 05/17/20 22:40 Consult Physician Routine Consulting Provider: Herb Roberto Consult Reason/Comments: dental abscess Do you want consulting provider notified?: Already Contacted 05/18/20 16:19 Consult Physician Routine Consulting Provider: Linwood Chang Consult Reason/Comments: facial abscess Do you want consulting provider notified?: Yes Primary care physician: Suzette Berg [facility] Course: 54-year-old the female was admitted for right-sided facial abscess patient had a tooth extraction patient had a mandibular and right facial swelling was significantly improved. Patient was on clindamycin without any significant improvement in the swelling. Patient is ALLERGIC to penicillins because of whi ch patient will be discharged on Cipro and patient white blood cell count went up a bit because of the tooth extraction and debridement of the mandible on the right side. ENT evaluate the patient because of concerns of hepatitis although as per ENT possibly hepatitis is low. PHYSICAL EXAMINATION: GENERAL: The patient is alert and oriented x3, not in any acute distress. Well developed, well nourished. HEENT: Pupils are round and equally reacting to light. EOMI. No scleral icterus. No conjunctival pallor. Normocephalic, atraumatic. No pharyngeal erythema. No thyromegaly. She still has significant swelling on the right side of the face. CARDIOVASCULAR: S1 and S2 present. No murmurs, rubs, or gallops. PULMONARY: Chest is clear to auscultation, no wheezing or crackles. ABDOMEN: Soft, nontender, nondistended, normoactive bowel sounds. No palpable organomegaly. MUSCULOSKELETAL: No joint swelling or deformity. EXTREMITIES: No cyanosis, clubbing, or pedal edema. NEUROLOGICAL: Gross neurological examination did not reveal any focal deficits. SKIN: No rashes. Tooth abscess with the mandibular involvement and sepsis secondary to that: Patient will be discharged on Cipro for 10 more days with close follow-up with ENT and maxillofacial surgery. -COPD without any acute acceleration Heparin coronary artery disease -Hyperlipidemia -Hypertension -Sleep apnea -Hypothyroidism Patient Condition at Discharge: Fair Plan - Discharge Summary Discharge Rx Participant: Yes New Discharge Prescriptions: New Ciprofloxacin HCl [Cipro] 500 mg PO Q12HR 10 Days #20 tab HYDROcodone/APAP 7.5-325MG [[place] 7.5-325] 1 tab PO Q4H PRN #20 tab PRN Reason: Pain Continue Nitroglycerin Sl Tabs [Nitrostat] 0.4 mg SUBLINGUAL Q5M PRN PRN Reason: Chest Pain Atorvastatin [Lipitor] 80 mg PO HS Ipratropium-Albuterol Nebulize [Duoneb 0.5 mg-3 mg/3 ml Soln] 3 ml INHALATION RT-QID PRN PRN Reason: Shortness Of Breath Beclomethasone Dipropionate [Qvar 80 mcg/puff] 2 puff INHALATION RT-BID Isosorbide Mononitrate ER [Imdur] 30 mg PO DAILY DULoxetine HCL [Cymbalta] 60 mg PO HS Melatonin 5 mg PO HS Ondansetron [Zofran] 4 mg PO Q8HR PRN PRN Reason: Nausea Ergocalciferol (Vitamin D2) [Vitamin D2] 50,000 unit PO OCHOA traZODone HCL 300 mg PO HS Aspirin [Adult Low Dose Aspirin EC] 81 mg PO QAM Loratadine 10 mg PO QAM Albuterol Sulfate [Ventolin HFA] 2 puff INHALATION RT-Q4H PRN PRN Reason: Shortness Of Breath busPIRone HCl [Buspar] 15 mg PO BID Losartan [Cozaar] 50 mg PO DAILY #30 tab Metoprolol Tartrate [Lopressor] 25 mg PO BID #60 tab Tiotropium [place] [Spiriva] 1 cap INHALATION RT-DAILY Baclofen 10 mg PO Q6HR PRN 30 Days #120 tab PRN Reason: Muscle Pain Pregabalin [Lyrica] 100 mg PO TID #90 cap HYDROcodone/APAP 10-325MG [[place] 10-325] 1 tab PO Q8H PRN 30 Days #90 tab PRN Reason: Pain Naproxen Sodium [Aleve] 220 mg PO ONCE PRN PRN Reason: Fever And/ Or Pain Ibuprofen [Motrin Ib] 400 mg PO ONCE PRN PRN Reason: Fever And/ Or Pain Acetaminophen [Tylenol] 650 mg PO ONCE PRN PRN Reason: Fever And/ Or Pain Discontinued Furosemide [Lasix] 20 mg PO DAILY PRN PRN Reason: Edema Clindamycin [Cleocin] 150 mg PO Q6H Discharge Medication List Atorvastatin [Lipitor] 80 mg PO HS 06/07/14 [History] Ipratropium-Albuterol Nebulize [Duoneb 0.5 mg-3 mg/3 ml Soln] 3 ml INHALATION RT-QID PRN 06/07/14 [History] Nitroglycerin Sl Tabs [Nitrostat] 0.4 mg SUBLINGUAL Q5M PRN 06/07/14 [History] Beclomethasone Dipropionate [Qvar 80 mcg/puff] 2 puff INHALATION RT-BID 08/11/14 [History] Isosorbide Mononitrate ER [Imdur] 30 mg PO DAILY 11/03/14 [History] DULoxetine HCL [Cymbalta] 60 mg PO HS 04/19/15 [History] Melatonin 5 mg PO HS 08/05/18 [History] Ondansetron [Zofran] 4 mg PO Q8HR PRN 09/25/18 [History] Ergocalciferol (Vitamin D2) [Vitamin D2] 50,000 unit PO OCHOA 12/29/18 [History] Aspirin [Adult Low Dose Aspirin EC] 81 mg PO QAM 04/14/19 [History] traZODone HCL 300 mg PO HS 04/14/19 [History] Loratadine 10 mg PO QAM 08/20/19 [History] Albuterol Sulfate [Ventolin HFA] 2 puff INHALATION RT-Q4H PRN 11/19/19 [History] busPIRone HCl [Buspar] 15 mg PO BID 11/19/19 [History] Losartan [Cozaar] 50 mg PO DAILY #30 tab 11/20/19 [Rx] Metoprolol Tartrate [Lopressor] 25 mg PO BID #60 tab 11/20/19 [Rx] Tiotropium [place] [Spiriva] 1 cap INHALATION RT-DAILY 02/18/20 [History] Baclofen 10 mg PO Q6HR PRN 30 Days #120 tab 04/20/20 [Rx] HYDROcodone/APAP 10-325MG [[place] 10-325] 1 tab PO Q8H PRN 30 Days #90 tab 04/20/20 [Rx] Pregabalin [Lyrica] 100 mg PO TID #90 cap 04/20/20 [Rx] Acetaminophen [Tylenol] 650 mg PO ONCE PRN 05/17/20 [History] Ibuprofen [Motrin Ib] 400 mg PO ONCE PRN 10/20/20 [History] Naproxen Sodium [Aleve] 220 mg PO ONCE PRN 05/17/20 [History] Ciprofloxacin HCl [Cipro] 500 mg PO Q12HR 10 Days #20 tab 05/20/20 [Rx] HYDROcodone/APAP 7.5-325MG [[place] 7.5-325] 1 tab PO Q4H PRN #20 tab 05/20/20 [Rx] Follow up Appointment(s)/Referral(s): Suzette Berg MD [Primary Care Provider] - 3 Days Discharge Disposition: HOME SELF-CARE
[2020-05-20] MEDS ORDERED: DEXAMETHASONE SOD PHOSPHATE 10 MG/ML 1 ML VIAL IV STA (14:27)
--- NOTE | 2020-05-20 18:54 | CONS ---
CONSULTATION DATE OF CONSULTATION: 05/18/2020 REASON FOR CONSULTATION: Left facial swelling. HISTORY OF PRESENT ILLNESS: This patient is a very pleasant 54-year-old female who was admitted to [facility] via the emergency room department. The patient states that approximately 3 weeks prior to her admission she had experienced pain in the left side of her jaw secondary to a bad tooth which had become infected. She was placed on 2 courses of clindamycin for a total of 3 weeks of medication. Despite this, she states that her symptoms, which included significant left jaw pain radiating into the left ear, left facial swelling but no significant trismus did not improve. In addition to that, she stated that recently she noted there was a foul-tasting drainage into her mouth. She was seen in the emergency room, and at that time it was decided to consult both ENT and the maxillofacial surgery service. The patient stated that she had tried to get in to see a dentist, but none was available at the time. PAST MEDICAL HISTORY: She has a possible allergy to penicillin, although it is not confirmed. She states that her mother told her when she was a child that she was allergic to penicillin, but the patient believes that she has had penicillin since that time and has not had any direct reaction. Her current medications are numerous and include: 1. Trazodone. 2. Buspar. 3. Spiriva. 4. Zofran. 5. Nitrostat. 6. Aleve. 7. Lopressor. 8. Cozaar. 9. Claritin. 10.Imdur. 11.DuoNeb. 12.Motrin. 13.[place]. 14.Cymbalta. 15.Qvar. 16.Baclofen. 17.Lipitor. 18.Ventolin. She is a smoker and smokes approximately a half to a pack of cigarettes per day. REVIEW OF SYSTEMS: Cardiovascular system is positive for hypertension and ASHD. Respiratory system is positive for COPD/emphysema. Gastrointestinal system is negative. Metabolic/endocrine system is positive for hypercholesterolemia. Musculoskeletal system is positive for osteoarthritis. The remainder of the review of systems is unremarkable. PHYSICAL EXAMINATION: This patient is a 54-year-old female who was alert and cooperative. HEENT EXAMINATION: Patient is normocephalic. Tympanic membranes are normal. Middle ear space is free of any fluid or infection. Pupils are equal, round and reactive to light and accommodation. Extraocular movements within normal limits. Intranasal examination reveals mild to moderate septal deviation with compensatory hypertrophy of the inferior turbinates and a moderate amount of clear mucus on the mucous membranes draining down the posterior pharynx. Examination of oropharynx, which is somewhat limited due to the pain that the patient is having, reveals that there is some soft tissue swelling on the left floor of the mouth and left buccal gutter which appears to be slightly fluctuant and is near the rear molar teeth. I do not see any actual area of drainage, although there is some sero-sanguineous fluid in the mouth. This appears to be actual pus. Palpation of the neck is negative for any significant lymphadenopathy. There is significant soft tissue swelling of the face, but this area is firm, not fluctuant, and only mild to moderately tender. The area of swelling extends from the angle of the mandible up to the tragus of the left ear. There is no evidence of any significant trismus. Cranial nerves 2 through 12 and remainder of the head and neck exam is unremarkable. CHEST/CARDIOVASCULAR: Both lung oneal are clear to percussion and auscultation, although lung sounds are somewhat distant at the bases. The patient is in regular sinus rhythm. S1 and S2 are present without any murmurs, S3s or S4s. Peripheral pulses are bilaterally symmetrical. ABDOMEN: There is no evidence of any masses, megaly or tenderness. The abdomen is soft. The remainder of physical exam is unremarkable. IMPRESSION: Left neck abscess, most likely due to an infected rear molar tooth. On her CT scan there does not appear to be any significant extension into the lower neck, but there is evidence of inflammation in the area of the pterygoid space. I do not see any evidence of any significant extension of any abscess or fluid into the parotid space, although there is extensive cellulitis in the parotid region. Dr. Roberto has been consulted and plans on extracting one or more of the patient's left rear mandibular molar teeth. At this point, I do not think that ENT intervention is indicated, but I will continue to follow the patient with you. I have ordered for the patient to receive a somewhat more efficient pain regimen of Toradol and IV Ofirmev on a p.r.n. basis. I recommend continuing the present intravenous antibiotics. I want to take this opportunity to thank you for allowing me to assist you in the care of this patient. If I could be of any further assistance, please feel free to call my office. SHALONDA / ASHLEY: [id number] / AARON
--- NOTE | 2020-05-20 19:39 | PN ---
PROGRESS NOTE DATE OF SERVICE: 05/20/2020 SUBJECTIVE: Vital signs are stable. The patient has undergone extraction of one or more of the left lower rear molar teeth and states that she has noticed some slight improvement; that is to say, decrease in her pain, since the surgery, which was less than 24 hours ago. She is still having intraoral drainage and she remains afebrile. Dr. Roberto stated that he had attempted to extract some fluid from the area of swelling of the left parotid and was only able to obtain a few drops of fluid, which suggests that this area is in fact cellulitis and not a newly formed abscess. Apparently at the time of the tooth extraction there was some purulent drainage which was cultured. At this point the plan is to discharge the patient today. I discussed with her at length whether or not she might be allergic to penicillin or not, and she does not feel she is allergic. Therefore, I am going to have the nurses give her Rocephin intravenously, with the pharmacy department giving her the maximum dose, and the nursing department will keep her around the hospital for about an hour or two just to observe and notice whether she has any reaction. In addition to this, I am going to have them give her 10 mg of dexamethasone intravenously to help start reducing some of the soft tissue swelling/cellulitis on the left side of the face. I will order and prescribe homegoing medications for her, namely Augmentin 875 mg p.o. b.i.d. #28 tablets, and dexamethasone 0.75 mg tablets to be given in a Decadron dos-pack schedule, which I will phone directly into the outpatient pharmacy department for the patient to start taking tonight. The nursing staff has been advised to have her call my office on Saturday for an office appointment for next week some time so that we can further evaluate her. If there is still significant swelling at that time, then we will repeat the CT scan of the soft tissues of the neck/face to evaluate and see whether or not any actual new abscess has formed as well as to re-evaluate the previous abscess that has been drained. All of the patient's questions were answered, and she understood the instructions for the Decadron dos-pack. I will see the patient in my office sometime next week. MMODL / BHARATIN: [id number] / AARON
[2020-05-22] MEDS ORDERED: ERGOCALCIFEROL 50,000 UNIT CAP PO SCH (09:00)
== END 2020-05-20 15:59 | disposition home or self-care (01) ==
LOC: EC 20:15 → 4SSUR 22:27 → 6PED 23:16 → INTOOBSV 05-20 10:06 → OBSVTOIN 05-20 10:06 → UNDODISIN 05-20 15:59
PROVIDERS: ADMIT Family Medicine; ATTEND Family Medicine
DX: K04.7 Periapical abscess without sinus (principal); L02.01 Cutaneous abscess of face; K11.20 Sialoadenitis, unspecified; L02.11 Cutaneous abscess of neck; L03.90 Cellulitis, unspecified; E78.5 Hyperlipidemia, unspecified; I10 Essential (primary) hypertension; I25.10 Atherosclerotic heart disease of native coronary artery without angina pectoris; I25.2 Old myocardial infarction; J44.9 Chronic obstructive pulmonary disease, unspecified; M79.7 Fibromyalgia; Z79.82 Long term (current) use of aspirin; Z79.899 Other long term (current) drug therapy; Z86.14 Personal history of Methicillin resistant Staphylococcus aureus infection; Z87.891 Personal history of nicotine dependence; Z88.0 Allergy status to penicillin; Z95.5 Presence of coronary angioplasty implant and graft
CPT/HCPCS: 96361; 96375 ×3; 96376 ×2; 96365; 99284; 36415; 94640 ×5; 80053 ×3; 82565; 83605; 84132; 84520; 85025 ×3; 87040; 87070 ×2; 87205 ×2; 87075 ×2; 70487; 41899; 41599; G0378 ×6; J2001; J2250; J2270 ×3; J1100 ×3; J2405 ×3; J0696; J3010; J1170 ×2; J0131 ×2; J1885 ×4; J2704; Q9967

== ENCOUNTER → 2020-06-15 | Outpatient (CLI) | payer MEDICARE ==
[2020-06-15 08:31] VITALS: BP 117/71; PULSE 98; RESP 22; TEMP 98.4
--- NOTE | 2020-06-15 08:39 | P.PAINPG ---
Subjective Progress Note Date: 06/15/20 This is follow-up visit for this patient with a history of severe and chronic low back pain secondary to lumbar degenerative disc disease, lumbar facet arthropathy, right hip arthralgia The patient has been managed with combination of interventional pain management and medication management. She last underwent lumbar radiofrequency ablations to L3, L4, L5- right side on 01/2020 and left-sided on 02/2020. She had good relief 75% from the prior RFA's, in our last visit said her hip was her biggest issue with sharp stabbign pain radiating to the anterior thigh. I refilled her pain medications and ordered a hip x-ray and encouraged her to discuss talking t o her PCP about seeing a surgeon. She has not gotten these x-rays as she recently had a tooth infection that required surgical extraction. She is here for follow up today. She reports overall that her pain is doing all right. Still having some relief from the RFA in the past however she still having right hip pain which she describes as sharp and stabbing with occasional radiation to the anterior thigh. Pain does occasionally radiate to the bilateral lower extremities up to the feet, however this is not common, Pain is worse with activity, walking, standing and better with medications, position changes. We did ask her to have a hip x- ray on her last visit, however given her recent tooth extraction she has not been able to get this. She will get her hip x-ray sooner talk to her primary care doctor about possibly seeing a surgeon. The patient currently on [place] 10/325 every 8 hours, Lyrica 100 mg 3 times a day, baclofen 10 mg every 6 hours. Patient denies any side effect of the medication , patient denies any excessive drowsiness or sleepiness, patient denies any suicidal ideation, Patient reported that the current medication is helping to control the pain and improve the activity of daily livings, Patient denies any new motor or sensory deficit, denies any change in the bowel movement , patient denies any night sweats. Review of systems is negative for chest pain, changes in vision, changes in hearing, new onset weakness, abdominal pain, diarrhea, extreme fatigue, malaise, fever, skin changes, homicidal or suicidal ideation, or bowel incontinence. Objective Physical exam: Vitals: Reviewed in EMR GENERAL: Well appearing, in no acute distress, walker by her side PSYCH: Mood and affect is appropriate. Awake, alert, and oriented SKIN: Skin color, texture, turgor normal, no rashes or lesions HEENT: Normocephalic, atraumatic. EOM intact CV: No pedal edema RESP: Respirations are unlabored, no audible wheezing GI: Abdomen non-distended MUSCULOSKELETAL: Bilateral lower extremity strength is normal and symmetric. No atrophy or tone abnormalities are noted. Lumbar spine: Straight leg raising in the sitting position is negative for radicular pain. Tenderness to palpation over the lumbar spine and paraspinous muscles bilaterally. Positive for pain with facet loading and back extension/rotation. Log roll positive bilaterally, FADIR positive on the right side Buttocks: Tenderness to palpation over the PSIS bilaterally Extremities: Peripheral joint ROM is full and pain free without obvious instabil ity or laxity in all four extremities. No edema or skin discolorations noted. Gait: Gait is slow, walks with a walker NEUR: No loss of sensation is noted. Assessment and Plan Plan: Assessment and plan= chronic low back pain secondary to lumbar degenerative disc disease , lumbar spondylosis with lumbar facet arthropathy . Lumbar radiculopathy, right hip arthralgia chronic and current use of high-risk medication (opioids) Patient underwent lumbar radiofrequency ablations to L3, L4, L5- right side on 01/2020 and left-sided on 02/2020. Doing well from this Patient denies any side effects of the current pain medication and the current treatment/medication helping the patient to do activity of daily living The narcotic consent has been signed and is on file MAPS Reviewed and it was appropriate . Medication managements= patient will be given prescription refills for [place] 10/325 every 8 hours dispense 90 with 1 refill, Lyrica 100 mg 3 times a day dispense 90 with 1 refill, baclofen 10 mg every 6 hours dispense 120 with one refill. Given her hip pain, I encourage her to talk to her primary care provider about being referred to an orthopedic surgeon. He still has order for right hip x- ray, she will get that done as soon as she can. Interventions= none Follow-up: for procedure and In clinic in 2 months for medication management PQRS Measure Charge Sheet Measure #130: Documentation of Current Meds in Medical Chart: Patient's medications documented in chart Measure #226: Tobacco Use: Screen & Cessation Intervention: Pt not a tobacco user Measure #111: Pneumonia Vaccination: Pneumococcal vaccine NOT administered or previously given Measure #47: Advance Care Plan: Advance care planning discussed & documented, pt chose/unable to give Measure #412: Opioid Treatment Agreement: Documented signed opioid trtmnt agreemnt min once during opioid trtmnt Measure #408: Opioid Therapy Follow-up Evaluation: Patient had f/u eval minimum every 3 months during opioid therapy Measure #317: Preventitive Care & Scrn High Bld Press & F/U: Normal blood pressure, f/u not required Measure #128: Body Mass Index (BMI) Screening & Follow-up: BMI documented ABOVE normal parameters - f/u documented Measure #131: Pain Assessment & Follow-up: Pain positive & plan documented, Follow-up scheduled Measure #431: Unhealthy Alcohol Use Preventative Care & Scrn: Patient not ident ified as an unhealthy alcohol user PQRS Narrative: Smoking Status Current every day smoker Narcotic Agreement Date Signed 08/10/19 Hx Alcohol Use () No PQRS Measure Charge Sheet PQRS Narrative: Smoking Status Current every day smoker Narcotic Agreement Date Signed 08/10/19 Hx Alcohol Use () No Controlled Substance Measures - Controlled Substance Measures Is patient prescribed a controlled substance at discharge?: Yes When asked, does pt state using other controlled substances?: No If prescribed controlled substance>3 days was MAPS reviewed?: Yes If Rx opioid, was Start Talking consent form obtained?: Yes If opioid is for acute pain is fill amount 7 days or less?: No Was information provided regarding opioid addiction?: Yes PQRS Measure Charge Sheet PQRS Narrative: Smoking Status Current every day smoker Narcotic Agreement Date Signed 08/10/19 Pain Intensity [Lower Back] 9 Scale Used Numeric (1 - 10) Hx Alcohol Use () No Home Medications: Ambulatory Orders Atorvastatin [Lipitor] 80 mg PO HS 06/07/14 Ipratropium-Albuterol Nebulize [Duoneb 0.5 mg-3 mg/3 ml Soln] 3 ml INHALATION RT-QID PRN 06/07/14 Nitroglycerin Sl Tabs [Nitrostat] 0.4 mg SUBLINGUAL Q5M PRN 06/07/14 Beclomethasone Dipropionate [Qvar 80 mcg/puff] 2 puff INHALATION RT-BID 08/11/14 Isosorbide Mononitrate ER [Imdur] 30 mg PO DAILY 11/03/14 DULoxetine HCL [Cymbalta] 60 mg PO HS 04/19/15 Melatonin 5 mg PO HS 08/05/18 Ondansetron [Zofran] 4 mg PO Q8HR PRN 09/25/18 Ergocalciferol (Vitamin D2) [Vitamin D2] 50,000 unit PO OCHOA 12/29/18 Aspirin [Adult Low Dose Aspirin EC] 81 mg PO QAM 04/14/19 traZODone HCL 300 mg PO HS 04/14/19 Loratadine 10 mg PO QAM 08/20/19 Albuterol Sulfate [Ventolin HFA] 2 puff INHALATION RT-Q4H PRN 11/19/19 busPIRone HCl [Buspar] 15 mg PO BID 11/19/19 Losartan [Cozaar] 50 mg PO DAILY #30 tab 11/20/19 Metoprolol Tartrate [Lopressor] 25 mg PO BID #60 tab 11/20/19 Tiotropium [place] [Spiriva] 1 cap INHALATION RT-DAILY 02/18/20 Acetaminophen [Tylenol] 650 mg PO DAILY PRN 05/17/20 Ibuprofen [Motrin Ib] 400 mg PO DAILY PRN 05/17/20 Naproxen Sodium [Aleve] 220 mg PO DAILY PRN 05/17/20 Baclofen 10 mg PO Q6HR PRN 30 Days #120 tab 06/15/20 HYDROcodone/APAP 10-325MG [[place] 10-325] 1 tab PO Q8H PRN 30 Days #90 tab 06/15/20 HYDROcodone/APAP 10-325MG [[place] 10-325] 1 tab PO Q8H PRN 30 Days #90 tab 06/15/20 Pregabalin [Lyrica] 100 mg PO TID #90 cap 06/15/20 Controlled Substance Measures - Controlled Substance Measures Is patient prescribed a controlled substance at discharge?: Yes When asked, does pt state using other controlled substances?: No If prescribed controlled substance>3 days was MAPS reviewed?: Yes If Rx opioid, was Start Talking consent form obtained?: Yes If opioid is for acute pain is fill amount 7 days or less?: No Was information provided regarding opioid addiction?: Yes
== END | disposition home or self-care (01) ==
LOC: PNWHC3 08:18
PROVIDERS: ATTEND Anesthesiology
DX: M51.36 Other intervertebral disc degeneration, lumbar region (principal); M47.26 Other spondylosis with radiculopathy, lumbar region; M25.551 Pain in right hip; F17.200 Nicotine dependence, unspecified, uncomplicated; Z79.899 Other long term (current) drug therapy; Z79.82 Long term (current) use of aspirin
CPT/HCPCS: 99211

== ENCOUNTER → 2020-08-10 | Outpatient (CLI) | payer MEDICARE ==
[2020-08-10 08:21] VITALS: BP 138/98; PULSE 75; RESP 16; TEMP 97.7
--- NOTE | 2020-08-10 08:33 | P.PN ---
Subjective Progress Note Date: 08/10/20 This is a follow-up visit for this 54 years old female with a history of chronic severe low back pain she is diagnosed with lumbar degenerative disc disease and lumbar spondylosis with lumbar facet arthropathy, he should also continue to have severe right hip pain, no back pain well managed with interventional pain management(radiofrequency thermocoagulation of the median branch lumbar area ) and medication management she is currently on [place] 10/325 every 8 hours Lyrica 100 mg 3 times a day and baclofen 10 mg every 6 hours, she denies any side effect of the medication she denies any excessive drowsiness or sleepiness she denies any change in the bowel movement or urination she is here today for me dication management, and medication refill Objective - Vital Signs Vital signs: Vital Signs Temp 97.7 F 08/10/20 08:19 Pulse 75 08/10/20 08:19 Resp 16 08/10/20 08:19 BP 138/98 08/10/20 08:19 Pulse Ox 96 08/10/20 08:19 - Exam -Constitutiona : Cooperative , not in acute distress . -HEENT : nech : supple , no Lymphadenopathy , normal thyroid size . eyes : no ptosis , no icterus, no photophobia . ENT : normal of hearing , normal oropharynx , no Thrush . - Respiratory : Chest clear to auscultations Bilaterally , no whe ezing , no Rhonchi . - Cardiovascula : regular rate and rhythem , S1 , S2 , no S3 , no S4. - Gastrointestina : abdomen soft no tenderness , bowel sounds , no organomegally . - Genitourinary : Defferred . - neurologic : Cranial nerve II to XII intact , no focal neurological deffecit . -psychatric : alert , oriented X 3 , appropriate affect , intact judgment and insight . -Lymphatic : no Lymphadenopathy . - musculoskeltal : Lumber spine moter stegnth lower extremities ,thigh and legs 5/5 Right side , 5/5 Left side deep tendon reflexes : normal Knee Jerk , normal ankle Jerk positive lumber facet Loading Test Range of motion of the lumbar spine Flexion 30 degrees, extension 10 degrees strait leg raising test , positive at 45 degree Fabere test positive RT and positive LT . tenderness over the Sacroiliac joint on the R and L sides Flexion and extension and lateral rotation of the right hip associated with severe pain Abduction and adduction ,and rotation of the right hip associated with severe pain Assessment and Plan Plan: Assessment and plan= chronic low back pain secondary to lumbar degenerative disc disease , lumbar spondylosis with lumbar facet arthropathy . Lumbar radiculopathy, right hip arthralgia chronic and current use of high-risk medication (opioids) Patient denies any side effects of the current pain medication and the current treatment/medication helping the patient to do activity of daily living , Diagnoses, prognosis, treatment options, including but not limited to physical therapy, medication management, interventional therapies, and surgery, were discussed with the patient All the questions answered The narcotic consent was signed and patient agreed and understood the side effects and complications of opioid treatment. Patient signed the narcotic agreement, and was orally counseled, not to overuse, not to abuse, not to Divert , not tp sell pain medication, and to take it as prescribed only, Patient was counseled not to drive or operate heavy equipment while using narcotic medication, and advised not to use alcohol or any Illicit drugs while using the narcotis. understanding that lack of compliance with any of the above instructions, will likely to cause discharge from, the pain service, not to renew his narcotic prescriptions MAPS Reviwed and it was apropriate . Medication managements= patient will be given prescription refills for [place] 10/325 every 8 hours dispense 90 with 1 refill, Lyrica 1 mg 3 times a day dispense 90 with 1 refill, baclofen 10 mg every 6 hours dispense 120 with one refill Interventions= none Urine screen was ordered today Assure referred to evaluation by orthopedic surgeon regarding right hip pain , Time with Patient: Less than 30 PQRS Measure Charge Sheet Measure #130: Documentation of Current Meds in Medical Chart: Patient's medications documented in chart Measure #226: Tobacco Use: Screen & Cessation Intervention: Pt screened for tobacco use AND intervention given Measure #111: Pneumonia Vaccination: Pneumococcal vaccine administered or previously received Measure #47: Advance Care Plan: Advance care planning discussed & documented, pt chose/unable to give Measure #412: Opioid Treatment Agreement: Documented signed opioid trtmnt agreemnt min once during opioid trtmnt Measure #408: Opioid Therapy Follow-up Evaluation: Patient had f/u eval minimum every 3 months during opioid therapy Measure #317: Preventitive Care & Scrn High Bld Press & F/U: Normal blood pres sure, f/u not required Measure #128: Body Mass Index (BMI) Screening & Follow-up: BMI documented ABOVE normal parameters - f/u documented Measure #131: Pain Assessment & Follow-up: Pain positive & plan documented, Follow-up scheduled Measure #431: Unhealthy Alcohol Use Preventative Care & Scrn: Patient not identified as an unhealthy alcohol user PQRS Narrative: Time with Patient: Less than 30
== END | disposition home or self-care (01) ==
LOC: PNWHC3 08:03
PROVIDERS: ATTEND Specialist
DX: M51.16 Intervertebral disc disorders with radiculopathy, lumbar region (principal); M47.26 Other spondylosis with radiculopathy, lumbar region; M25.551 Pain in right hip; G89.29 Other chronic pain; Z79.891 Long term (current) use of opiate analgesic
CPT/HCPCS: 80307; G0482; G0463; 99212

== ENCOUNTER → 2020-10-05 | Outpatient (CLI) | payer MEDICARE ==
--- NOTE | 2020-10-05 08:13 | P.PAINPG ---
Subjective Progress Note Date: 10/05/20 This is a follow-up visit for this 54 years old female with a history of chronic severe low back pain she is diagnosed with lumbar degenerative disc disease and lumbar spondylosis with lumbar facet arthropathy, back pain well managed with interventional pain management(radiofrequency thermocoagulation of the median branch lumbar area ) and medication management she is currently on [place] 10/325 every 8 hours Lyrica 100 mg 3 times a day and baclofen 10 mg every 6 hours, she denies any side effect of the medication she denies any excessive drowsiness or sleepiness she denies any change in the bowel movement or urination she is here today for medication management, and medication refill. In the past she has complained of R Hip pain, we had asked her to see a hip specialist and gave her a prescription for a hip x-ray but she has never gotten this. Patient reports that she still having pain in her back and right hip area describes it as breakthrough pain. Would like to have her radiofrequency ablations repeated as she felt it helped her quite considerably. She is currently awaiting an orthopedic surgeon to get her in for an appointment for her hip evaluation. She still has our prescription for hip x-ray she will get this before that appointment. In addition to above, 13-point review of systems is also negative for chest pain, shortness of breath, changes in vision, changes in hearing, new onset weakness, abdominal pain, diarrhea, extreme fatigue, malaise, fever, skin changes, homicidal or suicidal ideation, or bowel or bladder incontinence. - Exam -Constitutiona : Cooperative , not in acute distress . -HEENT : nech : supple , no Lymphadenopathy , normal thyroid size . eyes : no ptosis , no icterus, no photophobia . ENT : normal of hearing , normal oropharynx , no Thrush . - Respiratory : Chest clear to auscultations Bilaterally , no wheezing , no Rhonchi . - Cardiovascula : regular rate and rhythem , S1 , S2 , no S3 , no S4. - Gastrointestina : abdomen soft no tenderness , bowel sounds , no organomegally . - Genitourinary : Defferred . - neurologic : Cranial nerve II to XII intact , no focal neurological deffecit . -psychatric : alert , oriented X 3 , appropriate affect , intact judgment and insight . -Lymphatic : no Lymphadenopathy . - musculoskeltal : Lumber spine moter stegnth lower extremities ,thigh and legs 5/5 Right side , 5/5 Left side deep tendon reflexes : normal Knee Jerk , normal ankle Jerk positive lumber facet Loading Test Range of motion of the lumbar spine Flexion 30 degrees, extension 10 degrees strait leg raising test , positive at 45 degree Fabere test positive RT and positive LT . tenderness over the Sacroiliac joint on the R and L sides Flexion and extension and lateral rotation of the right hip associated with severe pain Abduction and adduction ,and rotation of the right hip associated with severe pain Assessment and Plan Plan: Assessment and plan= chronic low back pain secondary to lumbar degenerative disc disease , lumbar spondylosis with lumbar facet arthropathy . Lumbar radiculopathy, right hip arthralgia chronic and current use of high-risk medication (opioids) Patient denies any side effects of the current pain medication and the current treatment/medication helping the patient to do activity of daily living , Diagnoses, prognosis, treatment options, including but not limited to physical therapy, medication management, interventional therapies, and surgery, were discussed with the patient All the questions answered The narcotic consent was signed and patient agreed and understood the side effects and complications of opioid treatment. Patient signed the narcotic agreement, and was orally counseled, not to overuse, not to abuse, not to Divert , not tp sell pain medication, and to take it as prescribed only, Patient was counseled not to drive or operate heavy equipment while using narcotic medication, and advised not to use alcohol or any Illicit drugs while using the narcotics. understanding that lack of compliance with any of the above instructions, will likely to cause discharge from, the pain service, not to renew his narcotic prescriptions MAPS Reviwed and it was apropriate . Medication managements= patient will be given prescription refills for [place] 10/325 every 8 hours dispense 90 , Lyrica 1 mg 3 times a day dispense 90 with 1 refill, baclofen 10 mg every 6 hours dispense 120 with one refill Interventions= bilateral RFA L4-5 and L5-S1 Is awaiting her hip specialist to call her with an appointment availability, in the mean time i encouraged her to get a Right hip x-ray to take with her too the appointment I spent 33 minutes on patient care today. The time was used to review medical records including relevant urine studies and prescription history (MAPs), review of the available imaging, evaluation and examination the patient, coordination of care at the medical staff and if applicable referring physicians, as well as creation of the medical record. , PQRS Measure Charge Sheet Measure #130: Documentation of Current Meds in Medical Chart: Patient's medications documented in chart Measure #226: Tobacco Use: Screen & Cessation Intervention: Pt screened for tobacco use AND intervention given Measure #111: Pneumonia Vaccination: Pneumococcal vaccine administered or previously received Measure #47: Advance Care Plan: Advance care planning discussed & documented, pt chose/unable to give Measure #412: Opioid Treatment Agreement: Documented signed opioid trtmnt agreemnt min once during opioid trtmnt Measure #408: Opioid Therapy Follow-up Evaluation: Patient had f/u eval minimum every 3 months during opioid therapy Measure #317: Preventitive Care & Scrn High Bld Press & F/U: Normal blood pressure, f/u not required Measure #128: Body Mass Index (BMI) Screening & Follow-up: BMI documented ABOVE normal parameters - f/u documented Measure #131: Pain Assessment & Follow-up: Pain positive & plan documented, Follow-up scheduled Measure #431: Unhealthy Alcohol Use Preventative Care & Scrn: Patient not identified as an unhealthy alcohol user PQRS Narrative: PQRS Measure Charge Sheet PQRS Narrative: Smoking Status Current every day smoker Narcotic Agreement Date Signed 08/10/19 Pain Intensity [Back] 9 Scale Used Numeric (1 - 10) Hx Alcohol Use (MH) No Home Medications: Ambulatory Orders Atorvastatin [Lipitor] 80 mg PO HS 06/07/14 Ipratropium-Albuterol Nebulize [Duoneb 0.5 mg-3 mg/3 ml Soln] 3 ml INHALATION RT-QID PRN 06/07/14 Nitroglycerin Sl Tabs [Nitrostat] 0.4 mg SUBLINGUAL Q5M PRN 06/07/14 Beclomethasone Dipropionate [Qvar 80 mcg/puff] 2 puff INHALATION RT-BID 08/11/14 Isosorbide Mononitrate ER [Imdur] 30 mg PO DAILY 11/03/14 DULoxetine HCL [Cymbalta] 60 mg PO HS 04/19/15 Melatonin 5 mg PO HS 08/05/18 Ondansetron [Zofran] 4 mg PO Q8HR PRN 09/25/18 Ergocalciferol (Vitamin D2) [Vitamin D2] 50,000 unit PO OCHOA 12/29/18 Aspirin [Adult Low Dose Aspirin EC] 81 mg PO QAM 04/14/19 traZODone HCL 300 mg PO HS 04/14/19 Loratadine 10 mg PO QAM 08/20/19 Albuterol Sulfate [Ventolin HFA] 2 puff INHALATION RT-Q4H PRN 11/19/19 busPIRone HCl [Buspar] 15 mg PO BID 11/19/19 Losartan [Cozaar] 50 mg PO DAILY #30 tab 11/20/19 Metoprolol Tartrate [Lopressor] 25 mg PO BID #60 tab 11/20/19 Tiotropium [place] [Spiriva] 1 cap INHALATION RT-DAILY 02/18/20 Acetaminophen [Tylenol] 650 mg PO DAILY PRN 05/17/20 Ibuprofen [Motrin Ib] 400 mg PO DAILY PRN 05/17/20 Naproxen Sodium [Aleve] 220 mg PO DAILY PRN 05/17/20 Montelukast Sodium [Singulair] 10 mg PO HS 08/05/20 Furosemide [Lasix] 20 mg PO DAILY 09/29/20 Baclofen 10 mg PO Q6HR PRN 30 Days #120 tab 10/05/20 HYDROcodone/APAP 10-325MG [[place] 10-325] 1 tab PO Q8H PRN 30 Days #90 tab 10/05/20 Pregabalin [Lyrica] 100 mg PO TID #90 cap 10/05/20 Controlled Substance Measures - Controlled Substance Measures Is patient prescribed a controlled substance at discharge?: Yes When asked, does pt state using other controlled substances?: No If prescribed controlled substance>3 days was MAPS reviewed?: Yes If Rx opioid, was Start Talking consent form obtained?: Yes If opioid is for acute pain is fill amount 7 days or less?: No Was information provided regarding opioid addiction?: Yes
== END ==
CPT/HCPCS: 99211

== ENCOUNTER → 2020-11-30 | Outpatient (CLI) | payer MEDICARE ==
[2020-11-30 08:11] VITALS: BP 134/80; PULSE 72; RESP 16; TEMP 97.5
--- NOTE | 2021-01-11 13:33 | P.PAINPG ---
Subjective Progress Note Date: 11/30/20 This is a follow-up visit for this 55 years old female with a history of chronic severe low back pain she is diagnosed with lumbar degenerative disc disease and lumbar spondylosis with lumbar facet arthropathy, back pain well managed with interventional pain management(radiofrequency thermocoagulation of the median branch lumbar area ) and medication management she is currently on [place] 10/325 every 8 hours Lyrica 100 mg 3 times a day and baclofen 10 mg every 6 hours, she denies any side effect of the medication she denies any excessive drowsiness or sleepiness she denies any change in the bowel movement or urination she is here today for medication management, and medication refill. In the past she has complained of R Hip pain, we had asked her to see a hip specialist and gave her a prescription for a hip x-ray but she has never gotten this. in our last visit we gave her another prescription for hip x-ray. Here for follow up today. Notes that her hip pain is mostly same. She is scheduled to get her hip x-ray today. Scheduled for her bilateral radiofrequency ablations this Saturday. We'll make an appointment with a physician for hip evaluation after she gets her x- ray. Medication doing well for her otherwise In addition to above, 13-point review of systems is also negative for chest pain, shortness of breath, changes in vision, changes in hearing, new onset weakness, abdominal pain, diarrhea, extreme fatigue, malaise, fever, skin changes, homicidal or suicidal ideation, or bowel or bladder incontinence. - Exam -Constitutiona : Cooperative , not in acute distress . -HEENT : neck : supple , no Lymphadenopathy , normal thyroid size . eyes : no ptosis , no icterus, no photophobia . ENT : normal of hearing , normal oropharynx , no Thrush . - Respiratory : Chest clear to auscultations Bilaterally , no wheezing , no Rhonchi . - Cardiovascula : regular rate and rhythm , S1 , S2 , no S3 , no S4. - Gastrointestina : abdomen soft no tenderness , bowel sounds normal - Genitourinary : Deferred . - neurologic : Cranial nerve II to XII intact , no focal neurological deficit . -psychatric : alert , oriented X 3 , appropriate affect , intact judgment and insight . -Lymphatic : no Lymphadenopathy . - musculoskeltal : Lumber spine motor strength lower extremities ,thigh and legs 5/5 Right side , 5/5 Left side deep tendon reflexes : normal Knee Jerk , normal ankle Jerk positive lumber facet Loading Test Range of motion of the lumbar spine Flexion 30 degrees, extension 10 degrees strait leg raising test , positive at 45 degree Fabere test positive RT and positive LT . tenderness over the Sacroiliac joint on the R and L sides Flexion and extension and lateral rotation of the right hip associated with pain Abduction and adduction ,and rotation of the right hip associated with pain Assessment and Plan Plan: Assessment and plan= chronic low back pain secondary to lumbar degenerative disc disease , lumbar spondylosis with lumbar facet arthropathy . Lumbar radiculopathy, right hip arthralgia chronic and current use of high-risk medication (opioids) Patient denies any side effects of the current pain medication and the current treatment/medication helping the patient to do activity of daily living , Diagnoses, prognosis, treatment options, including but not limited to physical therapy, medication management, interventional therapies, and surgery, were discussed with the patient All the questions answered The narcotic consent was signed and patient agreed and understood the side effects and complications of opioid treatment. Patient signed the narcotic agreement, and was orally counseled, not to overuse, not to abuse, not to Divert , not tp sell pain medication, and to take it as prescribed only, Patient was counseled not to drive or operate heavy equipment while using narcotic medication, and advised not to use alcohol or any Illicit drugs while using the narcotics. understanding that lack of compliance with any of the above instructions, will likely to cause discharge from, the pain service, not to renew his narcotic prescriptions MAPS Reviewed and it was appropriate . Medication managements= patient will be given prescription refills for [place] 10/325 every 8 hours dispense 90 , Lyrica 1 mg 3 times a day dispense 90 with 1 refill, baclofen 10 mg every 6 hours dispense 120 with one refill Interventions= bilateral RFA L4-5 and L5-S1 this Saturday. She will get hip x- ray today and follow up with physician for that after. I spent 23 minutes on patient care today. The time was used to review medical records including relevant urine studies and prescription history (MAPs), review of the available imaging, evaluation and examination the patient, coordination of care at the medical staff and if applicable referring physicians, as well as creation of the medical record. , PQRS Measure Charge Sheet Measure #130: Documentation of Current Meds in Medical Chart: Patient's medications documented in chart Measure #226: Tobacco Use: Screen & Cessation Intervention: Pt screened for tobacco use AND intervention given Measure #111: Pneumonia Vaccination: Pneumococcal vaccine administered or previously received Measure #47: Advance Care Plan: Advance care planning discussed & documented, pt chose/unable to give Measure #412: Opioid Treatment Agreement: Documented signed opioid trtmnt agreemnt min once during opioid trtmnt Measure #408: Opioid Therapy Follow-up Evaluation: Patient had f/u eval minimum every 3 months during opioid therapy Measure #317: Preventitive Care & Scrn High Bld Press & F/U: Normal blood pressure, f/u not required Measure #128: Body Mass Index (BMI) Screening & Follow-up: BMI documented ABOVE normal parameters - f/u documented Measure #131: Pain Assessment & Follow-up: Pain positive & plan documented, Follow-up scheduled Measure #431: Unhealthy Alcohol Use Preventative Care & Scrn: Patient not suzy ntified as an unhealthy alcohol user PQRS Narrative: PQRS Measure Charge Sheet PQRS Narrative: Smoking Status Current every day smoker Narcotic Agreement Date Signed 08/10/19 Hx Alcohol Use (MH) No Home Medications: Ambulatory Orders Atorvastatin [Lipitor] 80 mg PO HS 06/07/14 Ipratropium-Albuterol Nebulize [Duoneb 0.5 mg-3 mg/3 ml Soln] 3 ml INHALATION RT-QID PRN 06/07/14 Nitroglycerin Sl Tabs [Nitrostat] 0.4 mg SUBLINGUAL Q5M PRN 06/07/14 Beclomethasone Dipropionate [Qvar 80 mcg/puff] 2 puff INHALATION RT-BID 08/11/14 Isosorbide Mononitrate ER [Imdur] 30 mg PO DAILY 11/03/14 DULoxetine HCL [Cymbalta] 60 mg PO HS 04/19/15 Melatonin 5 mg PO HS 08/05/18 Ondansetron [Zofran] 4 mg PO Q8HR PRN 09/25/18 Ergocalciferol (Vitamin D2) [Vitamin D2] 50,000 unit PO OCHOA 12/29/18 Aspirin [Adult Low Dose Aspirin EC] 81 mg PO QAM 04/14/19 traZODone HCL 300 mg PO HS 04/14/19 Loratadine 10 mg PO QAM PRN 08/20/19 Albuterol Sulfate [Ventolin HFA] 2 puff INHALATION RT-Q4H PRN 11/19/19 busPIRone HCl [Buspar] 15 mg PO BID 11/19/19 Losartan [Cozaar] 50 mg PO DAILY #30 tab 11/20/19 Metoprolol Tartrate [Lopressor] 25 mg PO BID #60 tab 11/20/19 Tiotropium [place] [Spiriva] 1 cap INHALATION RT-DAILY 02/18/20 Acetaminophen [Tylenol] 650 mg PO DAILY PRN 05/17/20 Ibuprofen [Motrin Ib] 400 mg PO DAILY PRN 05/17/20 Naproxen Sodium [Aleve] 220 mg PO DAILY PRN 05/17/20 Montelukast Sodium [Singulair] 10 mg PO HS 08/05/20 Furosemide [Lasix] 20 mg PO DAILY 09/29/20 Baclofen 10 mg PO Q6H PRN 11/30/20 HYDROcodone/APAP 10-325MG [[place] 10-325] 1 tab PO Q8H PRN 11/30/20 Pregabalin [Lyrica] 100 mg PO TID 11/30/20 Controlled Substance Measures - Controlled Substance Measures Is patient prescribed a controlled substance at discharge?: Yes When asked, does pt state using other controlled substances?: No If prescribed controlled substance>3 days was MAPS reviewed?: Yes If Rx opioid, was Start Talking consent form obtained?: Yes If opioid is for acute pain is fill amount 7 days or less?: No Was information provided regarding opioid addiction?: Yes
== END ==
LOC: PNWHC3 08:01
PROVIDERS: ATTEND Anesthesiology
DX: M51.16 Intervertebral disc disorders with radiculopathy, lumbar region (principal); M47.26 Other spondylosis with radiculopathy, lumbar region; M25.551 Pain in right hip; Z79.891 Long term (current) use of opiate analgesic; G89.29 Other chronic pain; F17.200 Nicotine dependence, unspecified, uncomplicated
CPT/HCPCS: 99211

== ENCOUNTER → 2020-11-30 | Outpatient (CLI) | payer MEDICARE ==
--- NOTE | 2020-11-30 09:02 | XR ---
EXAMINATION TYPE: XR Hip Complete RT DATE OF EXAM: 11/30/2020 CLINICAL HISTORY: pain TECHNIQUE: AP and frogleg views of the right hip are obtained. COMPARISON: None. FINDINGS: There is no acute fracture/dislocation evident. The joint space appears within normal li mits. The overlying soft tissue appears unremarkable. IMPRESSION: 1. There is no acute fracture or dislocation. ICD 10 NO FRACTURE, INITIAL EVALUATION
== END | disposition home or self-care (01) ==
LOC: RADXRMAIN 08:30
PROVIDERS: ATTEND Anesthesiology
DX: M25.551 Pain in right hip (principal)
CPT/HCPCS: 73502

== ENCOUNTER 2020-12-02 06:03 | Day surgery (SDC) | payer MEDICARE ==
--- NOTE | 2020-11-30 08:11 | P.PAINPG ---
Subjective Progress Note Date: 11/30/20 This is a follow-up visit for this 55 years old female with a history of chronic severe low back pain she is diagnosed with lumbar degenerative disc disease and lumbar spondylosis with lumbar facet arthropathy, back pain well managed with interventional pain management(radiofrequency thermocoagulation of the median branch lumbar area ) and medication management she is currently on [place] 10/325 every 8 hours Lyrica 100 mg 3 times a day and baclofen 10 mg every 6 hours, she denies any side effect of the medication she denies any excessive drowsiness or sleepiness she denies any change in the bowel movement or urination she is here today for medication management, and medication refill. In the past she has complained of R Hip pain, we had asked her to see a hip specialist and gave her a prescription for a hip x-ray but she has never gotten this. in our last visit we gave her another prescription for hip x-ray. Here for follow up today. Notes that her hip pain is mostly same. She is scheduled to get her hip x-ray today. Scheduled for her bilateral radiofrequency ablations this Saturday. We'll make an appointment with a physician for hip evaluation after she gets her x- ray. Medication doing well for her otherwise In addition to above, 13-point review of systems is also negative for chest pain, shortness of breath, changes in vision, changes in hearing, new onset weakness, abdominal pain, diarrhea, extreme fatigue, malaise, fever, skin changes, homicidal or suicidal ideation, or bowel or bladder incontinence. - Exam -Constitutiona : Cooperative , not in acute distress . -HEENT : neck : supple , no Lymphadenopathy , normal thyroid size . eyes : no ptosis , no icterus, no photophobia . ENT : normal of hearing , normal oropharynx , no Thrush . - Respiratory : Chest clear to auscultations Bilaterally , no wheezing , no Rhonchi . - Cardiovascula : regular rate and rhythm , S1 , S2 , no S3 , no S4. - Gastrointestina : abdomen soft no tenderness , bowel sounds normal - Genitourinary : Deferred . - neurologic : Cranial nerve II to XII intact , no focal neurological deficit . -psychatric : alert , oriented X 3 , appropriate affect , intact judgment and insight . -Lymphatic : no Lymphadenopathy . - musculoskeltal : Lumber spine motor strength lower extremities ,thigh and legs 5/5 Right side , 5/5 Left side deep tendon reflexes : normal Knee Jerk , normal ankle Jerk positive lumber facet Loading Test Range of motion of the lumbar spine Flexion 30 degrees, extension 10 degrees strait leg raising test , positive at 45 degree Fabere test positive RT and positive LT . tenderness over the Sacroiliac joint on the R and L sides Flexion and extension and lateral rotation of the right hip associated with pain Abduction and adduction ,and rotation of the right hip associated with pain Assessment and Plan Plan: Assessment and plan= chronic low back pain secondary to lumbar degenerative disc disease , lumbar spondylosis with lumbar facet arthropathy . Lumbar radiculopathy, right hip arthralgia chronic and current use of high-risk medication (opioids) Patient denies any side effects of the current pain medication and the current treatment/medication helping the patient to do activity of daily living , Diagnoses, prognosis, treatment options, including but not limited to physical therapy, medication management, interventional therapies, and surgery, were discussed with the patient All the questions answered The narcotic consent was signed and patient agreed and understood the side effects and complications of opioid treatment. Patient signed the narcotic agreement, and was orally counseled, not to overuse, not to abuse, not to Divert , not tp sell pain medication, and to take it as prescribed only, Patient was counseled not to drive or operate heavy equipment while using narcotic medication, and advised not to use alcohol or any Illicit drugs while using the narcotics. understanding that lack of compliance with any of the above instructions, will likely to cause discharge from, the pain service, not to renew his narcotic prescriptions MAPS Reviewed and it was appropriate . Medication managements= patient will be given prescription refills for [place] 10/325 every 8 hours dispense 90 , Lyrica 1 mg 3 times a day dispense 90 with 1 refill, baclofen 10 mg every 6 hours dispense 120 with one refill Interventions= bilateral RFA L4-5 and L5-S1 this Saturday. She will get hip x- ray today and follow up with physician for that after. I spent 23 minutes on patient care today. The time was used to review medical records including relevant urine studies and prescription history (MAPs), review of the available imaging, evaluation and examination the patient, coordination of care at the medical staff and if applicable referring physicians, as well as creation of the medical record. , PQRS Measure Charge Sheet Measure #130: Documentation of Current Meds in Medical Chart: Patient's medications documented in chart Measure #226: Tobacco Use: Screen & Cessation Intervention: Pt screened for tobacco use AND intervention given Measure #111: Pneumonia Vaccination: Pneumococcal vaccine administered or previously received Measure #47: Advance Care Plan: Advance care planning discussed & documented, pt chose/unable to give Measure #412: Opioid Treatment Agreement: Documented signed opioid trtmnt agreemnt min once during opioid trtmnt Measure #408: Opioid Therapy Follow-up Evaluation: Patient had f/u eval minimum every 3 months during opioid therapy Measure #317: Preventitive Care & Scrn High Bld Press & F/U: Normal blood pressure, f/u not required Measure #128: Body Mass Index (BMI) Screening & Follow-up: BMI documented ABOVE normal parameters - f/u documented Measure #131: Pain Assessment & Follow-up: Pain positive & plan documented, Follow-up scheduled Measure #431: Unhealthy Alcohol Use Preventative Care & Scrn: Patient not suzy ntified as an unhealthy alcohol user PQRS Narrative: PQRS Measure Charge Sheet PQRS Narrative: Smoking Status Current every day smoker Narcotic Agreement Date Signed 08/10/19 Hx Alcohol Use (MH) No Home Medications: Ambulatory Orders Atorvastatin [Lipitor] 80 mg PO HS 06/07/14 Ipratropium-Albuterol Nebulize [Duoneb 0.5 mg-3 mg/3 ml Soln] 3 ml INHALATION RT-QID PRN 06/07/14 Nitroglycerin Sl Tabs [Nitrostat] 0.4 mg SUBLINGUAL Q5M PRN 06/07/14 Beclomethasone Dipropionate [Qvar 80 mcg/puff] 2 puff INHALATION RT-BID 08/11/14 Isosorbide Mononitrate ER [Imdur] 30 mg PO DAILY 11/03/14 DULoxetine HCL [Cymbalta] 60 mg PO HS 04/19/15 Melatonin 5 mg PO HS 08/05/18 Ondansetron [Zofran] 4 mg PO Q8HR PRN 09/25/18 Ergocalciferol (Vitamin D2) [Vitamin D2] 50,000 unit PO OCHOA 12/29/18 Aspirin [Adult Low Dose Aspirin EC] 81 mg PO QAM 04/14/19 traZODone HCL 300 mg PO HS 04/14/19 Loratadine 10 mg PO QAM PRN 08/20/19 Albuterol Sulfate [Ventolin HFA] 2 puff INHALATION RT-Q4H PRN 11/19/19 busPIRone HCl [Buspar] 15 mg PO BID 11/19/19 Losartan [Cozaar] 50 mg PO DAILY #30 tab 11/20/19 Metoprolol Tartrate [Lopressor] 25 mg PO BID #60 tab 11/20/19 Tiotropium [place] [Spiriva] 1 cap INHALATION RT-DAILY 02/18/20 Acetaminophen [Tylenol] 650 mg PO DAILY PRN 05/17/20 Ibuprofen [Motrin Ib] 400 mg PO DAILY PRN 05/17/20 Naproxen Sodium [Aleve] 220 mg PO DAILY PRN 05/17/20 Montelukast Sodium [Singulair] 10 mg PO HS 08/05/20 Furosemide [Lasix] 20 mg PO DAILY 09/29/20 Baclofen 10 mg PO Q6HR PRN 30 Days #120 tab 11/30/20 HYDROcodone/APAP 10-325MG [[place] 10-325] 1 tab PO Q4HR PRN 30 Days #90 tab 11/30/20 HYDROcodone/APAP 10-325MG [[place] 10-325] 1 tab PO Q8H PRN 30 Days #90 tab 11/30/20 Pregabalin [Lyrica] 100 mg PO TID #90 cap 11/30/20 Pregabalin [Lyrica] 100 mg PO TID 30 Days #90 cap 11/30/20 Controlled Substance Measures - Controlled Substance Measures Is patient prescribed a controlled substance at discharge?: Yes When asked, does pt state using other controlled substances?: No If prescribed controlled substance>3 days was MAPS reviewed?: Yes If Rx opioid, was Start Talking consent form obtained?: Yes If opioid is for acute pain is fill amount 7 days or less?: No Was information provided regarding opioid addiction?: Yes
[2020-11-30 10:51] VITALS: BMI 39.1
[2020-12-02 06:24] VITALS: RESP 16; TEMP 97.3
[2020-12-02] MEDS ORDERED: LACTATED RINGERS 1,000 ML IV ONE (06:30)
[2020-12-02] MEDS ORDERED: LIDOCAINE 1% (10MG/ML) FOR IV START INTRADERMA ONE (06:31)
[2020-12-02] MEDS ORDERED: fentaNYL (PF) 50 MCG/ML 2 ML AMP ONE (07:00)
[2020-12-02] MEDS ORDERED: ROPIVACAINE 5MG/ML 20ML VIAL ONE (07:00)
[2020-12-02] MEDS ORDERED: LIDOCAINE 1% INJ 10MG/ML (20 ML MDV) ONE (07:00)
[2020-12-02] MEDS ORDERED: MIDAZOLAM 2 MG/2 ML VIAL ONE (07:00)
--- NOTE | 2020-12-02 07:34 | P.PCN ---
Date of Procedure: 12/02/20 Description of Procedure: PREOPERATIVE DIAGNOSIS: Lumbar Spondylosis POSTOPERATIVE DIAGNOSIS: Same PROCEDURES: Radiofrequency ablation of the L3, L4, L5 medial branches with fluoroscopic guidance bilaterally SURGEON: Chris Chandler MD. ANESTHESIA: Lidocaine 1% 5 mL, Moderate sedation with anesthesia team EBL: Minimal Fluoroscopy was used for the procedure and images were saved in the radiology portion of the chart. PROCEDURE INDICATION: The patient with low back pain secondary to lumbar facet arthropathy who had more than 50% relief of pain with previous diagnostic lumbar medial branch block X2. PROCEDURE DESCRIPTION / TECHNIQUE: The patient was seen and identified in the preoperative area. Risks, benefits, complications, including but not limited to risk of infection ,bleeding , allergic reactions to the medications and incomplete pain relief , and alternatives were discussed with the patient, the patient agreed to proceed with the procedure and signed the consent. IV was started. The operative site was marked. Patient was taken to the OR and time out was completed. The patient was placed in the prone position on the procedure table. The lumbar area was prepped and draped in the usual sterile fashion. . Vital signs were closely monitored during the procedure .IV sedation was used during the procedure to decrease patients anxiety. Using AP and then oblique fluoroscopy, the "eye of the Jorge dog" corresponding to the connection between the superior and transverse articular processes of the L4 and L5 as well as the sacral ala were identified, marked, and localized with 1% lidocaine. Subsequently, an 18 gauge 150-mm radiofrequency cannula with a 10-mm active tip was advanced guided by fluoroscopy to the identified target at each site. Needle positioning was confirmed on AP, oblique and lateral fluoroscopy. Motor testing at 2.5 Hz was done with paraspinal muscle stimulation only, and no radicular symptoms down the legs. Then 1 mL of 0.5% ropivacaine was injected in each site. Radiofrequency thermocoagulation at 80 degrees celsius for 90 seconds was then performed. Pep were removed. Sterile dressings were applied. COMPLICATIONS: No acute complications. DISPOSITION / PLANS: The patient was placed in a supine position and transferred to the recovery area in a stable condition for observation and was discharged from the recovery room after meeting discharge criteria. Home discharge instructions given to the patient by the staff. The patient will follow up in clinic in 4 weeks.
[2020-12-02] MEDS ORDERED: IV FLUID CONTINUATION 1,000 ML IV ONE (07:41)
--- NOTE | 2020-12-02 07:47 | FL ---
Fluoroscopy INDICATION: Pain FINDINGS: Fluoroscopy time: 28 seconds. Images obtained: 0. IMPRESSIONS: 1. Documentation of fluoroscopy.
[2020-12-02 07:56] VITALS: BP 139/84; PULSE 82
== END 2020-12-02 08:12 | disposition home or self-care (01) ==
LOC: ORPAIN 06:03
PROVIDERS: ATTEND Anesthesiology
DX: G89.29 Other chronic pain (principal); M47.816 Spondylosis without myelopathy or radiculopathy, lumbar region; Z79.891 Long term (current) use of opiate analgesic; Z79.899 Other long term (current) drug therapy; I25.10 Atherosclerotic heart disease of native coronary artery without angina pectoris; I10 Essential (primary) hypertension; E78.5 Hyperlipidemia, unspecified; J44.9 Chronic obstructive pulmonary disease, unspecified; G47.33 Obstructive sleep apnea (adult) (pediatric); E07.9 Disorder of thyroid, unspecified; F41.9 Anxiety disorder, unspecified; F32.9 Major depressive disorder, single episode, unspecified; M79.7 Fibromyalgia; G43.909 Migraine, unspecified, not intractable, without status migrainosus; Z79.82 Long term (current) use of aspirin; Z97.2 Presence of dental prosthetic device (complete) (partial)
CPT/HCPCS: 64635; 64636; J2250; J2001; J3010; J2795

== ENCOUNTER → 2021-01-25 | Outpatient (CLI) | payer MEDICARE ==
[2021-01-25 08:14] VITALS: BP 108/80; PULSE 74; RESP 16; TEMP 97.8
--- NOTE | 2021-01-25 08:34 | P.PN ---
Subjective Progress Note Date: 01/25/21 This is a follow-up visit for this 55 years old female with a history of chronic severe low back pain ,she is diagnosed with lumbar degenerative disc disease ,and lumbar spondylosis with lumbar facet arthropathy, pain well managed with interventional pain management(radiofrequency thermocoagulation of the medial branch lumbar area ) ,and medication management, she is currently on [place] 10/325 every 8 hours Lyrica 100 mg 3 times a day and baclofen 10 mg every 6 hours, she denies any side effect of the medication she denies any excessive drowsiness or sleepiness she denies any change in the bowel movement or urination she is here today for medication management, and medication refill, Physical examination -Constitutiona : Cooperative , not in acute distress . -HEENT : nech : supple , no Lymphadenopathy , normal thyroid size . eyes : no ptosis , no icterus, no photophobia . ENT : normal of hearing , normal oropharynx , no Thrush . - Respiratory : Chest clear to auscultations Bilaterally , no wheezing , no Rhonchi . - Cardiovascula : regular rate and rhythem , S1 , S2 , no S3 , no S4. - Gastrointestina : abdomen soft no tenderness , bowel sounds , no organomegally . - Genitourinary : Defferred . - neurologic : Cranial nerve II to XII intact , no focal neurological deffecit . -psychatric : alert , oriented X 3 , appropriate affect , intact judgment and insight . -Lymphatic : no Lymphadenopathy . - musculoskeltal : Lumber spine moter stegnth lower extremities ,thigh and legs 5/5 Right side , 5/5 Left side Assessment and plan= chronic low back pain secondary to lumbar degenerative disc disease , lumbar spondylosis with lumbar facet arthropathy . Lumbar radiculopathy chronic and current use of high-risk medication (opioids) Patient denies any side effects of the current pain medication and the current treatment/medication helping the patient to do activity of daily living , Diagnoses, prognosis, treatment options, including but not limited to physical therapy, medication management, interventional therapies, and surgery, were discussed with the patient All the questions answered The narcotic consent was signed and patient agreed and understood the side effects and complications of opioid treatment. Patient signed the narcotic agreement, and was orally counseled, not to overuse, not to abuse, not to Divert , not tp sell pain medication, and to take it as prescribed only, Patient was counseled not to drive or operate heavy equipment while using narcotic medication, and advised not to use alcohol or any Illicit drugs while using the narcotis. understanding that lack of compliance with any of the above instructions, will likely to cause discharge from, the pain service, not to renew his narcotic prescriptions MAPS Reviwed and it was apropriate . Medication managements= patient will be given prescription refills for [place] 10/325 every 8 hours dispense 90 with 1 refill, Lyrica 1 mg 3 times a day dispense 90 with 1 refill, baclofen 10 mg every 6 hours dispense 120 with one refill Interventions= none PQRS Measure Charge Sheet Measure #130: Documentation of Current Meds in Medical Chart: Patient's medications documented in chart Measure #226: Tobacco Use: Screen & Cessation Intervention: Pt screened for tobacco use AND intervention given Measure #111: Pneumonia Vaccination: Pneumococcal vaccine administered or previously received Measure #47: Advance Care Plan: Advance care planning discussed & documented, pt chose/unable to give Measure #412: Opioid Treatment Agreement: Documented signed opioid trtmnt agreemnt min once during opioid trtmnt Measure #408: Opioid Therapy Follow-up Evaluation: Patient had f/u eval minimum every 3 months during opioid therapy Measure #317: Preventitive Care & Scrn High Bld Press & F/U: Normal blood pressure, f/u not required Measure #128: Body Mass Index (BMI) Screening & Follow-up: BMI documented ABOVE normal parameters - f/u documented Measure #131: Pain Assessment & Follow-up: Pain positive & plan documented, Follow-up scheduled Measure #431: Unhealthy Alcohol Use Preventative Care & Scrn: Patient not identified as an unhealthy alcohol user PQRS Narrative: Time with Patient: Less than 30 Objective - Vital Signs Vital signs: Vital Signs Temp 97.8 F 01/25/21 08:11 Pulse 74 01/25/21 08:11 Resp 16 01/25/21 08:11 BP 108/80 01/25/21 08:11 Pulse Ox 96 01/25/21 08:11 Intake & Output 01/24/21 01/25/21 01/25/21 18:59 06:59 18:59 Weight 114.759 kg
== END ==
LOC: PNWHC3 07:52
PROVIDERS: ATTEND Specialist
DX: M51.16 Intervertebral disc disorders with radiculopathy, lumbar region (principal); M47.26 Other spondylosis with radiculopathy, lumbar region; G89.29 Other chronic pain; F17.200 Nicotine dependence, unspecified, uncomplicated; Z79.891 Long term (current) use of opiate analgesic
CPT/HCPCS: 99211

== ENCOUNTER → 2021-03-22 | Outpatient (CLI) | payer MEDICARE ==
--- NOTE | 2021-03-22 07:54 | P.PAINPG ---
Subjective Progress Note Date: 03/22/21 This is a follow-up visit for this 55 years old female with a history of chronic severe low back pain ,she is diagnosed with lumbar degenerative disc disease ,and lumbar spondylosis with lumbar facet arthropathy, pain well managed with interventional pain management(radiofrequency thermocoagulation of the medial branch lumbar area ) ,and medication management, she is currently on [place] 10/325 every 8 hours Lyrica 100 mg 3 times a day and baclofen 10 mg every 6 hours, she denies any side effect of the medication she denies any excessive drowsiness or sleepiness she denies any change in the bowel movement or urination she is here today for medication management, and medication refill, overall she is doing okay and there is no significant change in her pain or health status. Physical examination -Constitutiona : Cooperative , not in acute distress . - Respiratory : No dyspnea, SOB - Cardiovascula : regular rate and rhythem - Gastrointestina : abdomen soft no tenderness , bowel sounds , no organomegally . - neurologic : Cranial nerve II to XII intact , no focal neurological deffecit . -psychatric : alert , oriented X 3 , appropriate affect , intact judgment and insight . - musculoskeltal : Lumber spine moter stegnth lower extremities ,thigh and legs 5/5 Right side , 5/5 Left side Assessment and plan= chronic low back pain secondary to lumbar degenerative disc disease , lumbar spondylosis with lumbar facet arthropathy . Lumbar radiculopathy chronic and current use of high-risk medication (opioids) Patient denies any side effects of the current pain medication and the current treatment/medication helping the patient to do activity of daily living , Diagnoses, prognosis, treatment options, including but not limited to physical therapy, medication management, interventional therapies, and surgery, were discussed with the patient All the questions answered The narcotic consent was signed and patient agreed and understood the side effects and complications of opioid treatment. Patient signed the narcotic agreement, and was orally counseled, not to over use, not to abuse, not to Divert , not tp sell pain medication, and to take it as prescribed only, Patient was counseled not to drive or operate heavy equipment while using narcotic medication, and advised not to use alcohol or any Illicit drugs while using the narcotis. understanding that lack of compliance with any of the above instructions, will likely to cause discharge from, the pain service, not to renew his narcotic prescriptions MAPS Reviwed and it was apropriate . Medication managements= patient will be given prescription refills for [place] 10/325 every 8 hours dispense 90 with 1 refill, Lyrica 1 mg 3 times a day dispense 90 with 1 refill, baclofen 10 mg every 6 hours dispense 120 with one refill Urinary drug screen will be performed today to ensure medication compliance given her chronic long-term opioid use Interventions= none at this time PQRS Measure Charge Sheet Measure #130: Documentation of Current Meds in Medical Chart: Patient's medications documented in chart Measure #226: Tobacco Use: Screen & Cessation Intervention: Pt screened for tobacco use AND intervention given Measure #111: Pneumonia Vaccination: Pneumococcal vaccine administered or previously received Measure #47: Advance Care Plan: Advance care planning discussed & documented, pt chose/unable to give Measure #412: Opioid Treatment Agreement: Documented signed opioid trtmnt agreemnt min once during opioid trtmnt Measure #408: Opioid Therapy Follow-up Evaluation: Patient had f/u eval minimum every 3 months during opioid therapy Measure #317: Preventitive Care & Scrn High Bld Press & F/U: Normal blood pressure, f/u not required Measure #128: Body Mass Index (BMI) Screening & Follow-up: BMI documented ABOVE normal parameters - f/u documented Measure #131: Pain Assessment & Follow-up: Pain positive & plan documented, Follow-up scheduled Measure #431: Unhealthy Alcohol Use Preventative Care & Scrn: Patient not identified as an unhealthy alcohol user PQRS Narrative: I have spent 25 minutes on patient care today. The time was used to review the medical records including relevant urine studies and prescription history, review of the available imaging, evaluation and examination of the patient, coordination of care with the medical staff and if applicable referring physicians, as well as creation of the medical record. PQRS Measure Charge Sheet PQRS Narrative: Smoking Status Current every day smoker Narcotic Agreement Date Signed 08/10/19 Pain Intensity [Lower Back] 7 Scale Used Numeric (1 - 10) Hx Alcohol Use (MH) No Home Medications: Ambulatory Orders Atorvastatin [Lipitor] 80 mg PO HS 06/07/14 Ipratropium-Albuterol Nebulize [Duoneb 0.5 mg-3 mg/3 ml Soln] 3 ml INHALATION RT-QID PRN 06/07/14 Nitroglycerin Sl Tabs [Nitrostat] 0.4 mg SUBLINGUAL Q5M PRN 06/07/14 Beclomethasone Dipropionate [Qvar 80 mcg/puff] 2 puff INHALATION RT-BID 08/11/14 Isosorbide Mononitrate ER [Imdur] 30 mg PO DAILY 11/03/14 DULoxetine HCL [Cymbalta] 60 mg PO HS 04/19/15 Melatonin 5 mg PO HS 08/05/18 Ondansetron [Zofran] 4 mg PO Q8HR PRN 09/25/18 Ergocalciferol (Vitamin D2) [Vitamin D2] 50,000 unit PO OCHOA 12/29/18 Aspirin [Adult Low Dose Aspirin EC] 81 mg PO QAM 04/14/19 traZODone HCL 300 mg PO HS 04/14/19 Loratadine 10 mg PO QAM PRN 08/20/19 Albuterol Sulfate [Ventolin HFA] 2 puff INHALATION RT-Q4H PRN 11/19/19 busPIRone HCl [Buspar] 15 mg PO BID 11/19/19 Losartan [Cozaar] 50 mg PO DAILY #30 tab 11/20/19 Metoprolol Tartrate [Lopressor] 25 mg PO BID #60 tab 11/20/19 Tiotropium [place] [Spiriva] 1 cap INHALATION RT-DAILY 02/18/20 Acetaminophen [Tylenol] 650 mg PO DAILY PRN 05/17/20 Naproxen Sodium [Aleve] 220 mg PO DAILY PRN 05/17/20 Montelukast Sodium [Singulair] 10 mg PO HS 08/05/20 Furosemide [Lasix] 20 mg PO DAILY 09/29/20 Docusate [Colace] 100 mg PO DAILY 03/16/21 Baclofen 10 mg PO Q6H PRN 30 Days #120 tab 03/22/21 HYDROcodone/APAP 10-325MG [[place] 10-325] 1 tab PO Q8H PRN 30 Days #90 tab 03/22/21 HYDROcodone/APAP 10-325MG [[place] 10-325] 1 tab PO Q8HR PRN 30 Days #90 tab 03/22/21 Pregabalin [Lyrica] 100 mg PO TID #90 cap 03/22/21 Controlled Substance Measures - Controlled Substance Measures Is patient prescribed a controlled substance at discharge?: Yes When asked, does pt state using other controlled substances?: No If prescribed controlled substance>3 days was MAPS reviewed?: Yes If Rx opioid, was Start Talking consent form obtained?: Yes If opioid is for acute pain is fill amount 7 days or less?: No Was information provided regarding opioid addiction?: No
[2021-03-22 07:57] VITALS: BP 122/77; PULSE 83; RESP 18; TEMP 98.1
== END ==
LOC: PNWHC3 07:37
PROVIDERS: ATTEND Anesthesiology
DX: G89.29 Other chronic pain (principal); M47.26 Other spondylosis with radiculopathy, lumbar region; M51.16 Intervertebral disc disorders with radiculopathy, lumbar region; Z79.891 Long term (current) use of opiate analgesic; F17.200 Nicotine dependence, unspecified, uncomplicated
CPT/HCPCS: 80307; G0482; G0463; 99212

== ENCOUNTER → 2021-05-17 | Outpatient (CLI) | payer MEDICARE ==
[2021-05-17 08:16] VITALS: BP 139/91; PULSE 96; RESP 18; TEMP 98.3
--- NOTE | 2021-05-17 08:42 | P.PN ---
Subjective Progress Note Date: 05/17/21 This is a follow-up visit for this 55 years old female with a history of chronic severe low back pain ,she is diagnosed with lumbar degenerative disc disease ,and lumbar spondylosis with lumbar facet arthropathy, pain well managed with interventional pain management(radiofrequency thermocoagulation of the medial branch lumbar area ) ,and medication management, she is currently on [place] 10/325 every 8 hours Lyrica 100 mg 3 times a day and baclofen 10 mg every 6 hours, she denies any side effect of the medication she denies any excessive drowsiness or sleepiness she denies any change in the bowel movement or urination she is here today for medication management, and medication refill, Physical examination -Constitutiona : Cooperative , not in acute distress . -HEENT : nech : supple , no Lymphadenopathy , normal thyroid size . eyes : no ptosis , no icterus, no photophobia . ENT : normal of hearing , normal oropharynx , no Thrush . - Respiratory : Chest clear to auscultations Bilaterally , no wheezing , no Rhonchi . - Cardiovascula : regular rate and rhythem , S1 , S2 , no S3 , no S4. - Gastrointestina : abdomen soft no tenderness , bowel sounds , no organomegally . - Genitourinary : Defferred . - neurologic : Cranial nerve II to XII intact , no focal neurological deffecit . -psychatric : alert , oriented X 3 , appropriate affect , intact judgment and insight . -Lymphatic : no Lymphadenopathy . - musculoskeltal : Lumber spine moter stegnth lower extremities ,thigh and legs 5/5 Right side , 5/5 Left side Assessment and plan= chronic low back pain secondary to lumbar degenerative disc disease , lumbar spondylosis with lumbar facet arthropathy . Lumbar radiculopathy chronic and current use of high-risk medication (opioids) Patient denies any side effects of the current pain medication and the current treatment/medication helping the patient to do activity of daily living , Diagnoses, prognosis, treatment options, including but not limited to physical therapy, medication management, interventional therapies, and surgery, were discussed with the patient All the questions answered The narcotic consent was signed and patient agreed and understood the side effects and complications of opioid treatment. Patient signed the narcotic agreement, and was orally counseled, not to overuse, not to abuse, not to Divert , not tp sell pain medication, and to take it as prescribed only, Patient was counseled not to drive or operate heavy equipment while using narcotic medication, and advised not to use alcohol or any Illicit drugs while using the narcotis. understanding that lack of compliance with any of the above instructions, will likely to cause discharge from, the pain service, not to renew his narcotic prescriptions MAPS Reviwed and it was apropriate . Medication managements= patient will be given prescription refills for [place] 10/325 every 8 hours dispense 90 with 1 refill, Lyrica 100 mg 3 times a day dispense 90 with 1 refill, baclofen 10 mg every 6 hours dispense 120 with one refill Interventions= none - PQRS measures = - Patient's medications are documented in the chart. -Tobacco use is negative and counseling.Given. -Patient's has not received pneumococcal vaccine. -Advanced care planning discussed, patient not eligible. -Opiate contract signed. -Pain positive and follow-up visit/procedure is scheduled. -Patient's blood pressure measured [139/91 ] , and documented in the record ,and patient will follow up with the primary care. -Patient's weight was measured and body mass index [ 39.2] above the normal limits and counseling was done. and patient instructed to follow-up with the primary care physician. -Patient was not identified as an unhealthy alcohol user Objective - Vital Signs Vital signs: Vital Signs Temp 98.3 F 05/17/21 08:11 Pulse 96 05/17/21 08:11 Resp 18 05/17/21 08:11 BP 139/91 05/17/21 08:11 Pulse Ox 95 05/17/21 08:11 Intake & Output 05/16/21 05/17/21 05/17/21 18:59 06:59 18:59 Weight 113.398 kg
== END ==
LOC: PNWHC3 08:03
PROVIDERS: ATTEND Specialist
DX: M51.16 Intervertebral disc disorders with radiculopathy, lumbar region (principal); M47.26 Other spondylosis with radiculopathy, lumbar region; G89.29 Other chronic pain; Z79.891 Long term (current) use of opiate analgesic; F17.200 Nicotine dependence, unspecified, uncomplicated
CPT/HCPCS: 99211

== ENCOUNTER → 2021-07-12 | Outpatient (CLI) | payer MEDICARE ==
[2021-07-12 08:39] VITALS: BP 154/101; PULSE 93; RESP 18; TEMP 97.8
--- NOTE | 2021-07-12 09:05 | P.PAINPG ---
Subjective Progress Note Date: 07/12/21 Principal diagnosis: Lumbar back pain Mrs. Helton is a 55 -year-old pleasant female came to the [facility] pain clinic for prescription refill follow-up visit . Patient has ongoing pain for many years. She had multiple intervention procedures for her lumbar back area including radiofrequency ablations, epidural, SI joint injections. Which helped in relieving her pain to some extent. Patient describes pain is aching, throbbing, constant type of pain. Pain is radiating to mid back of the thigh area. Patient rated pain levels are 6 out of 10 in severity. With the help of medications pain levels are 5-year 6 out of 10 in severity. Activities making pain worse. Medications, resting, interventional procedures, exercise helping in relieving patient's pain. Patient pain some days better than others. Overall activities decreased secondary to pain. Because of the pain sometimes patient is feeling lack of sleep, interest, and energy. Denied any side effects with the medications. Denied any bowel or bladder problems at this time. Patient denies any suicidal or homicidal ideations intent or plan. Patient denies any auditory or visual hallucinations. Patient denied any red flag symptoms related to pain. Objective - Exam General: Well-developed, well-nourished, no acute distress HEENT: Normocephalic, and atraumatic Neck: Supple, no neck swelling Psychiatric: Appropriate mood, and affect [employer]: No focal neurological deficits Musculoskeletal: Upper extremity: Normal strength, and range of motion. Sensation grossly intact Lower extremity: Normal strength, and decreased range of motion secondary to pain Lumbar spine: Paravertebral tenderness: positive Lumbar facet load test : positive Sacroiliac joint tenderness: Positive Thigh thrust test: Positive SI joint compression test: Positive Fabere test: Positive - Constitutional Constitutional Comment(s): 13 point review of Systems , and symptoms negative for chest pain, shortness of breath, change in vision, change in weakness, abdominal pain, diarrhea, extreme fatigue, malaise, fever, skin changes, suicidal/homicidal ideas, bowel incontinence or bladder incontinence. Assessment and Plan Assessment: Lumbar spondylosis without myelopathy Myofascial pain syndrome, and chronic pain syndrome Sacroiliac joint dysfunction Hip osteoarthritis Plan: 1 Opioid, and psychological risk tools, and scores were reviewed. Diagnoses, prognosis, and multiple treatment options including but not limited to physical therapy, interventional therapy, adjunct medication therapy, narcotic medication, and surgical options were discussed with the patient. And all questions were answered to the patient's satisfaction. #2 Opioid agreement: Patient was thoroughly discussed regarding the medication side effects, complications associated with narcotic use. Patient recommended do not drive while on narcotic medications, any other sedative medications, and illicit drugs including marijuana. Patient clearly understood. Patient has signed narcotic agreement and was again asked to re-read this document and will be given a copy to take home if requested. This document outlines the policies of the [facility]. It specifically counsels the patient to not misuse, overuse, abuse, divert, or sell medications, and to take them as prescribed by only one healthcare provider and store the medications in a safe and preferably locked location. This document also counsels against driving while using narcotic medications and also against using any alcohol or illicit or recreational drugs in conjunction with opioids. The patient verbalized understanding to staff that lack of compliance with any of the above will likely result in failure to renew narcotic prescriptions, possible discharge from the clinic, and possible legal ramifications thereafter. #3 Patient was counseled on importance of regular exercise. Including naye chi, aerobic exercises as tolerated. Which helps for chronic pain, and overall well- being. Patient also counseled regarding importance of weight control rolling chronic pain, and overall other health issues. By altering diet habits, minimizing sugar intake, and processed foods helps in minimizing Inflammation. Also discussed with the patient regarding intermittent fasting. #4 consultation: None #5 investigations: MAPS , urine drug test- reviewed #6 interventional procedures: None at this time, and patient refused #7 medications #1 [place] 10/325 by mouth every 8 hours as needed dispense 90 with no refill #2 Lyrica decreased from 100 mg to 75 mg by mouth every 8 hours dispense 90 with no refill #3 baclofen decreased 10 mg by mouth every 6 hours to every 8 hours dispense 90 with no refill #4 naloxone 4 mg nasal for respiratory depression as needed dispense #2 Medication side effects, complications, long-term consequences discussed with the patient. Patient recommended to contact the pain clinic if noticed any issues with given medications. #8 morphine milligrams equivalents dose ( MME) per day: 30. #9 TENS unit's, and percussion massage device #10 disposition scheduled to follow up with pain clinic for 5-6 weeks for follow-up . Had a lengthy discussion with the patient regarding gradual wean of her medications, patient clearly understood long-term consequences of narcotic medications, and Lyrica, and baclofen. Patient agreed to wean her baclofen, and Lyrica gradually in future clinic visits as tolerated.. Time with Patient: Less than 30 PQRS Measure Charge Sheet Measure #130: Documentation of Current Meds in Medical Chart: Patient's medications documented in chart Measure #226: Tobacco Use: Screen & Cessation Intervention: Pt not a tobacco user Measure #111: Pneumonia Vaccination: Pneumococcal vaccine NOT administered or previously given Measure #47: Advance Care Plan: Advance care planning discussed & documented, pt chose/unable to give Measure #412: Opioid Treatment Agreement: Documented signed opioid trtmnt agreemnt min once during opioid trtmnt Measure #408: Opioid Therapy Follow-up Evaluation: Patient had f/u eval minimum every 3 months during opioid therapy Measure #317: Preventitive Care & Scrn High Bld Press & F/U: Pre-hypertensive or hypertensive BP documented, pt will f/u with PCP Measure #128: Body Mass Index (BMI) Screening & Follow-up: BMI documented ABOVE normal parameters - f/u documented Measure #131: Pain Assessment & Follow-up: Pain positive & plan documented Measure #431: Unhealthy Alcohol Use Preventative Care & Scrn: Patient not identified as an unhealthy alcohol user PQRS Narrative: Smoking Status Current every day smoker Narcotic Agreement Date Signed 03/22/21 Hx Alcohol Use (MH) No Home Medications: Ambulatory Orders Atorvastatin [Lipitor] 80 mg PO HS 06/07/14 Ipratropium-Albuterol Nebulize [Duoneb 0.5 mg-3 mg/3 ml Soln] 3 ml INHALATION RT-QID PRN 06/07/14 Nitroglycerin Sl Tabs [Nitrostat] 0.4 mg SUBLINGUAL Q5M PRN 06/07/14 Beclomethasone Dipropionate [Qvar 80 mcg/puff] 2 puff INHALATION RT-BID 08/11/14 Isosorbide Mononitrate ER [Imdur] 30 mg PO DAILY 11/03/14 DULoxetine HCL [Cymbalta] 60 mg PO HS 04/19/15 Melatonin 5 mg PO HS 08/05/18 Ondansetron [Zofran] 4 mg PO Q8HR PRN 09/25/18 Ergocalciferol (Vitamin D2) [Vitamin D2] 50,000 unit PO OCHOA 12/29/18 Aspirin [Adult Low Dose Aspirin EC] 81 mg PO QAM 04/14/19 Loratadine 10 mg PO QAM PRN 08/20/19 Albuterol Sulfate [Ventolin HFA] 2 puff INHALATION RT-Q4H PRN 11/19/19 busPIRone HCl [Buspar] 15 mg PO BID 11/19/19 Losartan [Cozaar] 50 mg PO DAILY #30 tab 11/20/19 Metoprolol Tartrate [Lopressor] 25 mg PO BID #60 tab 11/20/19 Tiotropium [place] [Spiriva] 1 cap INHALATION RT-DAILY 02/18/20 Acetaminophen [Tylenol] 650 mg PO DAILY PRN 05/17/20 Naproxen Sodium [Aleve] 220 mg PO DAILY PRN 05/17/20 Montelukast Sodium [Singulair] 10 mg PO HS 08/05/20 Furosemide [Lasix] 20 mg PO DAILY 09/29/20 Docusate [Colace] 100 mg PO DAILY 03/16/21 Baclofen 10 mg PO Q6H PRN 30 Days #120 tab 05/17/21 HYDROcodone/APAP 10-325MG [[place] 10-325] 1 tab PO Q8H PRN 30 Days #90 tab 05/17/21 HYDROcodone/APAP 10-325MG [[place] 10-325] 1 tab PO Q8HR PRN 30 Days #90 tab 05/17/21 Pregabalin [Lyrica] 100 mg PO TID #90 cap 05/17/21 Temazepam [Restoril] 30 mg PO HS PRN 05/17/21 Controlled Substance Measures - Controlled Substance Measures Is patient prescribed a controlled substance at discharge?: Yes When asked, does pt state using other controlled substances?: Yes If prescribed controlled substance>3 days was MAPS reviewed?: Yes If Rx opioid, was Start Talking consent form obtained?: Yes If opioid is for acute pain is fill amount 7 days or less?: No Was information provided regarding opioid addiction?: Yes
== END ==
LOC: PNWHC3 08:06
DX: M47.816 Spondylosis without myelopathy or radiculopathy, lumbar region (principal); M79.18 Myalgia, other site; M53.3 Sacrococcygeal disorders, not elsewhere classified; M17.10 Unilateral primary osteoarthritis, unspecified knee; F17.200 Nicotine dependence, unspecified, uncomplicated
CPT/HCPCS: 99211

== ENCOUNTER → 2021-08-16 | Outpatient (CLI) | payer MEDICARE ==
--- NOTE | 2021-08-16 08:13 | P.PN ---
Subjective Progress Note Date: 08/16/21 Principal diagnosis: A 55 yr old female with a history of severe and chronic low back pain secondary to lumbar degenerative disc diseases and lumbar spondylosis with facet arthropathy presents today for medication refills. States her pain is 8 /10, dull & achy in the lower back and sharp, shooting and "zapping like electricty" towards the hips and numbness in the feet bilaterally. States her pain level has increased with weaning down from Lyrica. Also uses Baclofen but does not use Naloxonee Pain is provoked by excessive sitting or standing or massage. Pain is alleviated with sitting or standing for less than 30 minutes, medications, topical creams, heat, rest and repositioning. Interventional pain procedures completed include Patient is currently on Patient denies any side effects of the medication(s), denies excessive drowsiness or sleepiness, denies suicidal ideation and reports that the current pain medication is helping to control the pain and improve activities of daily living. Patient denies any motor or sensory deficits. Patient denies any fever or night sweats, denies any change in the bowel movements or urination. Physical Examination: -Constitutional: Cooperative. Not in acute distress . -HEENT: Neck is supple. No lymphadenopathy. No thyromegaly. Normal thyroid size. Eyes: No ptosis , no icterus, no photophobia. ENT: No auditory deficits. Normal oropharynx. No Thrush. - Respiratory: Chest clear to auscultations bilaterally. No wheezing. No rhonchi. - Cardiovascular: Regular rate and rhythm. S1 / S2 , no S3 , no S4. - Gastrointestinal: Abdomen soft no tenderness. Bowel sounds positive in all four quadrants. No organomegaly. - Genitourinary: Deferred. - Neurologic: Cranial nerve II to XII intact. No focal neurological deficits. - Psychatric: Alert & oriented x 3. Matching mood & appropriate affect. Judgment and insight intact. - Lymphatic: No Lymphadenopathy. - Musculoskeletal: Cervical spine: Muscle bulk/ tone/ strength in the bilateral upper extremities normal. Facet loading test cervical area positive. Lumbar spine: Motor bulk/ tone/ strength lower extremities , thigh and legs : 5/5 Deep tendon reflexes : Normal Knee Jerk. Normal Ankle Jerk . Mild vertebral body tenderness to palpation Lumbar Facet Loading Test positive Straight Leg Raise: positive at 30 degree right side/ left side Marquita test: positive right side / left side Range of motion: Range of motion in flexion of the lumbar spine <60 degrees Range of motion: Extension of the lumbar spine <20 degrees Severe tenderness over the Sacroiliac joint: right side / left side Assessment and plan: Chronic low back pain secondary to lumbar degenerative disc disease , lumbar spondylosis with facet arthropathy without myelopathy Reduction in frequency of Lyrica an daddition of Diclofenac gel should subsidize pain Four weeks of refills as pt needs to submit urine for UDS in approximately 1 month Chronic and current use of high-risk medication (Opioids). The patient was counseled about risk of opioid use, psychological risk associated with opioids and was orally counseled to not overuse , divert or sell medications. Pt is to store medication in a safe location. The patient is counseled against driving while using narcotic medications and also not to use alcohol or any illicit recreational drugs. Patient verbalized understanding that the lack of compliance will result in failure to renew narcotic prescription(s) as well as possible discharge from the clinic Diagnoses, prognosis and treatment options including but not limited to physical therapy, surgical interventions, interventional therapies and medication management including narcotics and adjuvant medication were discussed. All patient questions answered MAPS reviewed and it was appropriate. Prescription refill for [place] 10/ 325mg #90 no refill, baclofen reduced to 5mg #90 no refill, discontinue biofreeze gel, discontinue Naloxone this month, reduce Lyrica 75mg to BID #60 no refills I have spent 31 minutes on patient care today. Dr Wyatt was available by phone for the evaluation of this patient. The time was used to review the medical records including relevant urine studies and Prescription history (MAPs), review of the available imaging, evaluation and examination of the patient, coordination of care with the medical staff and if applicable referring physicians, as well as creation of the medical record PQRS Measure Charge Sheet PQRS Narrative: Smoking Status Current every day smoker Narcotic Agreement Date Signed 03/22/21 Pain Intensity [Lower Back] 7 Hx Alcohol Use (MH) No Home Medications: Ambulatory Orders Atorvastatin [Lipitor] 80 mg PO HS 06/07/14 Ipratropium-Albuterol Nebulize [Duoneb 0.5 mg-3 mg/3 ml Soln] 3 ml INHALATION RT-QID PRN 06/07/14 Nitroglycerin Sl Tabs [Nitrostat] 0.4 mg SUBLINGUAL Q5M PRN 06/07/14 Beclomethasone Dipropionate [Qvar 80 mcg/puff] 2 puff INHALATION RT-BID 08/11/14 Isosorbide Mononitrate ER [Imdur] 30 mg PO DAILY 11/03/14 DULoxetine HCL [Cymbalta] 60 mg PO HS 04/19/15 Melatonin 5 mg PO HS 08/05/18 Ondansetron [Zofran] 4 mg PO Q8HR PRN 09/25/18 Ergocalciferol (Vitamin D2) [Vitamin D2] 50,000 unit PO OCHOA 12/29/18 Aspirin [Adult Low Dose Aspirin EC] 81 mg PO QAM 04/14/19 Loratadine 10 mg PO QAM PRN 08/20/19 Albuterol Sulfate [Ventolin HFA] 2 puff INHALATION RT-Q4H PRN 11/19/19 busPIRone HCl [Buspar] 15 mg PO BID 11/19/19 Losartan [Cozaar] 50 mg PO DAILY #30 tab 11/20/19 Metoprolol Tartrate [Lopressor] 25 mg PO BID #60 tab 11/20/19 Tiotropium [place] [Spiriva] 1 cap INHALATION RT-DAILY 02/18/20 Acetaminophen [Tylenol] 650 mg PO DAILY PRN 05/17/20 Naproxen Sodium [Aleve] 220 mg PO DAILY PRN 05/17/20 Montelukast Sodium [Singulair] 10 mg PO HS 08/05/20 Furosemide [Lasix] 20 mg PO DAILY PRN 09/29/20 Docusate [Colace] 100 mg PO DAILY 03/16/21 HYDROcodone/APAP 10-325MG [[place] 10-325] 1 tab PO Q8H PRN 30 Days #90 tab 05/17/21 Baclofen 10 mg PO Q8H PRN 08/10/21 Pregabalin [Lyrica] 75 mg PO TID 08/10/21
[2021-08-16 16:49] VITALS: BP 142/91; PULSE 84; RESP 18; TEMP 98.1
== END ==
LOC: PNWHC3 07:14
PROVIDERS: ATTEND Physician Assistant Medical
DX: M51.36 Other intervertebral disc degeneration, lumbar region (principal); M47.816 Spondylosis without myelopathy or radiculopathy, lumbar region; G89.29 Other chronic pain; Z79.891 Long term (current) use of opiate analgesic; F17.200 Nicotine dependence, unspecified, uncomplicated
CPT/HCPCS: 99211

== ENCOUNTER → 2021-11-08 | Outpatient (CLI) | payer MEDICARE ==
--- NOTE | 2021-11-08 08:04 | P.PN ---
Subjective Progress Note Date: 11/08/21 Principal diagnosis: A 56 yr old female with a history of severe and chronic low back pain secondary to lumbar degenerative disc diseases and lumbar spondylosis with facet arthropathy presents today for medication refills. Pain level is 6 /10 in intensity, constant/ dull/ achy in the lumbar spine with sharp/ shooting pain towards the BL lower extremities. Pain is provoked by sitting, standing or walking for periods of 20 minutes or more. Pain is alleviated with medications, topicals (which are ineffective at times), heat, physical therapy years ago, repositioning and rest. Patient is currently on [place], Lyrica, Baclofen. Patient denies any side effects of the medication(s), denies excessive drowsiness or sleepiness, denies suicidal ideation and reports that the current pain medication is helping to control the pain and improve activities of daily living. Patient denies any motor or sensory deficits. Patient denies any fever or night sweats, denies any change in the bowel movements or urination. Physical Examination: -Constitutional: Cooperative. Not in acute distress . -HEENT: Neck is supple. No lymphadenopathy. No thyromegaly. Normal thyroid size. Eyes: No ptosis , no icterus, no photophobia. ENT: No auditory deficits. Normal oropharynx. No Thrush. - Respiratory: Chest clear to auscultations bilaterally. No wheezing. No rhonchi. - Cardiovascular: Regular rate and rhythm. S1 / S2 , no S3 , no S4. - Gastrointestinal: Abdomen soft no tenderness. Bowel sounds positive in all four quadrants. No organomegaly. - Genitourinary: Deferred. - Neurologic: Cranial nerve II to XII intact. No focal neurological deficits. - Psychatric: Alert & oriented x 3. Matching mood & appropriate affect. Judgment and insight intact. - Lymphatic: No Lymphadenopathy. - Musculoskeletal: Cervical spine: Muscle bulk/ tone/ strength in the bilateral upper extremities normal. Facet loading test cervical area positive. Lumbar spine: Motor bulk/ tone/ strength lower extremities , thigh and legs : 5/5 Deep tendon reflexes : Normal Knee Jerk. Normal Ankle Jerk . Vertebral body tenderness to palpation over L4, L5 Lumbar Facet Loading Test positive Straight Leg Raise: positive at 30 degrees right side/ left side Gaenslen's Test positive Sacral spine : Severe tenderness over the Sacroiliac joint: right side / left side Range of motion: Flexion of the lumbar spine <60 degrees Range of motion: Extension of the lumbar spine <20 degrees Gaenslen's Test positive Marquita test: positive right side / left side Assessment and plan: Chronic low back pain secondary to lumbar degenerative disc disease , lumbar spondylosis with facet arthropathy without myelopathy Chronic and current use of high-risk medication (Opioids). The patient was counseled about risk of opioid use, psychological risk associated with opioids and was orally counseled to not overuse , divert or sell medications. Pt is to store medication in a safe location. The patient is counseled against driving while using narcotic medications and also not to use alcohol or any illicit recreational drugs. Patient verbalized understanding that the lack of compliance will result in failure to renew narcotic prescription(s) as well as possible discharge from the clinic Diagnoses, prognosis and treatment options including but not limited to physical therapy, surgical interventions, interventional therapies and medication management including narcotics and adjuvant medication were discussed. All patient questions answered MAPS reviewed and it was appropriate. UDS from 09/13/21 reviewed and consistent Prescription refill for [place] #90 w 1 refill, Lyrica 100mg #60 w 1 refill, Baclofen 10mg #90 w 1 refill. I have spent 31 minutes on patient care today. Dr Wyatt was available by phone for the evaluation of this patient. The time was used to review the medical records including relevant urine studies and Prescription history (MAPs), review of the available imaging, evaluation and examination of the patient, coordination of care with the medical staff and if applicable referring physicians, as well as creation of the medical record Objective - Vital Signs Vital signs: Intake & Output 11/07/21 11/08/21 11/08/21 18:59 06:59 18:59 Weight 122.47 kg PQRS Measure Charge Sheet PQRS Narrative: Smoking Status Current every day smoker Narcotic Agreement Date Signed 03/22/21 Pain Intensity [Lower Back] 5 Hx Alcohol Use (MH) No Home Medications: Ambulatory Orders Atorvastatin [Lipitor] 80 mg PO HS 06/07/14 Ipratropium-Albuterol Nebulize [Duoneb 0.5 mg-3 mg/3 ml Soln] 3 ml INHALATION RT-QID PRN 06/07/14 Nitroglycerin Sl Tabs [Nitrostat] 0.4 mg SUBLINGUAL Q5M PRN 06/07/14 Beclomethasone Dipropionate [Qvar 80 mcg/puff] 2 puff INHALATION RT-BID 08/11/14 Isosorbide Mononitrate ER [Imdur] 30 mg PO DAILY 11/03/14 DULoxetine HCL [Cymbalta] 60 mg PO HS 04/19/15 Melatonin 5 mg PO HS 08/05/18 Ondansetron [Zofran] 4 mg PO Q8HR PRN 09/25/18 Ergocalciferol (Vitamin D2) [Vitamin D2] 50,000 unit PO OCHOA 12/29/18 Aspirin [Adult Low Dose Aspirin EC] 81 mg PO QAM 04/14/19 Loratadine 10 mg PO QAM PRN 08/20/19 Albuterol Sulfate [Ventolin HFA] 2 puff INHALATION RT-Q4H PRN 11/19/19 Losartan [Cozaar] 50 mg PO DAILY #30 tab 11/20/19 Metoprolol Tartrate [Lopressor] 25 mg PO BID #60 tab 11/20/19 Tiotropium [place] [Spiriva] 1 cap INHALATION RT-DAILY 02/18/20 Acetaminophen [Tylenol] 650 mg PO DAILY PRN 05/17/20 Montelukast Sodium [Singulair] 10 mg PO HS 08/05/20 Furosemide [Lasix] 20 mg PO DAILY PRN 09/29/20 Docusate [Colace] 100 mg PO DAILY 03/16/21 Naproxen Sodium [Aleve] 220 mg PO DAILY PRN 30 Days #30 tab 08/17/21 busPIRone HCL 15 mg PO BID 09/11/21 Baclofen 10 mg PO Q8H PRN 30 Days #90 tab 11/08/21 HYDROcodone/APAP 10-325MG [Julian 10-325] 1 tab PO Q8H PRN 30 Days #90 tab 11/08/21 HYDROcodone/APAP 10-325MG [Julian 10-325] 1 tab PO Q8HR PRN 30 Days #90 tab 11/08/21 Pregabalin [Lyrica] 75 mg PO BID 30 Days #60 cap 11/08/21
[2021-11-08 08:26] VITALS: BP 127/89; PULSE 74; RESP 18; TEMP 98
== END | disposition home or self-care (01) ==
LOC: PNWHC3 07:29
PROVIDERS: ATTEND Specialist
DX: M51.36 Other intervertebral disc degeneration, lumbar region (principal); M47.896 Other spondylosis, lumbar region; M46.96 Unspecified inflammatory spondylopathy, lumbar region
CPT/HCPCS: 99211

== ENCOUNTER → 2021-11-30 | Outpatient (CLI) | payer MEDICARE ==
--- NOTE | 2021-11-30 09:52 | CTL ---
EXAMINATION TYPE: CT Low Dose Lung DATE OF EXAM ORDERED: 11/30/2021 COMPARISON: HISTORY: . Low Dose CT Lung Screening CT DLP: 146.[address] CTDI: 4.00 mGy IV CONTRAST USED: None. SCREENING VISIT: First visit COMPARISON: None. TECHNIQUE: Low dose computed tomography scan was performed through the chest at 1 millimeter thick se ctions and reconstructed images in the coronal plane at [address] DIAGNOSTIC QUALITY: Satisfactory FINDINGS: LUNG NODULES: Not presentLeft lung: no nodules identified.Right lung: no nodules identified. LUNGS: COPD: Severity: None Fibrosis: Severity:None Lymph nodes: None Other findings: None RIGHT PLEURAL SPACE: Effusion: None Calcification: None Thickening: None Pneumothorax: None LEFT PLEURAL SPACE: Effusion: None Calcification: None Thickening: None Pneumothorax: None HEART: Heart Size: Mildly enlarged Coronary calcification: Severe Pericardial effusion: None OTHER FINDINGS: Upper abdomen: No significant abnormality Bony thorax: Degenerative changes Supraclavicular region: No significant abnormalityOther: No significant abnormalityI IMPRESSION: 1. No concerning pulmonary nodules. 2. Severe coronary artery calcifications. FOLLOW UP CT CHEST RECOMMENDATION: Follow-up screening in one year CT LUNG RAD: LUNG RAD CATEGORY 1 negative
== END | disposition home or self-care (01) ==
LOC: RADCTMAIN 09:09
PROVIDERS: ATTEND Family Medicine
DX: Z12.2 Encounter for screening for malignant neoplasm of respiratory organs (principal); I25.10 Atherosclerotic heart disease of native coronary artery without angina pectoris; Z87.891 Personal history of nicotine dependence
CPT/HCPCS: 71271

== ENCOUNTER → 2021-12-20 | Outpatient (CLI) | payer MEDICARE ==
--- NOTE | 2021-12-20 13:33 | XR ---
EXAMINATION TYPE: XR chest 2V DATE OF EXAM: 12/20/2021 COMPARISON: 11/19/2019 INDICATION: Chest pain TECHNIQUE: Frontal and lateral views of the chest are obtained. FINDINGS: The heart size is normal. The pulmonary vasculature is normal. The lungs are clear. There is hyperinflation flattening the diaphragms with increased AP diameter ch est. Findings can be compatible COPD. IMPRESSION: 1. No acute pulmonary process. 2. COPD
--- NOTE | 2021-12-22 12:40 | MM ---
Reason for Exam: Screening (asymptomatic). Last mammogram was performed 7 year(s) and 1 month(s) ago. Patient History: Menarche at age 11. First Full-Term at age 21. Left ovary removed at age 40. Right ovary removed at age 40. Hysterectomy at age 40. Postmenopausal. Maternal grandmother had breast cancer, age 50. Risk Values: Lori 5 year model risk: 1.2%. NCI Lifetime model risk: 8.1%. Film Views: Bilateral CC views were taken. Bilateral MLO views were taken. Right CCNIP views were taken. Prior Study Comparison: 11/03/2014 Bilateral Screening Mammogram, [facility]. Tissue Density: There are scattered fibroglandular densities. Findings: Analyzed By CAD. Stable small chronic nodularity in the upper outer aspect right breast. Regional benign-appearing round calcifications in the anterior right breast redemonstrated. There is no suspicious group of microcalcifications or new suspicious mass in either breast. Overall Assessment: Benign, BI-RAD 2 Management: Screening Mammogram of both breasts in 1 year. A clinical breast exam by your physician is recommended on an annual basis and results should be correlated with mammographic findings. Electronically signed and approved by: Harshil Helm M.D.
== END | disposition home or self-care (01) ==
LOC: RADMAMWWP 12:26
PROVIDERS: ATTEND Family Medicine
DX: Z12.31 Encounter for screening mammogram for malignant neoplasm of breast (principal); Z78.0 Asymptomatic menopausal state; Z80.3 Family history of malignant neoplasm of breast
CPT/HCPCS: 71046; 77063; 77067

== ENCOUNTER → 2022-01-03 | Outpatient (CLI) | payer MEDICARE ==
[2022-01-03 08:04] VITALS: BP 120/73; PULSE 74; RESP 16; TEMP 98.2
--- NOTE | 2022-01-03 08:18 | P.PN ---
Subjective Progress Note Date: 01/03/22 Principal diagnosis: A 56 yr old female with a history of severe and chronic low back pain secondary to lumbar degenerative disc diseases and lumbar spondylosis with facet arthropathy presents today for medication refills. She states she would like to wean down and wean off of [place] on her own but she would like a replacement medication. Pain level is currently at 8 out of 10 in intensity, achy, throbbing in the lower aspects of her lumbar spine with shooting pain to the hips bilaterally and lower extremities. Pain is provoked by lifting and bending. Pain is alleviated with medications, topicals, injections, heat, physical therapy in the past, use of a walker for ambulation, home exercise regimen, repositioning and rest. Patient is currently on [place] 3 times a day, baclofen, Lyrica twice a day, Aleve OTC Patient denies any side effects of the medication(s), denies excessive drowsiness or sleepiness, denies suicidal ideation and reports that the current pain medication is helping to control the pain and improve activities of daily living. Patient denies any motor or sensory deficits. Patient denies any fever or night sweats, denies any change in the bowel movements or urination. Physical Examination: -Constitutional: Cooperative. Not in acute distress . -HEENT: Neck is supple. No lymphadenopathy. No thyromegaly. Normal thyroid size. Eyes: No ptosis , no icterus, no photophobia. ENT: No auditory deficits. Normal oropharynx. No Thrush. - Respiratory: Chest clear to auscultations bilaterally. No wheezing. No rhonchi. - Cardiovascular: Regular rate and rhythm. S1 / S2 , no S3 , no S4. - Gastrointestinal: Abdomen soft no tenderness. Bowel sounds positive in all four quadrants. No organomegaly. - Genitourinary: Deferred. - Neurologic: Cranial nerve II to XII intact. No focal neurological defic its. - Psychatric: Alert & oriented x 3. Matching mood & appropriate affect. Judgment and insight intact. - Lymphatic: No Lymphadenopathy. - Musculoskeletal: Cervical spine: Muscle bulk/ tone/ strength in the bilateral upper extremities normal Vertebral body tenderness to palpation over Facet loading test positive Thoracic spine Muscle bulk / tone/ strength in the bilateral paraspinal muscles normal Vertebral body tender to palpation over Facet loading test positive Lumbar spine: Motor bulk/ tone/ strength lower extremities , thigh and legs : 5/5 Deep tendon reflexes : Normal Knee Jerk. Normal Ankle Jerk . Vertebral body tenderness to palpation over L4 Lumbar Facet Loading Test positive Straight Leg Raise: positive at 30 degrees right side/ left side Gaenslen's Test positive Sacral spine : Severe tenderness over the Sacroiliac joint: right side / left side Range of motion: Flexion of the lumbar spine <60 degrees Range of motion: Extension of the lumbar spine <20 degrees Gaenslen's Test positive Kirk's Test positive Marquita test: positive right side / left side Thigh Thrust Test Sacral Thrust Test Assessment and plan: Chronic low back pain secondary to lumbar degenerative disc disease , lumbar spondylosis with facet arthropathy without myelopathy Risks, benefits of procedure discussed and pt verbalized understanding. Denies anticoagulant use or medical history of diabetes. Chronic and current use of high-risk medication (Opioids). The patient was counseled about risk of opioid use, psychological risk associated with opioids and was orally counseled to not overuse , divert or sell medications. Pt is to store medication in a safe location. The patient is counseled against driving while using narcotic medications and also not to use alcohol or any illicit recreational drugs. Patient verbalized understanding that the lack of compliance will result in failure to renew narcotic prescription(s) as well as possible discharge from the clinic Diagnoses, prognosis and treatment options including but not limited to physical therapy, surgical interventions, interventional therapies and medication management including narcotics and adjuvant medication were discussed. All patient questions answered MAPS reviewed and it was appropriate. Discontinue [place]. Patient understands wean down process. Discontinue Aleve OTC Prescription refill for Lyrica #60, baclofen with 1 refill. Add naproxen 550 mg twice a day with meals #60 with 1 refill I have spent 31 minutes on patient care today. Dr Wyatt was available by phone for the evaluation of this patient. The time was used to review the medical records including relevant urine studies and Prescription history (MAPs), review of the available imaging, evaluation and examination of the patient, coordination of care with the medical staff and if applicable referring physicians, as well as creation of the medical record Objective - Vital Signs Vital signs: Vital Signs Temp 98.2 F 01/03/22 07:57 Pulse 74 01/03/22 07:57 Resp 16 01/03/22 07:57 BP 120/73 01/03/22 07:57 Pulse Ox 92 L 01/03/22 07:57 FiO2 PQRS Measure Charge Sheet Mode of Arrival: Walker - Pain Location Back Non-Pharmacological Interventions: Heat, Home Exercise, Inactivity, Physical Therapy, Position/Reposition, Sitting, Stretching Pharmacological Interventions: Block, Epidural, Medication, PRN Medication, Topical Medication PQRS Narrative: Smoking Status Current every day smoker Narcotic Agreement Date Signed 03/22/21 Blood Pressure 120/73 Pain Intensity [Back] 8 Scale Used Numeric (1 - 10) Hx Alcohol Use (MH) No Home Medications: Ambulatory Orders Atorvastatin [Lipitor] 80 mg PO HS 06/07/14 Ipratropium-Albuterol Nebulize [Duoneb 0.5 mg-3 mg/3 ml Soln] 3 ml INHALATION RT-QID PRN 06/07/14 Nitroglycerin Sl Tabs [Nitrostat] 0.4 mg SUBLINGUAL Q5M PRN 06/07/14 Beclomethasone Dipropionate [Qvar 80 mcg/puff] 2 puff INHALATION RT-BID 08/11/14 Isosorbide Mononitrate ER [Imdur] 30 mg PO DAILY 11/03/14 DULoxetine HCL [Cymbalta] 60 mg PO HS 04/19/15 Melatonin 5 mg PO HS 08/05/18 Ondansetron [Zofran] 4 mg PO Q8HR PRN 09/25/18 Ergocalciferol (Vitamin D2) [Vitamin D2] 50,000 unit PO OCHOA 12/29/18 Aspirin [Adult Low Dose Aspirin EC] 81 mg PO QAM 04/14/19 Loratadine 10 mg PO QAM PRN 08/20/19 Albuterol Sulfate [Ventolin HFA] 2 puff INHALATION RT-Q4H PRN 11/19/19 Losartan [Cozaar] 50 mg PO DAILY #30 tab 11/20/19 Metoprolol Tartrate [Lopressor] 25 mg PO BID #60 tab 11/20/19 Tiotropium [place] [Spiriva] 1 cap INHALATION RT-DAILY 02/18/20 Acetaminophen [Tylenol] 650 mg PO DAILY PRN 05/17/20 Montelukast Sodium [Singulair] 10 mg PO HS 08/05/20 Furosemide [Lasix] 20 mg PO DAILY PRN 09/29/20 Docusate [Colace] 100 mg PO DAILY 03/16/21 busPIRone HCL 15 mg PO BID 09/11/21 Ozempic (Unk Dose) 1 tab PO DAILY 01/01/22 Pantoprazole Sodium [Protonix] 20 mg PO DAILY 01/01/22 metFORMIN HCL [Glucophage] 500 mg PO BID 01/01/22 rOPINIRole HCL [Requip] 0.5 mg PO HS 01/01/22 Baclofen 10 mg PO Q8H PRN 30 Days #90 tab 01/03/22 Naproxen Sodium 550 mg PO BID-W/MEALS 30 Days #60 tablet 01/03/22 Pregabalin [Lyrica] 100 mg PO BID 30 Days #60 cap 01/03/22
== END ==
LOC: PNWHC3 07:37
PROVIDERS: ATTEND Specialist
DX: M51.36 Other intervertebral disc degeneration, lumbar region (principal); M47.816 Spondylosis without myelopathy or radiculopathy, lumbar region; G89.29 Other chronic pain; Z79.891 Long term (current) use of opiate analgesic; F17.200 Nicotine dependence, unspecified, uncomplicated; Z88.0 Allergy status to penicillin
CPT/HCPCS: 99211

== ENCOUNTER → 2023-04-03 | Outpatient (CLI) | payer MEDICARE ==
[2023-04-03 11:56] LABS: African American GFR (CKD) >90 (>60 ml/min/1.73 sqM); Blood Urea Nitrogen 23 mg/dL (7-17); Non-African American GFR(CKD) 80 (>60 ml/min/1.73 sqM)
--- NOTE | 2023-04-03 12:28 | CT ---
EXAMINATION TYPE: CT soft tissue neck w con CT DLP: 414.4 mGycm, Automated exposure control for dose reduction was used. DATE OF EXAM: 04/03/2023 12:15 PM COMPARISON: CT brain C-spine 07/15/2019. CLINICAL INDICATION:Female, 57 years old with history of J31.0 CHRONIC RHINITIS; PHH, chronic pharyng itis TECHNIQUE: Standard enhanced CT of the neck following intravenous administration of 100 cc of Isovue 300. Axial sections with coronal and sagittal reformats were obtained. FINDINGS: Brain: Visualized portions are grossly unremarkable. Orbits: Unremarkable Sinuses: Grossly unremarkable. Suprahyoid Neck: The oropharynx, oral cavity, parapharyngeal and retropharyngeal spaces are clear and symmetric. The nasopharynx is unremarkable. Infrahyoid Neck: The larynx, hypopharynx, and supraglottic area are clear and symmetric. Parotid Glands: Unremarkable. Submandibular Glands: Unremarkable. Musculoskeletal: No acute osseous pathology. Nasal septal deviation to the right. Degenerative change s of the left mandibular condyle. Lymph nodes: Multiple nonenlarged lymph nodes are seen along both anterior chains of the neck. Vascular structures: Mild atherosclerotic calcifications of the carotid bulbs bilaterally. Thoracic Inlet/airway: Airway is patent. The lung apices are clear. Soft tissues/Thyroid: Thyroid and remainder of the soft tissues are unremarkable. Other: none. IMPRESSION No CT evidence for significant abnormality.
== END | disposition home or self-care (01) ==
LOC: RADCTMAIN 10:40
PROVIDERS: ATTEND Otolaryngology
DX: J31.0 Chronic rhinitis (principal)
CPT/HCPCS: 82565; 84520; 70491; 36415; Q9967

== ENCOUNTER → 2023-06-21 | Outpatient (CLI) | payer MEDICARE ==
--- NOTE | 2023-06-24 07:38 | MM ---
Reason for Exam: Screening (asymptomatic). Last mammogram was performed 1 year(s) and 6 month(s) ago. Patient History: Menarche at age 11. First Full-Term at age 21. Left ovary removed at age 40. Right ovary removed at age 40. Hysterectomy at age 40. Postmenopausal. Patient has history of breast feeding. Maternal grandmother had breast cancer, age 50. Risk Values: Lori 5 year model risk: 1.2%. NCI Lifetime model risk: 7.9%. Prior Study Comparison: 11/03/2014 Bilateral Screening Mammogram, [facility]. 12/20/2021 Bilateral MG 3D screening mammo w/cad, [facility]. Tissue Density: The breast tissue is almost entirely fat. Findings: Analyzed By CAD. There is no suspicious group of microcalcifications or new suspicious mass. Benign-appearing calcifications bilaterally. Overall Assessment: Benign, BI-RAD 2 Management: Screening Mammogram of both breasts in [address] [facility] will attempt to contact patient to return for supplemental views and ultrasound if indicated. Patient should continue monthly self-breast exams. A clinical breast exam by your physician is recommended on an annual basis. This exam should not preclude additional follow-up of suspicious palpable abnormalities. Note on Lori scores and lifetime risk: 1. A Lori score greater than 3% is considered moderate risk. If this is the case, consider specialist referral to assess eligibility for a risk reducing agent. 2. If overall lifetime risk for the development of breast cancer is 20% or higher, the patient may qualify for future screening with alternating mammogram and breast MRI. Electronically signed and approved by: Aram Portillo DO
== END | disposition home or self-care (01) ==
LOC: RADMAMWWP 13:00
PROVIDERS: ATTEND Family Medicine
DX: Z12.31 Encounter for screening mammogram for malignant neoplasm of breast (principal); Z78.0 Asymptomatic menopausal state; Z80.3 Family history of malignant neoplasm of breast
CPT/HCPCS: 77063; 77067

== ENCOUNTER → 2024-04-21 | Outpatient (CLI) | payer MEDICARE ==
--- NOTE | 2024-04-21 14:55 | CTL ---
EXAMINATION TYPE: CT Low Dose Lung DATE OF EXAM ORDERED: 04/21/2024 HISTORY: . Low Dose CT Lung Screening CT DLP: [address] CTDI: 2.87 mGy IV CONTRAST USED: None. SCREENING VISIT: 2 COMPARISON: 522 TECHNIQUE: Low dose computed tomography scan was performed through the chest at 1 millimeter thick se ctions and reconstructed images in the coronal plane at [address] DIAGNOSTIC QUALITY: Satisfactory FINDINGS: LUNG NODULES: Not presentLeft lung: no nodules identified.Right lung: no nodules identified. LUNGS: COPD: Severity: None Fibrosis: Severity:None Lymph nodes: None Other findings: None RIGHT PLEURAL SPACE: Effusion: None Calcification: None Thickening: None Pneumothorax: None LEFT PLEURAL SPACE: Effusion: None Calcification: None Thickening: None Pneumothorax: None HEART: Heart Size: Mildly enlarged Coronary calcification: Mild Pericardial effusion: None OTHER FINDINGS: Upper abdomen: No significant abnormality Bony thorax: Degenerative changes Supraclavicular region: No significant abnormalityOther: No significant abnormalityI IMPRESSION: No pulmonary nodularity greater than [address] CHEST RECOMMENDATION: Follow-up screening in one year CT LUNG RAD: LUNG RAD CATEGORY 1 negative [facility], , 04/21/2024 2:52 PM
== END | disposition home or self-care (01) ==
LOC: RADCTMAIN 13:29
PROVIDERS: ATTEND Family Medicine
DX: Z12.2 Encounter for screening for malignant neoplasm of respiratory organs
CPT/HCPCS: 71271

== ENCOUNTER → 2024-10-26 | Outpatient (CLI) | payer MEDICARE ==
--- NOTE | 2024-10-29 13:47 | MM ---
Reason for Exam: Screening (asymptomatic). Last mammogram was performed 1 year(s) and 4 month(s) ago. Patient History: Menarche at age 11. First Full-Term at age 21. Left ovary removed at age 40. Right ovary removed at age 40. Hysterectomy at age 40. Postmenopausal. Patient has history of breast feeding. Maternal grandmother had breast cancer, age 50. Risk Values: Lori 5 year model risk: 1.3%. NCI Lifetime model risk: 7.6%. Prior Study Comparison: 11/03/2014 Bilateral Screening Mammogram, [facility]. 12/20/2021 Bilateral MG 3D screening mammo w/cad, [facility]. 06/21/2023 Bilateral MG 3D screening mammo w/cad, [facility]. Tissue Density: There are scattered areas of fibroglandular density. Findings: Analyzed By CAD. There is no suspicious group of microcalcifications or new suspicious mass in either breast. Overall Assessment: Negative, BI-RAD 1 Management: Screening Mammogram of both breasts in 1 year. . Patient should continue monthly self-breast exams. A clinical breast exam by your physician is recommended on an annual basis. This exam should not preclude additional follow-up of suspicious palpable abnormalities. Note on Lori scores and lifetime risk: 1. A Lori score greater than 3% is considered moderate risk. If this is the case, consider specialist referral to assess eligibility for a risk reducing agent. 2. If overall lifetime risk for the development of breast cancer is 20% or higher, the patient may qualify for future screening with alternating mammogram and breast MRI. [facility], , 10/26/2024 1:36 PM. Electronically signed and approved by: Sarabjit Brandt M.D. Radiolog[facility]
== END | disposition home or self-care (01) ==
LOC: RADMAMWWP 12:51
PROVIDERS: ATTEND Family Medicine
DX: Z12.31 Encounter for screening mammogram for malignant neoplasm of breast (principal); R92.323 Mammographic fibroglandular density, bilateral breasts; Z78.0 Asymptomatic menopausal state; Z80.3 Family history of malignant neoplasm of breast
CPT/HCPCS: 77063; 77067